=== PATIENT | female | born 1940 | race Caucasian/White ===

== ENCOUNTER 2020-04-10 09:42 | Emergency (ER) | payer MEDICARE, BC, OTHER ==
--- NOTE | 2020-04-10 10:47 | EDM.PDOC ---
ED HPI GENERAL MEDICAL PROBLEM - General Chief Complaint: General Time Seen by Provider: 04/10/20 09:55 Source of Information: Reports: Patient History Limitations: Reports: No Limitations - History of Present Illness INITIAL COMMENTS - FREE TEXT/NARRATIVE: Pt. presents to ER with complaints of "rubbery legs", fatigue, joint pain and nausea. She has not vomited. Denies any fever or chills. She states that she has not travelled recently. Pt. states that she is mildly short of breath intermittently, but states that she is always somewhat short of breath. Pt. states that these symptoms have been present for about a week. Pt. denies any substernal chest pain. No jaw, arm, neck or back pain. Denies any palpitations. Pt. states that she feels she is not drinking enough water. Denies any diarrhea. Pt. denies any dysuria, urgency, frequency or urination. Denies any urine discoloration. Denies bloody to tarry stools. Pt. states that the symptoms have been intermittent. She states that she was feeling normal yesterday, and worse this AM. Pt. denies any sore throat, rhinorrhea, or congestion. Onset: Today Onset Date: 04/02/20 Location: Reports: Chest, Abdomen, Generalized Severity: Mild - Related Data Allergies Allergy/AdvReac Type Severity Reaction Status Date / Time codeine AdvReac Nausea and Verified 04/10/20 09:56 Vomiting indomethacin [From Indocin] AdvReac Nausea and Verified 04/10/20 09:56 Vomiting indomethacin sodium AdvReac Nausea and Verified 04/10/20 09:56 [From Indocin] Vomiting Home Meds: Home Meds Cholecalciferol (Vitamin D3) [Vitamin D3] 1 cap PO DAILY 03/28/16 [History] Clobetasol Propionate/Emoll [Temovate Emollient 0.05%] 1 applic TOP Q7D 03/28/16 [History] Cranberry Fruit Extract [Cranberry] 2 cap PO TID 03/28/16 [History] Esomeprazole [NexIUM] 1 cap PO DAILY PRN 03/28/16 [History] Folic Acid 3 tab PO TID 03/28/16 [History] Glycerin/Propylene Glycol [Artificial Tears Drops] 2 drop EYEBOTH BID 03/28/16 [History] Losartan Potassium [Cozaar] 1 tab PO DAILY 03/28/16 [History] Multivitamin with Minerals [Multiple Vitamin] 1 tab PO BID 03/28/16 [History] Propranolol [Inderal] 1 tab PO TID 03/28/16 [History] traMADol HCl [Ultram] 1 tab PO Q6H PRN 03/28/16 [History] Cholestyramine (With Sugar) [Questran Powder] 4 gm PO DAILY 04/10/20 [History] Furosemide [Lasix] 20 mg PO DAILY 04/10/20 [History] Loperamide [Imodium] 2 mg PO ASDIRECTED PRN 04/10/20 [History] Ondansetron [Zofran ODT] 4 mg PO Q4H PRN 04/10/20 [History] Vit C/E/Zn/Coppr/Lutein/Zeaxan [Preservision Areds 2 Softgel] 1 each PO BID 04/10/20 [History] Warfarin Sodium [Coumadin] 2.5 mg PO ASDIRECTED 04/10/20 [History] amLODIPine [Norvasc] 5 mg PO DAILY 04/10/20 [History] estradioL [Estrace Vaginal] 1 applic VAG Q7D 04/10/20 [History] Past Medical History HEENT History: Reports: Allergic Rhinitis, Cataract Cardiovascular History: Reports: High Cholesterol, Hypertension Other Cardiovascular History: aortic regurgitation, svt Gastrointestinal History: Reports: GERD Other Gastrointestinal History: colitis Genitourinary History: Reports: UTI, Recurrent Musculoskeletal History: Reports: Osteoporosis Neurological History: Reports: Migraines Hematologic History: Reports: Anemia Social & Family History - Tobacco Use Smoking Status *Q: Never Smoker ED ROS GENERAL - Review of Systems Review Of Systems: See Below Constitutional: Reports: Malaise, Weakness, Fatigue HEENT: Reports: No Symptoms Respiratory: Reports: Shortness of Breath Cardiovascular: Reports: Lightheadedness Endocrine: Reports: Fatigue GI/Abdominal: Reports: No Symptoms : Reports: No Symptoms Musculoskeletal: Reports: Joint Pain Skin: Reports: No Symptoms Neurological: Reports: No Symptoms Psychiatric: Reports: No Symptoms Hematologic/Lymphatic: Reports: No Symptoms Immunologic: Reports: No Symptoms ED EXAM, GENERAL - Physical Exam Exam: See Below Exam Limited By: No Limitations General Appearance: Alert, WD/WN, No Apparent Distress Eye Exam: Bilateral Eye: EOMI, Normal Fundi, Normal Inspection, PERRL Nose: Normal Inspection, No Blood Throat/Mouth: Normal Inspection, Normal Lips, Normal Teeth, Normal Gums, Normal Oropharynx, Normal Voice, No Airway Compromise Head: Atraumatic, Normocephalic Neck: Normal Inspection, Supple, Non-Tender, Full Range of Motion Respiratory/Chest: No Respiratory Distress, Lungs Clear, Normal Breath Sounds, No Accessory Muscle Use, Chest Non-Tender Cardiovascular: Normal Peripheral Pulses, No Edema, No JVD, No Murmur, Irregularly Irregular Peripheral Pulses: 4+: Radial (L) GI/Abdominal: Normal Bowel Sounds, Soft, Non-Tender, No Distention, No Mass (Female) Exam: Deferred Rectal (Female) Exam: Deferred Back Exam: Normal Inspection, Full Range of Motion Extremities: Normal Inspection, Normal Range of Motion, Non-Tender, No Pedal Edema, Normal Capillary Refill Neurological: Alert, Oriented, CN II-XII Intact, Normal Cognition, Normal Gait, Normal Reflexes, No Motor/Sensory Deficits Psychiatric: Normal Affect, Normal Mood Skin Exam: Warm, Dry, Intact, Normal Color, No Rash Lymphatic: No Adenopathy EKG INTERPRETATION Rhythm: A-Fib Course - Vital Signs Last Recorded V/S: Last Vital Signs Temp 37.0 C 04/10/20 09:48 Pulse 90 04/10/20 09:48 Resp 16 04/10/20 09:48 BP 126/51 L 04/10/20 09:48 Pulse Ox 96 04/10/20 09:48 - Orders/Labs/Meds Orders: Active Orders 24 hr Category Date Time Status EKG Documentation Completion [RC] STAT Care 04/10/20 10:07 Active Labs: Laboratory Tests 04/10/20 04/10/20 04/10/20 Range/Units 10:15 10:46 10:46 WBC 11.5 H (4.0-10.0) x10^3/uL RBC 4.24 (4.00-5.50) x10^6/uL Hgb 12.9 (12.0-16.0) g/dL Hct 37.2 (33.0-47.0) % MCV 87.7 (78.0-93.0) fL MCH 30.4 (26.0-32.0) pg MCHC 34.7 (32.0-36.0) g/dL RDW Coeff of Alexx 13.9 (10.0-15.0) % Plt Count 281 (130-400) x10^3/uL Neut % (Auto) 79.1 (50.0-80.0) % Lymph % (Auto) 9.8 L (25.0-50.0) % [place] % (Auto) 10.6 (2.0-11.0) % Eos % (Auto) 0.3 (0.0-4.0) % Baso % (Auto) 0.2 (0.2-1.2) % PT 33.1 H (9.5-12.3) SEC INR 3.2 (2.0-3.5) Sodium (136-145) mmol/L Potassium (3.5-5.1) mmol/L Chloride (98-107) mmol/L Carbon Dioxide (21-32) mmol/L Anion Gap (10-20) mmol/L BUN (7-18) mg/dL Creatinine (0.55-1.02) mg/dL Est Cr Clr Drug Dosing Estimated GFR (MDRD) Glucose (74-106) mg/dL Calcium (8.5-10.1) mg/dL Corrected Calcium (8.5-10.1) mg/dL Magnesium (1.8-2.4) mg/dL Total Bilirubin (0.2-1.0) mg/dL AST (15-37) U/L ALT (14-59) U/L Alkaline Phosphatase (46-116) U/L Troponin I (<=0.056) ng/mL Total Protein (6.4-8.2) g/dL Albumin (3.4-5.0) g/dL Globulin Albumin/Globulin Ratio SARS-CoV-2 RNA (RT-PCR) Negative (NEGATIVE) 04/10/20 Range/Units 10:46 WBC (4.0-10.0) x10^3/uL RBC (4.00-5.50) x10^6/uL Hgb (12.0-16.0) g/dL Hct (33.0-47.0) % MCV (78.0-93.0) fL MCH (26.0-32.0) pg MCHC (32.0-36.0) g/dL RDW Coeff of Alexx (10.0-15.0) % Plt Count (130-400) x10^3/uL Neut % (Auto) (50.0-80.0) % Lymph % (Auto) (25.0-50.0) % [place] % (Auto) (2.0-11.0) % Eos % (Auto) (0.0-4.0) % Baso % (Auto) (0.2-1.2) % PT (9.5-12.3) SEC INR (2.0-3.5) Sodium 131 L (136-145) mmol/L Potassium 4.6 (3.5-5.1) mmol/L Chloride 93 L (98-107) mmol/L Carbon Dioxide 29 (21-32) mmol/L Anion Gap 13.6 (10-20) mmol/L BUN 13 (7-18) mg/dL Creatinine 0.9 (0.55-1.02) mg/dL Est Cr Clr Drug Dosing TNP Estimated GFR (MDRD) > 60 Glucose 110 H (74-106) mg/dL Calcium 9.6 (8.5-10.1) mg/dL Corrected Calcium 10.24 H (8.5-10.1) mg/dL Magnesium 1.8 (1.8-2.4) mg/dL Total Bilirubin 0.9 (0.2-1.0) mg/dL AST 25 (15-37) U/L ALT 28 (14-59) U/L Alkaline Phosphatase 163 H (46-116) U/L Troponin I 0.021 (<=0.056) ng/mL Total Protein 7.4 (6.4-8.2) g/dL Albumin 3.2 L (3.4-5.0) g/dL Globulin 4.2 Albumin/Globulin Ratio 0.76 SARS-CoV-2 RNA (RT-PCR) (NEGATIVE) Departure - Departure Time of Disposition: 10:30 Disposition: Home, Self-Care 01 Clinical Impression: UTI (urinary tract infection) - Discharge Information Instructions: Dehydration, Adult, [id number] Referrals: Kimber Bullard DO [Primary Care Provider] - Forms: ED Department Discharge Additional Instructions: Home to rest. Bactrim DS 1 twice daily for 5 days Drink plenty of fluids, including powerade or gatorade in addition to water. Try to stay out of the sun. Bring sample of urine to ER when able to go to the bathroom. Recheck in clinic in 7-10 days Sepsis Event Note (ED) - Evaluation Sepsis Screening Result: No Definite Risk - My Orders Last 24 Hours: My Active Orders 04/10/20 10:07 EKG Documentation Completion [RC] STAT - Assessment/Plan Last 24 Hours: My Active Orders 04/10/20 10:07 EKG Documentation Completion [RC] STAT
[2020-04-10 11:12] LABS: ANION GAP 13.6 mmol/L (10-20); CHLORIDE,CL 93 mmol/L (98-107); SODIUM,NA 131 mmol/L (136-145)
[2020-04-10] MEDS ORDERED: Sulfamethoxazole/Trimethoprim 800-160 MG Tab ONE (11:20)
== END 2020-04-10 11:29 | disposition home or self-care (01) ==
LOC: VM.ED 09:42
DX: N39.0 Urinary tract infection, site not specified (principal); I10 Essential (primary) hypertension; K21.9 Gastro-esophageal reflux disease without esophagitis; I48.91 Unspecified atrial fibrillation; Z20.828 Contact with and (suspected) exposure to other viral communicable diseases; Z88.5 Allergy status to narcotic agent; Z79.899 Other long term (current) drug therapy; Z88.6 Allergy status to analgesic agent
CPT/HCPCS: 36415; 80053; 83735; 84484; 85025; 85610; 99283; U0002; 93010; 99284-GF; A9270-GY

== ENCOUNTER 2021-03-24 03:15 | Emergency (ER) | payer MEDICARE, BC ==
--- NOTE | 2021-03-24 04:09 | EDM.PDOC ---
ED HPI GENERAL MEDICAL PROBLEM - General Chief Complaint: Lower Extremity Injury/Pain Stated Complaint: Fall, left hip pain Time Seen by Provider: 03/24/21 03:45 Source of Information: Reports: Patient, EMS, Family History Limitations: Reports: No Limitations - History of Present Illness INITIAL COMMENTS - FREE TEXT/NARRATIVE: Patient states she was tried to transfer off the toilet sliding when she slipped fell down on her left side on her hip causing a sharp sudden pain. She denies any head injury or loss of consciousness EMS was called to the house and transported here to the ER. She also has a superficial skin tear to the left forearm she denies any loss of function or decreased range of motion with the left arm and no pain over the area She rates her pain in the hip with movement about a 5 out of 10 she denies any numbness or tingling or coldness to the extremity Onset: Sudden Duration: Minutes: Location: Reports: Upper Extremity, Left, Lower Extremity, Left Quality: Reports: Pressure, Throbbing Severity: Mild Improves with: Reports: Rest Worsens with: Reports: Movement Associated Symptoms: Reports: No Other Symptoms Left hip Pain Score (Numeric/FACES): 5 - Related Data Allergies Allergy/AdvReac Type Severity Reaction Status Date / Time codeine AdvReac Nausea and Verified 03/24/21 04:03 Vomiting indomethacin [From Indocin] AdvReac Nausea and Verified 03/24/21 04:03 Vomiting indomethacin sodium AdvReac Nausea and Verified 03/24/21 04:03 [From Indocin] Vomiting Home Meds: Home Meds Cholecalciferol (Vitamin D3) [Vitamin D3] 1 cap PO DAILY 03/28/16 [History] Clobetasol Propionate/Emoll [Temovate Emollient 0.05%] 1 applic TOP Q7D 03/28/16 [History] Cranberry Fruit Extract [Cranberry] 2 cap PO TID 03/28/16 [History] Esomeprazole [NexIUM] 1 cap PO DAILY PRN 03/28/16 [History] Folic Acid 3 tab PO TID 03/28/16 [History] Glycerin/Propylene Glycol [Artificial Tears Drops] 2 drop EYEBOTH BID 03/28/16 [History] Losartan Potassium [Cozaar] 1 tab PO DAILY 03/28/16 [History] Multivitamin with Minerals [Multiple Vitamin] 1 tab PO BID 03/28/16 [History] Propranolol [Inderal] 1 tab PO TID 03/28/16 [History] traMADol HCl [Ultram] 1 tab PO Q6H PRN 03/28/16 [History] Cholestyramine (With Sugar) [Questran Powder] 4 gm PO DAILY 04/10/20 [History] Furosemide [Lasix] 20 mg PO DAILY 04/10/20 [History] Loperamide [Imodium] 2 mg PO ASDIRECTED PRN 04/10/20 [History] Ondansetron [Zofran ODT] 4 mg PO Q4H PRN 04/10/20 [History] Vit C/E/Zn/Coppr/Lutein/Zeaxan [Preservision Areds 2 Softgel] 1 each PO BID 04/10/20 [History] Warfarin Sodium [Coumadin] 2.5 mg PO ASDIRECTED 04/10/20 [History] amLODIPine [Norvasc] 5 mg PO DAILY 04/10/20 [History] estradioL [Estrace Vaginal] 1 applic VAG Q7D 04/10/20 [History] Past Medical History HEENT History: Reports: Allergic Rhinitis, Cataract Cardiovascular History: Reports: High Cholesterol, Hypertension Other Cardiovascular History: aortic regurgitation, svt Gastrointestinal History: Reports: GERD Other Gastrointestinal History: colitis Genitourinary History: Reports: UTI, Recurrent Musculoskeletal History: Reports: Osteoporosis Neurological History: Reports: Migraines Hematologic History: Reports: Anemia Review of Systems - Review of Systems Review Of Systems: See Below Constitutional: Reports: No Symptoms Eyes: Reports: No Symptoms Ears: Reports: No Symptoms Nose: Reports: No Symptoms Mouth/Throat: Reports: No Symptoms Respiratory: Reports: No Symptoms Cardiovascular: Reports: No Symptoms GI/Abdominal: Reports: No Symptoms Musculoskeletal: Reports: Leg Pain Skin: Reports: No Symptoms Neurological: Reports: No Symptoms Psychiatric: Reports: No Symptoms ED EXAM, GENERAL - Physical Exam Exam: See Below Exam Limited By: No Limitations General Appearance: Alert, WD/WN, No Apparent Distress Eye Exam: Bilateral Eye: EOMI, Normal Inspection, PERRL Ears: Normal External Exam, Normal Canal, Hearing Grossly Normal, Normal TMs Nose: Normal Inspection, Normal Mucosa, No Blood Throat/Mouth: Normal Inspection, Normal Lips, Normal Teeth, Normal Gums, Normal Oropharynx, Normal Voice, No Airway Compromise Head: Atraumatic, Normocephalic Neck: Normal Inspection, Supple, Non-Tender Respiratory/Chest: No Respiratory Distress, Lungs Clear, Normal Breath Sounds, No Accessory Muscle Use, Chest Non-Tender Cardiovascular: Normal Peripheral Pulses, Regular Rate, Rhythm, No Edema, No Gallop, No JVD, No Murmur, No Rub GI/Abdominal: Normal Bowel Sounds, Soft, Non-Tender, No Organomegaly, No Distention, Pelvis Stable Back Exam: Normal Inspection. No: Full Range of Motion Extremities: Normal Inspection, No Pedal Edema, Normal Capillary Refill, Other. No: Normal Range of Motion, Non-Tender Neurological: Alert, Oriented, CN II-XII Intact, Normal Cognition, No Motor/Sensory Deficits Psychiatric: Normal Affect, Normal Mood Skin Exam: Warm, Dry, Intact, Normal Color, No Rash Course - Vital Signs Text/Narrative:: CBC BMP INR left hip series morphine 2 mg Zofran 4 mg IV X-ray left hip positive femoral neck fracture Wilber 1 call was called spoke with hospitalist Dr. PICKARD 2006 Hemoglobin hematocrit 10 and 31 Last Recorded V/S: Last Vital Signs Temp 36.7 C 03/24/21 03:15 Pulse 90 03/24/21 03:15 Resp 16 03/24/21 03:15 BP 144/49 H 03/24/21 03:15 Pulse Ox 97 03/24/21 03:15 - Orders/Labs/Meds Orders: Active Orders 24 hr Category Date Time Status Hip Min 2V or 3V Lt [CR] Stat Exams 03/24/21 04:00 Ordered BASIC METABOLIC PANEL,BMP [CHEM] Stat Lab 03/24/21 04:02 Ordered INR,PT,PROTHROMBIN TIME [COAG] Stat Lab 03/24/21 04:02 Ordered Labs: Laboratory Tests 03/24/21 Range/Units 04:10 WBC 9.4 (4.0-10.0) x10^3/uL RBC 3.42 L (4.00-5.50) x10^6/uL Hgb 10.8 L D (12.0-16.0) g/dL Hct 31.7 L (33.0-47.0) % MCV 92.7 D (78.0-93.0) fL MCH 31.6 (26.0-32.0) pg MCHC 34.1 (32.0-36.0) g/dL RDW Coeff of Alexx 13.4 (10.0-15.0) % Plt Count 175 D (130-400) x10^3/uL Neut % (Auto) 76.9 (50.0-80.0) % Lymph % (Auto) 10.6 L (25.0-50.0) % [place] % (Auto) 11.1 H (2.0-11.0) % Eos % (Auto) 1.1 (0.0-4.0) % Baso % (Auto) 0.3 (0.2-1.2) % Meds: Medications Discontinued Medications Generic Name Dose Route Start Last Admin Trade Name Freq PRN Reason Stop Dose Admin Morphine Sulfate 2 mg 03/24/21 04:02 Morphine 2 Mg/Ml Syringe IVPUSH 03/24/21 04:03 ONETIME ONE Ondansetron HCl 4 mg 03/24/21 04:02 Ondansetron 4 Mg/2 Ml Sdv IVPUSH 03/24/21 04:03 ONETIME ONE Departure - Departure Time of Disposition: 04:25 Disposition: DC/[facility]fer to [facility] 02 Condition: Good Clinical Impression: Femoral neck fracture, High risk medication use - Discharge Information *PRESCRIPTION DRUG MONITORING PROGRAM REVIEWED*: No *COPY OF PRESCRIPTION DRUG MONITORING REPORT IN PATIENT LONG: No Forms: ED Department Discharge, Interfacility Transfer SALLY Sepsis Event Note (ED) - Focused Exam Vital Signs: Vital Signs Temp Pulse Resp BP Pulse Ox 03/24/21 03:15 36.7 C 90 16 144/49 H 97 - Problem List & Annotations (1) Femoral neck fracture SNOMED Code(s): 1523261 Code(s): S72.009A - FRACTURE OF UNSP PART OF NECK OF UNSP FEMUR, INIT Status: Acute (2) High risk medication use SNOMED Code(s): 817409317, 638563416 Code(s): Z79.899 - OTHER SUPPLY PERSON (CURRENT) DRUG THERAPY Status: Acute (3) Skin tear of left upper extremity SNOMED Code(s): 416086596, 092323196 Code(s): S41.112A - LACERATION W/O FOREIGN BODY OF LEFT UPPER ARM, INIT ENCNTR Status: Acute - My Orders Last 24 Hours: My Active Orders 03/24/21 04:00 Hip Min 2V or 3V Lt [CR] Stat 03/24/21 04:02 BASIC METABOLIC PANEL,BMP [CHEM] Stat INR,PT,PROTHROMBIN TIME [COAG] Stat - Assessment/Plan Last 24 Hours: My Active Orders 03/24/21 04:00 Hip Min 2V or 3V Lt [CR] Stat 03/24/21 04:02 BASIC METABOLIC PANEL,BMP [CHEM] Stat INR,PT,PROTHROMBIN TIME [COAG] Stat
[2021-03-24] MEDS: Ondansetron 4 MG/2 ML SDV IVPUSH ONE (04:13)
[2021-03-24] MEDS: Morphine 2 MG/ML SYRINGE IVPUSH ONE ×2 (04:15→05:25)
[2021-03-24 04:30] LABS: CHLORIDE,CL 101 mmol/L (98-107); SODIUM,NA 137 mmol/L (136-145)
[2021-03-24 04:33] LABS: ANION GAP 12.1 mmol/L (5-15)
--- NOTE | 2021-03-24 07:49 | CR ---
[id number] RAD/RAD Hip Left 2-3V EXAM: RAD Hip Left 2-3V INDICATION: FALL COMPARISON: None. DISCUSSION: There is an acute comminuted, displaced and foreshortened intertrochanteric left hip fracture. Left hip joint space is maintained. Osteopenia. No other osseous abnormality. IMPRESSION: 1. Acute comminuted and displaced intertrochanteric left hip fracture. Mike Castillo MD 03/24/21 0748 Thank you for allowing us to participate in the care of your patient.
--- OUTSIDE RECORDS SUMMARY | 2021-03-25 08:05 | XMSREPORT ---
:1940 Author Organization [facility] s Address [address] [place] [address] [address] [place] [address] Care Team Providers Name Role Phone DO Juan Miguel Primary Care Provider Juan MiguelDO Attributed Provider Reason for Referral (Routine) Status Reason Specialty Diagnoses / Procedures Referred By Jenna reynolds Referred To Contact [address] [address] Phone: [phone] Prior Auth (Routine) Status Reason Specialty Diagnoses / Referred By Referred To Procedures Contact Contact NOT REQUIRED Diagnoses S/P mitral valve clip implantation Mitral valve insufficiency, unspecified etiology Nick Mensah, Procedures ECHO ADULT COMPLETE PA-C [address] [place] [id number] Prior Auth (Routine) Status Reason Specialty Diagnoses / Referred By Referred To Procedures Contact Contact NOT REQUIRED Diagnoses S/P mitral valve clip implantation Mitral valve insufficiency, unspecified etiology Nick Mensah, Fgo C ardiology Sc Procedures EKG PA-C [address] [place] [address] [phone] Phone: Fax: Reason for Visit Auth/Cert Status Reason Specialty Diagnoses / Procedures Referred By Jenna ontact Referred To Contact Diagnoses Nonrheumatic mitral (valve) insufficiency Procedures TRANSCATHETER MITRAL VALVE REPAIR PERCUT APPROACH INITIAL PROSTHESIS Encounter Details Date Type Department Care Team Description 03/22/2021 - Hospital Encounter [facility] Nacho Gabriel, S/P mitral valve 03/23/2021 [facility] DO clip implantation [address] [place] [address] [place] [address] [phone] Allergies Active Allergy Reactions Severity Noted Date Comments Codeine Nausea and Vomiting, 11/04/2012 Diarrhea Doxycycline Nausea and Vomiting 02/28/2018 Weak, le gs rubbery, N/V Indomethacin Nausea and Vomiting, 11/04/2012 Diarrhea Promethazine Headache 07/08/2018 Sulfamethoxazole Other (Specify in 05/22/2016 [place] v rahul sick W-Trimethoprim Comments) documented as of this encounter (statuses as of 03/23/2021) Medications Medication Sig Dispensed Refills Start Date End Date Status cranberry 450 MG Take 2 capsules by 90 capsule 0 01/16/2013 Active capsule mouth 3 times a day with meals Multiple Take 1 capsule by 0 Ac tive Vitamins-Minerals mouth 2 times a day (PRESERVISION AREDS 2) CAPS esomeprazole Take 1 capsule by 90 capsule 1 08/27/2014 Active (NEXIUM) 20 mg mouth 1 time a day capsule as needed for other (Specify) (Reflux symptoms). vitamin D3, Take 2,000 Units by 30 capsule 0 04/08/2015 Active cholecalciferol, mouth 1 time per day 1000 unit capsule artificial tears 1.4 Place 1 drop into 0 04/13/2016 Active % SOLN both eyes Every 4 hours as needed for dry eyes folic acid 1 mg Take 1 mg by mouth 1 0 Active tablet time per day Loperamide HCl Take 1-2 tablets by 0 Active (IMODIUM PO) mouth as needed (2 tablets with initial loose stool and 1 tablet as needed thereafter not to exceed 8 tabs per day) Probiotic Product Take 1 capsule by 0 Active (PROBIOTIC DAILY PO) mouth 1 time a day as needed furosemide (LASIX) Take 1 tablet (20 180 tablet 3 06/11/2020 0 Active 20 mg mg) by mouth 2 times 1 tabletIndications: a day Essential hypertension warfarin (COUMADIN) [facility] 90 tablet 4 07/02/2020 Active 2.5 MG Anticoagulation tabletIndications: Pt:Take as directed. Paroxysmal atrial (Insurance Purposes: fibrillation (HCC), 2.5-5 mg daily dose skilled nursing (current) range) Call use of [phone] if ? anticoagulants traMADol (ULTRAM) 50 Take 1 tablet (50 20 tablet 4 09/03/2020 Active mg mg) by mouth every 6 tabletIndications: hours as needed for Dyspnea on exertion moderate pain clobetasol Apply to affected 30 g 6 10/25/2020 Active propionate area 1 time a week (TEMOVATE) 0.05 % ointmentIndications: Lichen sclerosus et atrophicus of the vulva Additional Information Patient taking differently: affected area Every week prn, rash, Informant: Self, Reported on 03/22/2021 estradiol (ESTRACE Insert 2 g 42.5 g 3 10/25/2020 Active VAGINAL) 0.01% vaginal vaginally 1 time creamIndications: a week Atrophic vaginitis losartan 50 mg Take 1 tablet (50 90 tablet 3 01/04/2021 Active tabletIndications: mg) by mouth 1 Hypertension, time per day unspecified type acetaminophen Take 1,000 mg by 0 Active (TYLENOL) 500 mg mouth every 6 tablet hours as needed for mild pain metoprolol succinate Take 2 tablets 180 tablet 3 03/23/2021 Active (TOPROL XL) 25 mg SR (50 mg) in the tablet (24 morning and 1 hr)Indications: tablet (25 mg) in Essential the evening. hypertension, Atrial fibrillation, unspecified type ([facility]) aspirin (ECOTRIN LOW Take 1 tablet (81 30 tablet 0 03/24/2021 Active STRENGTH) 81 MG mg) by mouth 1 enteric coated time per day tabletIndications: S/P mitral valve clip implantation, Mitral valve insufficiency, unspecified etiology amoxicillin (AMOXIL) Take 4 capsules 8 capsule 1 03/23/2021 Active 500 mg (2,000 mg) by capsuleIndications: mouth as needed S/P mitral valve clip for other implantation, Mitral (Specify) (Single valve insufficiency, dose 30-60 unspecified etiology minutes before dental procedures) vitamin C, ascorbic Take 500 mg by 0 03/22 Discontinued acid, 500 MG tablet mouth as needed (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) docusate sodium Take 100 mg by 0 03/22 Discontinued (COLACE) 100 mg mouth as needed (printed circuit board panels developer capsule for constipation err or) metoprolol succinate Take 1 tablet (25 180 tablet 3 01/04/202103/23 Discontinued (TOPROL XL) 25 mg SR mg) by mouth (Reorder) tablet (24 times a day hr)Indications: Essential hypertension, Atrial fibrillation, unspecified type (HCC) documented as of this encounter (statuses as of 03/23/2021) Active Problems Problem Noted Date S/P mitral valve clip implantation 03/22/2021 MR (mitral regurgitation) 03/22/2021 Non-rheumatic mitral regurgitation 01/28/2021 skilled nursing (current) use of anticoagulants 08/04/2019 Paroxysmal atrial fibrillation 07/31/2019 Overview: Asymptomatic CHADsVAsc 4 07/26 on ASA re commended to start Coumadin/Xarelto/Eliquis. 09/26 Her Lexiscan showed her to have a small fixed area of reduced uptake in the left ventricle potentially a small infarct and no evidence of stress induc ed ischemia. Her EF was estimated at 39 %. Hyponatremia 01/22/2019 Diarrhea 01/22/2019 Forgetfulness 01/22/2019 Right ovarian cyst 07/22/2018 Recurrent UTI 01/25/2018 Tubular adenoma of colon 02/05/2017 Overview: Colonoscopy on 03/30/16. Diverticulosis. Tubular adenoma, diverticulitis 01/22 augmentin helped Hypercalcemia 04/13/2016 Lower urinary tract infectious disease 12/10/2012 Overview: E. Coli in 08/19, enterobacter in 06/20, 08/20, 02/18, and 04/20, renal US and urology consult with cystoscopy ok in 2013, UTI again 03/22, 04/21 Enterobactor tx with cipro. >100,000 CFU/mL Enterobacter c loacae complex 01/21 got ill from bactrim so started cipro, did well with Cipro had sx again in 05/23 cipro prescribed. UTI again 12/22 Cipro again but enterococcus grew so switch to amoxicillin. Enteroc occus 12/23 and got Cipro, cipro again in 01/23, UTI again in 03/25 amoxicillin prescribed, citrobacter was resistant to amoxicillin so cipro started, klebsiella cipro again. klebsiella got Macrobid Anemia 02/28/2011 Overview: Refractory, proliferative, and macrocyti c, neg bone marrow 05/18 on folate followed by Dr. Goddard She had a hemoglobin in the 13 range in November of 2009. At the time of her physical on February 16, it was down to 11.5, and on repeat on March 31 it is down to 10.7. Retic count, TSH, serum iron/TiBC, folate, B 12 OK. Serum ferritin elevated . Sed rate slightly elevated. History of anemia associated with heavy menstrual flow and several years ago again treated with iron by Dr. Reese. Bruises easilly-lifelong. Mother had iron supplements. No bleeding history. Hypertriglyceridemia 02/16/2011 Microscopic hematuria 11/29/2009 Supraventricular premature beats 11/29/2009 Overview: Dig stopped in 08/18, metoprolol started 02/16 change to propranolol 08/19 Paroxysmal atrial tachycardia that appea rs to be ectopic atrial tachycardia, probably from more than one focus in the atrium. Had EP consult in 2008 Chronic rhinitis 01/21/2009 GERD (gastroesophageal reflux disease) 10/23/2006 Overview: Moderate had EGD 08 Collagenous colitis 10/23/2006 Aortic regurgitation 12/04/2005 Overview: Mod echo 2010 and 2012. EF 65 % in 2016 and AR had actually improved Hypertension Overview: hctz stopped due to hypercalcemia in 5 and doing well off that medication, lasix started in 2018, inderal and also losartan. Norvasc added 03/26 Lichen sclerosus et atrophicus of the vulva Overview: Premarin and testosterone creams, saw GY N uses clobetasol Osteoporosis Overview: dexa improved in 01/17 had been on evista until 08/18 and also took fosamax in the past (T -1.5 of the hip) major 8.9, hip 1.6 %, stable 04/20 Migraine Overview: On fiorinal for years, decreasing doses after propranolol started in 08/19 Dense breast Dysfunction of eustachian tube documented as of this encounter (statuses as of 03/23/2021) Resolved Problems Problem Noted Date Resolved Date On rivaroxaban therapy 08/04/2019 08/04/2019 Screening for condition 02/16/2011 01/16/2013 Tachycardia 02/26/2009 12/10/2012 documented as of this encounter (statuses as of 03/23/2021) Immunizations Name Administration Dates Next Due FLU VACCINE HIGH DOSE 65YR+(Fluzone) 06/29/2020, 07/31/2019, 07/02/2018, 07/09/2017, 07/09/2017, 07/31/2016, 07/15/2015, 07/22/2014, 07/07/2013 Moderna COVID-19 Vaccine 12/02/2020 Pneumococcal Conj PCV13 03/15/2015 Pneumococcal Polysaccharide PPSV23 07/14/2010 TDAP 02/23/2012 Td(adult)preservative free 05/05/1996 Zoster Live(Zostavax) 08/19/2012 Zoster Recombinant (Shingrix) 10/04/2020, 07/13/2020 documented as of this encounter Social History Tobacco Use Types Packs/Day Years Used Date Never Smoker Smokeless Tobacco: Never Used Alcohol Use Standard Drinks/Week Comments No 0 (1 standard drink = 0.6 oz pure alcoho l) Alcohol Habits Answer Date Recorded How often do you have a drink containing alcohol? Never 03/22/2021 How many drinks containing alcohol do you have on a typical Not asked day when you are drinking? How often do you have six or more drinks on one occasion? No t asked Sex Assigned at Date Recorded Not on file documented as of this encounter Last Filed Vital Signs Vital Sign Reading Time Taken Comments Blood Pressure 118/61 03/23/2021 11:15 AM CDT Pulse 67 03/23/2021 11:15 AM CDT Temperature 36.7 C (98 F) 03/23/2021 11:15 AM CDT Respiratory Rate 16 03/23/2021 11:15 AM CDT Oxygen Saturation 92% 03/23/2021 11:15 AM CDT Inhaled Oxygen Concentration - - Weight 46.7 kg (103 lb) 03/22/2021 12:36 PM CDT Height 157.5 cm (5' 2") 03/22/2021 12:36 PM CDT Body Mass Index 18.84 03/22/2021 12:36 PM CDT documented in this encounter Functional Status Functional Status Response Date of Assessment Is the person deaf or does he/she have serious difficulty No 06/20/2018 hearing? Is this person blind or does he/she have difficulty No 06/20/2018 seeing even when wearing glasses? Do you have difficulty with walking, balance, climbing Yes 03/21/2021 stairs, or had a fall in the last 3 months? documented as of this encounter Discharge Summaries Not on filedocumented in this encounter Discharge Instructions Tia Starks RN - 03/23/2021 Warfarin Discharge Instructions: Warfarin dose given 03/23/21 in the hospital. Starting tomorrow (03/24/21) continue home dose of warfarin 1.25 mg daily and recheck INR 03/29/21. documented in this encounter Medications at Time of Discharge Medication Sig Dispensed Refills Start Date End Date metoprolol succinate Take 2 tablets (50 mg) 180 tablet 3 (TOPROL XL) 25 mg SR in the morning and 1 tablet (24 tablet (25 mg) in the hr)Indications: evening. Essential hypertension, Atrial fibrillation, unspecified type (HCC) aspirin (ECOTRIN LOW Take 1 tablet (81 mg) 30 tablet 0 03/08 STRENGTH) 81 MG by mouth 1 time per enteric coated day tabletIndications: S/P mitral valve clip implantation, Mitral valve insufficiency, unspecified etiology acetaminophen Take 1,000 mg by mouth 0 (TYLENOL) 500 mg every 6 hours as tablet needed for mild pain losartan 50 mg Take 1 tablet (50 mg) 90 tablet 3 01/04/2021 tabletIndications: by mouth 1 time per Hypertension, day unspecified type clobetasol propionate Apply to affected area 30 g 6 (TEMOVATE) 0.05 % 1 time a week ointmentIndications: Lichen sclerosus et atrophicus of the vulva estradiol (ESTRACE Insert 2 g vaginally 1 42.5 g 3 10/25 VAGINAL) 0.01% vaginal time a week creamIndications: Atrophic vaginitis traMADol (ULTRAM) 50 Take 1 tablet (50 mg) 20 tablet 4 08/09 mg tabletIndications: by mouth every 6 hours Dyspnea on exertion as needed for moderate pain warfarin (COUMADIN) [facility] 90 tablet 4 07/02/2020 2.5 MG Anticoagulation tabletIndications: Pt:Take as directed. 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 furosemide (LASIX) 20 Take 1 tablet (20 mg) 180 tablet 3 01/202006/16/2021 mg tabletIndications: by mouth 2 times a day Essential hypertension Probiotic Product Take 1 capsule by 0 (PROBIOTIC DAILY PO) mouth 1 time a day as needed folic acid 1 mg tablet Take 1 mg by mouth 1 0 time per day Loperamide HCl Take 1-2 tablets by 0 (IMODIUM PO) mouth as needed (2 tablets with initial loose stool and 1 tablet as needed thereafter not to exceed 8 tabs per day) artificial tears 1.4 % Place 1 drop into both 0 0 04/13/2016 SOLN eyes Every 4 hours as needed for dry eyes vitamin D3, Take 2,000 Units by 30 capsule 0 04/08/2015 cholecalciferol, 1000 mouth 1 time per day unit capsule Multiple Take 1 capsule by 0 Vitamins-Minerals mouth 2 times a day (PRESERVISION AREDS 2) CAPS esomeprazole (NEXIUM) Take 1 capsule by 90 capsule 1 014 20 mg capsule mouth 1 time a day as needed for other (Specify) (Reflux symptoms). cranberry 450 MG Take 2 capsules by 90 capsule 0 01/16/2013 capsule mouth 3 times a day with meals amoxicillin (AMOXIL) Take 4 capsules (2,000 8 capsule 1 500 mg mg) by mouth as needed capsuleIndications: for other (Specify) S/P mitral valve clip (Single dose 30-60 implantation, Mitral minutes before dental valve insufficiency, procedures) unspecified etiology documented as of this encounter Progress Notes Divine Perez PHARM D - 03/22/2021 4:38 PM CDT Warfarin Initial Consult Note Ms. Bullard has been initiated on warfarin per pharmacy protocol for atrial fibrillation. Desired goal INR is 2-3. Patient has previously been on anticoagulation therapy. Previous dose was 1.25 mg every day. Labs: Lab Results Component Value Date INR 1.2 (L) 03/21/2021 PT 14.7 (H) 03/21/2021 Protime Date/Time Value Ref Range Status 03/21/2021 01:37 PM 14.7 (H) 12.0 - 14.5 secs Final INR Date/Time Value Ref Range Status 03/21/2021 01:37 PM 1.2 (L) 2.0 - 3.5 Final 03/21/2021 08:15 AM 1.2 (L) 2.0 - 3.5 Final 03/15/2021 08:09 AM 2.0 2.0 - 3.5 Final Platelet Count Date/Time Value Ref Range Status 03/21/2021 01:37 PM 208 140 - 400 K/uL Final 03/15/2015 02:43 PM 405 (H) 140 - 400 K/uL Final Hemoglobin Date/Time Value Ref Range Status 03/22/2021 10:30 AM 11.1 (L) 11.5 - 15.8 g/dL Final 03/15/2015 02:43 PM 12.3 11.5 - 15.8 g/dL Final Plan: Warfarin: 1.25 mg today. Pharmacy will monitor and if indicated, adjust dose per the anticoagulation policy. Thank you very much for the consult. Divine Perez, FlorD, BCPS Elvia Sorensen [facility] - 03/22/2021 8:34 AM CDT 03/22/2021 8:34 AM CDT - Patient was seen by pharmacy. HOME MEDICATIONS have been reconciled and updated to match the patient's home usage. Current dose of Warfarin is 1.25mg daily. Medications removed: Docusate, Vit C Prior to Admission Medications Prescriptions Last Dose Informant Patient Reported? Taking? Loperamide HCl (IMODIUM PO) 03/21/2021 at 2300 Self Yes Yes Sig: Take 1-2 tablets by mouth as needed (2 tablets with initial loose stool and 1 tablet as needed thereafter not to exceed 8 tabs per day) Multiple Vitamins-Minerals (PRESERVISION AREDS 2) CAPS 03/21/2021 at PM Self Yes Yes Sig: Take 1 capsule by mouth 2 times a day Probiotic Product (PROBIOTIC DAILY PO) Greater than 1 Month at Unknown time Self Yes Yes Sig: Take 1 capsule by mouth 1 time a day as needed acetaminophen (TYLENOL) 500 mg tablet Past Week at Unknown time Self Yes Yes Sig: Take 1,000 mg by mouth every 6 hours as needed for mild pain artificial tears 1.4 % SOLN Past Week at Unknown time Self Yes Yes Sig: Place 1 drop into both eyes Every 4 hours as needed for dry eyes clobetasol propionate (TEMOVATE) 0.05 % ointment Past Month at Unknown time Self No Yes Sig: Apply to affected area 1 time a week Patient taking differently: Apply to affected area Every week as needed for rash cranberry 450 MG capsule 03/21/2021 at HS Self Yes Yes Sig: Take 2 capsules by mouth 3 times a day with meals esomeprazole (NEXIUM) 20 mg capsule Past Week at Unknown time Self Yes Yes Sig: Take 1 capsule by mouth 1 time a day as needed for other (Specify) (Reflux symptoms). estradiol (ESTRACE VAGINAL) 0.01% vaginal cream Past Week at Unknown time Self No Yes Sig: Insert 2 g vaginally 1 time a week folic acid 1 mg tablet 03/21/2021 at Unknown time Self Yes Yes Sig: Take 1 mg by mouth 1 time per day furosemide (LASIX) 20 mg tablet 03/21/2021 at AM Self No Yes Sig: Take 1 tablet (20 mg) by mouth 2 times a day losartan 50 mg tablet 03/21/2021 at AM Self No Yes Sig: Take 1 tablet (50 mg) by mouth 1 time per day metoprolol succinate (TOPROL XL) 25 mg SR tablet (24 hr) 03/22/2021 at 0500 Self No Yes Sig: Take 1 tablet (25 mg) by mouth 2 times a day traMADol (ULTRAM) 50 mg tablet Past Month at Unknown time Self No Yes Sig: Take 1 tablet (50 mg) by mouth every 6 hours as needed for moderate pain vitamin D3, cholecalciferol, 1000 unit capsule Past Week at Unknown time Self Yes Yes Sig: Take 2,000 Units by mouth 1 time per day warfarin (COUMADIN) 2.5 MG tablet 03/17/2021 at 2000 Self No Yes Sig: [facility] Anticoagulation Pt:Take as directed. (Insurance Purposes: 2.5-5 mg daily dose range) Call [phone] if ? Facility-Administered Medications: None Elvia Sorensen [facility] documented in this encounter Miscellaneous Notes Care Planning - Tia Henson RN - 03/23/2021 1:34 PM CDT Problem: DECREASED CARDIAC OUTPUT Goal: CARDIAC PUMP EFFECTIVENESS Description: DEFINITION: Adequacy of blood volume ejected from the left ventricle to support systemic perfusion pressure. 1 = Severe deviation from normal range, 2 = Substantial deviation from normal range, 3 = Moderate deviation from normal range, 4 = Mild deviation from normal range, 5 = No deviation from normal range. Outcome: Outcome acceptable for discharge Cardiac Rehab - Rosa Muniz EP - 03/23/2021 8:45 AM CDT Cardiac Rehab Phase 1 Inpatient Note: Diagnosis: mitral clip Physical Activity Completed: Ambulate in ly Distance Ambulated: 275 feet Ambulation Assistance: SBA/independent Patient response to Exercise: good Exercise Comments: Steady gait.Moving well. Just slightly short of breath but improved from before she states. Able to talk while walking. Gaitbelt used with activity Vitals Resting Heart Rate - 104 bpm Exercise Heart Rate - 125 bpm O2 Device - RA Exercise SpO2 - 97% Assessment/Plan: Tolerates activity well. Encouraged patient to ambulate in hallway 3-4 times daily as tolerated with gradual progression. -Progress as tolerated -Patient may self ambulate -Patient referred to outpatient Cardiac Rehab program -Continue to follow until until Discharge -Home activity and exercise teaching completed Recommendation: "Outpatient Cardiac Rehab in [place] in one month Continue Inpatient Cardiac Rehab Plan of Care daily until discharge. Cardiac Rehab Alpha Pager: [phone] Clinical Team - Rosetta Grimes RN - 03/23/2021 5:35 AM CDT 1954: HR substaining 140-190bpm when ambulating in room. MD notified. 5mg IV metoprolol given. HR came down to 80-110 bpm. Patients HR continues to increase to 190 bpm when up to toilet, after 5-10 minof rest patient HR within normal range 80-110. 0340: Patient up to bathroom. HR only up to 120 bpm and HR returned WNL 80-90s more quickly. AAOX4. RA. Denies pain. C/O mild SOBE. Right groin site clean/dry an soft without any hematoma. Large bruising to right hand. Up self. Care Planning - Rosetta Grimes RN - 03/22/2021 9:00 PM CDT Problem: DECREASED CARDIAC OUTPUT Goal: CARDIAC PUMP EFFECTIVENESS Description: DEFINITION: Adequacy of blood volume ejected from the left ventricle to support systemic perfusion pressure. 1 = Severe deviation from normal range, 2 = Substantial deviation from normal range, 3 = Moderate deviation from normal range, 4 = Mild deviation from normal range, 5 = No deviation from normal range. Outcome: NOC Rating 3 Flowsheets (Taken 03/22/20212057) Initial Score: 3 Target Score: 5 Plan of care reviewed with: Patient Patient specific goal for the day: Patient will remain vitally stable. Patient specific goal for the stay: Vital signs will remain stable Achieve goal for stay: By discharge Patient Progress: HR 140-180s at 2000. PRN IV metoprolol ordered to keep HR below 110bpm. One dose 5mg metoprolol given. HR now 80-90s. Otherwise VSS on RA. Tele-afib. linical Team - Cristina Dietrich RN - 03/22/2021 1:40 PM CDT Patient admitted to 6CD, room 640 from PACU, s/p mitraclip/mitral valve repair. Patient AOx4, VSS on RA. Denies pain/SOB. Tele running A.fib w/ HR in the 80s. Orthostatics completed per new 6CD fall protocol, and also ordered x1 per physician. Dual skin completed w/ Jackie, SUPERVISOR PAPER MACHINE. Findings include PIV to right hand and left forearm. Right groin site C/D/I. Pressure points WNL. No other significant skin issues noted. Right groin site C/D/I. Up self. Ambulating in halls. perative Note - Gabriel Griffith DO - 03/22/2021 10:17 AM CDT Cardiac procedure note Procedure: Percutaneous placement of Mitraclip NTW device for repair of mitral valve, Transseptal puncture. Left atrial catheterization, Temporary transvenous pacemaker Transesophageal echo. 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 Access was obtained in the right femoral vein. Using the Seldinger technique I place a 6 Tristanian 11 cm sheath. I then pre- closed thevein in preparation for closure using a Perclose device. An 18 Fr sheath was placed over 0.035 inch J-tip guidewire. Transseptal access- I advanced a 0.32 in wire into the superior vena cava. Over this wire I advanced an SL1 catheter. Under JASVIR guidance, I utilized the SL 1 catheter to engage the septum in a superior and posterior position and using Bovie cautery, I electrified a 0.032 inch J-tip guidewire which was positioned just at the tip of the SL 1 catheter. The electrified guidewire crossed the septum easily and was positioned in left upper pulmonary vein. The SL 1 catheter was advanced in the left upper pulmonary vein and an Amplatz extra stiff wire was inserted. The left atrial pressure was transduced. Mean left atrial pressure was measured. Patient was anticoagulated with heparin at this point and the ACT was managed by Anesthesia. SL 1 catheter and 18 Tristanian sheath were removed. Steerable guide insertion- Over the Amplatz superstiff wire, the steerable guide was inserted into the left atrium. Mitraclip insertion- The Mitraclip NTW was prepared for the procedure on the back table. The Mitraclip system was inserted into the steerable guide and then carefully advanced into the left atrium. Theguide was withdrawn so that approximately 1 cm was in the left atrium. Using the M-knob and posterior turning of the steerable guide catheter I was able to position the clip above the valve. The clip was opened and the grippers retracted. Rotational adjustment was performed to ensure the clip arms were open perpendicular to the valve. This clip was utilized to secure A2P@ portion of the mitral valve. JASVIR and flouroscopy were used exclusively to monitor these movements. JASVIR was used to verify that we were in the center of the jet. The clip was opened to 120 degrees and inserted into the Left ventricle. The clip was withdrawn to capture the leaflets. The grippers were deployed and clip locked. TEEwas used to evaluate the MR. There was trivila residual regurgitation. Mean gradient across the gelacio l valve was 4mmHg. Leaflet capture was determined to be adequate I transesophageal echo and the clip was released.. The left atrial pressure was transduced. Pulmonary venous flow was evaluated by JASVIR. Groin closure- The sheath was removed and the vein was closed using the perclose and a figure eight stich over the skin and subcutaneous tissue. Temporary pacemaker was removed. Manual pressure was held. Gabriel Griffith D.O. 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 systems administrator Elo Malhotra MD [address] [place] [address] [phone] Name Type Priority Associated Diagnoses Date/Ti me EKG CVS STAT 03/22/2021 10:3 6 AM CDT EKG CVS Routine 03/23/2021 8:0 0 AM CDT Name Type Priority Associated Diagnoses Order S chedule XRAY CHEST PORTABLE - Imaging TYREE today for 1 Occurrences starting 2020 until PROTIME/INR Lab Routine every [address] arting 03/23/2021, 1 c ompleted BASIC METABOLIC PANEL Lab Routine S/P mitral valve cl ip Expected: 04/22/2021 implantation (Approximate), Expires: Mitral valve 04/22/2022 insufficiency, unspecified etiology COMPLETE BLOOD COUNT Lab Routine S/P mitral valve cli p Expected: 04/22/2021, WITHOUT DIFFERENTIAL implantatio n Expires: 04/22/2022 Mitral valve insufficiency, unspecified etiology EKG CVS Routine S/P mitral valve clip Expect ed: 04/22/2021 implantation (Approximate), Expires: Mitral valve 03/23/2022 insufficiency, unspecified etiology ECHO ADULT COMPLETE CVS Routine S/P mitral valve clip Expected: 04/22/2021 implantation (Approximate), Expires: Mitral valve 04/22/2022 insufficiency, unspecified etiology Name Type Priority Associated Diagnoses [facility] Referral Routine Once for 1 Occurrences WARFARIN ANTICOAG starting 0 03/23/2021 ORDER until 1 documented as of this encounter Implants Implanted Type Area Bass Viol 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 Device Shelf Model / Serial Identifier Expiration / Lot Date Iol Acrysof Iq 0d Melissa 21.5 N [id number] - [id number] Right: ORION 02/04/2023 [id number] / Implanted: Qty: 1 on 05/16/2018 by Ronnie Lieberman MD at [facility] [id number] / CHAMBER Iol Acrysof Iq 0d Melissa 21.0 N [id number] 1 - [id number] Left: ORION 02/04/2023 [id number] / Implanted: Qty: 1 on 06/20/2018 by Ronnie Lieberman MD at [facility] [id number] / CHAMBER documented as of this encounter Procedures Procedure Name Priority Date/Time Associated Comments Diagnosis ECHO ADULT COMPLETE Routine 03/23/2021 9:46 Resu lts for this AM CDT procedure are i n the results section. EKG Routine 03/23/2021 8:00 AM CDT PTT Routine 03/23/2021 7:01 Results for this AM CDT procedure are i n the results section. PROTIME/INR Timed Routine 03/23/2021 7:01 Results fo r this AM CDT procedure are i n the results section. TROPONIN I Routine 03/23/2021 7:01 Results for this AM CDT procedure are i n the results section. BASIC METABOLIC Routine 03/23/2021 7:01 Results for this PANEL AM CDT procedure are i n the results section. HEMOGLOBIN Timed Routine 03/22/2021 10:36 Results fo r this PM CDT procedure are i n the results section. PROTIME/INR Routine 03/22/2021 4:46 Results for this PM CDT procedure are i n the results section. HEMOGLOBIN Timed Routine 03/22/2021 4:46 Results fo r this PM CDT procedure are i n the results section. EKG STAT 03/22/2021 10:36 AM CDT HEMOGLOBIN Timed Routine 03/22/2021 10:30 Results fo r this AM CDT procedure are i n the results section. ACTIVATED CLOTTING Routine 03/22/2021 9:41 Resul ts for this TIME POCT AM CDT procedure are i n the results section. ABO AND RH Routine 03/22/2021 6:46 Results for this AM CDT procedure are i n the results section. documented in this encounter Results ECHO ADULT COMPLETE (03/23/2021 9:46 AM CDT) Specimen Narrative Performed At This result has an attachment that is no t available. 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 Normal lef t ventricular wall thickness. Normal left ventricular systolic function. The ejection fraction is visually estimated to be 60 %. There are no left ventricular regional wall motion abnormalities. Doppler parameters are consistent with high left ventricular filling pres sure. Left Atrium: Dilated left atrium. Aortic Valve: The aortic valve is tricuspid. Moderate aortic cuspal thickening. Moderate aortic cuspal calcification. Wpbirgyh-uq-qvlovx aortic regurgitation. Eccentrically directed re gurgitant jet. Moderate aortic stenosis. Aortic valve mean gradient is 27 mmHg. Aorta: The ascending aorta is normal in size measuring 31.0 m m. Mitral Valve: Normal mitral valve structure. Mild-to-m oderate mitral Leaflet thickening. Mild mitral leaflet calcification. Trivial mitral regurgitation. There is a Mitraclip PMVR device deployed at the A2/P2 commisure. Mitral valve mean gradient is 3 mmHg with HR @ 75bpm. IAS: No evidence of an atrial shunt by color Doppler. Residual ASD from transeptal puncture during procedure. Right Ventricle: Normal right ventricular size. Normal ri ght ventricular systolic function. Normal right ventricular wall thickness. Pulmonary artery systolic pressure is measured at 52 mmHg. Pulmonary Artery: Moderate pulmonary artery hypertension. Right Atrium: Dilated right atrium. Tricuspid Valve: Normal tricuspid valve structure. Mild tricuspid regur gitation. Pulmonic Valve: Normal pulmonary valve structure. Trivia l pulmonary regurgitation. No pulmonary stenosis. IVC: Dilated IVC with minimal respirophasic changes. Pericardium: No significant pericardial effusion. No pleural effusi on. Measurements Left Ventricle Aortic Valve Label Value Normal Value Label Value Normal Value LVDd, 2D 41.9 mm LVOT Vmax 136 cm/s LVDs, 2D 29.2 mm AV Vmax 328 cm/s IVSd, 2D 10.6 mm LVOTd 21 mm LVPWd, 2D 9.1 mm LVOT VTI 26.2 cm FS, 2D 30.31 % LVOT PGmax 7 mmHg LVEDV, 2D 78 ml AV Vmean 246 cm/s LVESV, 2D 33 ml AV VTI 74 cm Cardiac Output 6.28 L/min AV PGmax 43 mmHg Cardiac Index 4.42 ROBINSON (Vmax) 1.4 cm-sq L/min/m-sq AV Vmax, Caliper 328 cm/s LVEDVI, 2D 54.9 ml/m2 ROBINSON (VTI) 1.2 cm-sq LVESVI, 2D 23.2 ml/m2 Obstructive Index 0.41 Stroke Index 64.08 (Vmax) ml/m-sq Obstruction Index 0.35 Left Atrium (VTI) Label Value Normal Value AV PGmean 27 mmHg LADs Long. 62 mm Mitral Valve LA Volume Index 44.5 ml/m-sq Label Value Normal Value Aorta MV E Vmax 150 cm/s Label Value Normal Value MV E/E' lateral 17.4 Ao Asc 31 mm MV E/E' septal 19.6 Heart Rate MV Dec Time 188 ms Label Value Normal Value MV E' septal 7.6 cm/s Heart Rate 69 bpm MV VTI 30 cm MVA (VTI) 3 cm-sq MV PGmax 8 mmHg MV PHT 0.07 s MVA PHT 3.4 cm-sq MV E' lateral 8.6 cm/s MV PGmean 3 mmHg Tricuspid Valve Label Value Kera l Value TR Vmax 282 cm/s TR Pmax 37 mmHg RA Pressure 15 mmHg RVSP 52 mmHg Pulmonic Valve Label Value Kera l Value PV Vmax 68 cm/s PV PGmax 2 mmHg Electronically signed by GABRIEL GRIFFITH DO on 2020 at 11:41 AM Procedure Note Interface, Inc Results No Pull Forward - 03/23/2021 11:42 AM CDT Patient: LINH BULLARD MR#: [id number] Exam Date: 03/23/2021 [facility] [address] Transthoracic Echocardiogram PAKO Rivas [id number] BP: 118/85 mmHg HR: 69 bpm : 1940 Exa m Location: Bedside Height: 62.00 "(157.5 cm) Age: 81 year(s) Pat ient Room: 640 Weight: 100 lbs.(45.36 kg) Gender: Female Pat ient Status: Inpatient BSA: 1.42 m2 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 Reading Physician: GABRIEL CULLEN DO Ordering Physician: GABRIEL CULLEN DO Procedure Indication(s): post m itral valve clip Examination: TTE Co mplete 2D(m-mode), Complete Spectral Doppler, Color Doppler Clinical History Comment: s/p mitral valve clip on Comparison Study Comparison Date: 03/22/2021 Comparison Study: Transesophageal Echoca rdiogram Mitral regurgitation has improved Findings Left Ventricle: Normal left ventricular size. Normal lef t ventricular wall thickness. Normal left ventricular systolic function. The ejection fraction is visually estimated to be 60 %. There are no left ventricular regional wall motion abnormalities. Doppler parameters are consistent with high left ventricula r filling pressure. Left Atrium: Dilated left atrium. Aortic Valve: The aortic valve is tricuspid. Moderate aortic cuspal thickening. Moderate aortic cuspal calcification. [id number] aortic regurgitation. Eccentrically directed re gurgitant jet. Moderate aortic stenosis. Aortic valve mean gradient is 27 mmHg. Aorta: The ascending aorta is normal in size me asuring 31.0 mm. Mitral Valve: Normal mitral valve structure. Mild-to-m oderate mitral Leaflet thickening. Mild mitral leaflet calcification. Trivial mitral regurgitation. There is a Mitraclip PMVR device deployed at the A2/P2 commisure. Mitral valve mean gradient is 3 mmHg with HR @ 75bpm. IAS: No evidence of an atrial shunt by color Doppler. Residual ASD from transeptal puncture during procedure. Right Ventricle: Normal right ventricular size. Normal ri ght ventricular systolic function. Normal right ventricular wall thickness. Pulmonary artery systolic pressure is measured at 52 mmHg. Pulmonary Artery: Moderate pulmonary artery hypertension. Right Atrium: Dilated right atrium. Tricuspid Valve: Normal tricuspid valve structure. Mild t ricuspid regurgitation. Pulmonic Valve: Normal pulmonary valve structure. Trivia l pulmonary regurgitation. No pulmonary stenosis. IVC: Dilated IVC with minimal respirophasic c hanges. Pericardium: No significant pericardial effusion. No pleural effusion. Measurements Left Ventricle Aortic Valve Label Value Norm al Value Label Value Normal Value LVDd, 2D 41.9 mm LVOT Vmax 136 cm/s LVDs, 2D 29.2 mm AV Vmax 328 cm/s IVSd, 2D 10.6 mm LVOTd 21 mm LVPWd, 2D 9.1 mm LVOT VTI 26.2 cm FS, 2D 30.31 % LVOT PGmax 7 mmHg LVEDV, 2D 78 ml AV Vmean 246 cm/s LVESV, 2D 33 ml AV VTI 74 cm Cardiac Output 6.28 L/min AV PGmax 43 mmHg Cardiac Index 4.42 ROBINSON (Vmax) 1.4 cm-sq L/min/m-sq AV Vmax, Caliper 328 cm/s LVEDVI, 2D 54.9 ml/m2 ROBINSON (VTI) 1.2 cm-sq LVESVI, 2D 23.2 ml/m2 Obstructive Index 0.41 Stroke Index 64.08 (Vmax) ml/m-sq Ob struction Index 0.35 Left Atrium (VTI) Label Value Norm al Value AV PGmean 27 mmHg LADs Long. 62 mm Mitral Valve LA Volume Index 44.5 ml/m-sq Label Value Normal Value Aorta MV E Vmax 150 cm/s Label Value Norm al Value MV E/E' lateral 17.4 Ao Asc 31 mm MV E/E' septal 19.6 Heart Rate MV Dec Time 188 ms Label Value Norm al Value MV E' septal 7.6 cm/s Heart Rate 69 bpm MV VTI 30 cm MVA (VTI) 3 cm-sq MV PGmax 8 mmHg MV PHT 0.07 s MVA PHT 3.4 cm-sq MV E' lateral 8.6 cm/s MV PGmean 3 mmHg Tricuspid Valve Label Value Norm al Value TR Vmax 282 cm/s TR Pmax 37 mmHg RA Pressure 15 mmHg RVSP 52 mmHg Pulmonic Valve Label Value Norm al Value PV Vmax 68 cm/s PV PGmax 2 mmHg Performing Organization Address [facility] Code Phon e [facility] CARDIOLOGY F, [place] PROTIME/INR (03/23/2021 7:01 AM CDT) Pathologist Sig nature Protime 15.1 (H) 12.0 - 14.5 secs [place] [address] [facility] INR 1.3 (L) 2.0 - 3.5 [place] [address] [facility] Specimen Blood - Blood specimen (specimen) Narrative Performed At Normal INR reference range (patients not on oral antic oagulants) [address] 0.9-1.1. INR Standard Intensity = (2.0 - 3.0) INR Higher Intensity = (2.5 - 3.5) Performing Organization Address [facility] Phon e Number [place] [address] [facility] [address] [place] [address], [place] [address] TROPONIN I (03/23/2021 7:01 AM CDT) Pathologist Sig nature Troponin I 0.199 (H) 0.000 - 0.028 ng/mL [address] Specimen Blood - Blood specimen (specimen) Performing Organization Address [facility] Phon e Number [address] [place] [address], [place] [address] BASIC METABOLIC PANEL (03/23/2021 7:01 AM CDT) Pathologist Sig nature Glucose 85 70 - 100 mg/dL [address] BUN 14 6 - 22 mg/dL [address] Creatinine 0.81 0.60 - 1.[address] mg/dL BUN/Creatinine Ratio 17.3 10.0 - 25.[address] Sodium 136 135 - 145 meq/L [place] [address] [facility] Potassium 4.1 3.5 - 5.3 meq/L [address] Chloride 103 99 - 110 meq/L [address] CO2 25 20 - 29 meq/L [address] Anion Gap with K 12 6 - 20 meq/L [address] Calcium 9.5 8.5 - 10.5 mg/dL [address] Age [address] eGFR Non- 68 >=[address] Macedonian mL/min/1.73m2 eGFR 82 >=[address] mL/min/1.73m2 Specimen Blood - Blood specimen (specimen) Performing Organization Address [facility] Code Phon e Number [address] [place] [address], [place] [address] PTT (03/23/2021 7:01 AM CDT) Pathologist Sig nature APTT 30 24 - [address] Specimen Blood - Blood specimen (specimen) Performing Organization Address [facility] Phon e Number [address] [place] [address], [place] [address] HEMOGLOBIN (03/22/2021 10:36 PM CDT) Pathologist Sig nature Hemoglobin 11.0 (L) 11.5 - 15.8 g/dL [address] Specimen Blood - Blood specimen (specimen) Performing Organization Address [facility] Phon e Number [address] [place] [address], [place] [address] PROTIME/INR (03/22/2021 4:46 PM CDT) Pathologist Sig nature Protime 15.4 (H) 12.0 - 14.[address] INR 1.3 (L) 2.0 - 3.[address] Specimen Blood - Blood specimen (specimen) Narrative Performed At Normal INR reference range (patients not on oral antic oagulants) [address] 0.9-1.1. INR Standard Intensity = (2.0 - 3.0) INR Higher Intensity = (2.5 - 3.5) Performing Organization Address [facility] Phon e Number [address] [place] [address] [place] [address] HEMOGLOBIN (03/22/2021 4:46 PM CDT) Pathologist Sig nature Hemoglobin 11.1 (L) 11.5 - 15.8 g/dL [address] Specimen Blood - Blood specimen (specimen) Performing Organization Address [facility] Phon e Number [address] [place] [id number] HEMOGLOBIN (03/22/2021 10:30 AM CDT) Pathologist Sig miguelito Hemoglobin 11.1 (L) 11.5 - 15.8 g/dL [address] Specimen Blood - Blood specimen (specimen) Performing Organization Address [facility]/[place] [facility] [place] Number [address] [phone] ACTIVATED CLOTTING TIME POCT (03/22/2021 9:41 AM CDT) Pathologist Sig miguelito Activated Clotting 235 (H) 100 - [address] [facility] POINT OF CARE TESTING Specimen Blood - Blood specimen (specimen) Narrative Performed At DEVICE: [id number] [facility] POINT OF CARE TESTING Performing Organization Address [facility]/ZIP Code Phon e Number [facility] POINT [address] [place] [address] [phone] OF CARE TESTING ABO & RH G (03/22/2021 6:46 AM CDT) Pathologist Sig miguelito ABO Type B [address] BLOOD BA NK Rh Type Positive [address] BLOOD BA NK Specimen Blood - Blood specimen (specimen) Performing Organization Address [facility]/[place] [facility] [place] Ph[place] Number [address] BLOOD BANK [address] [place] [phone] documented in this encounter Visit Diagnoses Diagnosis S/P mitral valve clip implantation - [facility] Non-rheumatic mitral regurgitation Mitral valve disorders Essential hypertension Unspecified essential hypertension Atrial fibrillation, unspecified type (H CC) Mitral valve insufficiency, unspecified etiology documented in this encounter Discharge Diagnoses Not on filedocumented in this encounter Administered Medications Medication Order MAR Action Action Date Dose Rate Site .Anticoagulation (WARFARIN) therapy nurs ing reminder Anti-coag reminder, First dose on Sun03/22/21 at 1400, Until Discontinued acetaminophen (TYLENOL) tablet 650 mg Given 03/23/2021 7:21 AM CDT 650 mg 650 mg, Oral, Every four hours prn, Starting on Sun03/22/21 at 1237, Until Discontinued, mild pain, fever > (indicate temp), fever greater than 101 F, Post - Op, Oral or NG aspirin enteric coated tablet 81 mg Given 03/23/2021 7:30 AM CDT 81 mg 81 mg, Oral, Daily, First dose on Sun03/23/21 at 0900, Until Discontinued, Post - Op, Tablet should be swallowed whole and not be divided, crushed or chewed. bisacodyl (DULCOLAX) suppository 10 mg 10 mg, Rectal, One time a day prn, Starting on 03/08 at 1237, Until Discontinued, constipation, Post - Op, Use second for constipation. If patient cannot take oral medications, use first for constipati on. furosemide (LASIX) tablet 20 mg Given 03/23/2021 7:30 AM CDT 20 mg 20 mg, Oral, Two times a day diuretic, First dose on Sun03/22/21 at 1600, Until Discontinued Given 03/22/2021 4:59 PM CDT 20 mg hydrALAZINE (APRESOLINE) injection solut ion 5-40 mg 5-40 mg, IV, Every six hours prn, Starting on 03/22 at 1237, Until Discontinued, specified parameter, SBP g reater than 160 mmHg, 2 mL, Post - Op, SBP greater than 160 mmHg Use Fourth for hy pertension Starting dose of 5 mg. Dose may be doubled from previous dose (up to ordered maximum) for a single dose. Max dose 150 mg for 8 hours or 300 mg in 24 hours. Monitor blood pressure every 15 minutes x4 and observe for hypotension and bradycardia after each dose losartan tablet 50 mg Given 03/23/2021 7:30 AM CDT 50 mg 50 mg, Oral, DAILY, First dose on Sun03/23/21 at 0900, Until Discontinued, Hold for SBP less than 100 metoprolol succinate (TOPROL XL) SR tablet Given 03/23/2021 10:1 1 AM CDT 25 mg (24 hr) 25 mg 25 mg, Oral, Daily, First dose on Sun03/23/21 at 0930, Until Discontinued, Tablet may be broken in half, but should not be crushed or chewed. metoprolol succinate (TOPROL XL) SR tabl et (24 hr) 50 mg 50 mg, Oral, Two times a day, First dose (after last modification) on Sun03/23/21 at 2100, Until Discontinued, Tablet may be broken in h usp, but should not be crushed or chewed. Hold for SBP less than 100 metoprolol tartrate (LOPRESSOR) IV solut ion 5 mg 5 mg, IV, Every ten minutes prn, Starting on Sun at 1900, Until Discontinued, other (Specify), for HR >1 10, 5 mL, Hold for BP <100 Can give for a total of 15mg nalOXone (NARCAN) injection solution (vi al) 0.2 mg 0.2 mg, Injection, Every two minutes prn , Starting on Sun03/22/21 at 1237, Until Discontinued, other (Specify), opioid induced respirat ory depression - PARTIAL reversal, 0.5 mL, Post - Op, PARTIAL REV ERSAL/RESPIRATORY DEPRESSION If respiratory rate less than 8/minute - call rapid response and admi nister (until respiratory rate increases to 10/minute). Give IV (preferred), IM or SUBQ nalOXone (NARCAN) injection solution (vi al) 0.4 mg 0.4 mg, Injection, Every two minutes prn , Starting on Sun03/22/21 at 1237, Until Discontinued, other (Specify), opioid in duced respiratory arrest - FULL reversal, 1 mL, Post - Op, FULL REVERSAL/RESPIRATORY ARREST If patient is not breathing - call CODE BLUE and administer. Give IV (preferred), IM or SUBQ ondansetron (ZOFRAN) injection solution 4 mg 4 mg, IV, Every four hours prn, Starting on Sun 1 at 1237, Until Discontinued, nausea, vomiting, 2 mL, Po st - Op, If preference is to further dilute for IV administration: First draw up pat ient-specific dose, then dilute to 10 mL with 0.9% sodium chloride. senna-docusate sodium (SENOKOT-S;PERICOL GILDA) tablet 1 tablet 1 tablet, Oral, Two times a day prn, Starting on Sun at 1237, Until Discontinued, constipation, Post - Op, U se first for constipation unless patient cannot take oral medications sodium chloride 0.9% flush (adult) 10 mL Given 03/23/2021 7:30 AM CDT 10 mL 10 mL, IV, Two times a day and prn, First dose on Sun03/22/21 at 0900, Until Discontinued, 10 mL, Active Now, Flush PIV line as scheduled and as often as necessary before and after meds. Use a push / pause technique when flushing to create turbulence. Given 03/22/2021 7:27 PM CDT 10 mL tramadol-acetaminophen (ULTRACET) 37.5-3 25 MG TABS 1 tablet 1 tablet, Oral, Every four hours prn, Starting on Sun03/22/21 at 1237, Until Discontinued, moderate pain, Post - Op, for pain scale 4 to 6 or pain not relieved by medications for pain scale 1 to 3; may administer l ess potent prescribed medication based on patient request per the organization's medication management policy. Medication Order MAR Action Action Date Dose Rate Site ceFAZolin (ANCEF) 1000 mg/10 mL Given 03/23/2021 12:28 AM CDT 1, 000 mg sterile water IV syringe 1,000 mg, IV, Every eight hours, 2 doses, First dose on Sun03/22/21 at 1700, Last dose on Sun03/23/21 at 0100, 10 mL, Post - Op, Administer over 3 minutes. Given 03/22/2021 5:00 PM CDT 1,000 mg diphenhydrAMINE (BENADRYL) injection Given 03/22/2021 10:16 AM C DT 12.5 mg solution 12.5 mg 12.5 mg, IV, One time prn, 1 dose, Starting on Sun03/22/21 at 1009, Until Sun03/22/21 at 1016, nausea, vomiting, 0.25 mL, PACU, Nausea/vomiting orders if not on intrathecal/epidural If Zofran given LESS than 4 hours ago: 1. Give Compazine 5 mg IV one time prn 2. If Compazine not effective in 15 min, give Benadryl 12.5 mg IV one time prn 3. If Benadryl not effective in 15 min, give Zofran 4 mg IV one time prn If Zofran given GREATER than 4 hours ago: 1. Give Zofran 4 mg IV one time prn 2. If Zofran not effective in 15 min, give Compazine 5 mg IV one time prn 3. If Compazine not effective in 15 min, give Benadryl 12.5 mg IV one time prn Use only anesthesia's orders for nausea/vomiting while in PACU or recovery care If preference is to further dilute for IV administration: First draw up patient-specific dose, then dilute to 10 mL with 0.9% sodium chloride. metoprolol succinate (TOPROL XL) SR tablet Given 03/23/2021 7:3 0 AM CDT 25 mg (24 hr) 25 mg 25 mg, Oral, Two times a day, First dose on Sun03/22/21 at 2100, Until Discontinued, Tablet may be broken in half, but should not be crushed or chewed. Hold for SBP less than 100 Given 03/22/2021 7:27 PM CDT 25 mg metoprolol tartrate (LOPRESSOR) 1 mg/mL IV Given 03/22/2021 7:0 3 PM CDT 5 mg solution 1 dose, Starting on Sun03/22/21 at 1858, Until Sun03/22/21 at 1903, Kendal: cabinet override sodium chloride 0.9% IV Already Infusing 03/22/2021 10:42 AM CDT 150 mL/hr solution IV, at 150 mL/hr, Continuous, Starting on Sun03/22/21 at 1120, Until Sun03/22/21 at 1519, 1,000 mL, Post - Op warfarin (COUMADIN) tablet 1.25 mg Given 03/22/2021 4:59 PM CDT 1.25 mg 1.25 mg, Oral, Warfarin one time dose, 1 dose, On Sun03/22/21 at 1730, If patient is receiving tube feeding, hold tube feeding 1 hour before and 1 hour after warfarin administration. If unable to administer dose intact, wear universal precautions (one pair of gloves). warfarin (COUMADIN) tablet 1.25 mg Given 03/23/2021 2:12 PM CDT 1.25 mg 1.25 mg, Oral, Warfarin one time dose, 1 dose, On Sun03/23/21 at 1345, If patient is receiving tube feeding, hold tube feeding 1 hour before and 1 hour after warfarin administration. If unable to administer dose intact, wear universal precautions (one pair of gloves). documented in this encounter Active and Recently Administered Medications Times are shown in CDT. Medication Order 03/21/2021 03/22/2021 03/23/2021 .Anticoagulation (WARFARIN) therapy nursing reminder 1328 (Noted Reminder - Provider: Cristina Dietrich, RN) 0918 (Noted Reminder - Provider: Amber Henson, PILAR)1402 (Noted Reminder - Provider: Tia Henson RN) Anti-coag reminder, First dose on Sun03/22/21 at 1400, Until Dis continued aspirin enteric coated tablet 81 mg 0730 (Given - Provider: Tia Henson, PILAR) 81 mg, Oral, Daily, First dose on Sun at 0900, Until Discontinued, Post - Op, Tablet should be swallowed whole and not be divided, crushed or chewed. ceFAZolin (ANCEF) 1000 mg/10 mL sterile water IV syringe (CO MPLETED) 1700 (Given - Provider: Majo White, Nurse Shoe Stamper) 0028 (Given - Provider: Rosetta Grimes RN) 1,000 mg, IV, Every eight hours, 2 doses , First dose on Sun03/22/21 at 1700, Last dose on Sun03/23/21 at 0100, 10 mL, Post - Op, Administer over 3 minutes. ceFAZolin (ANCEF) 2000 mg/20 mL sterile water IV syringe (CO MPLETED) 0900 (Given - Provider: Rodrigo Da Silva APRN-[employer]) 2,000 mg, IV, Give in OR, 1 dose, On Sun03/22/21 at 0635, 20 mL, Prep Orders (Cath) if inpatient - floor RN to release, Give in PROCEDURAL area. Start within 1 hour of cut time and complete prior to cut time. Administer as IV push over 4 minutes. furosemide (LASIX) tablet 20 mg 1659 (Gi alexandro - Provider: Majo White, Nurse Shoe Stamper) 0730 (Given - Provider: Tia stephen, PILAR)1600 (Due) 20 mg, Oral, Two times a day diuretic, F irst dose on Sun03/22/21 at 1600, Until Discontinued losartan tablet 50 mg 0730 (Give n - Provider: Tia Henson RN) 50 mg, Oral, DAILY, First dose on Sun at 0900, Until Discontinued, Hold for SBP less than 100 metoprolol succinate (TOPROL XL) SR tablet (24 hr) 25 mg (CA NCELED) 1927 (Given - Provider: Rosetta Grimes, RN) 0730 (Given - Provider: Tia stepehn, PILAR) 25 mg, Oral, Two times a day, First dose on Sun03/22/21 at 2100, Until Discontinued, Tablet may be broken in half, but should not be crushed or chewed. Hold for SBP less than 100 metoprolol succinate (TOPROL XL) SR tablet (24 hr) 25 mg 1011 (Given - Provider: Tia Henson RN) 25 mg, Oral, Daily, First dose on Sun at 0930, Until Discontinued, Tablet may be broken in half, but should not be crushed or chewed. metoprolol succinate (TOPROL XL) SR tablet (24 hr) 50 mg 2100 (Due) 50 mg, Oral, Two times a day, First dose (after last modification) on Sun03/23/21 at 2100, Until Discontinued, Tablet may be broken in half, but should not be crushed or chewed. Hold for SBP less than 100 sodium chloride 0.9% flush (adult) 10 mL 1302 (Already Infusing. - Provider: Cristina Dietrich RN)1926 (Given - Provider: Rosetta Grimes RN) 0730 (Given - Provider: Tia Henson RN)2100 (Due) 10 mL, IV, Two times a day and prn, Firs t dose on Sun03/22/21 at 0900, Until Discontinued, 10 mL, Active Now, Flush PIV line as scheduled and as often as necessary before and after meds. Use a push / p ause technique when flushing to create turbulence. warfarin (COUMADIN) tablet 1.25 mg (COMPLETED) 165 (Given - Provider: Majo White, Nurse Shoe Stamper) 1.25 mg, Oral, Warfarin one time dose, 1 dose, On Sun03/22/21 at 1730, If patient is receiving tube feeding, hold tube feeding 1 hour before and 1 hour after warfarin administration. If unable to admini ster dose intact, wear universal precautions (one pair of gloves ). warfarin (COUMADIN) tablet 1.25 mg (COMPLETED) 1412 (Given - Provider: Tia Henson RN) 1.25 mg, Oral, Warfarin one time dose, 1 dose, On Sun03/23/21 at 1345, If patient is receiving tube feeding, hold tube feeding 1 hour before and 1 hour after warfarin administration. If unable to admini ster dose intact, wear universal precautions (one pair of gloves ). Medication Order 03/21/2021 03/22/2021 03/23/2021 sodium chloride 0.9% IV solution () 1042 (Already Infusing - Provider: Jackie Mayes RN) IV, at 150 mL/hr, Continuous, Starting o n Sun03/22/21 at 1120, Until Sun03/22/21 at 1519, 1,000 mL, Post - Op Medication Order 03/21/2021 03/22/2021 03/23/2021 acetaminophen (TYLENOL) tablet 650 mg 0721 (Given - Provider: Tia Henson RN) 650 mg, Oral, Every four hours prn, Star ting on Sun03/22/21 at 1237, Until Discontinued, mild pain, fever > (indicate temp), fever greater than 101 F, Post - Op, Oral or NG bisacodyl (DULCOLAX) suppository 10 mg 10 mg, Rectal, One time a day prn, Start ing on Sun03/22/21 at 1237, Until Discontinued, constipation, Post - Op, Use second for constipation. If patient cannot take oral medications, use first for constipation. diphenhydrAMINE (BENADRYL) injection solution 12.5 mg (COMPL ETED) 1016 (Given - Provider: Jackie Mayes RN) 12.5 mg, IV, One time prn, 1 dose, Start ing on Sun03/22/21 at 1009, Until Sun03/22/21 at 1016, nausea, vomiting, 0.25 mL, PACU, Nausea/vomiting orders if not on intrathecal/epidural If Zofran given LE SS than 4 hours ago: 1. Give Compazine 5 mg IV one time prn 2. If Compazine not effective in 15 min, give Benadryl 12.5 mg IV one time prn 3. If Benadryl not effective in 15 min, give Zofran 4 mg IV one time prn If Zofran given GREATER th an 4 hours ago: 1. Give Zofran 4 mg IV one time prn 2. If Zofran not effective in 15 min, give Compazine 5 mg IV one time prn 3. If Compazine not effective in 15 min, give Benadryl 12.5 mg IV one jenna e prn Use only anesthesia's orders for nausea/vomiting while in PACU or recovery care If preference is to further dilute for IV administration: First draw up pat ient-specific dose, then dilute to 10 mL with 0.9% sodium chlori de. hydrALAZINE (APRESOLINE) injection solution 5-40 mg 5-40 mg, IV, Every six hours prn, Starti ng on Sun03/22/21 at 1237, Until Discontinued, specified parameter, SBP greater than 160 mmHg, 2 mL, Post - Op, SBP greater than 160 mmHg Use Fourth for hyperten wendy Starting dose of 5 mg. Dose may b e doubled from previous dose (up to ordered maximum) for a single dose. Max dose 150 mg for 8 hours or 300 mg in 24 hours. Monitor blood pressure every 15 minute s x4 and observe for hypotension and bradycardia after each dose metoprolol tartrate (LOPRESSOR) IV solution 5 mg 2146 (Canceled Entry - Provider: Rosetta Grimes RN) 5 mg, IV, Every ten minutes prn, Startin g on Sun03/22/21 at 1900, Until Discontinued, other (Specify), for HR >110, 5 mL, Hold for BP <100 Can give for a total of 15mg nalOXone (NARCAN) injection solution (vial) 0.2 mg 0.2 mg, Injection, Every two minutes prn , Starting on Sun03/22/21 at 1237, Until Discontinued, other (Specify), opioid induced respiratory depression - PARTIAL reversal, 0.5 mL, Post - Op, PARTIAL REVER GUSTAVO/RESPIRATORY DEPRESSION If respirator y rate less than 8/minute - call rapid response and administer (until respiratory rate increases to 10/minute). Give IV (preferred), IM or SUBQ nalOXone (NARCAN) injection solution (vial) 0.4 mg 0.4 mg, Injection, Every two minutes prn , Starting on Sun03/22/21 at 1237, Until Discontinued, other (Specify), opioid induced respiratory arrest - FULL reversal, 1 mL, Post - Op, FULL REVERSAL/RESPIRAT ORY ARREST If patient is not breathing - call CODE BLUE and administer. Give IV (preferred), IM or SUBQ omeprazole (priLOSEC) capsule 10 mg 10 mg, Oral, One time a day prn, Startin g on Sun03/22/21 at 1224, Until Discontinued, other (Specify), Reflux symptoms, Formulary Substitute for esomeprazole (Nexium) ondansetron (ZOFRAN) injection solution 4 mg 4 mg, IV, Every four hours prn, Starting on Sun03/22/21 at 1237, Until Discontinued, nausea, vomiting, 2 mL, Post - Op, If preference is to further dilute for IV administration: First draw up patient-sp ecific dose, then dilute to 10 mL with 0.9% sodium chloride. senna-docusate sodium (SENOKOT-S;PERICOLACE) tablet 1 tablet 1 tablet, Oral, Two times a day prn, Sta rting on Sun03/22/21 at 1237, Until Discontinued, constipation, Post - Op, Use first for constipation unless patient cannot take oral medications tramadol-acetaminophen (ULTRACET) 37.5-325 MG TABS 1 tablet 1 tablet, Oral, Every four hours prn, St arting on Sun03/22/21 at 1237, Until Discontinued, moderate pain, Post - Op, for pain scale 4 to 6 or pain not relieved by medications for pain scale 1 to 3; may administer less potent prescribed medica tion based on patient request per the organization's medication management policy. Medication Order 03/21/2021 03/22/2021 03/23/2021 metoprolol tartrate (LOPRESSOR) 1 mg/mL IV solution ([facility]) 1903 (Given - Provider: Cristina Dietrich, PILAR) 1 dose, Starting on Sun03/22/21 at 1858, Until Sun03/22/21 at 1903, Kendal: cabinet override documented in this encounter
== END 2021-03-24 05:40 | disposition short-term general hospital (02) ==
LOC: VM.ED 03:15
DX: S72.092A Other fracture of head and neck of left femur, initial encounter for closed fracture (principal); E78.00 Pure hypercholesterolemia, unspecified; I10 Essential (primary) hypertension; Z88.5 Allergy status to narcotic agent; Z88.1 Allergy status to other antibiotic agents; Z79.899 Other long term (current) drug therapy; W01.0XXA Fall on same level from slipping, tripping and stumbling without subsequent striking against object, initial encounter
CPT/HCPCS: 80048; 85025; 85610; 94760; 96374; 96375; 96376; 99284; 99285-25; J2270; J2405

== ENCOUNTER 2021-03-29 16:39 | Inpatient (IN) | payer MEDICARE, BC ==
[2021-03-30] MEDS ORDERED: Acetaminophen/HYDROcodone 325-5 MG Tab PO PRN (13:02)
--- NOTE | 2021-03-30 13:23 | PCM.HP.2 ---
H&P History of Present Illness - General Date of Service: 03/30/21 Admit Problem/Dx: Admission Diagnosis/Problem Admission Diagnosis/Problem Hip fracture, intertrochanteric - History of Present Illness Initial Comments - Free Text/Narative: Chief complaint: Weakness status post hip arthroplasty History of present illness: Patient had hip arthroplasty on 03/28. Had postop anemia and some hyponatremia. Is pivoting and weightbearing some but not ready to return home. She just had mitral clip on 03/22. Has known over disease mitral and aortic. On Coumadin for atrial fibrillation rate largely controlled. INR appears therapeutic today, had been on Lovenox bridge. Still is Li in place for urinary retention failed previous TW OC. Past medical history: Hypertension, LSEA, migraines, osteoporosis, aortic regurgitation and stenosis, collagenous colitis, permanent atrial fibrillation, anemia, hypercalcemia, tubular adenoma, hyponatremia, mitral regurgitation, hip fracture. Allergies: Codeine, doxycycline, Indocin, Phenergan, Septra. Medications: Tylenol, aspirin, oxycodone, losartan, metoprolol, Lasix, iron, leukocyte, melena troponin, multivitamin, Nexium, estradiol cream, clobetasol ointment, warfarin, folic acid. Social history: She lives alone, her son is in [place] miles away, she another daughter lives down by [place]. She does not smoke. Family history: Noncontributory. Review of systems: Denies headache denies chest pain denies palpitations denies shortness of breath, still little bit of nausea no vomiting no abdominal pain, no constipation, Li catheter still in place regarding urination. Vital signs are normal blood pressure 113/38, pulse 77, respirations 16, oxygen saturations 94% room air, normothermic. Alert oriented female somewhat thin and pale, no acute distress. Heart reveals ear regular rhythm borders on a fast rate systolic murmur right upper sternal border. Lungs are clear to auscultation. Abdomen soft nontender, Li catheter in place, external is warm well perfused without edema. Assessment and plan: Status post hip arthroplasty for fracture. PTOT consult. Ideally returns to home environment, social work following, may need home health consult. Doing some weightbearing and pivoting already. Fair amount of postop anemia, monitor, recheck in a.m. Valvular heart disease appears stable status post mitral clip, still has sig nificant aortic disease which will increase fall risk. On Coumadin for A. fib with borderline rapid ventricular rate. INR is therapeutic. Monitor. The Li in place for another couple of days and then possible trial without catheter after she's been up ambulating some more. Mild electrolyte issues appear largely resolved. We'll recheck panel in a.m. Still not eating a lot, recommend largely ad misbah diet at this time. Full code per previous hospital chart. - Related Data Allergies/Adverse Reactions: Allergies Allergy/AdvReac Type Severity Reaction Status Date / Time codeine AdvReac Nausea and Verified 03/24/21 04:03 Vomiting indomethacin [From Indocin] AdvReac Nausea and Verified 03/24/21 04:03 Vomiting indomethacin sodium AdvReac Nausea and Verified 03/24/21 04:03 [From Indocin] Vomiting Home Medications: Home Meds Cholecalciferol (Vitamin D3) [Vitamin D3] 2,000 units PO DAILY 03/28/16 [History] Folic Acid 1 mg PO DAILY 03/28/16 [History] Furosemide [Lasix] 20 mg PO BID 04/10/20 [History] Loperamide [Imodium] 2 mg PO ASDIRECTED PRN MDD 8 tabs per day 04/10/20 [History] Vit C/E/Zn/Coppr/Lutein/Zeaxan [Preservision Areds 2 Softgel] 1 cap PO BID 04/10/20 [History] Warfarin Sodium [Coumadin] 2.5 mg PO ASDIRECTED 04/10/20 [History] estradioL [Estrace Vaginal] 2 gram VAG Q7D 04/10/20 [History] Acetaminophen 650 mg PO Q4H PRN 03/30/21 [History] Amoxicillin 2,000 mg PO ONETIME PRN 03/30/21 [History] Aspirin [Aspirin EC] 81 mg PO DAILY 03/30/21 [History] Calcium Carbonate [Tums] 1,000 mg PO Q4H PRN 03/30/21 [History] Clobetasol [Temovate 0.05% Oint] 1 applic TOP Q7D 03/30/21 [History] Cranberry Fruit [Cranberry] 900 mg PO TIDMEALS 03/30/21 [History] Docusate Sodium/Sennosides [Senna Plus] 1 tab PO BID 03/30/21 [History] Enoxaparin [Lovenox] 60 mg SQ BID 03/30/21 [History] Esomeprazole [NexIUM] 20 mg PO DAILY PRN 03/30/21 [History] Ferrous Sulfate [Iron] 325 mg PO DAILY 03/30/21 [History] L.acidoph,Paracasei, B.lactis [Probiotic] 1 tab PO DAILY PRN 03/30/21 [History] Losartan Potassium 50 mg PO DAILY 03/30/21 [History] Melatonin 3 mg PO BEDTIME PRN 03/30/21 [History] Metoprolol Succinate 25 mg PO BEDTIME 03/30/21 [History] Metoprolol Succinate 50 mg PO DAILY 03/30/21 [History] Naloxone HCl [Narcan] 4 mg NS ONETIME PRN 03/30/21 [History] Polyvinyl Alcohol [Liquitears] 1 drop EYEBOTH Q4H PRN 03/30/21 [History] Sodium Chloride 1 gm PO TID 03/30/21 [History] oxyCODONE 2.5 mg PO Q6H PRN 03/30/21 [History] oxyCODONE 5 mg PO Q6H PRN 03/30/21 [History] Past Medical History HEENT History: Reports: Allergic Rhinitis, Cataract Cardiovascular History: Reports: High Cholesterol, Hypertension Other Cardiovascular History: aortic regurgitation, svt Gastrointestinal History: Reports: GERD Other Gastrointestinal History: colitis Genitourinary History: Reports: UTI, Recurrent Musculoskeletal History: Reports: Osteoporosis Neurological History: Reports: Migraines Hematologic History: Reports: Anemia - Past Surgical History Cardiovascular Surgical History: Reports: Other (See Below) Other Cardiovascular Surgeries/Procedures: Mitral clip procedure 03/22/21 H&P Review of Systems - Review of Systems: Review Of Systems: See Below Exam - Exam Exam: See Below - Vital Signs Weight: 5.67 kg *Q Meaningful Use (ADM) - VTE *Q VTE Anticoagulation Contraindications: Alternative TX Request PT Problem List Initiated/Reviewed/Updated: Yes Orders Last 24hrs: Active Orders 24 hr Category Date Time Status Patient Status [ADT] Routine ADT 03/30/21 13:02 Ordered Communication Order [RC] 08,20 Care 03/30/21 12:55 Active Oxygen Therapy [RC] PRN Care 03/30/21 13:02 Ordered Up With Assistance [RC] ASDIRECTED Care 03/30/21 13:02 Ordered VTE/DVT Education [RC] PER UNIT ROUTINE Care 03/30/21 13:02 Ordered Vital Signs [RC] PER UNIT ROUTINE Care 03/30/21 13:02 Ordered Consult to Case Management/Jail Manager [CONS] Cons 03/30/21 13:02 Ordered Routine OT Evaluation and Treatment [CONS] Routine Cons 03/30/21 13:02 Ordered PT Evaluation and Treatment [CONS] Routine Cons 03/30/21 13:02 Ordered Regular Diet [DIET] Diet 03/30/21 Dinner Ordered CBC WITH AUTO DIFF [HEME] AM Lab 03/31/21 05:11 Ordered COMPREHENSIVE METABOLIC PN,CMP [CHEM] AM Lab 03/31/21 05:11 Ordered MAGNESIUM [CHEM] AM Lab 03/31/21 05:11 Ordered Acetaminophen [TylenoL] Med 03/30/21 13:02 Ordered 650 mg PO Q4H PRN Acetaminophen/HYDROcodone [[place] 325-5 MG] Med 03/30/21 13:02 Ordered 1 tab PO Q4H PRN Calcium Carbonate [Tums] Med 03/30/21 13:05 Ordered 1,000 mg PO Q4H PRN Cholecalciferol (Vitamin D3) [Vitamin D3] Med 03/31/21 08:00 Ordered 2,000 units PO DAILY Clobetasol Med 03/30/21 13:15 Ordered 1 applic TOP Q7D Esomeprazole [NexIUM] Med 03/30/21 13:05 Ordered 20 mg PO DAILY PRN Folic Acid Med 03/31/21 08:00 Ordered 1 mg PO DAILY Furosemide [Lasix] Med 03/30/21 20:00 Ordered 20 mg PO BID Loperamide [Imodium] Med 03/30/21 13:05 Ordered 2 mg PO ASDIRECTED PRN Losartan [Cozaar] Med 03/31/21 08:00 Ordered 50 mg PO DAILY Ondansetron [Zofran ODT] Med 03/30/21 13:02 Ordered 4 mg PO Q6H PRN Polyvinyl Alcohol [LiquiTears 1.4% Ophth Soln] Med 03/30/21 13:05 Ordered 1 drop EYEBOTH Q4H PRN Vit C/E/Zn/Coppr/Lutein/Zeaxan [Preservision Areds 2 Med 03/30/21 20:00 Ordered Softgel] 1 cap PO BID Warfarin [Coumadin] Med 03/30/21 13:15 Ordered 2.5 mg PO ASDIRECTED estradioL [Estrace 0.01% Vaginal Crm] Med 03/30/21 13:15 Ordered 2 gram VAG Q7D Anticoagulation Contraindications VTE [AST] Routine Oth 03/30/21 13:02 Ordered Resuscitation Status Routine Resus Stat 03/30/21 13:02 Ordered Medication Orders Acetaminophen (Acetaminophen 325 Mg Tab) 650 mg PO Q4H PRN PRN Reason: Pain (Mild 1-3)/fever Hydrocodone Bitart/Acetaminophen (Acetaminophen/Hydrocodone 325-5 Mg Tab) 1 tab PO Q4H PRN PRN Reason: Pain (moderate 4-6) Folic Acid (Folic Acid 1 Mg Tab) 1 mg PO DAILY JOY Furosemide (Furosemide 20 Mg Tab) 20 mg PO BID JOY Loperamide HCl (Loperamide 2 Mg Cap) 2 mg PO ASDIRECTED PRN PRN Reason: Diarrhea Losartan Potassium (Losartan 50 Mg Tab) 50 mg PO DAILY JOY Non-Formulary Medication (Calcium Carbonate [Tums]) 1,000 mg PO Q4H PRN PRN Reason: Heartburn Non-Formulary Medication (Cholecalciferol (Vitamin D3) [Vitamin D3]) 2,000 units PO DAILY JOY Non-Formulary Medication (Clobetasol) 1 applic TOP Q7D [facility] Non-Formulary Medication (Esomeprazole [Nexium]) 20 mg PO DAILY PRN PRN Reason: GERD Non-Formulary Medication (Estradiol [Estrace 0.01% Vaginal Crm]) 2 gram VAG Q7D JOY Non-Formulary Medication (Polyvinyl Alcohol [Liquitears 1.4% Ophth Soln]) 1 drop EYEBOTH Q4H PRN PRN Reason: Dry Eyes Non-Formulary Medication (Vit C/E/Zn/Coppr/Lutein/Zeaxan [Preservision Areds 2 Softgel]) 1 cap PO BID JOY Ondansetron HCl (Ondansetron 4 Mg Tab.Dis) 4 mg PO Q6H PRN PRN Reason: nausea, able to take PO Warfarin Sodium (Warfarin 2.5 Mg Tab) 2.5 mg PO ASDIRECTED JOY
[2021-03-30] MEDS ORDERED: Hypromellose 0.3% Ophth Soln 15 ML Bottle EYEBOTH PRN (13:35)
[2021-03-30] MEDS ORDERED: Calcium Carbonate 750 MG Tab.Chew PO PRN (13:36)
[2021-03-30] MEDS ORDERED: Melatonin 3 MG Tab PO PRN (13:58)
[2021-03-30] MEDS ORDERED: Amoxicillin 500 MG Cap PO PRN (14:16)
[2021-03-30] MEDS ORDERED: Furosemide 20 MG Tab PO SCH (16:00)
[2021-03-30] MEDS: Cranberry 500 MG Cap PO SCH (20:41)
[2021-03-30] MEDS: Beta-Carotene (Vitamin A) w/Vitamin C & E plus Minerals Tab PO SCH (20:41)
[2021-03-30] MEDS: Metoprolol Succinate 25 MG Tab.ER PO SCH (20:41)
[2021-03-31 06:45] LABS: ANION GAP 10.5 mmol/L (5-15); CHLORIDE,CL 101 mmol/L (98-107); SODIUM,NA 135 mmol/L (136-145)
[2021-03-31] MEDS ORDERED: Warfarin 2.5 MG Tab PO SCH (08:00)
[2021-03-31] MEDS: Acetaminophen 325 MG Tab PO PRN ×3 (09:34→22:44)
[2021-03-31] MEDS: Cholecalciferol (Vitamin D3) 25 MCG Tab PO SCH (09:35)
[2021-03-31] MEDS: Cranberry 500 MG Cap PO SCH ×3 (09:35→18:19)
[2021-03-31] MEDS: Beta-Carotene (Vitamin A) w/Vitamin C & E plus Minerals Tab PO SCH ×2 (09:35→20:02)
[2021-03-31] MEDS: Folic Acid 1 MG Tab PO SCH (09:36)
[2021-03-31] MEDS: Losartan 50 MG Tab PO SCH (09:36)
[2021-03-31] MEDS: Metoprolol Succinate 50 MG Tab.ER PO SCH (09:36)
[2021-03-31] MEDS: Ferrous Sulfate 325 MG Tab PO SCH (09:38)
--- OUTSIDE RECORDS SUMMARY | 2021-03-31 11:10 | XMSREPORT ---
:[address] [facility] Address [address] [place] [address] Care Team Providers Name Role Phone DO Juan Miguel Primary Care Provider Juan MiguelDO Attributed Provider Reason for Referral (Routine) Status Reason Specialty Diagnoses / Procedures Referred By Jenna reynolds Referred To Contact [address] [phone] Phone: Reason for Visit Reason Comments Auth/Cert (Routine) Status Reason Specialty Diagnoses / Referred By Referred To Procedures Contact Contact [facility] Kimmie Bowiematthew Hobson MD [address] [place], [place] Matthew BACON [phone] Phone: Fax: Encounter Details Date Type Department Care Team Description 03/24/2021 - [facility] Provider, Generic Hosp Proc edure Hip fracture (HCC) 03/30/2021 Encounter [facility] Narendra Zapien MD [address] [place] [address] [phone] [address] Eric Barboza MD [address] [place] [address] [phone] Bruce Rodriguez MD [address] [place], [place] [id number] [place] [address] Cheri Ayoub MD [address] [place] [address] [phone] Allergies Active Allergy Reactions Severity Noted Date Comments Codeine Nausea and Vomiting, 11/04/2012 Diarrhea Doxycycline Nausea and Vomiting 02/28/2018 Weak, le shaista echeverriay, N/V Indomethacin Nausea and Vomiting, 11/04/2012 Diarrhea Promethazine Headache 07/08/2018 Sulfamethoxazole Other (Specify in 05/22/2016 [place] v rahul nguyen W-Trimethoprim Comments) documented as of this encounter (statuses as of 03/30/2021) Medications Medication Sig Dispensed Refills Start Date End Date Status cranberry 450 MG Take 2 capsules by 90 capsule 0 01/16/2013 Active capsule mouth 3 times a day with meals vitamin D3, Take 2,000 Units by 30 capsule 0 04/08/2015 Active cholecalciferol, mouth 1 time per day 1000 unit capsule folic acid 1 mg Take 1 mg [...] mouth 1 time a day as needed warfarin (COUMADIN) [facility] 90 tablet 4 07/02/2020 Active 2.5 MG Anticoagulation tabletIndications: Pt:Take as directed. Paroxysmal atrial (Insurance Purposes: fibrillation (HCC), 2.5-5 mg daily dose [facility] (current) range) Call use of [phone] if ? anticoagulants clobetasol Apply to affected 30 g 6 10/25/2020 Active propionate area 1 time a week (TEMOVATE) 0.05 % ointmentIndications: Lichen sclerosus et atrophicus of the vulva Additional Information Patient taking differently: affected area Every week prn, rash, Informant: Self, Reported on 03/22/2021 acetaminophen (TYLENOL) Take 2 tablets 30 tablet 0 03/30/2021 Active 325 mg (650 mg) by mouth tabletIndications: Every 4 hours as Status post hip surgery needed for mild pain aspirin (ECOTRIN LOW Take 1 tablet (81 30 tablet 0 03/30/2021 Active STRENGTH) 81 MG enteric mg) by mouth 1 coated time per day tabletIndications: S/P mitral valve clip implantation, Mitral valve insufficiency, unspecified etiology calcium carbonate Take 2 tablets 30 tablet 0 03/30/2021 Active (TUMS) 500 MG chewable (1,000 mg) by tabletIndications: mouth Every 4 Dyspepsia hours as needed for heartburn or indigestion enoxaparin (LOVENOX) 60 Inject 60 mg 2 mL 0 03/30/2021 Active mg syringe (100 mg/mL) subcutaneously 2 /20 subcutaneous injection times a day for 3 21 solutionIndications: doses Status post hip surgery, Closed fracture of left hip, initial encounter (HCC) oxyCODONE (OXY-IR) 5 mg Take 1/2 tab (2.5 12 tablet 0 03/30/20 21 Active tablet (immediate mg) by mouth every release)Indications: 6 hours as needed Status post hip for pain rating surgery, Closed 4-6 out of 10; or fracture of left hip, take 1 tab (5 mg) initial encounter (HCC) every 6 hours as needed for pain rating 7-10 out of 10 nalOXone (NARCAN) 4 Daisetta 1 spray (4 0.2 mL 0 03/30/2021 Active MG/0.1ML nasal mg) into one sprayIndications: nostril 1 time; Status post hip may repeat in surgery, Closed opposite nostril fracture of left hip, in 2 to 3 minutes initial encounter ([facility]) if person does not respond. losartan 50 mg Take 1 tablet (50 90 tablet 3 03/30/2021 Active tabletIndications: mg) by mouth 1 Hypertension, time per day unspecified type metoprolol succinate Take 2 tablets (50 180 tablet 0 1 Active (TOPROL XL) 25 mg SR mg) in the morning tablet (24 and 1 tablet (25 hr)Indications: mg) in the Essential hypertension, evening. Atrial fibrillation, unspecified type (HCC) furosemide (LASIX) 20 Take 1 tablet (20 180 tablet 3 1 062 Active mg tabletIndications: mg) by mouth 2 8/2 0 Essential hypertension times a day 22 ferrous sulfate (65 MG Take 1 tablet (325 29 tablet 0 03/30/20 21 07/2 Active FE PER 325 MG TABLET) mg) by mouth 1 2/2 0 325 mg time per day 21 tabletIndications: Status post hip surgery, Iron deficiency anemia, unspecified iron deficiency anemia type senna-docusate sodium Take 1 tablet by 60 tablet 0 03/30/2021 07 Active (SENOKOT-S;PERICOLACE) mouth 2 times a 8.6-50 MG day Hold for >2-3 21 tabletIndications: BMs per day or for Status post hip loose stools surgery, Closed fracture of left hip, initial encounter ([facility]) melatonin 3 mg Take 1 tablet (3 30 tablet 0 03/30/2021 Active tabletIndications: mg) by mouth at Status post hip bedtime as needed surgery, Insomnia, for other unspecified type (Specify) (insomnia) sodium chloride 1 gm Take 1 tablet (1 12 tablet 0 03/30/2021 0 62 Active tabletIndications: g) by mouth 3 04/26 Hyponatremia times a day for 4 21 days Multiple Take 1 capsule by 0 03/30/2021 A ctive Vitamins-Minerals mouth 2 times a (PRESERVISION AREDS 2 day EYE VITAMIN) capsule artificial tears 1.4 % Place 1 drop into 15 mL 0 Active SOLN both eyes amoxicillin (AMOXIL) Take 4 capsules 8 capsule 1 03/30/2021 Active 500 mg (2,000 mg) by capsuleIndications: S/P mouth as needed mitral valve clip for other implantation, Mitral (Specify) (Single valve insufficiency, dose 30-60 minutes unspecified etiology before dental procedures) esomeprazole (NEXIUM) Take 1 capsule (20 90 capsule 0 03/30/20 21 Active 20 mg mg) by mouth 1 capsuleIndications: time a day as Gastroesophageal reflux needed for other disease without (Specify) (Reflux esophagitis symptoms) estradiol (ESTRACE Insert 2 g 42.5 g 0 03/30/2021 Active VAGINAL) 0.01% vaginal vaginally 1 time a creamIndications: week Atrophic vaginitis Multiple Take 1 capsule by 0 03/09 Di scontinued Vitamins-Minerals mouth 2 times a 12/25 (Reorder) (PRESERVISION AREDS 2) day 21 CAPS esomeprazole (NEXIUM) Take 1 capsule by 90 capsule 1 4 03/09 Discontinued 20 mg capsule mouth 1 time a day 12/25 (Reorder) as needed for 21 other (Specify) (Reflux symptoms). artificial tears 1.4 % Place 1 drop into 0 6 03/09 Discontinued SOLN both eyes Every 4 12/25 (R eorder) hours as needed 21 for dry eyes furosemide (LASIX) 20 Take 1 tablet (20 180 tablet 3 0 03/09 Discontinued mg tabletIndications: mg) by mouth 2 3/2 0 (Reorder) Essential hypertension times a day 21 traMADol (ULTRAM) 50 mg Take 1 tablet (50 20 tablet 4 09/03/20 20 03/09 Discontinued tabletIndications: mg) by mouth every (Stop Taking at Dyspnea on exertion 6 hours as needed 21 Discharge) for moderate pain estradiol (ESTRACE Insert 2 g 42.5 g 3 10/25/202003/09 Discontinued VAGINAL) 0.01% vaginal vaginally 1 time a 12/25 (Reorder) creamIndications: week 21 Atrophic vaginitis losartan 50 mg Take 1 tablet (50 90 tablet 3 01/04/202103/09 Discontinued tabletIndications: mg) by mouth 1 12/25 (Reorder) Hypertension, time per day 21 unspecified type acetaminophen (TYLENOL) Take 1,000 mg by 0 03/09 Discontinued 500 mg tablet mouth every 6 12/25 (S top Taking at hours as needed 21 Disc harge) for mild pain metoprolol succinate Take 2 tablets (50 180 tablet 3 1 03/09 Discontinued (TOPROL XL) 25 mg SR mg) in the morning 12/25 (Reorder) tablet (24 and 1 tablet (25 21 hr)Indications: mg) in the Essential hypertension, evening. Atrial fibrillation, unspecified type (HCC) aspirin (ECOTRIN LOW Take 1 tablet (81 30 tablet 0 03/24/202103/09 Discontinued STRENGTH) 81 MG enteric mg) by mouth 1 (Reorder) coated time per day 21 tabletIndications: S/P mitral valve clip implantation, Mitral valve insufficiency, unspecified etiology amoxicillin (AMOXIL) Take 4 capsules 8 capsule 1 03/23/2021 Discontinued 500 mg (2,000 mg) by 12/25 (Reord er) capsuleIndications: S/P mouth as needed 21 mitral valve clip for other implantation, Mitral (Specify) (Single valve insufficiency, dose 30-60 minutes unspecified etiology before dental procedures) documented as of this encounter (statuses as of 03/30/2021) Active Problems Problem Noted Date Anemia 03/27/2021 Leukocytosis 03/27/2021 Hyperkalemia 03/25/2021 Hypomagnesemia 03/25/2021 Hip fracture 03/24/2021 S/P mitral valve clip implantation 03/22/2021 MR (mitral regurgitation) 03/22/2021 Non-rheumatic mitral regurgitation 01/28/2021 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 08/04/2019 Paroxysmal atrial [...] as of this encounter (statuses as of 03/30/2021) Resolved Problems Problem Noted Date Resolved Date On rivaroxaban therapy 08/04/2019 08/04/2019 Screening for condition 02/16/2011 01/16/2013 Tachycardia 02/26/2009 12/10/2012 documented as of this encounter (statuses as of 03/30/2021) Immunizations Name Administration Dates Next Due FLU VACCINE HIGH DOSE 65YR+(Fluzone) 06/29/2020, 07/31/2019, 07/31/2019, 07/02/2018, 07/02/2018, 07/09/2017, 07/09/2017, 07/31/2016, 07/15/2015, 07/15/2015, 07/22/2014, 07/07/2013 Moderna COVID-19 Vaccine 12/02/2020, 11/04/2020 Pneumococcal Conj PCV13 03/15/2015 Pneumococcal Polysaccharide PPSV23 [...] you have a drink containing alcohol? Never 03/25/2021 How many drinks containing alcohol do you have on a typical Not asked day when you are drinking? How often do you have six or more drinks on one occasion? Ne brett 03/25/2021 Sex Assigned at Date Recorded Not on file documented as of this encounter Last Filed Vital Signs Vital Sign Reading Time Taken Comments Blood Pressure 111/38 03/30/2021 8:21 AM CDT Pulse 77 03/30/2021 8:21 AM CDT Temperature 36.9 C (98.5 F) 03/30/2021 8:21 AM CDT Respiratory Rate 16 03/30/2021 8:21 AM CDT Oxygen Saturation 94% 03/30/2021 8:21 AM CDT Inhaled Oxygen Concentration - - Weight 57.4 kg (126 lb 9.6 oz) 03/27/2021 7:00 AM CDT Height 157.5 cm (5' 2") 03/24/2021 6:43 AM CDT Body Mass Index 23.16 03/24/2021 6:43 AM CDT documented in this encounter Functional Status [...] documented as of this encounter Discharge Summaries Cheri Ayoub MD - 03/30/2021 8:19 AM CDT Discharge Summary Patient ID: Linh Quan is a 81yr female. Attending Physician: Juan Ayoub* Discharging Provider Specialty: Adult Hospitalist Admit Date: 03/24/2021 Discharge Date: 03/30/2021 Primary Care Physician: Kimber Quan DO Code Status: Full Code Discharge Diagnoses # Fragility intertrochanteric proximal femur fracture, left hip # S/p peritrochanteric femoral fracture with intramedullary implant (cephalomedullary nail), proximal femur on 03/25/2021 # Acute blood loss anemia, postoperative as expected # Mild leukocytosis likely stress demargination, resolved # Hyperkalemia, resolved. 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 She was 2 days post op from mitral valve clip procedure for MR on 03/22/2021. Patient subsequently underwent left hip trochanteric fixation nailing by Dr. Campa on 03/28/2021 and is recovering. Post-operatively, patient had acute hyponatremiadue to SIADH which is being corrected and monitored closely. She also developed acute blood loss anemia as expected and acute urinary retention requiring Li placement. She is otherwise doing well. Pain is being managed appropriately with ice packs and analgesics. She is being discharged to [facility] today at 10 am. See admission H&P, orthopedic consult note, cardiology consultnote, and operative report for further details. Problem based hospital course: # Fragility intertrochanteric proximal femur fracture, left hip # S/p peritrochanteric femoral fracture with intramedullary implant (cephalomedullary nail), proximal femur on 03/25/2021 Doing well postop, pain management with ice packs, as needed Tylenol and opioid analgesics Bowel regimen while on narcotics PT/OT; WBAT LLE Bone health referral given Encourage incentive spirometry DVT prophylaxis: Systemic anticoagulation with Coumadin, currently bridging with heparin. Continue Lovenox SC 60 mg BID Follow-up with [facility] in [address] Campa in 6 weeks in the clinic # Acute blood loss anemia, postoperative as expected Baseline Hgb ~12.8 (03/21), trended down and presently stable at ~7.8-8.3 Surgical site with no drainage or oozing Continue ferrous sulfate 325 mg daily x30 doses for iron deficiency Monitor and transfuse if Hgb <7 # Mild leukocytosis likely stress demargination, resolved No signs of infection Monitor # Acute post-operative urinary retention Patient had Li catheter placed on 03/27. Li was removed on 03/28 and patient failed trial ofvoid and is being discharged to [facility] with a Li. It appears patient usually has post procedure urinary retention which eventually resolves. Given her multiple comorbidities, I will not start her on tamsulosin at this time. Will recommend trial of void again in 2-3 days at the [facility]. 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 Patient received boluses of 50 ml 3% saline with subsequent Na checks gradually improving serum sodium. She is currently at 131. We will continue her on fluid restriction 1500 mL for now and sodium chloride 1 g tabs TID. She does report having needed salt tabs in the pastand this causes stomach upset. Helps to take it with food. Follow-up on daily BMP and ensure salt tabs are titrated down appropriately and fluid restriction is liberalized. # Hyperkalemia, resolved. # Hypomagnesemia, improved Monitor and replace as needed # S/p mitral valve clipping # Valvular a-Fib, rate controlled She did have runs of a-fib with rapid rate in 180s during this admission, evaluated by cardiology, and her metoprolol was increased to 50 mg qAM and 25 mg qAM. She was briefly also placed on amiodarone infusion which has been discontinued. Patient also received digoxin. Her rate is currently well controlled on Toprol Post procedure echo on 03/23 showed LVEF 60% and trivial MR, moderate-severe AI, moderate ([facility] 27) Continue Coumadin, switch heparin bridging to Lovenox (INR 2.2 - 03/30). Continue bridging for 1more day and if remains therapeutic can stop Lovenox. Continue Coumadin dosing per pharmacy Monitored on telemetry while inpatient. Remained in atrial fibrillation with HR in 80s-90s, occasionally low 100s. Follow-up with structural heart team as outpatient (see discharge summary dated 03/23/2021 for details) # Hypertension Mostly remained normotensive, at times SBP in 100s. Continue Toprol XL 50 mg in the morning and 25 mg in the evening Home Losartan 50 mg daily and Lasix 20 mg BID were held during this hospitalization. These meds need to be restarted when appropriate # Severe AI, moderate Currently stable # Moderate (non-severe) protein calorie malnutrition Supplement diet with oral nutrition supplements/nutrient dense foods Dietitian following CODE STATUS: Full DVT prophylaxis: Systemic anticoagulation Diet: Regular, nutrition supplements due to inadequate oral intake Discussed plan of care in detail with patient and her [id number] at the bedside and answered all questions satisfactorily on 03/29/2021 At the time of discharge, patient's vital signs are stable. Her pain is controlled on oral pain medications and ice packs. She is tolerating a diet with no nausea or vomiting, having bowel movements. She continues to have a Li catheter due to postoperative urinary retention and will need a trial ofvoid in a few days as mentioned abovel. Denies any symptoms of chest pain, shortness of breath, lightheadedness, dizziness. Patient has worked with physical therapy and occupational therapy, but is physically deconditioned and needs to continue PT/OT. Case management assisted with discharge planning. Patient is deemed medically stable to be discharged to swing bed today at 10 am for further recovery and close follow-up with orthopedic surgery in the clinic and cardiology within one month from her last hospital discharge on 03/23. -- Continue medications as per AVS Discharge planning and instructions were discussed in detail with patient and her [id number] (Mariella) in the room this morning. They verbalized understanding and all questions/concerns were addressed satisfactorily. Procedures Performed and Findings Procedure(s): LEFT HIP TROCHANTERIC FIXATION NAILING - Wound Class: Clean Discharge Exam Vital Signs: Temp: 98.5 F (36.9 C) | BP: 111/38 | Pulse: 77 | Resp: 16 | Pain Ratin (out of 10) | Weight: 57.4 kg (126 lb 9.6 oz) | O2 Device: Room Air O2 Flow Rate (L/min): 1 l/min | SpO2: 94 % Intake and Output: 03/29 0700 - 03/30 0659 In: 25 [Oral:25] Out: 1450 [Urine:1450] Physical Exam General:No apparent distress. Speaks in full sentences. HEENT:Normocephalic/Atraumatic. Normal conjunctivae. Pupils equal, round, and reactive to light. Oropharynx clear, moist mucous membranes. Cardiovascular:Irregular rhythm, normal rate audible S1/S2. No pedal edema.Palpable distal pulses. Pulmonary/Chest:Normal respiratory effort, clear breath sounds auscultated in all lung callaway. No adventitious sounds. Abdominal:Soft. Non-tender. Non-distended. Bowel sounds present Genitourinary: Li catheter draining straw colored urine Musculoskeletal:LLE,decreasedrange of motion.Surgical dressing in place,c/d/i. Appropriatepost-op tenderness. Distal sensation and motor function intact. Neurological:Alert and oriented to person, place, and time. No focal findings. Dermatologic:Skin is warm and dry. No rash. Scattered bruising. Psychiatric:Affect, mood, behavior, speech, demeanor, judgement and thought content unremarkable. Consults CONSULT CARDIOLOGY CONSULT ORTHOPEDICS WARFARIN: RX TO DOSE (ADULT) [facility] REFERRAL Discharge Disposition Discharge Medications Medication List START taking these medications calcium carbonate 500 MG chewable tablet Commonly known as: TUMS Take 2 tablets (1,000 mg) by mouth Every 4 hours as needed for heartburn or indigestion enoxaparin 60 mg syringe (100 mg/mL) subcutaneous injection solution Commonly known as: LOVENOX Inject 60 mg subcutaneously 2 times a day for 3 doses ferrous sulfate 325 mg tablet Commonly known as: 65 mg FE per 325 mg tablet Take 1 tablet (325 mg) by mouth 1 time per day melatonin 3 mg tablet Take 1 tablet (3 mg) by mouth at bedtime as needed for other (Specify) (insomnia) nalOXone 4 MG/0.1ML nasal spray Commonly known as: NARCAN Daisetta 1 spray (4 mg) into one nostril 1 time; may repeat in opposite nostril in 2 to 3 minutes if person does not respond. oxyCODONE 5 mg tablet (immediate release) Commonly known as: OXY-IR Take 1/2 tab (2.5 mg) by mouth every 6 hours as needed for pain rating 4-6 out of 10; or take 1 tab (5 mg) every 6 hours as needed for pain rating 7-10 out of 10 senna-docusate sodium 8.6-50 MG tablet Commonly known as: SENOKOT-S;PERICOLACE Take 1 tablet by mouth 2 times a day Hold for >2-3 BMs per day or for loose stools sodium chloride 1 gm tablet Take 1 tablet (1 g) by mouth 3 times a day for 4 days CHANGE how you take these medications acetaminophen 325 mg tablet Commonly known as: TYLENOL Take 2 tablets (650 mg) by mouth Every 4 hours as needed for mild pain What changed: medication strength how much to take when to take this artificial tears 1.4 % Soln What changed: when to take this reasons to take this clobetasol propionate 0.05 % ointment Commonly known as: TEMOVATE Apply to affected area 1 time a week What changed: when to take this reasons to take this CONTINUE taking these medications amoxicillin 500 mg capsule Commonly known as: AMOXIL aspirin 81 MG enteric coated tablet Commonly known as: ECOTRIN LOW STRENGTH Take 1 tablet (81 mg) by mouth 1 time per day cranberry 450 MG capsule esomeprazole 20 mg capsule Commonly known as: NexIUM Take 1 capsule (20 mg) by mouth 1 time a day as needed for other (Specify) (Reflux symptoms) estradiol 0.01% vaginal cream Commonly known as: ESTRACE VAGINAL Insert 2 g vaginally 1 time a week folic acid 1 mg tablet furosemide 20 mg tablet Commonly known as: LASIX Take 1 tablet (20 mg) by mouth 2 times a day IMODIUM PO losartan 50 mg tablet metoprolol succinate 25 mg SR tablet (24 hr) Commonly known as: TOPROL XL Take 2 tablets (50 mg) in the morning and 1 tablet (25 mg) in the evening. PreserVision AREDS 2 eye vitamin capsule PROBIOTIC DAILY PO vitamin D3 (cholecalciferol) 1000 unit capsule warfarin 2.5 MG tablet Commonly known as: COUMADIN [facility] Anticoagulation Pt:Take as directed. (Insurance Purposes: 2.5-5 mg daily dose range) Call [phone] if ? STOP taking these medications traMADol 50 mg tablet Commonly known as: ULTRAM Where to Get Your Medications [facility] [address] [phone] acetaminophen 325 mg tablet aspirin 81 MG enteric coated tablet calcium carbonate 500 MG chewable tablet enoxaparin 60 mg syringe (100 mg/mL) subcutaneous injection solution esomeprazole 20 mg capsule estradiol 0.01% vaginal cream ferrous sulfate 325 mg tablet furosemide 20 mg tablet melatonin 3 mg tablet metoprolol succinate 25 mg SR tablet (24 hr) nalOXone 4 MG/0.1ML nasal spray oxyCODONE 5 mg tablet (immediate release) senna-docusate sodium 8.6-50 MG tablet sodium chloride 1 gm tablet Discharge Instructions See AVS for discharge instructions. Tests Pending at Discharge Follow-Up Scheduled See AVS for Follow up appointments made Medical Decision Making The time spent on discharge coordination was greater than 30 minutes. documented in this encounter Medications at Time of Discharge Medication Sig Dispensed Refills Start Date End Date acetaminophen (TYLENOL) Take 2 tablets (650 30 tablet 0 325 mg mg) by mouth Every 4 tabletIndications: hours as needed for Status post hip surgery mild pain aspirin (ECOTRIN LOW Take 1 tablet (81 mg) 30 tablet 0 03/09 STRENGTH) 81 MG enteric by mouth 1 time per coated day tabletIndications: S/P mitral valve clip implantation, Mitral valve insufficiency, unspecified etiology calcium carbonate Take 2 tablets (1,000 30 tablet 0 021 (TUMS) 500 MG chewable mg) by mouth Every 4 tabletIndications: hours as needed for Dyspepsia heartburn or indigestion enoxaparin (LOVENOX) 60 Inject 60 mg 2 mL 0 03/30/2021 04/01/2021 mg syringe (100 mg/mL) subcutaneously 2 times subcutaneous injection a day for 3 doses solutionIndications: Status post hip surgery, Closed fracture of left hip, initial encounter ([facility]) oxyCODONE (OXY-IR) 5 mg Take 1/2 tab (2.5 mg) 12 tablet 0 0 03/30/2021 tablet (immediate by mouth every 6 hours release)Indications: as needed for pain Status post hip rating 4-6 out of 10; surgery, Closed or take 1 tab (5 mg) fracture of left hip, every 6 hours as initial encounter ([facility]) needed for pain rating 7-10 out of 10 losartan 50 mg Take 1 tablet (50 mg) 90 tablet 3 03/30/2021 tabletIndications: by mouth 1 time per Hypertension, day unspecified type metoprolol succinate Take 2 tablets (50 mg) 180 tablet 0 (TOPROL XL) 25 mg SR in the morning and 1 tablet (24 tablet (25 mg) in the hr)Indications: evening. Essential hypertension, Atrial fibrillation, unspecified type ([facility] [facility]) furosemide (LASIX) 20 Take 1 tablet (20 mg) 180 tablet 3 04/04/2022 mg tabletIndications: by mouth 2 times a day Essential hypertension ferrous sulfate (65 MG Take 1 tablet (325 mg) 29 tablet 0 0 03/30/2021 04/28/2021 FE PER 325 MG TABLET) by mouth 1 time per 325 mg day tabletIndications: Status post hip surgery, Iron deficiency anemia, unspecified iron deficiency anemia type senna-docusate sodium Take 1 tablet by mouth 60 tablet 0 04/29/2021 (SENOKOT-S;PERICOLACE) 2 times a day Hold for 8.6-50 MG >2-3 BMs per day or tabletIndications: for loose stools Status post hip surgery, Closed fracture of left hip, initial encounter ([facility]) melatonin 3 mg Take 1 tablet (3 mg) 30 tablet 0 03/30/2021 tabletIndications: by mouth at bedtime as Status post hip needed for other surgery, Insomnia, (Specify) (insomnia) unspecified type sodium chloride 1 gm Take 1 tablet (1 g) by 12 tablet 0 04/03/2021 tabletIndications: mouth 3 times a day Hyponatremia for 4 days Multiple Take 1 capsule by 0 03/30/2021 Vitamins-Minerals mouth 2 times a day (PRESERVISION AREDS 2 EYE VITAMIN) capsule artificial tears 1.4 % Place 1 drop into both 15 mL 0 0 03/30/2021 SOLN eyes amoxicillin (AMOXIL) Take 4 capsules (2,000 8 capsule 1 500 mg mg) by mouth as needed capsuleIndications: S/P for other (Specify) mitral valve clip (Single dose 30-60 implantation, Mitral minutes before dental valve insufficiency, procedures) unspecified etiology esomeprazole (NEXIUM) Take 1 capsule (20 mg) 90 capsule 0 20 mg by mouth 1 time a day capsuleIndications: as needed for other Gastroesophageal reflux (Specify) (Reflux disease without symptoms) esophagitis estradiol (ESTRACE Insert 2 g vaginally 1 42.5 g 0 03/30 VAGINAL) 0.01% vaginal time a week creamIndications: Atrophic vaginitis clobetasol propionate Apply to affected area 30 g 6 (TEMOVATE) 0.05 % 1 time a week ointmentIndications: Lichen sclerosus et atrophicus of the vulva warfarin (COUMADIN) 2.5 Newman Rob 90 tablet 4 0 MG tabletIndications: Anticoagulation Paroxysmal atrial Pt:Take as directed. 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 Probiotic Product Take 1 capsule by 0 (PROBIOTIC DAILY PO) mouth 1 time a day as needed folic acid 1 mg tablet Take 1 mg by mouth 1 0 time per day Loperamide HCl (IMODIUM Take 1-2 tablets by 0 PO) mouth as needed (2 tablets with initial loose stool and 1 tablet as needed thereafter not to exceed 8 tabs per day) vitamin D3, Take 2,000 Units by 30 capsule 0 04/08/2015 cholecalciferol, 1000 mouth 1 time per day unit capsule cranberry 450 MG Take 2 capsules by 90 capsule 0 01/16/2013 capsule mouth 3 times a day with meals nalOXone (NARCAN) 4 [place] 1 spray (4 mg) 0.2 mL 0 2020 MG/0.1ML nasal into one nostril 1 sprayIndications: time; may repeat in Status post hip opposite nostril in 2 surgery, Closed to 3 minutes if person fracture of left hip, does not respond. initial encounter (HCC) documented as of this encounter Progress Notes Cheri Ayoub MD - 03/29/2021 9:22 AM CDT Images from the original note were not included. DAILY PROGRESS NOTE Linh Quan is a 81yr old female admitted on 03/24/2021 6:37 AM. Impression / Plan Linh Quan is an 81 year old female with history of mitral regurgitation, aortic stenosis andmoderate-severe aortic insufficiency, hypertension, atrial fibrillation (on warfarin) who sustained a mechanical fall resulting in left hip fracture on 03/24/2021. She was 2 days post op from mitral valve clip procedure for MR on 03/22/2021. Patient subsequently underwent left hip trochanteric fixation nailing by Dr. Campa on 03/28/2021 and is recovering. 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 She also developed acute blood loss anemia as expected and acute urinary retention. She is otherwise doing well. Pain is being managed appropriately with ice packs and analgesics. She is getting closer to her discharge to [facility] bed and tentative plan is to discharge her tomorrow (03/30) at 10 am if she is medically stable. # Fragility intertrochanteric proximal femur fracture, left hip # S/p peritrochanteric femoral fracture with intramedullary implant (cephalomedullary nail), proximal femur on 03/25/2021 Doing well postop, pain management with ice packs, as needed Tylenol and opioid analgesics Bowel regimen while on narcotics PT/OT; WBAT LLE Bone health referral Encourage incentive spirometry DVT prophylaxis: Systemic anticoagulation with Coumadin, currently bridging with heparin. Will switch to Lovenox SC 60 mg BID Follow-up with Y[facility] in [address] Campa in 6 weeks in the clinic # Acute blood loss anemia, postoperative as expected Baseline Hgb ~12.8 (03/21), trended down and presently stable at ~7.8-8.3 Surgical site with no drainage or oozing Continue ferrous sulfate 325 mg daily x30 doses for iron deficiency Monitor and transfuse if Hgb <7 # Mild leukocytosis likely stress demargination, resolved No signs of infection Monitor # Hyperkalemia, resolved. 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 Boluses of 50 ml 3% saline given with subsequent Na checks with a goal to increase serum sodium by 4 to 6 mEq/L above 127. She is currently at 130 Will continue fluid restriction 1500 mL for now and add sodium chloride 1 g tabs TID # S/p mitral valve clipping # Valvular a-Fib, rate controlled She did have runs of a-fib with rapid rate in 180s during this admission, evaluated by cardiology, and her metoprolol was increased to 50 mg qAM and 25 mg qAM. She was briefly also placed on amiodarone infusion which has been discontinued. Patient also received digoxin. Her rate is currently well controlled. Post procedure echo on 03/23 showed LVEF 60% and trivial MR, moderate-severe AI, moderate (AVMG 27) Continue Coumadin, switch heparin bridging to Lovenox (INR 1.7 - 03/29). Once therapeutic, will continue bridging for 2 more days and then can stop Lovenox Continue to monitor on telemetry for now Follow-up with structural heart team as outpatient # Severe AI, moderate Currently stable # Moderate (non-severe) protein calorie malnutrition Supplement diet with oral nutrition supplements/nutrient dense foods Dietitian following # Acute post-operative urinary retention Patient had Li catheter placed on 03/27. Li was removed on 03/28 and patient failed trial ofvoid and will likely need to be discharged to [facility] with a Li. It appears patient usually has post procedure urinary retention which eventually resolves. Given her multiple comorbidities, I will not start her on tamsulosin at this time. Will recommend trial of void again in 4-6 days at the [facility]. CODE STATUS: Full DVT prophylaxis: Systemic anticoagulation Diet: Regular, nutrition supplements due to inadequate oral intake Disposition plan: To swing bed in [place] likely tomorrow if remains medically stable. CM following for safe discharge planning Discussed plan of care in detail with patient and her [id number] at the bedside and answered all questions satisfactorily Interval History HPI Patient was transferred from [facility] to on 03/27. Overnight uneventful. Patient remains in a-fib with HR in 70s and 90s with occasional ventricular ectopic beats noted on telemetry. She denies any chest pain, shortness of breath does have some chest tightness which has been there since mitral clip procedure, denies any other symptoms except feeling tired, fatigued, and weak. Therapies recommended low intensity setting for further recovery prior to returning home. She failed trial of void after Li removal yesterday. Reportedly, she always has urinary retention after procedures. She was onceagain given a trial of void with straight cathing protocol. If needed Li catheter will be placed b k and they can remove it in a few days at the SNF and allow her to void. Pain management is appropriate. Patient is able to pull 500 - 750 mL with incentive spirometry. We will continue to encourage IS. Presently saturating well on room air. Review of Systems Review of Systems Remainder of 10 point ROS asked/reviewed. Negative except as mentioned in HPI Physical Exam Vital Signs: Temp: 98 F (36.7 C) | BP: 113/41 | Pulse: 94 | Resp: 16 | Pain Ratin (out of 10) | Weight: 57.4 kg (126 lb 9.6 oz) | O2 Device: Room Air O2 Flow Rate (L/min): 1 l/min | SpO2: 95 % Maximum Temperatures (last 24 hours) Temperature Maximum Max Temp 98.8 F (37.1 C) Intake and Output: 03/28 0700 - 03/29 0659 In: 1936.7 [Oral:1718] Out: 1000 [Urine:1000] Physical Exam General: No apparent distress. Speaks in full sentences. HEENT: Normocephalic/Atraumatic. Normal conjunctivae. Pupils equal, round, and reactive to light. Oropharynx clear, moist mucous membranes. Cardiovascular: Irregular rhythm, normal rate audible S1/S2. No pedal edema. Palpable distal pulses. Pulmonary/Chest: Normal respiratory effort, clear breath sounds auscultated in all lung callaway. No adventitious sounds. Abdominal: Soft. Non-tender. Non-distended. Bowel sounds present Genitourinary: Li catheter draining straw colored urine Musculoskeletal: LLE, decreased range of motion. Surgical dressing in place, c/d/i. Appropriate post-op tenderness. Distal sensation and motor function intact. Neurological: Alert and oriented to person, place, and time. No focal findings. Dermatologic: Skin is warm and dry. No rash. Psychiatric: Affect, mood, behavior, speech, demeanor, judgement and thought content unremarkable. Labs Labs (Last day) 03/29/21640 - 03/29/21640 CBC 03/29/21640 CBC WBC 4.0-11.0 (K/uL) 10.1 RBC 3.80-5.30 (M/uL) 2.54 Hemoglobin 11.5-15.8 (g/dL) 7.8 Hematocrit 35.0-45.0 (%) 24.3 MCV 80.0-98.0 (fL) 95.7 MCH 25.5-34.0 (pg) 30.7 MCHC 31.5-36.5 (g/dL) 32.1 RDW-CV 11.5-15.5 (%) 12.9 RDW-SD 35.5-50.0 (fl) 42.6 Platelet Count 140-400 (K/uL) 172 MPV 8.5-12.0 (fL) 10.3 03/29/21 1554 - 03/29/21 0641 CHEMISTRY 03/29/21 1554 03/29/21 1404 03/29/21 1307 03/29/21 0641 03/29/21640 CHEMISTRY Glucose 70-100 (mg/dL) 97 Sodium 135-145 (meq/L) 130 129 128 127 Potassium 3.5-5.3 (meq/L) 3.9 Chloride 99-110 (meq/L) 97 CO2 20-29 (meq/L) 23 Anion Gap with K 6-20 (meq/L) 11 BUN 6-22 (mg/dL) 19 Creatinine 0.60-1.10 (mg/dL) 0.67 BUN/Creatinine Ratio 10.0-25.0 28.4 Calcium 8.5-10.5 (mg/dL) 8.4 Magnesium 1.8-2.4 (mg/dL) 1.9 eGFR >=60 (mL/min/1.73m2) >90 eGFR Non- >=60 (mL/min/1.73m2) 84 03/29/21 0641 - 03/29/21 0641 CHEMISTRY 03/29/21 0641 CHEMISTRY Osmolality 280-305 (mOsm/kg) 265 03/29/21 0641 - 03/29/21 0641 GENERAL COAGULATION 03/29/21 0641 GENERAL COAGULATION Protime 12.0-14.5 (secs) 19.2 INR 2.0-3.5 1.7 03/29/21 0745 - 03/29/21 0745 SARS-COV-2 03/29/21 0745 SARS-COV-2 SARS-CoV-2 Not Detected Not Detected 03/29/21 1213 - 03/29/21 1213 URINE CHEMISTRY 03/29/21 1213 03/29/21 1213 URINE CHEMISTRY Osmolality Urine 390-1,000 (mOsm/kg) 242 Sodium Urine (meq/L) <20 03/29/21 0641 - 03/29/21 0641 OTHER 03/29/21 0641 OTHER Age (Years) 81 Medical Decision making MDM Reviewed: previous chart, nursing note and vitals Reviewed previous: labs, ECG and x-ray Interpretation: labs, ECG and x-ray Consults: orthopedics INATTirso Hartley PA - 03/28/2021 3:38 PM CDT ORTHOPAEDIC POST OPERATIVE PROGRESS NOTE March 28, 2021 POD # 3 Left Hip TFN Non-Op Left Clavicle Fracture Patient of Dr. Campa S: Linh Quan is a 81yr female recovering from surgery. Sleepy and tired today. Not using sling when up and pain to shoulder is minimal. denies CP, SOB, N/V, Fever or Chills, numbness/tingling. Patient is participating in PT/OT. Pain is controlled on current regimen. Patient is passingflatus/having a BM. Patient is urinating with li. O: Temp Readings from Last 1 Encounters: 03/28/21 98.4 F (36.9 C) BP Readings from Last 1 Encounters: 03/28/21 128/70 Pulse Readings from Last 1 Encounters: 03/28/21 96 Gen: Patient in bed , alert and orientated, no apparent distress, well appearing Female Incision: no drainage. Dressing C/D/I. No signs of erythema or fluctuance. left LEG: Warm, well perfused. Palpable DP pulse present. Distal sensation intact to light touch from L3 to S1. Motor movements grossly intact with ankle dorsiflexion/plantarflexion and toe extension/flexion. No calf pain. Compartments soft. Left arm: Warm well perfused. Palpable radial pulse present. Motor movement grossly intact with wrist and finger extension and flexion. Lab Results Component Value Date WBC 14.3 (H) 03/28/2021 NUCRBC 0 03/21/2021 RBC 2.66 (L) 03/28/2021 HEMOGLOBIN 8.3 (L) 03/28/2021 HEMATOCRIT 25.6 (L) 03/28/2021 MCV 96.2 03/28/2021 MCH 31.2 03/28/2021 MCHC 32.4 03/28/2021 RDW 12.0 05/27/2013 PLTCOUNT 182 03/28/2021 NEUTROPCT 79.9 03/21/2021 BANDPCT 1.0 02/01/2016 LYMPHSPCT 12.9 03/21/2021 MONOSPCT 6.1 03/21/2021 EOSPCT 0.6 03/21/2021 BASOPHILPCT 0.4 03/21/2021 Lab Results Component Value Date INR 1.5 (L) 03/28/2021 A/P: 1. s/p Left Hip TFN: DVT prophylaxis: Lovenox bridge to warfarin per primary Pain control: Controlled on current regimen Wound care: Changed dressing today. PT/OT: continue; Activity: as tolerated; WBAT LLE, WBAT LUE in sling for comfort Disposition/planning: continue cares; discharging tomorrow per CM to [facility]. Follow up: 2 weeks with Y[facility] and 6 weeks with [facility]. Acute Blood loss Anemia: Expected Tirso MORFIN-C Cheri Yan MD - 03/28/2021 6:56 AM CDT Images from the original note were not included. DAILY PROGRESS NOTE Linh Quan is a 81yr old female admitted on 03/24/2021 6:37 AM. Impression / Plan Linh Quan is an 81 year old female with history of mitral regurgitation, aortic stenosis andmoderate-severe insufficiency, hypertension, atrial fibrillation (on warfarin) who sustained a mechanical fall resulting in left hip fracture on 03/24/2021. She was 2 days post op from mitral valve clip procedure for MR on 03/22/2021. Patient underwent left hip trochanteric fixation nailing by Dr. Campa on 03/28/2021 and is recovering well. Awaits placement # Fragility intertrochanteric proximal femur fracture, left hip # S/p peritrochanteric femoral fracture with intramedullary implant (cephalomedullary nail), proximal femur on 03/25/2021 Doing well postop, pain management with ice packs, as needed Tylenol and opioid analgesics Bowel regimen while on narcotics PT/OT; WBAT LLE Bone health referral DVT prophylaxis: Systemic anticoagulation with Coumadin, currently bridging with heparin. Will switch to Lovenox SC 60 mg BID Follow-up with YENIFER in [address] Campa in 6 weeks in the clinic # Acute blood loss anemia, postoperative as expected Baseline Hgb ~12.8 (03/21), trended down and presently stable at 8.3 Surgical site with no drainage or oozing Start ferrous sulfate 325 mg daily x30 doses for iron deficiency Will monitor and transfuse if Hgb <7 # Mild leukocytosis likely stress demargination No signs of infection Monitor # Hyperkalemia, resolved. # Hypomagnesemia, improved Monitor and replace as needed # Acute asymptomatic hyponatremia Likely secondary to SIADH Will place on fluid restriction 1500 mL and monitor # S/p mitral valve clipping # Valvular a-Fib, rate controlled She did have runs of a-fib with rapid rate in 180s during this admission, evaluated by cardiology, and her metoprolol was increased to 50 mg qAM and 25 mg qAM. She was briefly also placed on amiodarone infusion which has been discontinued. Patient also received digoxin. Her rate is currently well controlled. Post procedure echo on 03/23 showed LVEF 60% and trivial MR, moderate-severe AI, moderate (AVMG 27) Continue Coumadin, switch heparin bridging to Lovenox (INR 1.5 - 03/28) Continue to monitor on telemetry for now Follow-up with structural heart team as outpatient # Severe AI, moderate Currently stable # Moderate (non-severe) protein calorie malnutrition Supplement diet with oral nutrition supplements/nutrient dense foods Dietitian following # Acute post-operative urinary retention Patient had Li catheter placed on 03/27. Will give her a trial of void today CODE STATUS: Full DVT prophylaxis: Systemic anticoagulation Diet: Regular Disposition plan: To [facility] in [place] likely tomorrow. CM following for safe discharge planning Interval History HPI Patient was transferred from [facility] to yesterday. Overnight uneventful. Telemetry shows A. fib in 70s80s with occasional HR in 150s during therapies denies any chest pain, shortness of breath doeshave some tightness which has been there since mitral clip procedure, denies any other symptoms. She is tolerating therapies. She did have acute urinary retention requiring Li placement yesterday.Reportedly, she always has urinary retention after procedures. We discussed leaving the Li in today and giving a trial of void tomorrow. It has been >24 hours since placement. Will offer a trialof void today as she is leaving for swing bed in [place] at 10am in the morning. Patient appears a bit drowsy later in the day. Decreased opioid analgesic dosages. Patient is ableto pull 500 mL with incentive spirometry. We will continue to encourage IS. Presently saturating well on room air. Review of Systems Review of Systems Remainder of 10 point ROS asked/reviewed. Negative except as mentioned in HPI Physical Exam Vital Signs: Temp: 97.2 F (36.2 C) | BP: 111/45 | Pulse: 79 | Resp: 18 | Pain Ratin (out of 10) | Weight: 57.4 kg (126 lb 9.6 oz) | O2 Device: Room Air O2 Flow Rate (L/min): 1 l/min | SpO2: 93 % Maximum Temperatures (last 24 hours) Temperature Maximum Max Temp 99 F (37.2 C) Intake and Output: 03/27 0700 - 03/28 0659 In: 1468.3 [Oral:1210] Out: 1000 [Urine:1000] Physical Exam General: No apparent distress. Speaks in full sentences. HEENT: Normocephalic/Atraumatic. Normal conjunctivae. Pupils equal, round, and reactive to light. Oropharynx clear, moist mucous membranes. Cardiovascular: Irregular rhythm, normal rate audible S1/S2. No pedal edema. Palpable distal pulses. Pulmonary/Chest: Normal respiratory effort, clear breath sounds auscultated in all lung callaway. No adventitious sounds. Abdominal: Soft. Non-tender. Non-distended. Bowel sounds present Genitourinary: Li catheter draining straw colored urine Musculoskeletal: LLE, decreased range of motion. Surgical dressing in place, c/d/i. Appropriate post-op tenderness. Distal sensation and motor function intact. Neurological: Alert and oriented to person, place, and time. No focal findings. Dermatologic: Skin is warm and dry. No rash. Psychiatric: Affect, mood, behavior, speech, demeanor, judgement and thought content unremarkable. Labs Labs (Last day) 03/28/21 0123 - 03/27/21 1229 GENERAL COAGULATION 03/28/21 0123 03/27/21 1925 03/27/21 1229 GENERAL COAGULATION APTT 24-35 (secs) 47 94 62 Medical Decision making MDM Reviewed: previous chart, nursing note and vitals Reviewed previous: labs, ECG and x-ray Interpretation: labs, ECG and x-ray Consults: orthopedics Eric Ac MD - 03/27/2021 9:31 AM CDT HOSPITALIST DAILY PROGRESS NOTE ASSESSMENT & PLAN Linh Quan is a 81yr old female admitted on 03/24/2021. 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 Hb has been drifting downwards, if Hb < 7, might need 1 unit PRBC, this would be expected. Mild leukocytosis likely stress demargination and no signs of infx. Coumadin can be resumed. PT and OT to see. - PT, OT following - Start coumadin, iv heparin for bridging, could convert to Lovenox come 03/28 - CBC in am - Anemia studies ordered, transfuse for Hb < 7 - No signs of infx, trend WBC in am - AM labs ordered Hyperkalemia: Resolved. HypoMg: Improved. S/p mitral valve clipping, AFib: Received digoxin, now rate controlled. No issues. - Cards consulted - Metoprolol - Coumadin started, iv heparin Severe AI, moderate : Noted. Disposition: Inpatient, iv heparin. SUBJECTIVE Patient w/o chest or abdominal pain. Did well overnight. Tolerating therapies w- o issues. Hoping to go to swing bed in [place]. OBJECTIVE Current Vital Signs Temp: 99 F (37.2 C) BP: 140/56 Pulse: 64 O2 Device: Room Air O2 Flow Rate (L/min): 1 l/min Resp: 16 Pain Ratin (out of 10) Weight: 57.4 kg (126 lb 9.6 oz) SpO2: 97 % Vitals Min/Max Last 24 Hours Vital Signs Min/Max (last 24 hours) Flowsheet Row Name Min Max Temp 97.7 F (36.5 C) 99.4 F (37.4 C) BP: Systolic 119 140 BP: Diastolic 44 70 Pulse 54 95 Resp 16 20 SpO2 94 % 98 % Intake and Output Last 24 Hours 03/26 0700 - 03/27 0659 In: 2040 Out: 620 Physical Exam Gen - no acute distress, pleasant HEENT - moist mucous membranes Chest - CTA Bilaterally, no wheezing, no rhonchi CVS - Irregularly irregular, no murmurs or rubs Abd - soft, NT, ND, + BS, no organomegaly Ext - no LE edema Skin - no rashes, no lesions Diagnostics and Labs Relevant diagnostic, laboratory and radiological studies have been reviewed in the Electronic Medical Record. Eric Barboza MD Tara Peña PA - 03/27/2021 8:57 AM CDT ORTHOPEDIC POST OPERATIVE PROGRESS NOTE March 27, 2021 POD # 2 Status Post: Procedure(s): LEFT HIP TROCHANTERIC FIXATION NAILING Possible left clavicle fracture- non-op Patient of Dr. Campa S: Linh Quan is a 81yr female recovering from surgery, denies CP, SOB, N/V, Fever or Chills. She does report some numbness to the left lower extremity. Reports a good appetite. Pt is laying in bed. No apparent distress. Currently rates pain at 7/10. She did report nausea overnight, nocomplaints this morning. PT/OT: Recommending swing bed when medically ready. No BM noted since surgery. Difficulty with urinating on her own. Has been straight cathed. O: Temp Readings from Last 1 Encounters: 03/27/21 99 F (37.2 C) BP Readings from Last 1 Encounters: 03/27/21 140/56 Pulse Readings from Last 1 Encounters: 03/27/21 64 Gen: alert and orientated, no apparent distress Incision: Surgical dressings in place to the left lateral hip. Superior dressing with scant drainage. No drainage to inferior dressing. Dressing C/D/I. left HIP: Foot warm, well perfused. Brisk capillary refill noted. Reports numbness, though sensation is intact to light touch in all distributions. No calf pain bilaterally. Compartments soft and compressible. DP and PT pulses are palpable. Motor grossly intact, able to PF/DF ankle and wiggle toes. Left clavicle: Hand warm, well perfused. Brisk capillary refill noted. Sensation intact to light touch. +2 radial pulse. Ecchymosis present near clavicle. Mild TTP, reports significant improvement in pain. Able to abduct and adduct all fingers without difficult. Able to flex and extend the IP of the thumb and the DIP of the index and small fingers without difficulty. Able to flex and extend at the wrist and elbow. Compartments soft. Lab Results Component Value Date WBC 13.7 (H) 03/27/2021 NUCRBC 0 03/21/2021 RBC 2.55 (L) 03/27/2021 HEMOGLOBIN 7.9 (L) 03/27/2021 HEMATOCRIT 24.0 (L) 03/27/2021 MCV 94.1 03/27/2021 MCH 31.0 03/27/2021 MCHC 32.9 03/27/2021 RDW 12.0 05/27/2013 PLTCOUNT 133 (L) 03/27/2021 NEUTROPCT 79.9 03/21/2021 BANDPCT 1.0 02/01/2016 LYMPHSPCT 12.9 03/21/2021 MONOSPCT 6.1 03/21/2021 EOSPCT 0.6 03/21/2021 BASOPHILPCT 0.4 03/21/2021 Lab Results Component Value Date INR 1.4 (L) 03/27/2021 A/P: 1. s/p Left intertrochanteric fracture s/p TFN Possible Left proximal clavicle fracture- non-op: DVT prophylaxis: Coumadin per primary, bridging with IV heparin Pain control: Continue Wound care: Change dressing 48-72 hours post op PT/OT: continue; WBAT LLE. WBAT LUE, may use sling for comfort. Activity: as tolerated; Disposition/planning: continue cares; Follow up: 2 weeks with YENIFER and [address] Campa 2. Acute Blood loss Anemia: Expected. Hgb 7.9 today. ZANE EdwardsC Pediatric Orthopedic Surgery Pager #[phone] Eric Ac MD - 03/26/2021 11:27 AM CDT HOSPITALIST DAILY PROGRESS NOTE ASSESSMENT & PLAN Linh Quan is a 81yr old female admitted on 03/24/2021. Problem List Active Problems: Hypertension Aortic regurgitation Paroxysmal atrial fibrillation (HCC) [facility] (current) use of anticoagulants S/P mitral valve clip implantation Hip fracture (HCC) Hyperkalemia Hypomagnesemia Hip fracture: Doing well post-op- Holter monitor can be discontinued. Coumadin can be resumed. PT and OT to see. - Ok to remove Holter monitor - PT, OT to see - Start coumadin, iv heparin for bridging - AM labs ordered Hyperkalemia: Resolved. HypoMg: Improved. S/p mitral valve clipping, AFib: Received digoxin, on iv amiodarone, can be discontinued. - Ok to d-c amiodarone - Cards consulted - Metoprolol - Coumadin started, iv heparin Severe AI, moderate : Noted. Disposition: Inpatient, iv heparin. SUBJECTIVE Patient w/o chest or abdominal pain. Did well overnight. Wants Holter monitor off if possible. Tolerating therapies w-o issues. OBJECTIVE Current Vital Signs Temp: 98.9 F (37.2 C) BP: 134/70 Pulse: 67 O2 Device: Room Air O2 Flow Rate (L/min): 1 l/min Resp: 16 Pain Ratin (out of 10) Weight: 50.5 kg (111 lb 6.4 oz) SpO2: 99 % Vitals Min/Max Last 24 Hours Vital Signs Min/Max (last 24 hours) Flowsheet Row Name Min Max Temp 97.3 F (36.3 C) 99.3 F (37.4 C) BP: Systolic 106 148 BP: Diastolic 34 70 Arterial Line (ART) BP: Systolic 158 166 Arterial Line (ART) BP: Diastolic 43 46 Pulse 56 94 Resp 15 23 SpO2 91 % 100 % O2 Flow Rate (L/min) 1 l/min 4 l/min MAP (mm Hg) 68 mm Hg 76 mm Hg Intake and Output Last 24 Hours 03/25 0700 - 03/26 0659 In: 3406 Out: 1300 Physical Exam Gen - no acute distress, pleasant HEENT - moist mucous membranes Chest - CTA Bilaterally, no wheezing, no rhonchi CVS - Irregularly irregular, no murmurs or rubs Abd - soft, NT, ND, + BS, no organomegaly Ext - no LE edema Skin - no rashes, no lesions Diagnostics and Labs Relevant diagnostic, laboratory and radiological studies have been reviewed in the Electronic Medical Record. Eric Barboza MD Khushi Gamez CNP - 03/26/2021 9:49 AM CDT Cardiology Hospital Progress Note Assessment / Plan #Presurgical evaluation #Severe mitral regurgitationstatus post MitraClip implantation on 03/22/2021 #Mechanical fall #Left hip fracture - s/p left hip trochanteric fixation nailing #Questionable clavicle fracture #Acute on chronic normocytic anemiasuspect due to hip fracture and chronic anticoagulation #Chronic diastolic congestive heart failurenot in exacerbation #Moderate aortic insufficiency #Moderate pulmonary artery hypertensionpulmonary artery systolic pressure 52 mmHg #Permanent A. fibnow rate controlled and HD stable Plan: Patient was discussed with Dr. Rodriguez. Patient has remained rate controlled atrial fibrillation. Recommend to continue her home dosing of metoprolol which she is currently on. Continue anticoagulation.Will d/c amiodarone now. She will continue to follow with structural heart team on outpatient basis.Cardiology will sign off. Please contact us with any concerns. HPI / History / ROS Linh Quan is a 81yr old female admitted on 03/24/2021. States she is doing well postoperatively. Dangled last night. Is planning to get out of bed this AM. Telemetry reviewed and has remained rate controlled AF in the 60-70s. HPI Review of Systems Physical / Results Current Vital Signs Temp: 97.9 F (36.6 C) BP: 136/44 Weight: 50.5 kg (111 lb 6.4 oz) SpO2: 99 % Resp: 16 Pulse: 58 Current BMI (>50 = increased risk): 18.5 O2 Device: Room Air O2 Flow Rate (L/min): 1 l/min Pain Ratin Maximum Temperatures (last 24 hours) Temperature Maximum Max Temp 99.3 F (37.4 C) Physical Exam Constitutional: She appears healthy. No distress. Neck: Thyroid normal. No JVD present. Cardiovascular: S1 normal, S2 normal, normal heart sounds and normal pulses. An irregular rhythm present. No murmur heard. Pulses: Radial pulses are 2+ on the right side and 2+ on the left side. Dorsalis pedis pulses are 2+ on the right side and 2+ on the left side. Posterior tibial pulses are 2+ on the right side and 2+ on the left side. Pulmonary/Chest: Effort normal and breath sounds normal. Abdominal: Soft. Bowel sounds are normal. Musculoskeletal: General: No edema. Cervical back: Neck supple. Neurological: She is alert and oriented to person, place, and time. Skin: Skin is warm and dry. Associated attestation - Fausto Rodriguez MD - 03/27/2021 2:57 PM CDT I discussed the patient with the YENIFER and personally interviewed and examined the patient. I verifiedin the medical record all YENIFER documentation/findings, including history, physical exam, and medical decision making, and I agree with the YENIFER's documentation.James Tirado PA - 03/26/2021 9:01 AM CDT ORTHO progress note. Linh Quan is a 81yr old female admitted on 03/24/2021 6:37 AM 1 Day Post-Op Status Post: Procedure(s): LEFT HIP TROCHANTERIC FIXATION NAILING Patient doing ok, complains of mild pain with current meds. The patient denies nausea. States she has no pain when resting. Soreness when putting weight on it. States pain is well controlled. Overallhappy with her progress. Lab Results Component Value Date HEMOGLOBIN 8.9 (L) 03/26/2021 Current Vital Signs Temp: 97.9 F (36.6 C) BP: 136/44 Pulse: 58 O2 Device: Room Air O2 Flow Rate (L/min): 1 l/min Resp: 16 Pain Ratin (while laying still) (out of 10) Weight: 50.5 kg (111 lb 6.4 oz) SpO2: 99 % Dist NVI. Dressings Clean & Dry. Homans negative. Compartments soft. EHL/DF/PF intact. No leg length discrepancy, no leg rotation. X-rays reviewed, no complications seen. Plan: Continue cares, PT. WBAT. James Tirado PA ric Barboza MD - 03/25/2021 9:26 AM CDT HOSPITALIST DAILY PROGRESS NOTE ASSESSMENT & PLAN Linh Quan is a 81yr old female admitted on 03/24/2021. 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 Increased risk of bleeding, delirium, and cardiovacular issues post-OR, but medically ok for surgery. - NPO - IV heparin - ok to turn of for procedure as needed, defer to anesthesia and ortho timing of turning of, ok 4-6 hours pre-surgery - AM labs ordered Hyperkalemia: Mild. Will give one time dose Lasix, albuterol, recheck at 13:00. HypoM g iv Magnesium sulfate ordered, recheck in 1-2 days. S/p mitral valve clipping, AFib: Received digoxin, level now elevated. On iv amiodarone. Appears rate controlled. - Amiodarone - Cards consulted - iv heparin - Once able, start coumadin - Metoprolol Severe AI, moderate : Noted. Disposition: Inpatient, to OR today, iv heparin. SUBJECTIVE Patient w/o chest or abdominal pain. Relates how she fell day prior. No rashes. No fevers or chills.No HAs. OBJECTIVE Current Vital Signs Temp: 98.8 F (37.1 C) BP: 166/63 Pulse: 71 O2 Device: Room Air O2 Flow Rate (L/min): 1 l/min Resp: 16 Pain Ratin (out of 10) Weight: 45.9 kg (101 lb 3.1 oz) SpO2: 94 % Vitals Min/Max Last 24 Hours Vital Signs Min/Max (last 24 hours) Flowsheet Row Name Min Max Temp 97.5 F (36.4 C) 99 F (37.2 C) BP: Systolic 103 166 BP: Diastolic 42 82 Pulse 47 144 Resp 11 29 SpO2 91 % 99 % O2 Flow Rate (L/min) 1 l/min 2 l/min MAP (mm Hg) 60 mm Hg 95 mm Hg Intake and Output Last 24 Hours 03/24 0700 - 03/25 0659 In: 390 Out: - Physical Exam Gen - no acute distress, pleasant HEENT - moist mucous membranes Chest - CTA Bilaterally, no wheezing, no rhonchi CVS - Irregularly irregular, no murmurs or rubs Abd - soft, NT, ND, + BS, no organomegaly Ext - no LE edema Skin - no rashes, no lesions MSK - External rotatoin and shortening LLE Diagnostics and Labs Relevant diagnostic, laboratory and radiological studies have been reviewed in the Electronic Medical Record. Eric Barboza MD [email or web address], Stefan Damian MD - 03/25/2021 8:21 AM CDT Orthopedic Surgery Progress Note SUBJECTIVE: Yesterday surgery was canceled as the patient went into Afib RVR in the OR with HRs in the 140-180s.Since received medical treatment and is doing much better, HRs in the 70s overnight and this morning. No acute events overnight. Pain well controlled. Denies F/C/CP/SOB/N/V. OBJECTIVE: BP 166/63 Pulse 71 Temp 98.8 F (37.1 C) Resp 16 Ht 157.5 cm (62") Wt 45.9 kg (101 lb 3.1 oz) SpO2 94% BMI 18.51 kg/m2|| NAD, comfortable LUE: She has tenderness and crepitance around the middle of her clavicle. She has some superficial wounds over her left elbow that are bandaged. Otherwise nontender over the shoulder joint, humerus, elbow, or arm distally. Motor intact AIN/PIN/ulnar nerves. SI LT. Brisk cap refill. LLE: The leg is shortened and in external rotation. Skin is intact. She has severe tenderness at the left hip. Nontender distally. Unable to perform straight leg raise. Wiggles toes and ankle. SILT. 2+ DP and PT pulses. Lab Results Component Value Date WBC 10.7 03/24/2021 HEMOGLOBIN 9.9 (L) 03/24/2021 PLTCOUNT 176 03/24/2021 INR 1.5 (L) 03/24/2021 ESR 18 04/20/2020 Imaging: Reviewed ASSESSMENT/PLAN: 81yr female with history of HTN, osteoporosis, aortic regurgitation, GERD, SVT, A. fib, and mitral regurgitation who had a ground level fall resulting in a left intertroch femur fracture. She may also have a possible proximal clavicle fracture - Will plan for surgical fixation of the L hip, possibly today. - ? Clavicle fx: No definitive fx on XR. WBAT LUE, sling for comfort. Otherwise full ROM ok - Will discuss heparin gtt with primary and cardiology teams - NPO - NWB LLE - Pain control Berto Kamara MD Orthopaedic Surgery PGY-2 03/25/21 8:21 AM CDT Associated attestation - Zenobia Morin MD - 03/25/2021 8:32 AM CDT I discussed the patient with the resident. I verified in the medical record all resident documentation/findings, including history, physical exam, and medical decision making, and I agree with the resident's documentation.documented in this encounter H&P Notes Narendra Zapien MD - 03/24/2021 8:11 AM CDT INTERNAL MEDICINE H&P NOTE NAME: Linh Quan is a 81yr old female 1940 PCP: Kimber Quan DO Admit Date: 03/24/2021 Referring Provider: No ref. provider found Impression / Plan Left hip fracture History of mitral regurgitation s/p mitral valve clip 03/22/2021 Atrial fibrillation on warfarin Aortic stenosis and moderate-severe insufficiency Hypertension Mechanical fall with left hip fracture, 2 days status post mitral valve clip. Post procedure echo with EF 60% and trivial MR, moderate-severe AI, moderate ([facility] 27). Noted runs of afib with RVR rates 180s while inpatient as well, metoprolol increased to 50mg am (from 25) and 25mg pm continued. Started on ASA 81mg daily and warfarin continued. Plain film of pelvis and left hip shows comminuted intertrochanteric fracture of left femur with superolateral displacement of the femoral diaphysis, no other fractures noted. -Orthopedics consulted -Cardiology consulted to assist with pre-procedure clearance and anticoagulation management -Labs pending, most recent INR 1.3 (03/23) -Holding warfarin, ASA, Lasix, losartan -Continue metoprolol -Pain regimen -NPO -Will need PT and OT post-op for probable placement CODE STATUS: Full Code Chief Complaint Hip pain HPI Linh Quan is a 81yr old female who was recently admitted for elective mitral valve clip procedure performed on 03/22/2021. She was discharged to home on 03/23 in stable condition. Overnight patient reports a mechanical fall at around 0300 while moving from recliner to bathroom, resulting in significant left hip pain. Her son was present in the home, attempted to assist her up but unable due to significant pain. Patient initially evaluated in [place], found to have an acute left hip fracture. She was transferred to [facility] for further management. At the time of this evaluation she rates pain approximately 5/10 at rest, significantly worse with any movement. She does not have any current numbness or sensory change of lower extremities. Her right groin access site is stable without pain or recent bleeding. Patient denies any prior issues withanesthesia or intolerance of surgery. She did not take her medications this morning, received 1 dose of warfarin yesterday after restarting post procedure. Medical History Patient Active Problem List Diagnosis Hip fracture (HCC) S/P mitral valve clip implantation MR (mitral regurgitation) Non-rheumatic mitral regurgitation [facility]itent[facility] (current) use of anticoagulants Paroxysmal atrial fibrillation (HCC) Asymptomatic CHADsVAsc 4 07/26 on ASA recommended to start Coumadin/Xarelto/Eliquis. 09/26 Her Lexiscan showed her to have a small fixed area of reduced uptake in the left ventricle potentially a small infarct and no evidence of stress induced ischemia. Her EF was estimated at 39 %. Hyponatremia Diarrhea Forgetfulness Right ovarian cyst Recurrent UTI Tubular adenoma of colon Colonoscopy on 03/30/16. Diverticulosis. Tubular adenoma, diverticulitis 01/22 augmentin helped Hypercalcemia Lower urinary tract infectious disease E. Coli in 08/19, enterobacter in 06/20, 08/20, 02/18, and 04/20, renal US and urology consult with cystoscopy ok in 2013, UTI again 03/22, 04/21 Enterobactor tx with cipro. >100,000 CFU/mL Enterobacter cloacae complex 01/21 got ill from bactrim so started cipro, did well with Cipro had sx again in 05/23 cipro prescribed. UTI again 12/22 Cipro again but enterococcus grew so switch to amoxicillin. Enterococcus 12/23 and got Cipro, cipro again in 01/23, UTI again in 03/25 amoxicillin prescribed, citrobacter was resistant to amoxicillin so cipro started, klebsiella cipro again. fred got Macrobid Anemia Refractory, proliferative, and macrocytic, neg bone marrow 05/18 on folate followed by Dr. Goddard She had a hemoglobin in the 13 range in November of 2009. At the time of her physical on February 16, it was down to 11.5, and on repeat on March 31 it is down to 10.7. Retic count, TSH, serum iron/TiBC,folate, B 12 OK. Serum ferritin elevated. Sed rate slightly elevated. History of anemia associated with heavy menstrual flow and several years ago again treated with ironby Dr. Reese. Bruises easilly-lifelong. Mother had iron supplements. No bleeding history. 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 Had EP consult in 2008 Chronic rhinitis GERD (gastroesophageal reflux disease) Moderate had EGD 08 Collagenous colitis Aortic regurgitation Mod echo 2010 and 2012. 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 Norvasc added 03/26 Medications Current Facility-Administered Medications Medication Dose Route Frequency Provider Last Rate Last Admin morphine preservative free injection solution (conc: 2 mg/mL) 1 mg 1 mg IV Every 1 hour prn Neetu Bran MD nalOXone (NARCAN) injection solution (vial) 0.4 mg 0.4 mg Injection Every 2 minutes prn Narendra Zapien MD nalOXone (NARCAN) injection solution (vial) 0.2 mg 0.2 mg Injection Every 2 minutes prn Narendra Zapien MD metoprolol succinate (TOPROL XL) SR tablet (24 hr) 25 mg 25 mg Oral Every evening Narendra Zapien MD metoprolol succinate (TOPROL XL) SR tablet (24 hr) 50 mg 50 mg Oral Daily Narendra Zapien MD sodium chloride 0.9% flush (adult) 10 mL 10 mL IV 2 times a day and prn Narendra Zapien MD acetaminophen (TYLENOL) tablet 650 mg 650 mg Oral Every 4 hours prn Narendra Zapien MD melatonin tablet 3 mg 3 mg Oral Bedtime prn Narendra Zapien MD senna-docusate sodium (SENOKOT-S;PERICOLACE) tablet 2 tablet 2 tablet Oral 2 times a day prn Narendra Zapien MD And bisacodyl (DULCOLAX) suppository 10 mg 10 mg Rectal 1 time a day prn Narendra Zapien MD And docusate sodium (THEREVAC-SB MINI;ENEMEEZ MINI) 283 MG enema 1 enema 1 enema Rectal 1 time a day prn Narendra Zapien MD ondansetron (ZOFRAN ODT) dispersible tablet 4 mg 4 mg Oral 4 times a day prn Narendra Zapien MD And ondansetron (ZOFRAN) injection solution 4 mg 4 mg IV 4 times a day prn Narendra Zapien MD Allergies Allergies Allergen Reactions Codeine Nausea and Vomiting and Diarrhea Doxycycline Nausea and Vomiting Weak, legs rubbery, N/V Indocin [Indomethacin] Nausea and Vomiting and Diarrhea Phenergan [Promethazine] Headache Septra [Sulfamethoxazole W-Trimethoprim] Other (Specify in Comments) [place] very sick Social History Social History Socioeconomic History Marital status: Spouse name: Not on file Number of children: 2 Years of education: 16 Highest education level: Not on file Occupational History 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 Tobacco Use Smoking status: Never Smoker Smokeless tobacco: Never Used Substance and Sexual Activity Alcohol use: No Alcohol/week: 0.0 standard drinks Drug use: No Sexual activity: Not on file Other Topics Concern Service Not Asked Blood Transfusions Not Asked Caffeine Concern Not Asked Occupational Exposure Not Asked Hobby Hazards Not Asked Sleep Concern No Stress Concern No Weight Concern Yes Comment: has gained 5 lbs since retiring Special Diet No Back Care Not Asked Exercise Yes Comment: walking Bike Helmet Not Asked Seat Belt Yes Self-Exams Yes Social History Narrative nonsmoker, nondrinker 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 Social Determinants of Health Financial Resource Strain: Difficulty of Paying Living Expenses: Food Insecurity: Worried About Running Out of Food in the Last Year: Ran Out of Food in the Last Year: Transportation Needs: Lack of Transportation (Medical): Lack of Transportation (Non-Medical): Physical Activity: Days of Exercise per Week: Minutes of Exercise per Session: Stress: Feeling of Stress : Social Connections: Frequency of Communication with Friends and Family: Frequency of Social Gatherings with Friends and Family: Attends [employer] Services: Active Member of Clubs or Organizations: Attends Club or Organization Meetings: Marital Status: Intimate Partner Violence: Fear of Current or Ex-Partner: Emotionally Abused: Physically Abused: Sexually Abused: Family History Family History Problem Relation Age of Onset Stroke Father Breast Cancer Mother 68 Negative Sister healthy Negative Sister healthy Bladder Cancer Neg Hx Kidney Cancer Neg Hx Nephrolithiasis Neg Hx Prostate Cancer Neg Hx Testicular Cancer Neg Hx ROS Review of Systems Constitutional: Negative for chills and fever. HENT: Negative for congestion, sore throat and stridor. Eyes: Negative for blurred vision, double vision and visual disturbance. Cardiovascular: Negative for chest pain, leg swelling, near-syncope, palpitations and syncope. Respiratory: Negative for cough, shortness of breath, sputum production and wheezing. Hematologic/Lymphatic: Negative for bleeding problem. Does not bruise/bleed easily. Skin: Negative for flushing and rash. Musculoskeletal: Positive for falls and joint pain. Negative for back pain. Gastrointestinal: Negative for abdominal pain, nausea and vomiting. Genitourinary: Negative for bladder incontinence and dysuria. Neurological: Positive for weakness. Negative for difficulty with concentration, disturbances in coordination, dizziness, focal weakness, light-headedness and sensory change. Psychiatric/Behavioral: Negative for altered mental status. The patient is not nervous/anxious. Physical Exam BP 104/92 Pulse 106 Temp 97.4 F (36.3 C) Resp 16 Ht 1.575 m (5' 2") Wt 45.9 kg (101 lb 3.1 oz) SpO2 93% BMI 18.51 kg/m2 Body mass index is 18.51 kg/m. Physical Exam Constitutional: General: She is not in acute distress. HENT: Head: Normocephalic and atraumatic. Eyes: General: No scleral icterus. Extraocular Movements: Extraocular movements intact. Conjunctiva/sclera: Conjunctivae normal. Cardiovascular: Rate and Rhythm: Tachycardia present. Rhythm irregular. Heart sounds: Murmur heard. Comments: Wearing a Holter monitor Pulmonary: Effort: Pulmonary effort is normal. No respiratory distress. Breath sounds: Normal breath sounds. No wheezing. Abdominal: General: Abdomen is flat. There is no distension. Palpations: Abdomen is soft. Tenderness: There is no abdominal tenderness. Musculoskeletal: Cervical back: Normal range of motion. No rigidity. Right lower leg: No edema. Left lower leg: No edema. Comments: Left lower extremity shortened and externally rotated. Skin: General: Skin is warm and dry. Findings: No rash. Comments: Right groin access site with mild bruising, no significant swelling and no drainage or bleeding, mildly tender. Neurological: General: No focal deficit present. Mental Status: She is alert and oriented to person, place, and time. Sensory: No sensory deficit. Psychiatric: Mood and Affect: Mood normal. Behavior: Behavior normal. Labs/Imaging I have reviewed laboratory studies myself. I have reviewed images myself. I have reviewed the patients medical records. 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 fib, and mitral regurgitation who had a ground level fall resulting in a left intertroch femur fracture. She may also have a possible proximal clavicle fracture, though radiographs are not diagnostic. Regardless, if there was a clavicle fracture this would be treated nonoperatively as there are no skin concerns and it is not significantly displaced, as well as her age and poor bone quality. Regarding her left hip, this will need to be fixed surgically. Discussed treatment options with the patient and her son and recommended IMN. Discussed the risks, benefits, and goals of surgery and they agree. Case discussed with Dr Morin Plan: - Will plan for surgical fixation of the L hip - ? Clavicle fx: WBAT LUE, sling for comfort. Otherwise full ROM ok - Will discuss heparin gtt with primary and cardiology teams - NWB LLE - Pain control Reason for Consult L hip fx HPI / History / ROS Meron is a 81-year-old female with history of HTN, osteoporosis, aortic regurgitation, GERD, SVT,A. fib, and mitral regurgitation who presented to us with a hip fracture. The patient is 2 days outfrom a MitraClip that was done here on 03/22. She was discharged home yesterday and was doing well but then fell while going to the bathroom in the middle of the night. She landed on her left shoulderand left hip. She has severe pain around the middle of her clavicle as well as her left hip. She was unable to ambulate afterwards. She presented to [place] where radiographs identified a left hip fracture. She was transferred to us for further care. Denies any numbness and tingling. She is worse worried she also broke her clavicle. She has had 1 dose of Coumadin and 1 dose of baby aspirin. History Patient Active Problem List Diagnosis Hypertension Lichen sclerosus et atrophicus of the vulva Osteoporosis Migraine Dense breast Dysfunction of eustachian tube Aortic regurgitation GERD (gastroesophageal reflux disease) Collagenous colitis Chronic rhinitis Microscopic hematuria Supraventricular premature beats Hypertriglyceridemia Anemia Lower urinary tract infectious disease Hypercalcemia Tubular adenoma of colon Recurrent UTI Right ovarian cyst Hyponatremia Diarrhea Forgetfulness Paroxysmal atrial fibrillation (HCC) [facility] (current) use of anticoagulants Non-rheumatic mitral regurgitation S/P mitral valve clip implantation MR (mitral regurgitation) Hip fracture (HCC) Current Facility-Administered Medications Medication Dose Route Frequency morphine preservative free injection solution (conc: 2 mg/mL) 1 mg 1 mg IV Every 1 hour prn nalOXone (NARCAN) injection solution (vial) 0.4 mg 0.4 mg Injection Every 2 minutes prn nalOXone (NARCAN) injection solution (vial) 0.2 mg 0.2 mg Injection Every 2 minutes prn metoprolol succinate (TOPROL XL) SR tablet (24 hr) 25 mg 25 mg Oral Every evening metoprolol succinate (TOPROL XL) SR tablet (24 hr) 50 mg 50 mg Oral Daily sodium chloride 0.9% flush (adult) 10 mL 10 mL IV 2 times a day and prn acetaminophen (TYLENOL) tablet 650 mg 650 mg Oral Every 4 hours prn melatonin tablet 3 mg 3 mg Oral Bedtime prn senna-docusate sodium (SENOKOT-S;PERICOLACE) tablet 2 tablet 2 tablet Oral 2 times a day prn And bisacodyl (DULCOLAX) suppository 10 mg 10 mg Rectal 1 time a day prn And docusate sodium (THEREVAC-SB MINI;ENEMEEZ MINI) 283 MG enema 1 enema 1 enema Rectal 1 time a day prn ondansetron (ZOFRAN ODT) dispersible tablet 4 mg 4 mg Oral 4 times a day prn And ondansetron (ZOFRAN) injection solution 4 mg 4 mg IV 4 times a day prn Allergies Allergen Reactions Codeine Nausea and Vomiting and Diarrhea Doxycycline Nausea and Vomiting Weak, legs rubbery, N/V Indocin [Indomethacin] Nausea and Vomiting and Diarrhea Phenergan [Promethazine] Headache Septra [Sulfamethoxazole W-Trimethoprim] Other (Specify in Comments) [place] very sick Past Medical History: Diagnosis Date Anemia Aortic regurgitation Cataract Chronic rhinitis Collagenous colitis Dysfunction of eustachian tube GERD (gastroesophageal reflux disease) Heart murmur aortic regurg Hypercalcemia Hypertension Hypertriglyceridemia Hyponatremia penitentiary (current) use of anticoagulants Migraine Osteoporosis Paroxysmal atrial fibrillation (HCC) Recurrent UTI Right ovarian cyst Supraventricular premature beats Tubular adenoma of colon Past Surgical History: Procedure Laterality Date BLEPHAROPLASTY UPPER Bilateral 08/16/2017 Procedure: BLEPHAROPLASTY UPPER;; Surgeon: Ronnie Bowie MD BREAST BIOPSY Left left exc. biopsies 2 both neg. 1966 [id number] BX BREAST OPEN INCISIONAL [id number] CATARACT W PHACO Right 05/16/2018 Procedure: EXTRACTION CATARACT PHACOEMULSIFICATION WITH INTRAOCULAR LENS;; Surgeon: Ronnie Bowie MD CATARACT W PHACO Left 06/20/2018 Procedure: EXTRACTION CATARACT PHACOEMULSIFICATION WITH INTRAOCULAR LENS;; Surgeon: Ronnie Bowie MD CHOLECYSTECTOMY [id number] COLONOSCOPY HYSTERECTOMY TOTAL ABDOMINAL HYSTERECTOMY WWO REMVL TUBE(S) OVARY(S) [id number] Family History Problem Relation Age of Onset Stroke Father Breast Cancer Mother 68 Negative Sister healthy Negative Sister healthy Bladder Cancer Neg Hx Kidney Cancer Neg Hx Nephrolithiasis Neg Hx Prostate Cancer Neg Hx Testicular Cancer Neg Hx Social History Socioeconomic History Marital status: Spouse name: Not on file Number of children: 2 Years of education: 16 Highest education level: Not on file Occupational History 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 Tobacco Use Smoking status: Never Smoker Smokeless tobacco: Never Used Substance and Sexual Activity Alcohol use: No Alcohol/week: 0.0 standard drinks Drug use: No Social History Narrative nonsmoker, nondrinker 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 Social Determinants of Health Physical Activity: Days of Exercise per Week: Minutes of Exercise per Session: Stress: Feeling of Stress : Social Connections: Frequency of Communication with Friends and Family: Frequency of Social Gatherings with Friends and Family: Attends Anglican Services: Active Member of Clubs or Organizations: Attends Club or Organization Meetings: Marital Status: Intimate Partner Violence: Fear of Current or Ex-Partner: Emotionally Abused: Physically Abused: Sexually Abused: Financial Resource Strain: Difficulty of Paying Living Expenses: Food Insecurity: Worried About Running Out of Food in the Last Year: Ran Out of Food in the Last Year: Transportation Needs: Lack of Transportation (Medical): Lack of Transportation (Non-Medical): Review of Systems Review of Systems Constitutional: Negative. HENT: Negative. Eyes: Negative. Respiratory: Negative. Cardiovascular: Negative. Gastrointestinal: Negative. Endocrine: Negative. Genitourinary: Negative. Musculoskeletal: Per HPI Skin: Negative. Allergic/Immunologic: Negative. Neurological: Negative. Hematological: Negative. Psychiatric/Behavioral: Negative. Physical / Results Current Vital Signs Temp: 99 F (37.2 C) BP: 112/64 Weight: 45.9 kg (101 lb 3.1 oz) SpO2: 93 % Resp: 20 Pulse: 95 Current BMI (>50 = increased risk): 18.5 O2 Device: Room Air Pain Ratin Physical Exam Ortho Exam RUE: Nontender throughout. Full active range of motion. Neurovascularly intact. LUE: She has tenderness and crepitance around the middle of her clavicle. She has some superficial wounds over her left elbow that are bandaged. Otherwise nontender over the shoulder joint, humerus, elbow, or arm distally. Motor intact AIN/PIN/ulnar nerves. SI LT. Brisk cap refill. RLE: Skin is intact. Nontender throughout. Able to perform straight leg raise. Neurovascular intact. L LE: The leg is shortened and in external rotation. Skin is intact. She has severe tenderness at the left hip. Nontender distally. Unable to perform straight leg raise. Wiggles toes and ankle. SI LT. 2+ DP and PT pulses. Imaging: Radiographs of the left hip are reviewed which show an intertrochanteric femur fracture Left clavicle XR without obvious fracture, though it is difficult to completely rule out a medial clavicle fracture. Associated attestation - Zenobia Morin MD - 03/25/2021 8:27 AM CDT I discussed the patient with the resident and personally interviewed and examined the patient. I verified in the medical record all resident documentation/findings, including history, physical exam, and medical decision making, and I agree with the resident's documentation. documented in this encounter OR Notes OR PreOp - Holden Campa MD - 03/25/2021 2:51 PM CDT Ortho Pre-Op Note Dx: Intertrochanteric proximal femur fracture, left hip Plan: Decision made to proceed with surgery: internal fixation with cephalomedullary nail. Will proceed, IM pre-op risk stratification and optimization completed. Risks/Benefits/Alternatives to surgery and post-op rehab plan were discussed with the patient. Risksinclude but not limited to: Bleeding, possibility of transfusion, infection, injury to associated structures, DVT/PE, dislocation, implant failure, leg length discrepancy, failure of procedure, reoperation. All questions answered, no guarantees implied or given R PreOp - Zenobia Morin MD - 03/24/2021 12:24 PM CDT Ortho Pre-Op Note Dx: Left intertrochanteric hip fracture Plan: Surgical repair of left hip fracture and any other indicated procedures Risks/Benefits/Alternatives to surgery and post-op rehab plan were discussed with the patient and her son. Risks include but not limited to: Bleeding, possibility of transfusion, infection, injury to associated structures, DVT/PE, failure of procedure, reoperation, implant failure, persistent joint pain or stiffness. Loss of life/limb was discussed with the patient and her son. All questions answered, no guarantees implied or given documented in this encounter Miscellaneous Notes Care Planning - Linh Donaldson RN - 03/30/2021 5:51 AM CDT Problem: IMPAIRED PHYSICAL MOBILITY Goal: MOBILITY Description: DEFINITION: Ability to move purposefully in own environment independently with or without assistive device. 1=Severely compromised / Total assistance: Performs less than 25% of activity; 2=Substantially compromised / Maximal assistance: Performs 25-49% of activity; 3=Moderately compromised / Moderate assistance: Performs 50-74% of activity; 4=Mildly compromised / Modified independence: Needs assistive device, supervision, minimal contact,or safety is a concern; 5=Not compromised / Complete independence. Outcome: NOC Rating 2 Flowsheets (Taken 03/30/2021 0549) Patient Progress: Up with moderate assist of 2. Not out of bed this shift. Shifted position slightlyindependently. Declined assisted repositioning. Problem: IMPAIRED URINARY ELIMINATION Goal: URINARY ELIMINATION Description: DEFINITION: Collection and discharge of urine. 1=Severely compromised, 2=Substantiallycompromised, 3=Moderately compromised, 4=Mildly compromised, 5=Not compromised. Outcome: NOC Rating 2 Flowsheets (Taken 03/30/2021 0549) Patient Progress: Li catheter intact throughout night. Li cares completed x 1. Problem: ACUTE PAIN Goal: CLIENT SATISFACTION: PAIN MANAGEMENT Description: DEFINITION: Extent of positive perception of nursing care to relieve pain. 1=Not at all satisfied, 2=Somewhat satisfied, 3=Moderately satisfied, 4=Very satisfied, 5=Completely satisfied. Outcome: NOC Rating 4 Flowsheets (Taken 03/30/2021 0548) Patient Progress: Patient rated pain 3-4/10 overnight. Is not on any scheduled pain medications and had declined PRN medications as of 544. Ice packs ultilized and replaced throughout night. are Planning - Iraj Steve RN - 03/29/2021 10:42 PM CDT Problem: IMBALANCED NUTRITION: LESS THAN BODY REQUIREMENTS Goal: NUTRITIONAL STATUS: NUTRIENT INTAKE Description: DEFINITION: Nutrient intake to meet metabolic needs. 1=Not adequate, 2=Slightly adequate, 3=Moderately adequate, 4=Substantially adequate, 5=Totally adequate. Flowsheets (Taken 03/29/20212237) Patient Progress: Ate 75% of meal. Problem: ACUTE PAIN Goal: CLIENT SATISFACTION: PAIN MANAGEMENT Description: DEFINITION: Extent of positive perception of nursing care to relieve pain. 1=Not at all satisfied, 2=Somewhat satisfied, 3=Moderately satisfied, 4=Very satisfied, 5=Completely satisfied. Flowsheets (Taken 03/29/20212237) Patient Progress: Rates pain 4-7/10. Scheduled and PRN medications given, see MAR. Ice applied. Problem: RISK FOR DECREASED CARDIAC TISSUE PERFUSION Goal: CARDIOPULMONARY STATUS Description: DESCRIPTION: Adequacy of blood volume ejected from the ventricles in exchange of carbondioxide and oxygen at the alveolar level. 1=Severe deviation from normal range, 2=Substantial deviation from normal range, 3=Moderate deviation from normal range, 4=Mild deviation from normal range, 5=No deviation from normal range. Flowsheets (Taken 03/29/20212237) Patient Progress: Patient remains on telemetry number 6 running A-fib. Patient denies chest pain, shortness of breath and oxygen above 90%. IV 3% sodium chloride given as ordered. Problem: IMPAIRED PHYSICAL MOBILITY Goal: MOBILITY Description: DEFINITION: Ability to move purposefully in own environment independently with or without assistive device. 1=Severely compromised / Total assistance: Performs less than 25% of activity; 2=Substantially compromised / Maximal assistance: Performs 25-49% of activity; 3=Moderately compromised / Moderate assistance: Performs 50-74% of activity; 4=Mildly compromised / Modified independence: Needs assistive device, supervision, minimal contact,or safety is a concern; 5=Not compromised / Complete independence. Flowsheets (Taken 03/29/20212237) Patient Progress: Up x2, gait belt, and walker. Problem: RISK FOR FALLS Goal: FALL PREVENTION BEHAVIOR Description: DEFINITION: Personal or family director critical care actions to minimize risk factors that might precipitate falls in the personal environment. 1=Never demonstrated, 2=Rarely demonstrated, 3=Sometimes demonstrated, 4=Often demonstrated, 5=Consistently demonstrated. Flowsheets (Taken 03/29/20212237) Patient Progress: No falls during shift. Problem: IMPAIRED URINARY ELIMINATION Goal: URINARY ELIMINATION Description: DEFINITION: Collection and discharge of urine. 1=Severely compromised, 2=Substantiallycompromised, 3=Moderately compromised, 4=Mildly compromised, 5=Not compromised. Flowsheets (Taken 03/29/20212237) Patient Progress: Bladder scanned for 642 ml. Li placed after being straight catht 2 times earlier today. are Planning - Roxie Garvin RN - 03/29/2021 3:58 PM CDT Problem: IMBALANCED NUTRITION: LESS THAN BODY REQUIREMENTS Goal: NUTRITIONAL STATUS: NUTRIENT INTAKE Description: DEFINITION: Nutrient intake to meet metabolic needs. 1=Not adequate, 2=Slightly adequate, 3=Moderately adequate, 4=Substantially adequate, 5=Totally adequate. Outcome: NOC Rating 3 Flowsheets (Taken 03/29/2021 9351) Plan of care reviewed with: Patient Patient specific goal for the day: Patient to eat at least 50% of meals. Patient specific goal for the stay: Pt to meet >75% of estimated nutrition needs. Achieve goal for stay: Within 24 hours Patient Progress: Patient unable to eat full meals, boost breeze offered with medications and patient drank tolerating well. Problem: RISK FOR DECREASED CARDIAC TISSUE PERFUSION Goal: CARDIOPULMONARY STATUS Description: DESCRIPTION: Adequacy of blood volume ejected from the ventricles in exchange of carbondioxide and oxygen at the alveolar level. 1=Severe deviation from normal range, 2=Substantial deviation from normal range, 3=Moderate deviation from normal range, 4=Mild deviation from normal range, 5=No deviation from normal range. Outcome: NOC Rating 3 Flowsheets (Taken 03/29/2021 1168) Plan of care reviewed with: Patient Patient specific goal for the day: Pt to tolerate telemetry monitoring. Patient specific goal for the stay: Pt to have sufficient cardiac tissue perfusion. Patient Progress: Patient remains on telemetry number 6 running A-fib. Patient denies chest pain, shortness of breath and oxygen above 90%. Patient instructed to notify nursing if does start to develop any unusual signs or symptoms. Patient verbalized understanding. Also IV 3% sodium chloride given as ordered. Problem: IMPAIRED URINARY ELIMINATION Goal: URINARY ELIMINATION Description: DEFINITION: Collection and discharge of urine. 1=Severely compromised, 2=Substantiallycompromised, 3=Moderately compromised, 4=Mildly compromised, 5=Not compromised. Outcome: NOC Rating 3 Flowsheets (Taken 03/29/2021 1579) Plan of care reviewed with: Patient Patient specific goal for the day: Patient to have good urinary output. Patient specific goal for the stay: Patient to be able to void on own, but if not cath as needed. Achieve goal for stay: By discharge Patient Progress: Patient straight cathed with plans to cath again as needed. Dr. Lidia armas. hysical Therapy - Ai Patel DPT - 03/29/2021 1:10 PM CDT Physical Therapy Acute Orthopedic Treatment Note ASSESSMENT/RECOMMENDATIONS Patient is willing to complete PT services. She tolerated exercises fairly well with assistance, andwas able to take a few steps in the room, though had difficulty bearing weight through her L hip today d/t pain. Patient will benefit from low intensity setting upon discharge. Placement in SNF will be 03/30 in [place]. Activity Prescription with Nursing: Assist patient to chair 3 times per day for 30 to 60 minutes or for all meals. Use Ax2 Assist patient to complete exercises 10 times, 3 times per day (in sitting): air boxing, lift arms above head, straighten knees, marching. Encourage patients to do personal cares when sitting up. Use bathroom or commode rather than bedpan. Anticipated D/C Service needs: Low intensity setting Weightbearing status: WBAT Precautions: standard precations Ability to adhere to precautions: able to follow precautions. SUBJECTIVE Patient reports lots of pain and "stiffness" in her L leg today. Denies lightheadedness/nausea when up. Patient's labs were "off" this AM. Pain at rest: 04/16 Pain with activity:05/17 OBJECTIVE Bed Mobility: Moderate assist supine to sit and helping move legs toward EOB Transfers: Sit to/from stand with moderate assist and FWW, cues for safe hand placement Gait: Ambulates 3 -4 feet with FWW and moderate assist, bed to chair, difficulty shifting weight Joel side d/t pain/discomfort Therapeutic Exercises: 10 repetitions of quad sets, ham sets, glut sets, fair contraction, moderateassistance with active exercises of heel slides, hip abduction, short arc quads. ROM: hip abd 15, flexion 60, moderate assist. Other: Patient sitting in recliner end of session with call light in reach, legs elevated Education: Importance of moving legs within tolerance, increasing activity Response to Activity: Easily fatigued, cues for deep breathing Interdisciplinary Communication: Spoke with interdisciplinary team members regarding patient plan ofcare. PLAN Continue plan of care. Today's treatment: Gait Trainin minutes Therapeutic Exercise: 15 minutes Therapeutic Activity: 10 minutes TOTAL TIMED CODES: 25 minutes TREATMENT TOTAL TIME: 25 minutes hysical Therapy - Ai Patel DPT - 03/29/2021 10:48 AM CDT Patient refused PT AM treatment secondary to recent IV placement and labs were off this AM. PT willcheck back in PM for treatment. ase Mgmt - Tanja Clements LSW - 03/29/2021 8:29 AM CDT CASE MANAGEMENT / SOCIAL SERVICE FINAL TRANSITION PLAN TRANSITION DATE: 03/30/2021 TRANSITION TIME: 10:00 INTENDED PAYER SOURCE FOR AGENCY: Medicare TRANSITION DESTINATION: [place], [place] N2N: [phone] Pharmacy: [facility] in [place], [place] DOES ACCEPTING FACILITY REQUIRE COVID TESTING BEFORE DISCHARGE: Needs one negative test within 24-48 hours TRANSITION TRANSPORTATION: [employer] [facility] (P:[phone]) TRANSPORTATION PAYMENT: Family to Pay: At Destination Point TRANSITION CHOICES OFFERED: Swing Bed DOES THE PATIENT HAVE A PRIMARY CARE PHYSICIAN? Yes Kimber Quan, DO PATIENT / SUBSTITUTE DECISION MAKER GOAL UPON TRANSITION: First Choice: Swing Bed PATIENT CHOICE EDUCATION: Choice Form placed in slim chart for scanning into chart MEDICARE 3 IP MIDNIGHT CRITERIA MET: Yes: 4 days RESOURCE(S) PROVIDED: Placement DOES PATIENT HAVE CLOTHING TO WEAR AT DISCHARGE? Yes ANTICIPATED MODE OF TRANSPORT TO AND FROM FOLLOW UP APPOINTMENTS: Family Car VERIFIED CORRECT PHARMACY IS ENTERED FOR DISCHARGE: [facility]- [facility] [address] [phone] METHOD OF PRESCRIBING MEDICATIONS: Medications to be E-prescribed to above pharmacy TRANSITION ROUNDING COMPLETED WITH THE FOLLOWING: Patient / family Topography Technician Attending MD Bedside RN COMMENTS / PATIENT AND FAMILY RESPONSE TO PLAN: Reviewed pt chart Today: Pain control, Impaired physical mobility Anticipate discharge tomorrow Bed offer from [facility] in [place], [place] [employer] ride to transport - family to cover costs Pharmacy is [facility] in [place], [place] Needs COVID test TENTATIVE DISCHARGE PLAN: Discharge tomorrow at 1000 to [facility] Sw[facility] via family vehicle N2N: [phone] [facility] SPECIAL TRANSITION DAY INSTRUCTIONS TO NURSE / MD: AIR CONDITIONING INSTALLER SUPERVISOR: Please fax paperwork to above fax number Nursing: please call report at above number before or just as patient leaves. MD: please do Interagency transfer order set, ensure orders for PT, OT, ST(if needed) are included.When doing medication orders, there cannot be any range orders, and indication is needed for all meds. CURRENT READMISSION RISK SCORE / HANDOFF: Predictive Risk Score Risk of Unplanned Readmission: 15.9 Handoff given: N/A SIGNED: KADEN Do Assistant Professor Of Criminal Justice Case Management PH. [phone] Care Planning - Christopher Rubio RN - 03/29/2021 8:02 AM CDT Problem: ACUTE PAIN Goal: CLIENT SATISFACTION: PAIN MANAGEMENT Description: DEFINITION: Extent of positive perception of nursing care to relieve pain. 1=Not at all satisfied, 2=Somewhat satisfied, 3=Moderately satisfied, 4=Very satisfied, 5=Completely satisfied. Outcome: NOC Rating 3 Flowsheets (Taken 03/29/2021 0802) Patient Progress: Pt. rates pain [address] [facility] and multiple turns. OxyCodone 5 mg given PRN and received good relief. Problem: IMPAIRED PHYSICAL MOBILITY Goal: MOBILITY Description: DEFINITION: Ability to move purposefully in own environment independently with or without assistive device. 1=Severely compromised / Total assistance: Performs less than 25% of activity; 2=Substantially compromised / Maximal assistance: Performs 25-49% of activity; 3=Moderately compromised / Moderate assistance: Performs 50-74% of activity; 4=Mildly compromised / Modified independence: Needs assistive device, supervision, minimal contact,or safety is a concern; 5=Not compromised / Complete independence. Outcome: NOC Rating 2 Flowsheets (Taken 03/29/2021 0802) Patient Progress: Pt up with two, GB, and walker. PCT and I got up up from chair back to bed. Pt tolerated poorly feeling weak and dizzy in middle of transfer. Pt was eased back to bed. Pt worked with PT this morning. Will continue to monitor. are Planning - Roxie Garvin RN - 03/28/2021 5:27 PM CDT Problem: IMBALANCED NUTRITION: LESS THAN BODY REQUIREMENTS Goal: NUTRITIONAL STATUS: NUTRIENT INTAKE Description: DEFINITION: Nutrient intake to meet metabolic needs. 1=Not adequate, 2=Slightly adequate, 3=Moderately adequate, 4=Substantially adequate, 5=Totally adequate. Outcome: NOC Rating 3 Flowsheets (Taken 03/28/2021 1722) Plan of care reviewed with: Patient Patient specific goal for the day: Patient to eat at least 50% of meals. Patient specific goal for the stay: Pt to meet >75% of estimated nutrition needs. Achieve goal for stay: Within 24 hours Patient Progress: Patient unable to eat full meals, boost breeze offered with medications and patient drank tolerating well. Problem: ACUTE PAIN Goal: CLIENT SATISFACTION: PAIN MANAGEMENT Description: DEFINITION: Extent of positive perception of nursing care to relieve pain. 1=Not at all satisfied, 2=Somewhat satisfied, 3=Moderately satisfied, 4=Very satisfied, 5=Completely satisfied. Outcome: NOC Rating 3 Flowsheets (Taken 03/28/20211721) Plan of care reviewed with: Patient Patient specific goal for the day: Patient to have pain at tolerable levels. Patient specific goal for the stay: Pt to have satisfactory pain management with oral analgesics. Achieve goal for stay: By discharge Note: Educated patient on pain control options. Strongly encouraged patient to take pain medicationregularly to keep ahead of the pain and with food to help prevent GI upset. Also strongly encouraged patient to ask for pain medication as needed and inform staff if needing something more for pain tokeep pain controlled. Repositioned and cold pack or polar care applied as well to affected extremity. Patient verbalized understanding of all instructions. Patient did become too drowsy on oral Oxycodone and Dr Murillo notified and medication dosage changed. Problem: RISK FOR DECREASED CARDIAC TISSUE PERFUSION Goal: CARDIOPULMONARY STATUS Description: DESCRIPTION: Adequacy of blood volume ejected from the ventricles in exchange of carbondioxide and oxygen at the alveolar level. 1=Severe deviation from normal range, 2=Substantial deviation from normal range, 3=Moderate deviation from normal range, 4=Mild deviation from normal range, 5=No deviation from normal range. Outcome: NOC Rating 3 Flowsheets (Taken 03/28/20211721) Plan of care reviewed with: Patient Patient specific goal for the day: Pt to tolerate telemetry monitoring. Patient specific goal for the stay: Pt to have sufficient cardiac tissue perfusion. Achieve goal for stay: By discharge Patient Progress: Patient remains on telemetry number 6 running A-fib. Patient denies chest pain, shortness of breath and oxygen above 90%. Patient instructed to notify nursing if does start to develop any unusual signs or symptoms. Patient verbalized understanding. Problem: RISK FOR FALLS Goal: FALL PREVENTION BEHAVIOR Description: DEFINITION: Personal or family director critical care actions to minimize risk factors that might precipitate falls in the personal environment. 1=Never demonstrated, 2=Rarely demonstrated, 3=Sometimes demonstrated, 4=Often demonstrated, 5=Consistently demonstrated. Outcome: NOC Rating 4 Flowsheets (Taken 03/28/20211721) Plan of care reviewed with: Patient Patient specific goal for the day: Pt will use call light appropriately for staff assistance. Patient specific goal for the stay: Pt will have zero falls during hospital stay. Achieve goal for stay: By discharge Patient Progress: Patient encouraged to sit up in the chair for meals and walk later with nursing tohelp build strength. Instructed patient not to get up on own for safety. Explained therapies planned to see patient today as well and that staff will be performing care rounding every hour during theday. Patient verbalized understanding of all instructions and agreeable to plan sitting up in the chair most of the day tolerating well. Note: Patient encouraged to sit up in the chair for meals and walk later with nursing to help build strength. Instructed patient not to get up on own for safety. Explained therapies planned to see patient today as well and that staff will be performing care rounding every hour during the day. Patient verbalized understanding of all instructions and agreeable to plan sitting up in the chair most ofthe day tolerating well. Problem: IMPAIRED URINARY ELIMINATION Goal: URINARY ELIMINATION Description: DEFINITION: Collection and discharge of urine. 1=Severely compromised, 2=Substantiallycompromised, 3=Moderately compromised, 4=Mildly compromised, 5=Not compromised. Flowsheets (Taken 03/28/20211721) Plan of care reviewed with: Patient Patient specific goal for the day: Patient to have good urinary output. Patient specific goal for the stay: Continue li as provider ordered. Cath cares performed. Achieve goal for stay: By discharge Patient Progress: Monitoring li output. ase [facility] - Tanja Clements LSW - 03/28/2021 4:35 PM CDT CASE MANAGEMENT REFERRAL EDUCATION Patient in need of the following services: Transitional Care / Fdc Facility / Swing Bed Discussion of this need and/or printed listing of available agencies has been provided to patient/substitute decision maker. Opportunities have been given for questions to be asked and answered. Patient/Substitute decision maker agency preferences for services (list in order of preference): 1. Patient's first and only choice expressed to this - [facility] in [place], [place] Referrals Made: Other: Profiled in [facility] to [facility] in [place], [place] Medicare Comparison Information: Medicare guidelines require referring agencies to provide information regarding agency quality ratings. [facility] may assist with questions about facilities but cannot make recommendations. Patients and their families/decision makers are able to compare ratings of facilities at the following website: h ttps://www.medicare.gov/dlsck-aokq-hhkrhgwjy/esml-cdbqjnv-edlyxxf-[facility] r-providers or you may call 1-800-MEDICARE Acceptance/Placement: [facility] shares necessary clinical information with potential agencies to allow them to screen patients for safe admission to their facilities. This information is shared via secure communication. Acceptance by a post-acute facility is dependent on many factors including space, care needs, staffing, and insurance coverage. Financial disclosure: Verification of ownership of any agency/facility is available in the above Medicare website. [facility] is affiliated with [facility]-owned home care, hospice, and[facility], including agencies with [facility] in the name and [facility]. Additional agencies may not have [facility] in their name. Medicare guidelines require [facility] to provide a written list of options for your desired care. Youwill be provided a copy if desired. A copy of this document will be given to patient/substitute decision maker as confirmation of conversation regarding referrals and placement options. 03/28/2021 Occupational Therapy - Tracy Christie OTR/Jazlyn - 03/28/2021 3:47 PM CDT Occupational Therapy Orthopedic Progress Note Treatment Today's Treatment Self care/home management: 20 minutes Start Time: 1315 Total for time-based codes: 20 minutes Total treatment time: 20 minutes Assessment: Patient demonstrates decreased UE strength, decreased physical conditioning, decreased independence with ADL/IADL tasks and decreased independence with functional mobility Patient showing a decrease in ADL/transfer performance and will benefit from continued OT. Plan: Patient to be seen 3-5x/week to work toward goals Treatment plan will consist of Sunday thru Ariel sessions Adaptive Equipment Recommended: OT will continue to assess AE needs and will update as necessary. *If return to home will need new, extended tub bench. Discussed with family and will make recommendation pending D/C plan. Plan to obtain adaptive equipment: To further assess. Pt progressing towards goals Pain: Pain at rest: 02/14 Pain during activity: 04/16 Location: L hip Treatment provided: Pt seen for OT session this afternoon. Upon arrival, pt was using her spirometer but was agreeable to session. Pt quite drowsy during session, unsure if it was fatigue or from medications. Pt required verbal cues to assist with movement to front of the chair to place feet onto floor. She stood from chair with mod Ax1 for about 1.5 minutes. Pt requesting to sit due to fatigue. It was observed that herL leg was internally rotating upon standing. Pt sat and requested return to bed. Pt completed stand pivot transfer to bed with min A x2. She required verbal cues for movement of feet. She required mod A x2 for bed mobility and positioning. She would continue to benefit from ongoing therapy following mor villareal. Therapist pager #: [phone] Physical Therapy - Ai Patel DPT - 03/28/2021 1:58 PM CDT Physical Therapy Acute Orthopedic Treatment Note ASSESSMENT/RECOMMENDATIONS Patient is willing to complete PT services. She tolerated exercises fairly well with assistance, andwas able to take a few steps from bed to chair, though had difficulty bearing weight through her L hip today d/t pain. Patient will benefit from low intensity setting upon discharge. Placement could be 03/29 or 03/30 in [place]. 6-Clicks Basic Mobility Score: 12 Activity Prescription with Nursing: Assist patient to chair 3 times per day for 30 to 60 minutes or for all meals. Use Ax2 Assist patient to complete exercises 10 times, 3 times per day (in sitting): air boxing, lift arms above head, straighten knees, marching. Encourage patients to do personal cares when sitting up. Use bathroom or commode rather than bedpan. Anticipated D/C Service needs: Low intensity setting Weightbearing status: WBAT Precautions: standard precations Ability to adhere to precautions: able to follow precautions. SUBJECTIVE Patient reports lots of pain and "stiffness" in her L leg today. Denies lightheadedness/nausea when up. Pain at rest: 04/16 Pain with activity:05/17 OBJECTIVE Bed Mobility: Moderate assist supine to sit and helping move legs toward EOB Transfers: Sit to/from stand with moderate assist and FWW, cues for safe hand placement Gait: Ambulates 3 -4 feet with FWW and moderate assist, bed to chair, difficulty shifting weight Joel side d/t pain/discomfort Therapeutic Exercises: 10 repetitions of quad sets, ham sets, glut sets, fair contraction, moderateassistance with active exercises of heel slides, hip abduction, short arc quads. ROM: hip abd 15, flexion 60, moderate assist. Other: Patient sitting in recliner end of session with call light in reach, legs elevated Education: Importance of moving legs within tolerance, increasing activity Response to Activity: Easily fatigued, cues for deep breathing Interdisciplinary Communication: Spoke with interdisciplinary team members regarding patient plan ofcare. PLAN Continue plan of care. Today's treatment: Gait Trainin minutes Therapeutic Exercise: 15 minutes Therapeutic Activity: 10 minutes TOTAL TIMED CODES: 25 minutes TREATMENT TOTAL TIME: 25 minutes ase [facility] - Tanja Clements LSW - 03/28/2021 1:27 PM CDT CASE MANAGEMENT / SOCIAL SERVICE FINAL TRANSITION PLAN TRANSITION DATE: 03/28/2021 TRANSITION TIME: 10:00 INTENDED PAYER SOURCE FOR AGENCY: Medicare TRANSITION DESTINATION: [place], [place] N2N: [phone] Pharmacy: [facility] in [place], [place] DOES ACCEPTING FACILITY REQUIRE COVID TESTING BEFORE DISCHARGE: Needs one negative test within 24-48 hours TRANSITION TRANSPORTATION: [facility] (P:[phone]) TRANSPORTATION PAYMENT: Family to Pay: At Dest[place] Point TRANSITION CHOICES OFFERED: Swing Bed DOES THE PATIENT HAVE A PRIMARY CARE PHYSICIAN? Yes Kimber Quan, PATIENT / SUBSTITUTE DECISION MAKER GOAL UPON TRANSITION: First Choice: Swing Bed PATIENT CHOICE EDUCATION: Choice Form placed in slim chart for scanning into chart MEDICARE 3 IP MIDNIGHT CRITERIA MET: Yes: 4 days RESOURCE(S) PROVIDED: Placement DOES PATIENT HAVE CLOTHING TO WEAR AT DISCHARGE? Yes ANTICIPATED MODE OF TRANSPORT TO AND FROM FOLLOW UP APPOINTMENTS: Family Car VERIFIED CORRECT PHARMACY IS ENTERED FOR DISCHARGE: [facility] [address] [address] METHOD OF PRESCRIBING MEDICATIONS: Medications to be E-prescribed to above pharmacy TRANSITION ROUNDING COMPLETED WITH THE FOLLOWING: Patient / family Topography Technician Attending MD Bedside RN COMMENTS / PATIENT AND FAMILY RESPONSE TO PLAN: Reviewed pt chart Today: Hemoglobin has been trending down, currently on heparin drip and has a li Anticipate discharge tomorrow Bed offer from [facility] in [place], [place] [facility] ride to transport - family to cover costs Pharmacy is [facility] in [place], [place] Needs COVID test TENTATIVE DISCHARGE PLAN: Discharge tomorrow at 1000 to [facility] in [place] via family vehicle N2N: [phone] Pharmacy: [facility] in [place] SPECIAL TRANSITION DAY INSTRUCTIONS TO NURSE / MD: AIR CONDITIONING INSTALLER SUPERVISOR: Please fax paperwork to above fax number Nursing: please call report at above number before or just as patient leaves. MD: please do Interagency transfer order set, ensure orders for PT, OT, ST(if needed) are included.When doing medication orders, there cannot be any range orders, and indication is needed for all meds. CURRENT READMISSION RISK SCORE / HANDOFF: Predictive Risk Score Risk of Unplanned Readmission: 17.8 Handoff given: N/A SIGNED: KADEN Do Assistant Professor Of Criminal Justice Case Management PH. [phone] Clinical Team - Daphnie Araujo RN - 03/28/2021 12:[address] Murillo of PTT greater than 150. Stat redraw order placed by primary nurse, PILAR Faustin. Will monitor. Heparin paused at this time linical Team - Roxie Garvin RN - 03/28/2021 11:47 AM CDT Paddle Dyeing Machine Operator still awaiting results for 1045 APTT lab. Paddle Dyeing Machine Operator verified with the patient that lab was drawn and called lab and tech. Verified drawn, but results not completed yet at this time. ccupational Therapy - Zenobia South, OTR/L - 03/28/2021 10:35 AM CDT Attempt this AM, pt declined after PT as she reports being sore. Will f/u in afternoon as able/appropriate. Nikko South OTR/L Pager: [phone] Physical Therapy - Michaela Degroot, PT - 03/28/2021 9:10 AM CDT Physical Therapy Acute Orthopedic Treatment Note ASSESSMENT/RECOMMENDATIONS Patient limited by pain, feels extra "sore" today. She tolerated exercises fairly well with assistance, and was able to take a few steps from bed to chair, though had difficulty bearing weight through her L hip today d/t pain. Patient will benefit from low intensity setting upon discharge. 6-Clicks Basic Mobility Score: 12 Activity Prescription with Nursing: Assist patient to chair 3 times per day for 30 to 60 minutes or for all meals. Use Ax2 Assist patient to complete exercises 10 times, 3 times per day (in sitting): air boxing, lift arms above head, straighten knees, marching. Encourage patients to do personal cares when sitting up. Use bathroom or commode rather than bedpan. Anticipated D/C Service needs: Low intensity setting Weightbearing status: WBAT Precautions: standard precations Ability to adhere to precautions: able to follow precautions. SUBJECTIVE Patient reports lots of pain and "stiffness" in her L leg today. Denies lightheadedness/nausea when up. Pain at rest: 04/16 Pain with activity:05/17 OBJECTIVE Bed Mobility: Moderate assist supine to sit and helping move legs toward EOB Transfers: Sit to/from stand with moderate assist and FWW, cues for safe hand placement Gait: Ambulates 3 feet with FWW and moderate assist, bed to chair, difficulty shifting weight to L side d/t pain/discomfort Therapeutic Exercises: 10 repetitions of quad sets, ham sets, glut sets, fair contraction, moderateassistance with active exercises of heel slides, hip abduction, short arc quads. ROM: hip abd 15, flexion 60, moderate assist. Other: Patient sitting in recliner end of session with call light in reach, legs elevated Education: Importance of moving legs within tolerance, increasing activity Response to Activity: Easily fatigued, cues for deep breathing Interdisciplinary Communication: Spoke with interdisciplinary team members regarding patient plan ofcare. PLAN Continue plan of care. Today's treatment: Gait Trainin minutes Therapeutic Exercise: 17 minutes Therapeutic Activity: 24 minutes TOTAL TIMED CODES: 41 minutes TREATMENT TOTAL TIME: 41 minutes Michaela Degroot PT, DPT Pager #: [phone] linical Team - Lois Irwin RN - 03/28/2021 5:00 AM CDT Pt. is on a Heparin drip. PTT was drawn at 0123. Turbo Generator Oiler Service picked up specimen around 0300. Results received at 0435. PTT results at 47. Followed Heparin Protocol. Please see MAR. Next PTT to bedrawn in 6 hours will be at 1045. PTT order placed. are Planning - Lois Irwin RN - 03/28/2021 2:42 AM CDT Problem: ACUTE PAIN Goal: CLIENT SATISFACTION: PAIN MANAGEMENT Description: DEFINITION: Extent of positive perception of nursing care to relieve pain. 1=Not at all satisfied, 2=Somewhat satisfied, 3=Moderately satisfied, 4=Very satisfied, 5=Completely satisfied. Outcome: NOC Rating 4 Flowsheets (Taken 03/28/2021234) Plan of care reviewed with: Patient Patient specific goal for the day: Pt to rate pain <5 on 0-10 scale. Patient specific goal for the stay: Pt to have satisfactory pain management with oral analgesics. Achieve goal for stay: By discharge Patient Progress: Pt. rates pain 7/[address] [facility] and multiple turns. OxyCodone 5 mg given PRN and received good relief. Problem: RISK FOR DECREASED CARDIAC TISSUE PERFUSION Goal: CARDIOPULMONARY STATUS Description: DESCRIPTION: Adequacy of blood volume ejected from the ventricles in exchange of carbondioxide and oxygen at the alveolar level. 1=Severe deviation from normal range, 2=Substantial deviation from normal range, 3=Moderate deviation from normal range, 4=Mild deviation from normal range, 5=No deviation from normal range. Flowsheets (Taken 03/28/2021234) Plan of care reviewed with: Patient Patient specific goal for the day: Pt to tolerate telemetry monitoring. Patient specific goal for the stay: Pt to have sufficient cardiac tissue perfusion. Achieve goal for stay: By discharge Patient Progress: Pt. remains on telemetry. Running A-fib at 87bpm. Pt. denies CP or SOB, Pt on RA with Sats above 90%. Continue to monitor. Problem: IMPAIRED URINARY ELIMINATION Goal: URINARY ELIMINATION Description: DEFINITION: Collection and discharge of urine. 1=Severely compromised, 2=Substantiallycompromised, 3=Moderately compromised, 4=Mildly compromised, 5=Not compromised. Flowsheets (Taken 03/28/2021234) Plan of care reviewed with: Patient Patient specific goal for the day: Remove li Patient specific goal for the stay: Be able to void w/o need for straight cathing. Achieve goal for stay: By discharge Patient Progress: Pt. had Li catheter placed on 03/27/21 at 1400. Will plan to d/c catheter today and attempt voiding trials. linical Team - Tess Cruz RN - 03/27/2021 5:20 PM CDT Pt arrived from [facility] at 1649, alert and oriented but drowsy d/r PRN oxycodne per pt. Oriented to calllight, pain scale and environment. Aware of own limitations thus far. Sating >90% on RA currently, Denies SOB. Family at bedside. Case management consult in for discharge planning. IV Heparin infusing as ordered. Afebrile. Reporting adequate pain control at this time. Bed in lowest position, side rails up x 2, call light in reach. Hourly rounding provided. Upon Transfer to , skin assessment completed with No Ruth RN rescue nurse Upon skin assessment including pressure points findings include: deep purple bruising to right wrist, bruising to right groin to hip (angiogram site with drainage), edema to left foot +1, ;left hand infiltrated IV site with edema of +2 deep purple, left elbow abrasion mepelix dressing placed.mild balanchable redness to coccyx. No further issues noticed. Plan/Intervention: Moisture control, will continue with shift skin assessment, patient able to turn self in bed. ase Mgmt - Tomasa Myers RN - 03/27/2021 1:20 PM CDT Spoke to patient and her family about transferring to . They agree with the plan. (Camryn) Anushka Myers MANAGER DIALYSIS Weekend Topography Technician [facility] Pager #[phone] are Planning - Breana Aranda RN - 03/27/2021 12:01 PM CDT Problem: ACUTE PAIN Goal: CLIENT SATISFACTION: PAIN MANAGEMENT Description: DEFINITION: Extent of positive perception of nursing care to relieve pain. 1=Not at all satisfied, 2=Somewhat satisfied, 3=Moderately satisfied, 4=Very satisfied, 5=Completely satisfied. Outcome: NOC Rating 3 Flowsheets (Taken 03/27/2021 1159) Initial Score: 3 Target Score: 5 Plan of care reviewed with: Patient Son/Daughter Patient specific goal for the day: Pt to rate pain <5 on 0-10 scale. Patient specific goal for the stay: Pt to have satisfactory pain management with oral analgesics. Achieve goal for stay: By discharge Patient Progress: Pt A/O x4, rates pain to left hip 4/10 with 5 being a tolerable pain level. Has not requested any PRN pain medications yet today. Pt worked with therapies this morning. Up to chair x1. Will continue to monitor. Problem: RISK FOR DECREASED CARDIAC TISSUE PERFUSION Goal: CARDIOPULMONARY STATUS Description: DESCRIPTION: Adequacy of blood volume ejected from the ventricles in exchange of carbondioxide and oxygen at the alveolar level. 1=Severe deviation from normal range, 2=Substantial deviation from normal range, 3=Moderate deviation from normal range, 4=Mild deviation from normal range, 5=No deviation from normal range. Outcome: NOC Rating 4 Flowsheets (Taken 03/27/2021 1201) Initial Score: 4 Target Score: 5 Plan of care reviewed with: Patient Son/Daughter Patient specific goal for the day: Pt to tolerate telemetry monitoring. Patient specific goal for the stay: Pt to have sufficient cardiac tissue perfusion. Achieve goal for stay: By discharge Patient Progress: Pt's holter monitor was DC yesterday. Telemetry continues, Pt runs A-fib. Pt denies chest pain or SOB. On RA for O2 satting above 90%. Will continue to monitor. Problem: IMPAIRED PHYSICAL MOBILITY Goal: MOBILITY Description: DEFINITION: Ability to move purposefully in own environment independently with or without assistive device. 1=Severely compromised / Total assistance: Performs less than 25% of activity; 2=Substantially compromised / Maximal assistance: Performs 25-49% of activity; 3=Moderately compromised / Moderate assistance: Performs 50-74% of activity; 4=Mildly compromised / Modified independence: Needs assistive device, supervision, minimal contact,or safety is a concern; 5=Not compromised / Complete independence. Outcome: NOC Rating 2 Flowsheets (Taken 03/27/2021 1203) Initial Score: 2 Target Score: 4 Plan of care reviewed with: Patient Son/Daughter Patient specific goal for the day: Pt to use call light for staff assistance. Patient specific goal for the stay: Pt to return to baseline for physical mobility. Achieve goal for stay: By discharge Patient Progress: Pt up with two, GB, and walker. PCT and I got up up from chair back to bed. Pt tolerated poorly feeling weak and dizzy in middle of transfer. Pt was eased back to bed. Pt worked with PT this morning. Will continue to monitor. hysical Therapy - Susan Quintana PT - 03/27/2021 11:24 AM CDT Physical Therapy Acute Orthopedic Treatment Note ASSESSMENT/RECOMMENDATIONS Will do well at swing bed when medically ready 6-Clicks Basic Mobility Score: 12 Activity Prescription with Nursing: Assist patient to chair 3 times per day for 30 to 60 minutes or for all meals. Use Ax2 Assist patient to complete exercises 10 times, 3 times per day (in sitting): air boxing, lift arms above head, straighten knees, marching. Encourage patients to do personal cares when sitting up. Use bathroom or commode rather than bedpan. Anticipated D/C Service needs: Low intensity setting Weightbearing status: WBAT Precautions: standard precations Ability to adhere to precautions: able to follow precautions. SUBJECTIVE Will do well at swing bed when medically ready. Tx with mod A, second person for safety, ambulates 12 feet with FWW and moderate A, 2nd person following with chair a little light headed and nauseated after walking. Pain at rest: 2/10 Pain with activity:4/10 OBJECTIVE Bed Mobility: Moderate assist Transfers: Sit to/from stand with moderate assist and FWW 2nd person for safety, better today. Gait: Ambulates 12 feet with FWW and moderate assist, bed to door, light headed and a little nauseated after walking that distance. Stairs: Not attempted Therapeutic Exercises: 10 repetitions of quad sets, ham sets, glut sets, fair contraction, moderateassistance with active exercises of heel slides, hip abduction, short arc quads, straight leg raises. ROM: hip abd 15, flexion 70, moderate assist. Other: Painful left arm from fall, difficulty transferring weight to left leg and using arms along with walker to advance her right leg. Education: Importance of being out of bed emphasized. Response to Activity: Tolerates activity well, tires, light headed and slight nausea after walking. Interdisciplinary Communication: Spoke with interdisciplinary team members regarding patient plan ofcare. PLAN Continue plan of care. Today's treatment: Gait Trainin minutes Therapeutic Exercise: 15 minutes Therapeutic Activity: 0 minutes TOTAL TIMED CODES: 30 minutes TREATMENT TOTAL TIME: 30 minutes Susan Quintana PT are Planning - Anushka Mirza RN - 03/27/2021 1:43 AM CDT Problem: ACUTE PAIN Goal: CLIENT SATISFACTION: PAIN MANAGEMENT Description: DEFINITION: Extent of positive perception of nursing care to relieve pain. 1=Not at all satisfied, 2=Somewhat satisfied, 3=Moderately satisfied, 4=Very satisfied, 5=Completely satisfied. Outcome: NOC Rating 3 Flowsheets (Taken 03/27/2021135) Initial Score: 3 Target Score: 4 Plan of care reviewed with: Patient Patient specific goal for the day: pain control with PO meds Patient specific goal for the stay: tolerable pains Achieve goal for stay: By discharge Patient Progress: pt denied pains during this assessment, reports to be comfortable . will reassess Problem: RISK FOR DECREASED CARDIAC TISSUE PERFUSION Goal: CARDIOPULMONARY STATUS Description: DESCRIPTION: Adequacy of blood volume ejected from the ventricles in exchange of carbondioxide and oxygen at the alveolar level. 1=Severe deviation from normal range, 2=Substantial deviation from normal range, 3=Moderate deviation from normal range, 4=Mild deviation from normal range, 5=No deviation from normal range. Outcome: NOC Rating 3 Flowsheets (Taken 03/27/2021135) Initial Score: 3 Target Score: 4 Plan of care reviewed with: Patient Patient specific goal for the day: Continued Telemetry Patient specific goal for the stay: sufficient cardiac output Achieve goal for stay: By discharge Patient Progress: Pt on telemetry due to h/o Afib, denied SOB nor chest pains, VSS, will conitnue tomonitor Problem: IMPAIRED PHYSICAL MOBILITY Goal: MOBILITY Description: DEFINITION: Ability to move purposefully in own environment independently with or without assistive device. 1=Severely compromised / Total assistance: Performs less than 25% of activity; 2=Substantially compromised / Maximal assistance: Performs 25-49% of activity; 3=Moderately compromised / Moderate assistance: Performs 50-74% of activity; 4=Mildly compromised / Modified independence: Needs assistive device, supervision, minimal contact,or safety is a concern; 5=Not compromised / Complete independence. Outcome: NOC Rating 3 Flowsheets (Taken 03/27/2021135) Initial Score: 2 Target Score: 4 Plan of care reviewed with: Patient Patient specific goal for the day: pt will be up with 2 Patient specific goal for the stay: return to baseline mobility Achieve goal for stay: By discharge Patient Progress: Pt declined to the need for transfer at this, working with PT/OT for mobility, will transfer with 2 GW for safety, Will continue to monitor Problem: IMPAIRED URINARY ELIMINATION Goal: URINARY ELIMINATION Description: DEFINITION: Collection and discharge of urine. 1=Severely compromised, 2=Substantiallycompromised, 3=Moderately compromised, 4=Mildly compromised, 5=Not compromised. Outcome: NOC Rating 3 Flowsheets (Taken 03/27/2021135) Initial Score: 3 Target Score: 4 Plan of care reviewed with: Patient Patient specific goal for the day: bladder scan prn Patient specific goal for the stay: straight as ordered Achieve goal for stay: By discharge Patient Progress: pt having some retention, bladder scanned for 500cc and straight cath x1 in this shift. Will follow hysical Therapy - Susan Quintana PT - 03/26/2021 3:18 PM CDT Physical Therapy Acute Orthopedic Treatment Note ASSESSMENT/RECOMMENDATIONS Will do well swing bed when medically ready. 6-Clicks Basic Mobility Score: 13 Activity Prescription with Nursing: Assist patient to chair 3 times per day for 30 to 60 minutes or for all meals. Use Ax2 Assist patient to complete exercises 10 times, 3 times per day (in sitting): air boxing, lift arms above head, straighten knees, marching. Encourage patients to do personal cares when sitting up. Use bathroom or commode rather than bedpan. Anticipated D/C Service needs: Low intensity setting Weightbearing status: WBAT Precautions: standard precautions for Hip fracture, Ability to adhere to precautions: able SUBJECTIVE Drowsy, painful Pain at rest: 12/15 Pain with activity:02/14 OBJECTIVE Bed Mobility: Moderate assist supine to sit with head of bed elevated and use of railing. Transfers: Sit to/from stand with max A of 1, moderate A of 2 best. Gait: Ambulates 3 feet forward and backwards from bed. Stairs: Not attempted Therapeutic Exercises: 10 repetitions of quad sets, ham sets, heel slides, glut sets, hip abducion,short arc quads, straight leg raises. ROM: hip abd 20, flexion 70, moderate assist. Other: Difficulty getting herself to put weight on left leg to step with right leg, instructed in use of arms pushing on walker to take weight off of left leg, difficulty, left arm sore from fall. Education: Importance of being out of bed as able, sitting, walking as able emphasized. Response to Activity: Tolerated well Interdisciplinary Communication: Spoke with interdisciplinary team members regarding patient plan ofcare. PLAN Continue plan of care. Today's treatment: Gait Trainin minutes Therapeutic Exercise: 15 minutes Therapeutic Activity: 0 minutes TOTAL TIMED CODES: 30 minutes TREATMENT TOTAL TIME: 30 minutes Susan Quintana PT are Planning - Breana Aranda RN - 03/26/2021 12:30 PM CDT Problem: RISK FOR DECREASED CARDIAC TISSUE PERFUSION Goal: CARDIOPULMONARY STATUS Description: DESCRIPTION: Adequacy of blood volume ejected from the ventricles in exchange of carbondioxide and oxygen at the alveolar level. 1=Severe deviation from normal range, 2=Substantial deviation from normal range, 3=Moderate deviation from normal range, 4=Mild deviation from normal range, 5=No deviation from normal range. Outcome: NOC Rating 3 Flowsheets (Taken 03/26/2021 1176) Initial Score: 3 Target Score: 5 Plan of care reviewed with: Patient Son/Daughter Patient specific goal for the day: Pt to have HR remain WNL. Patient specific goal for the stay: Pt to return to baseline for cardiac status. Achieve goal for stay: By discharge Patient Progress: Pt admitted with a holter heart monitor. Tele also on. Pt runs A-fib. Amiodarone drip and holter monitor DC today. Heparin gtt continues. Pt takes metoprolol for BP. Will continue to monitor. are Planning - Breana Aranda RN - 03/26/2021 12:26 PM CDT Problem: ACUTE PAIN Goal: CLIENT SATISFACTION: PAIN MANAGEMENT Description: DEFINITION: Extent of positive perception of nursing care to relieve pain. 1=Not at all satisfied, 2=Somewhat satisfied, 3=Moderately satisfied, 4=Very satisfied, 5=Completely satisfied. Outcome: NOC Rating 3 Flowsheets (Taken 03/26/2021 1224) Initial Score: 3 Target Score: 5 Plan of care reviewed with: Patient Son/Daughter Patient specific goal for the day: Pt to rate pain <5 on 0-10 scale. Patient specific goal for the stay: Pt to have satisfactory pain management with oral analgesics. Achieve goal for stay: By discharge Patient Progress: Pt A/O x4, rates pain to left hip 2/10 while laying still and 8/10 with transfers.Pt given PRN oxy 5mg x1 and dilaudid x1 so far today. Pt tolerating well. Will continue to monitor. Problem: IMPAIRED PHYSICAL MOBILITY Goal: MOBILITY Description: DEFINITION: Ability to move purposefully in own environment independently with or without assistive device. 1=Severely compromised / Total assistance: Performs less than 25% of activity; 2=Substantially compromised / Maximal assistance: Performs 25-49% of activity; 3=Moderately compromised / Moderate assistance: Performs 50-74% of activity; 4=Mildly compromised / Modified independence: Needs assistive device, supervision, minimal contact,or safety is a concern; 5=Not compromised / Complete independence. Outcome: NOC Rating 2 Flowsheets (Taken 03/26/2021 1228) Initial Score: 2 Target Score: 4 Plan of care reviewed with: Patient Son/Daughter Patient specific goal for the day: Pt to work with therapies today. Patient specific goal for the stay: Pt to return to baseline for physical mobility. Achieve goal for stay: By discharge Patient Progress: Pt worked with PT and OT today. Up to chair x1 so far today. Pt took her time and tolerated well. Up with two, GB, and walker. Will continue to monitor. Problem: RISK FOR FALLS Goal: FALL PREVENTION BEHAVIOR Description: DEFINITION: Personal or family director critical care actions to minimize risk factors that might precipitate falls in the personal environment. 1=Never demonstrated, 2=Rarely demonstrated, 3=Sometimes demonstrated, 4=Often demonstrated, 5=Consistently demonstrated. Outcome: NOC Rating 3 Flowsheets (Taken 03/26/2021 1226) Initial Score: 3 Target Score: 5 Plan of care reviewed with: Patient Son/Daughter Patient specific goal for the day: Pt will use call light appropriately for staff assistance. Patient specific goal for the stay: Pt will have zero falls during hospital stay. Achieve goal for stay: By discharge Patient Progress: Pt A/O x4, uses call light appropriately.Pt up to chair x1 so far today. Continuesto work with therapies. Fall precautions in place. Will continue to monitor. hysical Therapy - Susan Quintana PT - 03/26/2021 10:03 AM CDT Physical Therapy Acute Inpatient Initial Evaluation ASSESSMENT/RECOMMENDATIONS Will do well at [facility] bed in [place] 6-Clicks Basic Mobility Score: 13 Activity Prescription with Nursing: At a minimum, up to chair for all meals or 3 times per day. Encourage patient to perform personal cares at sink when able. Encourage walking to bathroom rather than use commode or bedpan. Anticipated D/C Service needs: Low intensity setting Diagnosis: ICD-10-CM 1. Status post hip surgery Z98.890 Weight bearing status - as tolerated Prescription: Eval and Treat Admit Date: 03/24/2021 Physical therapy initiated: 03/26/2021 Pertinent Medical / Surgical History: Patient has a past medical history of Anemia, Aortic regurgitation, Cataract, Chronic rhinitis, Collagenous colitis, Dysfunction of eustachian tube, GERD (gastroesophageal reflux disease), Heart murmur, Hypercalcemia, Hypertension, Hypertriglyceridemia, Hyponatremia, penitentiary (current) use of anticoagulants, Migraine, Osteoporosis, Paroxysmal atrial fibrillation (HCC), Recurrent UTI, Right ovarian cyst, Supraventricular premature beats, and Tubular adenoma of colon. She also has no past medical history of Difficult intravenous access, Family history of malignant hyperthermia, Hard to intubate, Malignant hyperthermia, or PONV (postoperative nausea and vomiting). Patient has a past surgical history that includes bx breast open incisional; total abdominal hysterectomy wwo remvl tube(s) ovary(s); cholecystectomy; hysterectomy; breast biopsy (Left); blepharoplasty upper (Bilateral, 08/16/2017); cataract w [place] (Right, 05/16/2018); cataract w [place] (Left, 06/20/2018); colonoscopy; and im nailing (Left, 03/24/2021). Current status: Patient is 1 day(s) status-post left hip ORIF Precautions: Standard precautions, no crossing legs, no flexion past 90 degrees, no left hip rotation. Weight-bearing status: WBAT SUBJECTIVE Social History: Patient lives: Alone in a 1 level home Home environment: home Steps: 1 platform step to enter the home Employment: retired Prior Level of Function: Activities of Daily Living: Independent, some help with house keeping Mobility: Independent, History of falls: Yes Home O2: no Adaptive equipment available: 4 wheel walker, Patient Concerns: Prefers swing bed in [place] instead of nursing facility if possible. Patient/Family Goals: Swing bed until strong enough to return home indepently. OBJECTIVE Patient seen at bedside. Patient presents with left hip ORIF, date of surgery 03/25/2021. Cognition: normal Pain at rest: 3 Pain with activity: 5/10 Posture: WFL Observation: Supine in bed. Range of Motion: Bilateral lower extremities WFL Refer to Occupational Therapy report for upper extremity range of motion. Strength: Bilateral lower extremities WFL Refer to Occupational Therapy report for upper extremity strength testing. Sensation: Grossly intact bilaterally. Bed Mobility: Supine to Sit: With moderate assist with use of railing and head of bed elevated. Sit to Supine: Not observed, in chair beside bed after PT. Transfers: Sit to/from Stand: With minimal assist and FWW Balance: Static Sitting Balance: Good at edge of the bed. Static Standing with min assist Assistive Device: With FWW Gait: Took a few steps to turn away from the bed and backwards to sit in recliner chair beside bed. Stairs: Not attempted Response to Activity: Tolerated well Education: Patient and Family was educated on total hip protocol, importance of being out of bed as able. today through explanation and demonstration. They accepted teaching and verbalized understanding and demonstrated understanding. Interdisciplinary Communication: Spoke with interdisciplinary team members regarding patient plan ofcare. Occupational Therapist and RN Therapeutic Exercises: Patient performed 10 repetitions of quad sets, ham sets, glut sets, heel slides, hip abduction, short arc quads and straight leg raises with left lower extremity. Patient required moderate assist for exercises. fair strength with isometric contractions. Today's Treatment Evaluation: Completed Gait trainin minutes Therapeutic exercise: 10 minutes Therapeutic activity: 0 minutes TOTAL TIME-CODED MINUTES: 25 minutes TOTAL TREATMENT TIME: 40 minutes Treatment provided: Evaluation, gait, exercise GOALS Goals to be achieved by discharge. Patient will be aware of equipment recommendations as indicated in note to allow for safe mobility. Patient will transfer sit to/from supine with minimal assistance. Patient will transfer from sit to/from stand with minimal assistance and equipment as needed to progress to safe household mobility. Patient will be able to ambulate 50 feet using FWW with minimal assistance to progress to safe functional mobility in the home. Patient will be able to negotiate 1 stairs without rail in step to pattern with minimal assistance to progress to safe functional mobility in the home. Patient and/or caregiver will be independent with performance and progression of home exercise program for continued management of symptoms. PLAN BID M-Sat; Daily Sun Physical Therapy Services: gait training therapeutic activity therapeutic exercise transfer training Referring Provider: MD Susan Hair, PT Occupational Therapy - Savannah Amaro OTR/Jazlyn - 03/26/2021 8:59 AM CDT Occupational Therapy Acute Care Evaluation Note Impression/Recommendations Recommending continued therapy in a low intensity setting upon medical stability. Patient is presenting with impairments including functional mobility and activity tolerance, as well as high pain and hip precautions limiting her self-care abilities and home safety. Patient is demonstrating ability to c omplete observed ADLs with assist of 1 and observed functional transfers with assist of 2 and FWW. Patient will continue to benefit from skilled OT in order to address the above deficits to increase functional independence in ADLs, IADLs, and transfers/mobility. Admitting Diagnosis: ICD-10-CM 1. Status post hip surgery Z98.890 Weight bearing status - as tolerated History of Present Illness: Refer to H&P for details Past Medical History: Past Medical History: Diagnosis Date Anemia Aortic regurgitation Cataract Chronic rhinitis Collagenous colitis Dysfunction of eustachian tube GERD (gastroesophageal reflux disease) Heart murmur aortic regurg Hypercalcemia Hypertension Hypertriglyceridemia Hyponatremia penitentiary (current) use of anticoagulants Migraine Osteoporosis Paroxysmal atrial fibrillation (HCC) Recurrent UTI Right ovarian cyst Supraventricular premature beats Tubular adenoma of colon Activity Level: Progressive mobility bundle Precautions: Fall Risk, Pressure ulcer risk and MALCOLM precautions(L LE) Infection Control: Medication Risk Hazard: negligible Patient History Social/Home Environment: Patient lives: alone House: apartment Steps to enter: Yes- 1 Home Environment: Bed/Bath on main level: Yes Bathroom Setup: tub/shower with curtain Employment: retired Prior Level of Function Independent with: dressing, bathing, feeding, toileting, grooming, medication management, cooking, laundry, driving, groceries and money management Assistance needed with: cleaning Comments: Pt ambulates with no AE at baseline. Adaptive Equipment Available: 4WW, toilet safety frame, extended tub bench (needs to be replaced, 1 leg broken) and grab bars tub/shower Present for Eval: Patient and family Objective Activities of Daily Living: Feeding: standby assistance to drink from cup with straw Grooming: standby assistance to brush teeth, wash face, and comb hair sitting EOB with set-up Upper Extremity Dressing: minimal assistance to [facility] hospital gown with assistance to tie and manage IVs Lower Extremity Dressing: total assistance to breanne bilateral socks Bathing: not assessed Toileting: not assessed Homemaking: not assessed Comments: Pt educated on hip precautions, including no bending past 90 degrees, internal rotation, abduction, or crossing legs. Pt educated on how to maintain these precautions during functional transfers, ADLs, and IADLs. Pt provided with hand-out and verbalized understanding. Transfers: Bed: minimal assistance- mod A x2 supine to sit with HOB elevated and bed rails, Mod A x2 sit to stand with FWW Chair: moderate assistance x2 stand to sit with FWW Toilet: not assessed Tub/Shower: not assessed Mobility/Ambulation: moderate assistance x2 with FWW to ambulate ~2 feet from bed to chair. Pt dangled EOB with CGA ~8 minutes. At end of session: Patient up in chair, Gripper socks donned for OOB activity, Gait belt donned and care transitioned to PT Pain: Pain at rest: 5/10 Pain during activity: High, did not rate numerically Location: Hip Comment: Nurse updated. Vitals: Oxygen Level: Pt on RA with mild signs of shortness of breath during OT. SpO2 at rest >90 %, SpO2 with activity >90% Upper Extremity Function: Range of Motion: Right:within functional limits Left: limited due to shoulder/pectoral pain s/p fall Strength: Right: limited, 4/5 Left: limited, -4/5 Endurance: limited, deconditioned Coordination: intact Sensation: impaired in L hand with numbness Edema: No Dominant Hand: right Cognition: Orientation: alert. Oriented to: Person, place, time, situation Attention: intact Following Directions: intact Safety Awareness: intact Impulsivity: Mild Visual/Perception: Glasses: Yes- wears at all times Comments: Pt reports no acute vision changes. Interdisciplinary Communication: Physical Therapist and Nurse Education Education/Training provided: Role of OT, plan of care, ADLs, transfers/mobility, safety, AE needs,d/c recommendations, hip precautions Learners: Patient and family Readiness: accepting Method of Training: verbal, handout and demonstration Response: Verbalizes understanding and Demonstrates understanding; Will benefit from continued reinforcement: yes Adaptive Equipment Recommendations Adaptive Equipment Recommended: OT will continue to assess AE needs and will update as necessary. *[facility] will need new, extended tub bench. Discussed with family and will make recommendation pending D/C plan. Plan to obtain adaptive equipment: To further assess. Assessment/Plan Assessment: Patient demonstrates decreased UE strength, decreased physical conditioning, decreased independence with ADL/IADL tasks and decreased independence with functional mobility Patient showing a decrease in ADL/transfer performance and will benefit from continued OT. Plan: Patient to be seen 3-5x/week to work toward goals Treatment plan will consist of Sunday thru Sunday sessions Goals Patient/Family Stated Goal for Session: agreeable to therapy evaluation, none stated Goals to be met by discharge: *Patient will complete UB dressing with standby assistance *Patient will complete LB dressing with standby assistance and AE prn *Patient will complete toileting task with standby assistance including hygiene and clothing management *Patient will complete functional transfers with standby assistance with AE PRN *Patient will tolerate sitting at sink for G/H for >5 minutes with AD as needed *Patient will verbalize and demonstrate understanding of 3 energy conservation techniques *Patient will demonstrate understanding of B UE HEP in order to increase strength, coordination, andROM to facilitate maximized independence in ADLs *Patient will further participate with cognitive assessment to increase safety with functional tasks. *Patient will answer safety/judgement questions with 100% accuracy to determine level of supervisionrequired upon discharge *Patient will have necessary DME in place and be provided options to obtain prior to discharge *Patient will verbalize MALCOLM precautions with 100% understanding in 3 consecutive sessions. Treatment Provided See above for treatment provided. Charges Treatment/Minutes: Today's Evaluation/Treatment Evaluation Self care/home management: 15 minutes Total for time-based codes: 15 minutes Total treatment time: 35 minutes Evaluation Complexity PMH/Comorbidities that affect Occupational Performance: See PMHx Occupational Profile/Medical and Therapy History: LOW - Brief history relating to presenting problem Patient Assessment: MODERATE - 3-5 performance deficits relating to physical, cognitive, psychosocial limitations/restrictions Clinical Decision Making: LOW - Low complexity, limited amount of treatment options, no assessment modification, no comorbidities Evaluation Complexity: Low Therapist Alpha Pager Number: [phone] [facility] - Anushka Mirza RN - 03/26/2021 2:24 AM CDT Problem: ACUTE PAIN Goal: CLIENT SATISFACTION: PAIN MANAGEMENT Description: DEFINITION: Extent of positive perception of nursing care to relieve pain. 1=Not at all satisfied, 2=Somewhat satisfied, 3=Moderately satisfied, 4=Very satisfied, 5=Completely satisfied. Outcome: NOC Rating 3 Flowsheets (Taken 03/26/2021218) Initial Score: 3 Target Score: 4 Plan of care reviewed with: Patient Patient specific goal for the day: pain control with Po pain meds Patient specific goal for the stay: pt will be comfortable Achieve goal for stay: By discharge Patient Progress: Pt reported mild to moderate pains to her left hip, worsening with mobility, pain control with PO meds. Will monitor Problem: IMPAIRED PHYSICAL MOBILITY Goal: MOBILITY Description: DEFINITION: Ability to move purposefully in own environment independently with or without assistive device. 1=Severely compromised / Total assistance: Performs less than 25% of activity; 2=Substantially compromised / Maximal assistance: Performs 25-49% of activity; 3=Moderately compromised / Moderate assistance: Performs 50-74% of activity; 4=Mildly compromised / Modified independence: Needs assistive device, supervision, minimal contact,or safety is a concern; 5=Not compromised / Complete independence. Outcome: NOC Rating 3 Flowsheets (Taken 03/26/2021218) Initial Score: 2 Target Score: 4 Plan of care reviewed with: Patient Patient specific goal for the day: PT/OT eval Patient specific goal for the stay: return to baseline mobility Achieve goal for stay: By discharge Patient Progress: pt will work with PT/OT towards his mobility. Currently, will be up with 2 for transfers Problem: RISK FOR FALLS Goal: FALL PREVENTION BEHAVIOR Description: DEFINITION: Personal or family director critical care actions to minimize risk factors that might precipitate falls in the personal environment. 1=Never demonstrated, 2=Rarely demonstrated, 3=Sometimes demonstrated, 4=Often demonstrated, 5=Consistently demonstrated. Outcome: NOC Rating 3 Flowsheets (Taken 03/26/2021218) Initial Score: 3 Target Score: 5 Plan of care reviewed with: Patient Patient specific goal for the day: pt will call for help with transfers Patient specific goal for the stay: free from falls Achieve goal for stay: By discharge Patient Progress: Pt approprietly calling for help, educated on fall prevention measures, will reassess linical Team - Anushka Mirza RN - 03/26/2021 12:19 AM CDT Upon Transfer to [facility], skin assessment completed with Jose QUEZADA Upon skin assessment including pressure points findings include: scattered bruises to her BUE, a skin tear to her let elbow, wound dry with surgical glue on, open to air. Blanchable redness to her coccyx. Plan/Intervention: Sacral mepilex in place, educated on repositioning, which she refused for now. Encouraged mobility. Will continue to monitor are Planning - Jose Jordan RN - 03/25/2021 10:14 PM CDT Problem: ACUTE PAIN Goal: CLIENT SATISFACTION: PAIN MANAGEMENT Description: DEFINITION: Extent of positive perception of nursing care to relieve pain. 1=Not at all satisfied, 2=Somewhat satisfied, 3=Moderately satisfied, 4=Very satisfied, 5=Completely satisfied. Flowsheets (Taken 03/25/20212209) Patient Progress: Patient rated pain at 7/10. PRN dilaudid administered x1. Staff will continue to monitor. Problem: RISK FOR DECREASED CARDIAC TISSUE PERFUSION Goal: CARDIOPULMONARY STATUS Description: DESCRIPTION: Adequacy of blood volume ejected from the ventricles in exchange of carbondioxide and oxygen at the alveolar level. 1=Severe deviation from normal range, 2=Substantial deviation from normal range, 3=Moderate deviation from normal range, 4=Mild deviation from normal range, 5=No deviation from normal range. Flowsheets (Taken 03/25/20212209) Patient Progress: Patient has been running afib for most part of the shift. Still on amiodarone gtt and tele monitor in place. Scheduled metoprolo also administered. Problem: IMPAIRED PHYSICAL MOBILITY Goal: MOBILITY Description: DEFINITION: Ability to move purposefully in own environment independently with or without assistive device. 1=Severely compromised / Total assistance: Performs less than 25% of activity; 2=Substantially compromised / Maximal assistance: Performs 25-49% of activity; 3=Moderately compromised / Moderate assistance: Performs 50-74% of activity; 4=Mildly compromised / Modified independence: Needs assistive device, supervision, minimal contact,or safety is a concern; 5=Not compromised / Complete independence. Flowsheets (Taken 03/25/2021 2210) Patient Progress: Patient did dangle at the edge of the bed. perative Note - Holden Campa MD - 03/25/2021 4:27 PM CDT Operative Note Linh Quan is a 81yr old female admitted on 03/24/2021 6:37 AM. Attending Physician: Eric Barboza MD Patient Type: Inpatient Operative Date: 03/25/2021 Surgeon: Surgeon(s) and Role: * Holden Campa MD - Primary * Stefan Kamara MD - Resident - Assisting Nurse Instructor: Compression Molding Machine Setter : Niya Patton RN; Laya Robins RN Scrub Person : Victor M Arora CST Signal Operator: James Tirado PA Anesthesia Type: general Anesthesia Staff: Anesthesiologist: Nick Spangler DO LINK CUTTER: Martha Rizvi APRN-LINK CUTTER Operative Procedure: PREOPERATIVE DIAGNOSIS: Fragility Intertrochanteric proximal femur fracture, Left hip. POSTOPERATIVE DIAGNOSIS: Fragility Intertrochanteric proximal femur fracture, Left hip. OPERATION PERFORMED: Treatment of peritrochanteric femoral fracture with intramedullary implant (cephalomedullary nail), proximal femur PROCEDURE IN DETAIL: Informed consent was obtained. The chart was reviewed. The patient was brought to the operating room. After anesthesia was induced, all pressure points carefully observed and padded in the supine position on the fracture table with the leg in moderate traction. The hip and lower extremity were prepped and draped in the usual aseptic fashion. A time-out was completed. We began by confirming acceptable fracture reduction followed by percutaneous placement of the trochanteric entryguidepin. We then made a lateral longitudinal incision at the guidepin insertion site. The IT band was incised longitudinally. We then drilled the trochanteric cortex using the 17-mm opening drill.The c ephalomedullary nail was then placed in the medullary canal of the femur. Through a second more distal incision, a femoral head guidepin was placed through the lateral cortex and fluoroscopic imaging confirmed acceptable guidepin placement. The femoral head spiral blade was then placed. The locking mechanism was then engaged in dynamic configuration. We then placed a distal interlock screw x1 throughthe distal lateral incision. Fluoroscopic imaging confirmed acceptable hardware placement and fracture reduction. Approach- withdrawal views confirmed integrity of the femoral head. The incisions were co piously irrigated. The IT band was closed with tipsht-mt-asmft #1 Vicryl. Superficial subcutaneous tissue was closed with 2-0 Vicryl. Skin was closed with jc. Wounds dressed with Xeroform gauze and standard gauze dressings. The patient tolerated the procedure without difficulty and was taken to the recovery room in stable condition. The skilled assistance of a surgical oncologist (ZARA) in addition to the assistance of a resident physician was necessary for the following activities: positioning of the patient, assistance with the procedure including retraction/exposure, tissue manipulation, assistance with wound closure and dressing/splint application. Of note, no 2nd qualified surgical services director was available for the operative procedure. Tourniquet Time: * No tourniquets in log * Implants: no implants used for procedure Estimated Blood Loss: 75cc Discharge/Follow-Up Plan:admission to hospital espiratory Therapy - Tracy Martinez, BILL - 03/25/2021 12:59 PM CDT Pt spo2 98% on RA. BS clear and diminished. No cough noted. Albuterol 2.5 mg/3mL was given to Pt viaNebulizer. Treatment was tolerated. ase Mgmt - Geni Reaves LSW - 03/25/2021 12:11 PM CDT CASE MANAGEMENT / SOCIAL SERVICE TRANSITION PLAN - INITIAL ASSESSMENT TRANSITION PLAN: Awaiting Medical Doctor Recommendations for Transition Will Continue to Follow for Support and Progression Towards Final Transition Plan BARRIERS TO TRANSITION: Awaiting Therapy Recommendations Discharge Needs to be Determined Medical barriers: OR for hip fracture COMMENTS / PATIENT AND FAMILY RESPONSE TO PLAN: Met with the patient and her daughter, introduced CM role and discussed discharge goal. Patient is independent with ADLs/IADLs, transportation and manages own medication and finances. Patient does not have any formal home or community based services. Patient has a four wheeled walker available, but does not use it at this time. Discussed discharge options and her preference is to go to the [facility] in [place], [place] for rehab if it is needed. She is agreeable to headline writer profiling herthere. Discussed discharge transportation, if needed patient able to cover the cost of wheelchair or stretcher transport. Discussed possible transfer to [facility], she is agreeable to the transfer if necessary. Patient profiled to [facility] via [employer]. ADMISSION DX: Hip fx PATIENT STATUS: Inpatient RELEASE OF INFORMATION: Yes -- verbal for: daughter and discharge planning SOURCES OF INFORMATION (See demographics for contact information): Family: Daughter Medical Record Patient CURRENT LIVING SITUATION / LEVEL OF ASSISTANCE: Lives alone Independent Four-Wheeled Walker with Hand Brakes and a Seat COMMUNITY SERVICES: None HEALTHCARE DIRECTIVE: Yes-On File and reviewed POWER OF MAIL CLERK BILLS: Healthcare Power of Refractory Worker FINANCIAL CONCERNS: No Concerns PRIMARY CARE PHYSICIAN: Yes Kimber Quan, DO : No IS PATIENT'S ADMISSION ASSOCIATED WITH TIA, ISCHEMIC, OR HEMORRHAGIC STROKE?: No LANGUAGE / COMMUNICATION BARRIERS: No PATIENT / SUBSTITUTE DECISION MAKER GOAL UPON TRANSITION: First Choice: Home: Family/Friend Support Second Choice: Swing Bed ANTICIPATED NEEDS, TRANSITION CHOICES OFFERED: Home Health: Bath Aid, Home Safety Evaluation, Occupational Therapy and Physical Therapy Home: Family/Friend Support Swing Bed Transitional Care RESOURCE(S) PROVIDED: nothing needed at this time DOES PATIENT HAVE CLOTHING TO WEAR AT DISCHARGE? Yes ANTICIPATED MODE OF TRANSPORT UPON DISCHARGE: Other: CM to arrange appropriate transport VERIFIED CORRECT PHARMACY IS ENTERED FOR DISCHARGE: No CURRENT READMISSION RISK SCORE Predictive Risk Score Risk of Unplanned Readmission: 14.5 Please refer to readmission risk assessment flowsheet for further details. SIGNED: KADEN Aranda Assistant Professor Of Criminal Justice Care Management Pager [phone] Supplemental Progress Note - Milvia Quan APRN-CNP - 03/25/2021 6:03 AM CDT Patient's Digoxin level is 2.7 per report. Plan: 1. 12-lead ECG. 2. To monitor the patients for the following symtoms of digoxin toxicity such as nausea, vomiting, complaining of heart palpitations, fainting, neuro symptoms. 3. Will consult with Dr. Carrington also for further recommendations. Patient had received Digoxin yesterday: 0.25 mg @1900. 0.5 mg @1509. Currently, on Amiodarone. Current HR 67. BP 148/51. R 16. SpO2 92% on RA, R 16. Per Dr. Carrington's recommendations, will continue with the Tele, no more Digoxin, check chemistries. Added Mg and CMP to the am labs. are Planning - Gi, Siri Varela RN - 03/24/2021 10:03 PM CDT Problem: ACUTE PAIN Goal: CLIENT SATISFACTION: PAIN MANAGEMENT Description: DEFINITION: Extent of positive perception of nursing care to relieve pain. 1=Not at all satisfied, 2=Somewhat satisfied, 3=Moderately satisfied, 4=Very satisfied, 5=Completely satisfied. Outcome: NOC Rating 3 Flowsheets (Taken 03/24/20212155) Initial Score: 3 Target Score: 4 Plan of care reviewed with: Patient Patient specific goal for the day: verbalize pain to staff on a 0-10 scale Patient specific goal for the stay: hav epain down to a tolable level on PO meds Achieve goal for stay: By discharge Patient Progress: Pt c/o pain to L hip, worse with activity. Pt given prn IV morphine, see mar for details. Pt repostioned as tolerated. ice prn. Possible OR tomorrow for hip fixation if cardiology clears. Problem: RISK FOR DECREASED CARDIAC TISSUE PERFUSION Goal: CARDIOPULMONARY STATUS Description: DESCRIPTION: Adequacy of blood volume ejected from the ventricles in exchange of carbondioxide and oxygen at the alveolar level. 1=Severe deviation from normal range, 2=Substantial deviation from normal range, 3=Moderate deviation from normal range, 4=Mild deviation from normal range, 5=No deviation from normal range. Outcome: NOC Rating 3 Flowsheets (Taken 03/24/20212155) Initial Score: 2 Target Score: 4 Plan of care reviewed with: Patient Patient specific goal for the day: have HR less 120 BPM while on cardizem gtt Patient specific goal for the stay: return to baseline cardiac status Achieve goal for stay: By discharge Patient Progress: Pt had converted to afib with RVR in OR today, started on amiodarone gtt. Also given IV digoxin, see mar details. Pt continues on scheduled metoprolol. BP stable, see graphics. Pt on telemetry, running a-fib in the 80's. Pt denies sob, denies any chest pain. Cardiology following. Clinical Team - Siri Angelo RN - 03/24/2021 5:41 PM CDT DAILY SKIN CHECK BEHIND EARS- blanchable redness bilaterally ELBOWS- skin tear to L elbow ISCHIUM- wdl COCCYX-blanchable redness HEELS- blanchable redness bilaterally ANY OTHER AREAS OF NOTABLE CONCERN- scattered bruising to BUE REMOVE ALL MEDICAL DEVICES (if medically safe to do so) AND PERFORM SKIN CHECK BENEATH THOSE AREAS THAT THE DEVICE MAKES CONTACT WITH SKIN, evaluate rotating site/move device- Skin check completed with: Sis Willoughby RN INTERVENTIONS ALREADY IN PLACE: Turn every 2 hours, mepiex to coccyx, elevate heels. INTERVENTIONS ADDED TODAY: na WOCN consulted? YES/NO/NA: na perative Note - Zenobia Morin MD - 03/24/2021 1:27 PM CDT Operative Note Patient was brought to the OR for surgical repair of her left hip fracture. Upon entering the OR the patient was tachycardic and her heart rate was irregular. Discussed with Dr. Martinez with Anesthesia and the decision was made to postpone the surgery due to elevated risks at this time. We will plan for surgical repair of her left hip fracture once she is medically optimized. I also discussed thecourse of events with the patient's son, Dominick Morin MD Ortho Trauma Surgeon are Planning - Maeve Hudson RD - 03/24/2021 12:45 PM CDT Problem: IMBALANCED NUTRITION: LESS THAN BODY REQUIREMENTS Goal: NUTRITIONAL STATUS: NUTRIENT INTAKE Description: DEFINITION: Nutrient intake to meet metabolic needs. 1=Not adequate, 2=Slightly adequate, 3=Moderately adequate, 4=Substantially adequate, 5=Totally adequate. Outcome: NOC Rating 1 Flowsheets (Taken 03/24/2021 1245) Target Score: 4 Plan of care reviewed with: Patient Son/Daughter Patient specific goal for the day: Diet advancement. Patient specific goal for the stay: Pt to meet >75% of estimated nutrition needs. Achieve goal for stay: By discharge Patient Progress: Pt presents with a low BMI for age. She admits that she normally does not eat the best when at home alone. Discussed importance of adequate nutrition/protein intake to help promote healing. She is currently NPO. Pt was interested in adding snacks BID once diet allows. utrition Team - Maeve Hudson RD - 03/24/2021 9:07 AM CDT Nutrition Therapy Initial Assessment Hospital Day: 0 days Active Problems: Left hip fracture History of mitral regurgitation s/p mitral valve clip 03/22/21 Atrial fibrillation on warfarin Aortic stenosis and moderate severe insufficiency Hypertension PMH: Aortic insufficiency, aortic stenosis, HTN, GERD, anemia, recurrent UTI, hyponatremia, diarrhea, osteoporosis. Recommendations: Advance diet as medically able. Malnutrition Summary Malnutrition Assessment Date: 03/24/21 Moderate (non-severe) protein calorie malnutrition Malnutrition Characteristics in the Context of Chronic Illness (greater than 3 months): Energy Intake: Less than or equal to 75% intake of estimated energy needs for greater than or equal to 1 month Subcutaneous Fat Loss: Mild Muscle Loss: Mild Interventions: Monitor oral intake/advance diet as tolerated;Supplement diet with ONS (oral nutrition supplements)/nutrient dense foods NUTRITION ASSESSMENT Visited with pt and son at bedside. Pt recently had mitral valve clip on 03/22. She discharged home with her son, reports eating well during that time. Pt is now readmitted with a hip fracture. Pt presents with a low BMI for age. She admits that she normally does not eat the best when at home alone. Discussed importance of adequate nutrition/protein intake to help promote healing. Pt was interested inadding snacks BID once diet allows. Anthropometrics: Height: 157.5 cm (5' 2") Admission Weight: Weight: 45.9 kg (101 lb 3.1 oz) as of 03/24/2021 per bed scale Most Recent Weight: Weight: 45.9 kg (101 lb 3.1 oz) (03/24/21 0643) per bed scale Lowest Weight Since Admission: 45.9 kg BMI: Body mass index is 18.51 kg/m. IBW: 50 kg %IBW: 92% (based on admit weight) Usual Body Weight: 98-103 lbs per pt's son. Unintentional Weight Loss: No significant wt change noted per EMR. Pt has a chronically low BMI forage. Pt reports she used to weigh 115-120 lbs but dropped weight ~1 year ago. Estimated Needs: 7603-5836 kcal/day (30-35 kcal/kg Using: Admission Weight) 60-70 gm protein (1.3-1.5 gm/kg Using: Admission Weight) Fluids per MD Intake Records: Intake Prior to Admit: Less than 75% of estimated energy requirements for greater than or equal to 1month. Pt admits that she does not eat the best when she is at home alone. She reports consuming 1 meal/day. She receives MOW. Sometimes she has toast with pb or a muffin for breakfast. Pt likes to snack on sweets, including pb cups, pretzels, Ritz crackers with cheese, or rice krispy bars. Pt reportsthat she made up chili, stew, and hot dishes and froze them prior to her last surgery so that she would have food available. Pt also keeps Ensure in her fridge but does not drink them consistently, stating she does not care for the taste. She normally drinks water, oj. Current Intake: Pt is NPO. Current Diet: Nutrition (From admission, onward) Start Ordered 03/24/21 1700 Supplement [facility]; Boost Breeze BID BID Comments: Give supplement cold with medications twice a day. The supplement is an intervention for identified nutrition risk factors. * Do not give if patient is NPO (unless the orders specify NPO with supplement) or if medication should not be given with food. Question Answer Comment Location [facility] Dietary Supplement Boost Cholo 03/24/21 1051 03/24/21 0930 Diet - NPO (except meds) Now Question: Standard Diets Answer: NPO (except meds) 03/24/21 0927 Physical Assessment: Edema: (per planning and analysis manager at 1005 today) Generalized Edema None GI Assessment: Abdominal exam: Non-tender and Soft with Present bowel sounds, per planning and analysis manager at 1005 today. Stool Frequency: Pt has not had a documented BM since admission Wounds/Pressure Points: WDL (per planning and analysis manager at 1005 today) Nutrition Focused Physical Exam: Completed by RD on 03/24 Below the Eye (fat): Slightly dark circles, somewhat hollow look (mild-moderate) (mild) Scientology (muscle): Slight depression (mild-moderate) (mild) Buccal (fat): Full, round/filled out cheeks (Within defined limits) Clavicle (muscle): Some protrusion of bone (mild-moderate) (only able to assess right side, pt reports pain to left side (appeared swollen)) Shoulder (muscle)/Deltoid muscle: Acromion process slightly protrudes (mild- moderate) (only able to assess right side, pt reports pain to left side) Triceps/Biceps (fat): Some depth to pinch, but not ample (mild-moderate) (only able to assess right side, pt reports pain to left side) Hand/Interosseous (muscle): Slightly depressed (mild-moderate) Nutritionally-Relevant Medications, Vitamins and Minerals: Bowel regimen prn, Melatonin prn, Zofran prn. Nutritionally-Relevant Biochemical Data: (03/24/2021) WDL Allergies/Food Intolerance: Linh Mixon is allergic to codeine, doxycycline, indocin [indomethacin], phenergan [promethazine], and septra [sulfamethoxazole w-trimethoprim]. Culturally Anglican Needs: NA INTERVENTIONS Encouraged adequate calories and optimal protein in small, frequent meals and snacks Will send snacks and supplements BID Conducted NFPE Obtained diet history MONITORING/EVALUATION Monitor diet advancement Monitor ability to consume and tolerate adequate intake to approximate estimated needs with accomodation of preferences and tolerances until intake is sustained within desirable limits Monitor NPO duration Monitor I&O, weight trends, nutrition-related labs and medications, clinical status, and planof care r/t need for nutrition intervention and provide as warranted Nutrition Therapy will reassess every 1-4 days Maeve Hudson RDN, LRD Alpha Pager #[phone] linical Team - Mariela Greco RN - 03/24/2021 6:52 AM CDT Upon Admission to [facility], skin assessment completed with: Rhina Joseph RN Upon skin assessment including pressure points findings include: Blanchable redness to bilateral ears Skin tear to left forearm- dressed with gauze and tape Bruising to right forearm Incision to right groin- dressed with gauze Blanchable redness to bilateral heels Blanchable redness to coccyx Plan/Intervention: Mepilex to coccyx documented in this encounter Plan of Treatment Date Type Specialty Care Team Description 04/05/2021 Office Visit Dermatology June Morrison PATylerC [address] [facility] [place] [address] [phone] 04/08/2021 Office Visit Orthopedics James Tirado PA [address] [place] [address] [place] [address] [phone] 05/06/2021 Office Visit Orthopedics Nilsa Baez PA-C [address] [place] [address] [place] [address] [phone] 05/06/2021 Office Visit Orthopedics Holden Campa MD [address] [place] [address] [place] [address] [phone] 06/06/2021 Office Visit Internal Medicine Nova Quan, DO [address] [place] [address], [place] [address] [phone] 11/28/2021 Office Visit tax processor Saloni Malhorta ret, MD [address] [place] [address] [phone] Name Type Priority Associated Diagnoses Order S chedule PROTIME/INR Lab Timed Routine every [address] arting 03/27/2021, 4 completed COMPLETE BLOOD COUNT Lab Routine Early A M draw for labs WITHOUT DIFFERENTIAL until d iscontinued starting 2020, 2 completed BASIC METABOLIC PANEL Lab Routine Early AM draw for labs until discontin ued starting 2020, 2 completed MAGNESIUM Lab Routine Early AM draw f or labs until discontin ued starting 2020, 2 completed Name Type Priority Associated Diagnoses Order S [facility] HOSPITAL DISCHARGE Referral Routine Once for 1 Occurrences WARFARIN ANTICOAG starting 0 03/30/2021 ORDER until documented as of this encounter Implants Implanted Type Area Burrer Machine Device Shelf Model / Identifier Expiration Serial / Lot Date Screw Lk Ti Nail 5x34mm N 04.005.524 Ea1 - [id number] Ortho Left: FEMUR J&J DEPUY [id number] / Implanted: Qty: 1 on 03/25/2021 by Holden Campa MD at [facility] Other SYNTHES / Blade Fen Hel Tfna Ti 85mm N 04.038.385 Ea1 - [id number] Ortho Left: FEMUR J&J DEPUY 04.038.385 / Implanted: Qty: 1 on 03/25/2021 by Holden Campa MD at [facility] Other SYNTHES / Nail Tfna Ti 130d 66x207as N [id number] Ea1 - [id number] Ortho Left: FEMUR J&J DEPUY 12/05/2030 [id number] / Implanted: Qty: 1 on 03/25/2021 by Holden Campa MD at [facility] Other SYNTHES / [id number] Iol Acrysof Iq 0d Melissa 21.5 N [id number] Ea1 - [id number] Right: ORION 02/04/2023 [id number] / Implanted: Qty: 1 on 05/16/2018 by Ronnie Lieberman MD at [facility] [id number] / CHAMBER Iol Acrysof Iq 0d Melissa 21.0 N [id number] Ea1 - [id number] Left: ORION 02/04/2023 [id number] / Implanted: Qty: 1 on 06/20/2018 by Ronnie Lieberman MD at [facility] [id number] / CHAMBER documented as of this encounter Procedures Procedure Name Priority Date/Time Associated Comments Diagnosis PROTIME/INR Timed Routine 03/30/2021 7:17 Results fo r this AM CDT procedure are i n the results section. COMPLETE BLOOD COUNT Routine 03/30/2021 7:17 Res ults for this WITHOUT DIFFERENTIAL AM CDT procedu re are in the results section. MAGNESIUM Routine 03/30/2021 7:17 Results for this AM CDT procedure are i n the results section. BASIC METABOLIC PANEL Routine 03/30/2021 7:17 Re sults for this AM CDT procedure are i n the results section. SODIUM Timed Routine 03/29/2021 6:03 Results fo r this PM CDT procedure are i n the results section. SODIUM Timed Routine 03/29/2021 3:54 Results fo r this PM CDT procedure are i n the results section. SODIUM Timed Routine 03/29/2021 2:04 Results fo r this PM CDT procedure are i n the results section. SODIUM Timed Routine 03/29/2021 1:07 Results fo r this PM CDT procedure are i n the results section. OSMOLALITY, URINE Routine 03/29/2021 12:13 Result s for this PM CDT procedure are i n the results section. SODIUM, URINE Routine 03/29/2021 12:13 Results fo r this PM CDT procedure are i n the results section. SARS-COV-2, INFLUENZA STAT 03/29/2021 7:45 Re sults for this A+B, AND/OR RSV AM CDT procedure ar e in NUCLEIC ACID TESTING the res ults PANEL section. PROTIME/INR Timed Routine 03/29/2021 6:41 Results fo r this AM CDT procedure are i n the results section. COMPLETE BLOOD COUNT Routine 03/29/2021 6:41 Res ults for this WITHOUT DIFFERENTIAL AM CDT procedu re are in the results section. OSMOLALITY Routine 03/29/2021 6:41 Results for this AM CDT procedure are i n the results section. MAGNESIUM Routine 03/29/2021 6:41 Results for this AM CDT procedure are i n the results section. BASIC METABOLIC PANEL Routine 03/29/2021 6:41 Re sults for this AM CDT procedure are i n the results section. PTT STAT 03/28/2021 12:23 Results for this PM CDT procedure are i n the results section. PTT Timed Routine 03/28/2021 10:48 Results fo r this AM CDT procedure are i n the results section. VITAMIN B12 REFLEX TO Routine 03/28/2021 8:25 Re sults for this METHYLMALONIC ACID AM CDT procedure are in the results section. TYPE AND SCREEN Routine 03/28/2021 8:25 Results for this AM CDT procedure are i n the results section. PROTIME/INR Timed Routine 03/28/2021 8:25 Results fo r this AM CDT procedure are i n the results section. COMPLETE BLOOD COUNT Routine 03/28/2021 8:25 Res ults for this WITHOUT DIFFERENTIAL AM CDT procedu re are in the results section. BASIC METABOLIC PANEL Routine 03/28/2021 8:25 Re sults for this AM CDT procedure are i n the results section. PTT Timed Routine 03/28/2021 1:23 Results fo r this AM CDT procedure are i n the results section. PTT Timed Routine 03/27/2021 7:25 Results fo r this PM CDT procedure are i n the results section. COLLECT AND HOLD GREEN Routine 03/27/2021 12:29 R esults for this TOP TUBE PM CDT procedure are i n the results section. PTT Timed Routine 03/27/2021 12:29 Results fo r this PM CDT procedure are i n the results section. IRON AND TIBC Routine 03/27/2021 6:27 Results fo r this AM CDT procedure are i n the results section. PTT Timed Routine 03/27/2021 6:27 Results fo r this AM CDT procedure are i n the results section. PROTIME/INR Timed Routine 03/27/2021 6:27 Results fo r this AM CDT procedure are i n the results section. RETIC COUNT Routine 03/27/2021 6:27 Results for this AM CDT procedure are i n the results section. COMPLETE BLOOD COUNT Routine 03/27/2021 6:27 Res ults for this WITHOUT DIFFERENTIAL AM CDT procedu re are in the results section. FERRITIN Routine 03/27/2021 6:27 Results for this AM CDT procedure are i n the results section. BASIC METABOLIC PANEL Routine 03/27/2021 6:27 Re sults for this AM CDT procedure are i n the results section. PTT Timed Routine 03/26/2021 11:47 Results fo r this PM CDT procedure are i n the results section. PTT Timed Routine 03/26/2021 4:51 Results fo r this PM CDT procedure are i n the results section. PTT STAT 03/26/2021 10:08 Results for this AM CDT procedure are i n the results section. PROTIME/INR TYREE 03/26/2021 10:08 Results for this AM CDT procedure are i n the results section. PTT Timed Routine 03/26/2021 9:15 Results fo r this AM CDT procedure are i n the results section. PTT Timed Routine 03/26/2021 3:19 Results fo r this AM CDT procedure are i n the results section. COMPLETE BLOOD COUNT Routine 03/26/2021 3:19 Res ults for this WITHOUT DIFFERENTIAL AM CDT procedu re are in the results section. MAGNESIUM Routine 03/26/2021 3:19 Results for this AM CDT procedure are i n the results section. BASIC METABOLIC PANEL Routine 03/26/2021 3:19 Re sults for this AM CDT procedure are i n the results section. XRAY C-ARM Routine 03/25/2021 4:35 Results for this PM CDT procedure are i n the results section. COLLECT AND HOLD Routine 03/25/2021 4:00 Results for this POSSIBLE CROSSMATCH PM CDT procedur e are in TUBE the results section. TYPE AND SCREEN STAT 03/25/2021 4:00 Results for this PM CDT procedure are i n the results section. NAILING INTRAMEDULLARY 03/25/2021 2:05 Closed left hi p FEMUR PM CDT fracture (HCC) Case Notes AVAILABLE AT 1500 POTASSIUM Routine 03/25/2021 12:54 Results for this PM CDT procedure are i n the results section. COLLECT AND HOLD GREEN Routine 03/25/2021 9:58 R esults for this TOP TUBE AM CDT procedure are i n the results section. PTT Timed Routine 03/25/2021 9:58 Results fo r this AM CDT procedure are i n the results section. EKG TYREE 03/25/2021 7:16 Results for this AM CDT procedure are i n the results section. MAGNESIUM STAT 03/25/2021 7:14 Results for this AM CDT procedure are i n the results section. COMPREHENSIVE STAT 03/25/2021 7:14 Results fo r this METABOLIC PANEL AM CDT procedure ar e in the results section. DIGOXIN Timed Routine 03/25/2021 5:18 Results fo r this AM CDT procedure are i n the results section. PTT Timed Routine 03/25/2021 3:19 Results fo r this AM CDT procedure are i n the results section. PTT Timed Routine 03/24/2021 8:57 Results fo r this PM CDT procedure are i n the results section. PTT TYREE 03/24/2021 2:24 Results for this PM CDT procedure are i n the results section. COMPLETE BLOOD COUNT STAT 03/24/2021 2:24 Res ults for this WITHOUT DIFFERENTIAL PM CDT procedu re are in the results section. EKG STAT 03/24/2021 1:21 Results for this PM CDT procedure are i n the results section. XRAY CLAVICLE LT STAT 03/24/2021 12:50 Results for this PM CDT procedure are i n the results section. NAILING INTRAMEDULLARY 03/24/2021 12:20 Hip fracture FEMUR PM CDT requiring operative repair, left, closed, initial encounter (HCC) Case Notes Synthes- pending cardiac bob arance COMPLETE BLOOD COUNT WITHOUT Routine 03/24/2021 10:26 AM CDT Results for this DIFFERENTIAL procedure are i n the results section . MAGNESIUM Routine 03/24/2021 10:26 AM CDT Resu lts for this procedure are i n the results section . COMPREHENSIVE METABOLIC Routine 03/24/2021 10:26 AM CDT Results for this PANEL procedure are i n the results section . BRAIN NATRIURETIC PEPTIDE STAT 03/24/2021 10:26 AM CDT Results for this procedure are i n the results section . PROTIME/INR Routine 03/24/2021 10:25 AM CDT Resu lts for this procedure are i n the results section . documented in this encounter Results MAGNESIUM (03/30/2021 7:17 AM CDT) Pathologist Sig [facility] Magnesium 1.9 1.8 - 2.4 mg/dL [facility] Specimen Blood - Blood specimen (specimen) Performing Organization Address City/State/ZIP Code Phon e Number [facility] [address] [place] [address] BASIC METABOLIC PANEL (03/30/2021 7:17 AM CDT) Pathologist Sig [facility] Glucose 92 70 - 100 mg/dL [facility] BUN 17 6 - 22 mg/dL [facility] Creatinine 0.60 0.60 - 1.10 [facility] mg/[facility] BUN/Creatinine Ratio 28.3 (H) 10.0 - 25.0 [facility] Sodium 131 (L) 135 - 145 meq/L [facility] Potassium 4.3 3.5 - 5.3 meq/L [facility] Chloride 101 99 - 110 meq/L [facility] CO2 23 20 - 29 meq/L [facility] Anion Gap with K 11 6 - 20 meq/L [facility] Calcium 8.5 8.5 - 10.5 [facility] mg/dL [place] Age 81 Years [facility] eGFR Non- >90 >=60 [facility] mL/min/1.73m2 [place] eGFR >90 >=60 [facility] [place] mL/min/1.73m2 [place] Specimen Blood - Blood specimen (specimen) Performing Organization Address City/State/ZIP Code Phon e Number [facility] [address] [place], [place] [address] [phone] COMPLETE BLOOD COUNT WITHOUT DIFFERENTIAL (03/30/2021 7:17 AM CDT) Pathologist Sig nature WBC 9.2 4.0 - 11.0 K/uL [facility] RBC 2.65 (L) 3.80 - 5.30 M/uL [facility] Hemoglobin 8.0 (L) 11.5 - 15.8 g/dL [facility] Hematocrit 25.4 (L) 35.0 - 45.0 % [facility] MCV 95.8 80.0 - 98.0 fL [facility] MCH 30.2 25.5 - 34.0 pg [facility] MCHC 31.5 31.5 - 36.5 g/dL [facility] RDW-CV 13.5 11.5 - 15.5 % [facility] RDW-SD 44.6 35.5 - 50.0 fl [facility] Platelet Count 232 140 - 400 K/uL [facility] MPV 10.0 8.5 - 12.0 fL [facility] Specimen Blood - Blood specimen (specimen) Performing Organization Address [facility]/ZIP Code Phon e Number [facility] [address] [place] [address] PROTIME/INR (03/30/2021 7:17 AM CDT) Pathologist Sig nature Protime 23.5 (H) 12.0 - 14.5 secs [facility] INR 2.2 2.0 - 3.5 [facility] Specimen Blood - Blood specimen (specimen) Narrative Performed At Normal INR reference range (patients not on oral [facility] anticoagulants) 0.9-1.1. INR Standard Intensity = (2.0 - 3.0) INR Higher Intensity = (2.5 - 3.5) Performing Organization Address [facility]/ZIP Code Phon e Number [facility] [address] [place], [place] [address] [phone] SODIUM (03/29/2021 6:03 PM CDT) Pathologist Sig nature Sodium 131 (L) 135 - 145 meq/L [facility] Specimen Blood - Blood specimen (specimen) Performing Organization Address [facility]/ZIP Code Phon e Number [facility] [address] [place] [address] SODIUM (03/29/2021 3:54 PM CDT) Pathologist Sig nature Sodium 130 (L) 135 - 145 meq/L [facility] Specimen Blood - Blood specimen (specimen) Performing Organization Address City/[facility]/ZIP Code Phon e Number [facility] [address] [place] [address] SODIUM (03/29/2021 2:04 PM CDT) Pathologist Sig nature Sodium 129 (L) 135 - 145 meq/L [facility] Specimen Blood - Blood specimen (specimen) Performing Organization Address City/[facility]/ZIP Code Phon e Number [facility] [address] [place] [address] SODIUM (03/29/2021 1:07 PM CDT) Pathologist Sig nature Sodium 128 (L) 135 - 145 meq/L [facility] Specimen Blood - Blood specimen (specimen) Performing Organization Address City/[facility] e Number [facility] [address] [place] [address] OSMOLALITY, URINE (03/29/2021 12:13 PM CDT) Pathologist Sig nature Osmolality Urine 242 (L) 390-1,000 mOsm/kg [facility] Specimen Urine - Urine specimen obtained by singl e catheterization of bladder (specimen) Performing Organization Address [facility] e Number [address] [address] [phone] SODIUM, URINE (03/29/2021 12:13 PM CDT) Pathologist Sig nature Sodium Urine <20 meq/L [facility] Specimen Urine - Urine specimen obtained by singl e catheterization of bladder (specimen) Performing Organization Address [facility] Number [address] [address] SARS-COV-2, INFLUENZA A+B, AND/OR RSV NUCLEIC ACID TESTING PANEL (03/29/2021 7:45 AM CDT) Pathologist Sig [facility] SARS-CoV-2 Not Detected Not Detected [facility] Specimen Respiratory - Nasopharyngeal swab (speci men) Narrative Performed At Please read entire report. Results for Influenza A and B or [facility] RSV may also be available depending on which viruses y our provider selected for testing. Your Covid-19 test is negative: 1)Avoiding close contact is s till recommended. 2)Cover your coughs and snee zes. 3)Wash your hands often with soap and wate r for at least 20 seconds or use an alcohol-based [employer] service technician containing over 60% alcohol. Avoid touch ing your face. 4)Avoid sharing personal household items, including dishes, cups, utensils, towels, clothing, or bedding. These items should be cleaned thoroughly with soap and water after use. Clean all "high touch" surfaces i n your home daily. 5) Monitor your symptoms. Contact your provider if you are feeling worse. If you have shortness of breath or difficulty breathing, call 911. This assay is for in vitro diagnostic use under FDA Emergency Use Authorization only. Optimal performance of this test requires appropriate specimen collection, storage, and transport to the [facility] site. Detection of SARS-CoV-2 RNA may be affected by sample collection methods, patient factors (eg, presence of symptoms), and/or stage of infection. False-negative results may arise from degradation of v iral RNA during shipping/storage. Results should be interpreted by a trained professiona l in conjunction with the patient s history and clinical signs and symptoms, and epidemiological risk factors. Negative (Not Detected) results do not preclude infect ion with the SARS-CoV-2 virus and should not be the sole b asis of patient treatment/management or public health decis ion. Follow up testing should be performed according to the current CDC recommendations. This test was performed by polymerase chain reaction ( PCR) on the GeneXpert instrument. Performing Organization Address [facility] Phon e Number [facility] [address] [place] [address] [phone] OSMOLALITY (03/29/2021 6:41 AM CDT) [facility] Osmolality 265 (L) 280 - 305 mOsm/kg [facility] Specimen Blood - Blood specimen (specimen) Performing Organization Address [facility] e [address] [address] [phone] MAGNESIUM (03/29/2021 6:41 AM CDT) [facility] Magnesium 1.9 1.8 - 2.4 mg/dL [facility] Specimen Blood - Blood specimen (specimen) Performing Organization Address [facility] e [address] [address] BASIC METABOLIC PANEL (03/29/2021 6:41 AM CDT) [facility] Glucose 97 70 - 100 mg/dL [facility] BUN 19 6 - 22 mg/dL [facility] Creatinine 0.67 0.60 - 1.10 [facility] BUN/Creatinine Ratio 28.4 (H) 10.0 - 25.0 [facility] Sodium 127 (L) 135 - 145 meq/L [facility] Potassium 3.9 3.5 - 5.3 meq/L [facility] Chloride 97 (L) 99 - 110 meq/L [facility] CO2 23 20 - 29 meq/L [facility] Anion Gap with K 11 6 - 20 meq/L [facility] Calcium 8.4 (L) 8.5 - 10.5 [facility] mg/dL [place] Age 81 Years [facility] eGFR Non- 84 >=60 [facility] mL/min/1.73m2 [place] eGFR >90 >=60 [facility] [place] mL/min/1.73m2 [place] Specimen Blood - Blood specimen (specimen) Performing Organization Address [facility] Phon e Number [facility] [address] [place] [address] COMPLETE BLOOD COUNT WITHOUT DIFFERENTIAL (03/29/2021 6:41 AM CDT) Pathologist [facility] nature WBC 10.1 4.0 - 11.0 K/uL [facility] RBC 2.54 (L) 3.80 - 5.30 M/uL [facility] Hemoglobin 7.8 (L) 11.5 - 15.8 g/dL [facility] Hematocrit 24.3 (L) 35.0 - 45.0 % [facility] MCV 95.7 80.0 - 98.0 fL [facility] MCH 30.7 25.5 - 34.0 pg [facility] MCHC 32.1 31.5 - 36.5 g/dL [facility] RDW-CV 12.9 11.5 - 15.5 % [facility] RDW-SD 42.6 35.5 - 50.0 fl [facility] Platelet Count 172 140 - 400 K/uL [facility] MPV 10.3 8.5 - 12.0 fL [facility] Specimen Blood - Blood specimen (specimen) Performing Organization Address City/[facility]/ZIP Code Phon e Number [facility] [address] [place] [address] PROTIME/INR (03/29/2021 6:41 AM CDT) Pathologist Sig nature Protime 19.2 (H) 12.0 - 14.5 secs [facility] INR 1.7 (L) 2.0 - 3.5 [facility] Specimen Blood - Blood specimen (specimen) Narrative Performed At Normal INR reference range (patients not on oral [facility] anticoagulants) 0.9-1.1. INR Standard Intensity = (2.0 - 3.0) INR Higher Intensity = (2.5 - 3.5) Performing Organization Address [facility] Phon e Number [facility] [address] [place] [address] PTT (03/28/2021 12:23 PM CDT) Pathologist Sig nature APTT 120 (H) 24 - 35 secs [facility] Specimen Blood - Blood specimen (specimen) Performing Organization Address [facility] Phon e Number [facility] [address] [place] [address] PTT (03/28/2021 10:48 AM CDT) Pathologist Sig nature APTT >150 (HH) 24 - 35 secs [facility] Specimen Blood - Blood specimen (specimen) Performing Organization Address [facility] Phon e Number [facility] [address] [place] [address] VITAMIN B12 REFLEX TO METHYLMALONIC ACID (03/28/2021 8:25 AM CDT) Pathologist Sig [facility] Vitamin B12 346 200-1,000 pg/mL [facility] Specimen Blood - Blood specimen (specimen) Performing Organization Address [facility] Phon e Number [facility] [address] [place] [address] [phone] TYPE AND SCREEN (03/28/2021 8:25 AM CDT) Pathologist Sig [facility] ABO Type B [facility] BLOOD BANK Rh Type Positive [facility] BLOOD B[facility] Antibody Screen Negative [facility] Comment: [facility] BLOOD [facility] Allogenic Red Cells Available DATE NEEDED 03/28/21 Expiration Date 03/31/2021 23:[address] [facility] BLOOD [facility] Specimen Blood - Blood specimen (specimen) Performing Organization Address City/State/ZIP Code Phon e Number [facility] BLOOD BANK [address] [place] [phone] BASIC METABOLIC PANEL (03/28/2021 8:25 AM CDT) [facility] Glucose 103 (H) 70 - 100 mg/dL [facility] BUN 21 6 - 22 mg/dL [facility] Creatinine 0.74 0.60 - 1.10 [facility] mg/[facility] BUN/Creatinine Ratio 28.4 (H) 10.0 - 25.0 [facility] Sodium 130 (L) 135 - 145 meq/L [facility] Potassium 3.9 3.5 - 5.3 meq/L [facility] Chloride 96 (L) 99 - 110 meq/L [facility] CO2 24 20 - 29 meq/L [facility] Anion Gap with K 14 6 - 20 meq/L [facility] Calcium 8.5 8.5 - 10.5 [facility] mg/dL [place] Age 81 Years [facility] eGFR Non- 75 >=60 [facility] mL/min/1.73m2 [place] eGFR >90 >=60 [facility] [place] mL/min/1.73m2 [place] Specimen Blood - Blood specimen (specimen) Performing Organization Address City/State/ZIP Code Phon e Number [facility] [address] [place] [address] COMPLETE BLOOD COUNT WITHOUT DIFFERENTIAL (03/28/2021 8:25 AM CDT) Pathologist [facility] WBC 14.3 (H) 4.0 - 11.0 K/uL [facility] RBC 2.66 (L) 3.80 - 5.30 M/uL [facility] Hemoglobin 8.3 (L) 11.5 - 15.8 g/dL [facility] Hematocrit 25.6 (L) 35.0 - 45.0 % [facility] MCV 96.2 80.0 - 98.0 fL [facility] MCH 31.2 25.5 - 34.0 pg [facility] MCHC 32.4 31.5 - 36.5 g/dL [facility] RDW-CV 13.3 11.5 - 15.5 % [facility] RDW-SD 44.3 35.5 - 50.0 [facility] Platelet Count 182 140 - 400 K/uL [facility] MPV 10.4 8.5 - 12.0 fL [facility] Specimen Blood - Blood specimen (specimen) Performing Organization Address [facility]/ZIP Code Phon e Number [facility] [address] [place] [address] PROTIME/INR (03/28/2021 8:25 AM CDT) Pathologist Sig nature Protime 17.6 (H) 12.0 - 14.5 secs [facility] INR 1.5 (L) 2.0 - 3.5 [facility] Specimen Blood - Blood specimen (specimen) Narrative Performed At Normal INR reference range (patients not on oral [facility] anticoagulants) 0.9-1.1. INR Standard Intensity = (2.0 - 3.0) INR Higher Intensity = (2.5 - 3.5) Performing Organization Address [facility] Code Phon e Number [facility] [address] [place] [address] PTT (03/28/2021 1:23 AM CDT) Pathologist Sig nature APTT 47 (H) 24 - [address] [facility] Specimen Blood - Blood specimen (specimen) Performing Organization Address [facility] Phon e Number [facility] [address] [place] [address] PTT (03/27/2021 7:25 PM CDT) Pathologist Sig nature APTT 94 (H) 24 - 35 secs [facility] Specimen Blood - Blood specimen (specimen) Performing Organization Address [facility]/ZIP Code Phon e Number [facility] [address] [place] [phone] COLLECT AND HOLD GREEN TOP TUBE (03/27/2021 12:29 PM CDT) Collect and Hold Comment: RECEIVED [place] [facility] Specimen Status CLINIC Specimen Blood - Blood specimen (specimen) Performing Organization Address City/[facility]/ZIP Code Phon e Number [place] [facility] [address] [facility] [place] [address] PTT (03/27/2021 12:29 PM CDT) Pathologist Sig nature APTT 62 (H) 24 - [address] Specimen Blood - Blood specimen (specimen) Performing Organization Address [facility] Phon e Number [address] [place] [address], [place] [address] RETIC COUNT (03/27/2021 6:27 AM CDT) Reticulocyte Percent 3.2 (H) 0.5 - 1.8 % [address] Reticulocyte Absolute 0.08 0.02 - 0.[address] M/uL Immature Retic 25.1 (H) 3.0 - 16.0 % [address] Fraction Retic Hemoglobin 26.7 (L) 29.0 - 38.[address] Specimen Blood - Blood specimen (specimen) Performing Organization Address [facility] Phon e Number [address] [place] [address], [place] [address] IRON AND TIBC (03/27/2021 6:27 AM CDT) Pathologist Sig nature Iron Total 15 (L) 50 - 170 ug/dL [facility] TIBC 211 (L) 250 - 400 ug/dL [facility] Iron Saturation 7 (L) 20 - 50 % Sat [facility] Specimen Blood - Blood specimen (specimen) Performing Organization Address [facility] Phon e [address] [address] [phone] FERRITIN (03/27/2021 6:27 AM CDT) Pathologist Sig nature Ferritin 59 5 - 200 ng/mL [facility] Specimen Blood - Blood specimen (specimen) Performing Organization Address [facility] Phon e Number [address] [place] [address] PTT (03/27/2021 6:27 AM CDT) Pathologist Sig nature APTT 70 (H) 24 - [address] Specimen Blood - Blood specimen (specimen) Performing Organization Address [facility] Phon e Number [address] [place] [address], [place] [address] BASIC METABOLIC PANEL (03/27/2021 6:27 AM CDT) Pathologist Sig nature Glucose 96 70 - 100 mg/dL [address] BUN 23 (H) 6 - 22 mg/dL [address] Creatinine 0.74 0.60 - 1.[address] mg/dL BUN/Creatinine Ratio 31.1 (H) 10.0 - 25.[address] Sodium 131 (L) 135 - 145 meq/L [address] Potassium 4.4 3.5 - 5.3 meq/L [address] Chloride 100 99 - 110 meq/L [address] CO2 25 20 - 29 meq/L [address] Anion Gap with K 10 6 - 20 meq/L [address] Calcium 8.6 8.5 - 10.[address] mg/dL Age [address] eGFR Non- 75 >=[address] [place] mL/min/1.73m2 eGFR >90 >=[address] mL/min/1.73m2 Specimen Blood - Blood specimen (specimen) Performing Organization Address City/State/ZIP Code Phon e Number [address] [place] [address] COMPLETE BLOOD COUNT WITHOUT DIFFERENTIAL (03/27/2021 6:27 AM CDT) Pathologist Sig nature WBC 13.7 (H) 4.0 - 11.0 K/uL [address] RBC 2.55 (L) 3.80 - 5.30 M/uL [address] Hemoglobin 7.9 (L) 11.5 - 15.8 g/dL [address] Hematocrit 24.0 (L) 35.0 - 45.0 % [address] MCV 94.1 80.0 - 98.[address] MCH 31.0 25.5 - 34.[address] MCHC 32.9 31.5 - 36.5 g/dL [address] RDW-CV 13.2 11.5 - 15.5 % [address] RDW-SD 46.1 35.5 - 50.[address] Platelet Count 133 (L) 140 - 400 K/uL [address] MPV 10.4 8.5 - 12.[address] Specimen Blood - Blood specimen (specimen) Performing Organization Address [facility] Code Phon e Number [address] [place] [address], [place] [address] PROTIME/INR (03/27/2021 6:27 AM CDT) Pathologist Sig nature Protime 16.5 (H) 12.0 - 14.[address] INR 1.4 (L) 2.0 - 3.[address] Specimen Blood - Blood specimen (specimen) Narrative Performed At Normal INR reference range (patients not on oral antic oagulants) [address] 0.9-1.1. INR Standard Intensity = (2.0 - 3.0) INR Higher Intensity = (2.5 - 3.5) Performing Organization Address [facility] Phon e Number [address] [place] [address], [place] [address] PTT (03/26/2021 11:47 PM CDT) Pathologist Sig nature APTT 108 (H) 24 - [address] Specimen Blood - Blood specimen (specimen) Performing Organization Address [facility]/ZIP [facility] Phon e Number [address] [place] [address] [place] [address] PTT (03/26/2021 4:51 PM CDT) Pathologist Sig nature APTT 37 (H) 24 - [address] Specimen Blood - Blood specimen (specimen) Performing Organization Address [facility] Phon e [address] [place] [address], [place] [address] PROTIME/INR (03/26/2021 10:08 AM CDT) Pathologist Sig nature Protime 16.6 (H) 12.0 - 14.[address] INR 1.4 (L) 2.0 - 3.[address] Specimen Blood - Blood specimen (specimen) Narrative Performed At Normal INR reference range (patients not on oral antic oagulants) [address] 0.9-1.1. INR Standard Intensity = (2.0 - 3.0) INR Higher Intensity = (2.5 - 3.5) Performing Organization Address [facility] Phon e Number [address] [place] [address] PTT (03/26/2021 10:08 AM CDT) Pathologist Sig nature APTT 67 (H) 24 - [address] Specimen Blood - Blood specimen (specimen) Performing Organization Address [facility] Phon [address] [place] [address] PTT (03/26/2021 9:15 AM CDT) Pathologist Sig nature APTT >150 (HH) 24 - [address] Specimen Blood - Blood specimen (specimen) Performing Organization Address [facility] Phon e Number [address] [place] [address] [place] [address] PTT (03/26/2021 3:19 AM CDT) Pathologist Sig nature APTT 79 (H) 24 - [address] Specimen Blood - Blood specimen (specimen) Performing Organization Address [facility] Phon e [address] [place] [id number] MAGNESIUM (03/26/2021 3:19 AM CDT) Pathologist Sig nature Magnesium 1.8 1.8 - 2.4 mg/dL [address] Specimen Blood - Blood specimen (specimen) Performing Organization Address [facility] Phon e [address] [place] [address] [place] [address] BASIC METABOLIC PANEL (03/26/2021 3:19 AM CDT) Pathologist Sig nature Glucose 120 (H) 70 - 100 mg/dL [address] BUN 21 6 - 22 mg/dL [address] Creatinine 0.81 0.60 - 1.[address] mg/dL BUN/Creatinine Ratio 25.9 (H) 10.0 - 25.[address] Sodium 136 135 - 145 meq/L [address] Potassium 4.8 3.5 - 5.3 meq/L [address] Chloride 102 99 - 110 meq/L [address] CO2 27 20 - 29 meq/L [address] Anion Gap with K 12 6 - 20 meq/L [address] Calcium 8.6 8.5 - 10.5 [place] [address] [facility] mg/dL Age [address] eGFR Non- 68 >=[address] Libyan mL/min/1.73m2 eGFR 82 >=[address] mL/min/1.73m2 Specimen Blood - Blood specimen (specimen) Performing Organization Address City/[facility] Phon e Number [address], [place] [address] COMPLETE BLOOD COUNT WITHOUT DIFFERENTIAL (03/26/2021 3:19 AM CDT) Pathologist Sig nature WBC 12.9 (H) 4.0 - 11.0 K/uL [address] RBC 2.81 (L) 3.80 - 5.30 M/uL [address] Hemoglobin 8.9 (L) 11.5 - 15.8 g/dL [address] Hematocrit 27.2 (L) 35.0 - 45.0 % [address] MCV 96.8 80.0 - 98.[address] MCH 31.7 25.5 - 34.[address] MCHC 32.7 31.5 - 36.5 g/dL [address] RDW-CV 13.8 11.5 - 15.5 % [address] RDW-SD 49.6 35.5 - 50.[address] Platelet Count 147 140 - 400 K/uL [address] MPV 9.7 8.5 - 12.[address] Specimen Blood - Blood specimen (specimen) Performing Organization Address [facility] Phon e Number [place] [address] [facility] [address] [place] [address] XRAY C-ARM LESS THAN ONE HR (03/25/2021 4:35 PM CDT) Specimen Narrative Performed At Fluoroscopic image(s) submitted. Imaging [facility] RADIOLOGY assistance provided by Radiology. Performing Organization Address [facility]/ZIP Code Phon e Number [facility] [address] [place] [address] RADIOLOGY COLLECT AND HOLD POSSIBLE CROSSMATCH TUBE (03/25/2021 4:00 PM CDT) Pathologist Sig nature Extra Tube For BB Received [address] - BLOOD BANK Specimen Blood - Blood specimen (specimen) Performing Organization Address [facility] Code Phon e Number [address] BLOOD BANK [address] [place] [address], [place] [address] TYPE AND SCREEN (03/25/2021 4:00 PM CDT) Pathologist Sig miguelito ABO Type B [address] BLOOD BANK Rh Type Positive [address] BLOOD BANK Antibody Screen Negative [address] Comment: BLOOD BANK Allogenic Red Cells Available [place] [id number] Expiration Date 03/28/2021 23:[address] BLOOD BANK Specimen Blood - Blood specimen (specimen) Performing Organization Address [facility] Code Phon e Number [address] BLOOD BANK [address] [place] [address], [place] [address] POTASSIUM (03/25/2021 12:54 PM CDT) Pathologist Sig miguelito Potassium 4.9 3.5 - 5.3 meq/L [address] Specimen Blood - Blood specimen (specimen) Performing Organization Address [facility]/ZIP Code Phon e Number [address] [place] [address], [place] [address] COLLECT AND HOLD GREEN TOP TUBE (03/25/2021 9:58 AM CDT) Collect and Hold Comment: RECEIVED [place] [address] Specimen Status CLINIC Specimen Blood - Blood specimen (specimen) Performing Organization Address [facility] Phon e Number [address] [place] [address] PTT (03/25/2021 9:58 AM CDT) Pathologist Sig miguelito APTT 118 (H) 24 - [address] Specimen Blood - Blood specimen (specimen) Performing Organization Address [facility] Phon e Number [place] [address] [facility] [address] [place] [address] EKG (03/25/2021 7:16 AM CDT)Only the most recent of2 resultswithin the time period is included. 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 Performing Organization Address [facility] Phon e Number [employer] MAGNESIUM (03/25/2021 7:14 AM CDT) Pathologist Sig nature Magnesium 1.7 (L) 1.8 - 2.4 mg/dL [address] Specimen Blood - Blood specimen (specimen) Performing Organization Address [facility] Phon e Number [place] [address] [facility] [address] [place] [address] COMPREHENSIVE METABOLIC PANEL (03/25/2021 7:14 AM CDT) Pathologist Sig nature Glucose 108 (H) 70 - 100 mg/dL [address] BUN 16 6 - 22 mg/dL [address] Creatinine 0.74 0.60 - 1.10 [place] [address] [facility] mg/dL BUN/Creatinine Ratio 21.6 10.0 - 25.0 [place] [address] [facility] Sodium 136 135 - 145 meq/L [place] [address] [facility] Potassium 5.4 (H) 3.5 - 5.3 meq/L [place] [address] [facility] Chloride 101 99 - 110 meq/L [place] [address] [facility] CO2 26 20 - 29 meq/L [place] [address] [facility] Anion Gap with K 14 6 - 20 meq/L [place] [address] [facility] Calcium 9.5 8.5 - 10.5 [place] [address] [facility] mg/dL Protein Total 6.0 6.0 - 8.2 g/dL [place] [address] [facility] Albumin 3.2 (L) 3.5 - 5.0 g/dL [address] Alkaline Phosphatase 88 30 - 150 U/L [address] AST - SGOT 17 0 - 35 U/L [address] ALT - SGPT 7 0 - 55 U/L [address] Bilirubin Total 0.4 0.2 - 1.2 mg/dL [address] Corrected Calcium 10.1 8.5 - 10.[address] mg/dL Age [address] eGFR Non- 75 >=[address] Libyan mL/min/1.73m2 eGFR >90 >=[address] mL/min/1.73m2 Specimen Blood - Blood specimen (specimen) Performing Organization Address [facility] Phon e Number [address] [place] [address] DIGOXIN (03/25/2021 5:18 AM CDT) Pathologist Sig nature Digoxin 2.7 (HH) 0.5 - 1.5 ng/mL [address] Specimen Blood - Blood specimen (specimen) Performing Organization Address [facility] Phon Number [address] [place] [address] PTT (03/25/2021 3:19 AM CDT) Pathologist Sig nature APTT 63 (H) 24 - [address] Specimen Blood - Blood specimen (specimen) Performing Organization Address [facility] Phon e Number [address] [place] [address] PTT (03/24/2021 8:57 PM CDT) Pathologist Sig nature APTT 72 (H) 24 - [address] Specimen Blood - Blood specimen (specimen) Performing Organization Address [facility] Phon e [address] [place] [address] COMPLETE BLOOD COUNT WITHOUT DIFFERENTIAL (03/24/2021 2:24 PM CDT) Pathologist Sig nature WBC 10.7 4.0 - 11.0 K/uL [address] RBC 3.15 (L) 3.80 - 5.30 M/uL [address] Hemoglobin 9.9 (L) 11.5 - 15.8 g/dL [address] Hematocrit 29.5 (L) 35.0 - 45.0 % [address] MCV 93.7 80.0 - 98.[address] MCH 31.4 25.5 - 34.[address] MCHC 33.6 31.5 - 36.5 g/dL [address] RDW-CV 14.0 11.5 - 15.5 % [address] RDW-SD 47.6 35.5 - 50.[address] Platelet Count 176 140 - 400 K/uL [address] MPV 10.1 8.5 - 12.[address] Specimen Blood - Blood specimen (specimen) Performing Organization Address [facility] Phon e Number [address] [place] [address] PTT (03/24/2021 2:24 PM CDT) Pathologist [facility] APTT 36 (H) 24 - [address] Specimen Blood - Blood specimen (specimen) Performing Organization Address [facility] Phon e Number [address] [place] [address] XRAY CLAVICLE LT (03/24/2021 12:50 PM CDT) Specimen Narrative Performed At [facility] Patient Name: LINH QUAN Date of : 1940 Procedure: XRAY CLAVICLE LT Date of Service: 03/24/2021 EXAM: XRAY CLAVICLE LT INDICATION: L clavicle pain and crepitan ce COMPARISON(S): None. FINDINGS/IMPRESSION: 3 views of the left clavicle show no evidence of acute fracture. Left sternoclavicular and acromioclavi cular joints appear normally aligned. Mild AC joint arthrosis. Ther e is degenerative disc disease and facet arthropathy of the cervical spi ne. Mild calcified atherosclerosis of the thoracic aorta. The remaining v isualized soft tissues are unremarkable. Finalized by: Reynaldo Madden MD on 03/24 12:57 PM CDT Patient/Procedure Information: [facility] MRN/EDER: [id number] Order Number: [id number] Accession Number: [id number] Ordering Provider: STEFAN KAMARA Authorizing Provider: ZENOBIA MORIN Procedure Note Bernice Chavez - 03/24/2021 12:59 PM CDT Patient Name: LINH QUAN Date of : 1940 Procedure: XRAY CLAVICLE LT Date of Service: 03/24/2021 EXAM: XRAY CLAVICLE LT INDICATION: L clavicle pain and crepitan ce COMPARISON(S): None. FINDINGS/IMPRESSION: 3 views of the left clavicle show no evidence of acute fracture. Left sternoclavicular and acromioclavicular joints appear normally aligned. Mild AC joint arthrosis. There is degenerative disc disease and facet arthropathy of the cer vical spine. Mild calcified atherosclerosis of the thoracic aorta. The remaining visualized soft tissues are unremarkable. Finalized by: Reynaldo Madden MD on 03/24 12:57 PM CDT Patient/Procedure Information: [facility] MRN/EDER: [id number] Order Number: [id number] Accession Number: [id number] Ordering Provider: STEFAN KAMARA Authorizing Provider: ZENOBIA MORIN Performing Organization Address [facility]/ZIP Code Phon e Number [id number] BRAIN NATRIURETIC PEPTIDE (03/24/2021 10:26 AM CDT) Pathologist Sig nature BNP 1,074 (H) 0 - 100 pg/mL [address] Specimen Blood - Blood specimen (specimen) Performing Organization Address [facility]/ZIP [facility] Phon e Number [place] [address] [facility] [address] [place] [address] [place] [address] MAGNESIUM (03/24/2021 10:26 AM CDT) Pathologist Sig nature Magnesium 1.7 (L) 1.8 - 2.4 mg/dL [address] Specimen Blood - Blood specimen (specimen) Performing Organization Address [facility] Phon e Number [place] [address] [facility] [address] [place] [address] COMPREHENSIVE METABOLIC PANEL (03/24/2021 10:26 AM CDT) Pathologist Sig [facility] Glucose 100 70 - 100 mg/dL [address] BUN 14 6 - 22 mg/dL [address] Creatinine 0.69 0.60 - 1.[address] mg/dL BUN/Creatinine Ratio 20.3 10.0 - 25.[address] Sodium 138 135 - 145 meq/L [address] Potassium 4.8 3.5 - 5.3 meq/L [address] Chloride 105 99 - 110 meq/L [address] CO2 22 20 - 29 meq/L [address] Anion Gap with K 16 6 - 20 meq/L [address] Calcium 9.3 8.5 - 10.[address] mg/dL Protein Total 5.9 (L) 6.0 - 8.2 g/dL [address] Albumin 3.1 (L) 3.5 - 5.0 g/dL [address] Alkaline Phosphatase 93 30 - 150 U/L [address] AST - SGOT 20 0 - 35 U/L [address] ALT - SGPT 9 0 - 55 U/L [address] Bilirubin Total 0.7 0.2 - 1.2 mg/dL [address] Corrected Calcium 10.0 8.5 - 10.[address] mg/dL Age [address] eGFR Non- 82 >=[address] Libyan mL/min/1.73m2 eGFR >90 >=[address] mL/min/1.73m2 Specimen Blood - Blood specimen (specimen) Performing Organization Address City/State/ZIP Code Phon e Number [address], [place] [address] COMPLETE BLOOD COUNT WITHOUT DIFFERENTIAL (03/24/2021 10:26 AM CDT) Pathologist Sig [facility] WBC 11.3 (H) 4.0 - 11.0 K/uL [address] RBC 3.38 (L) 3.80 - 5.30 M/uL [place] [address] [facility] Hemoglobin 10.6 (L) 11.5 - 15.8 g/dL [address] Hematocrit 31.7 (L) 35.0 - 45.0 % [address] MCV 93.8 80.0 - 98.[address] MCH 31.4 25.5 - 34.[address] MCHC 33.4 31.5 - 36.5 g/dL [address] RDW-CV 13.9 11.5 - 15.5 % [address] RDW-SD 47.8 35.5 - 50.[address] Platelet Count 171 140 - 400 K/uL [address] MPV 10.2 8.5 - 12.[address] Specimen Blood - Blood specimen (specimen) Performing Organization Address City/[facility]/ZIP Code Phon e Number [address] [place] [address], [place] [address] PROTIME/INR (03/24/2021 10:25 AM CDT) Pathologist [facility] nature Protime 16.9 (H) 12.0 - 14.[address] INR 1.5 (L) 2.0 - 3.[address] Specimen Blood - Blood specimen (specimen) Narrative Performed At Normal INR reference range (patients not on oral antic oagulants) [address] 0.9-1.1. INR Standard Intensity = (2.0 - 3.0) INR Higher Intensity = (2.5 - 3.5) Performing Organization Address [facility] Phon e Number [address] [place] [id number] documented in this encounter Visit Diagnoses Diagnosis Status post hip surgery - Primary S/P mitral valve clip implantation Mitral valve insufficiency, unspecified etiology Dyspnea on exertion Other dyspnea and respiratory abnormalit y Hypertension, unspecified type Essential hypertension Unspecified essential hypertension Atrial fibrillation, unspecified type (H CC) Atrophic vaginitis Postmenopausal atrophic vaginitis Dyspepsia Dyspepsia and other specified disorders of function of stomach Closed fracture of left hip, initial enc ounter (HCC) Iron deficiency anemia, unspecified iron deficiency anemia type Insomnia, unspecified type Hyponatremia Hyposmolality and/or hyponatremia Gastroesophageal reflux disease without esophagitis Esophageal reflux Hip fracture (HCC) Closed fracture of unspecified part of n duane of femur Aortic regurgitation Aortic valve disorders Paroxysmal atrial fibrillation (HCC) Atrial fibrillation penitentiary (current) use of anticoagulant s Long-term (current) use of anticoagulant s Hyperkalemia Hyperpotassemia Hypomagnesemia Disorders of magnesium metabolism Anemia Anemia, unspecified Leukocytosis Leukocytosis, unspecified documented in this encounter Discharge Diagnoses Not on filedocumented in this encounter Administered Medications Medication Order MAR Action Action Date Dose Rate Site .Anticoagulation (WARFARIN) therapy nurs ing reminder Anti-coag reminder, First dose on 03/26/21 at 1400, Until Discontinued acetaminophen (TYLENOL) tablet 650 mg Given 03/30/2021 9:49 AM CDT 650 mg 650 mg, Oral, Every four hours prn, Starting on [place] 03/24/21 at 0926, Until Discontinued, mild pain, Use FIRST for mild pain. If inadequate response in 60 minutes, may proceed to next choice option or if no other options, contact provider. Adult patients: Total dose of acetaminophen from all acetaminophen containing products should not exceed 4 grams (4000 mg) per day. Pediatric Patients 0 - 3 months: Maximum of 60 mg/kg/24 hours of acetaminophen. Pediatric Patients older than 3 months: Maximum of 75 mg/kg/24 hours of acetaminophen (Never exceeding 4 grams/day). Given 03/29/2021 7:44 PM CDT 650 mg Given 03/24/2021 10:39 AM CDT 650 mg bisacodyl (DULCOLAX) suppository 10 mg 10 mg, Rectal, One time a day prn, Starting on 03/08 at 0926, Until Discontinued, constipation, Use SECOND for constipatio n. If patient cannot take oral medications, use first for constipation. calcium carbonate (TUMS) chewable tablet Given 03/30/2021 9 :49 AM CDT 1,000 mg 1,000 mg 1,000 mg, Oral, Every four hours prn, Starting on Sun03/30/21 at 0825, Until Discontinued, heartburn, indigestion docusate sodium (THEREVAC-SB MINI;ENEMEE Z MINI) 283 MG enema 1 enema 1 enema, Rectal, One time a day prn, Starting on Sun at 0926, Until Discontinued, constipation, Use THIRD for constipation - if no BM 8 hours after dulcolax suppository. If patient cannot take oral medi cations, use second for constipation. enoxaparin (LOVENOX) subcutaneous injection Given 03/30/2021 9:50 AM CDT 60 mg solution 60 mg 60 mg, Subcutaneous, Two times a day, First dose on Sun03/28/21 at 2100, Until Discontinued, For ADULT patients: Administration should be alternated between the left and right anterolateral and left and right posterolateral abdominal wall. The whole length of the needle should be introduced into a skin fold held between the thumb and forefinger; the skin fold should be held throughout the injection. To minimize bruising, do not rub the injection site after completion of the injection. For PEDIATRIC patients: Administration should be alternated between appropriate sites for patient age/weight (infants/small children = upper thigh; older children/adolescents = left and right anterolateral and left and right posterolateral abdominal wall). During administration to infants/smaller children sometimes the whole length of the needle is not "introduced" during the injection. Administer injection into a skin fold held between the thumb and forefinger; the skin fold should be held throughout the injection. To minimize bruising, do not rub the injection site after completion of the injection. Given 03/29/2021 10:02 PM CDT 60 mg Given 03/29/2021 9:41 AM CDT 60 mg ferrous sulfate (65 mg FE per 325 mg tablet) Given 9:49 AM CDT 325 mg tablet 325 mg 325 mg, Oral, Daily, 30 doses, First dose on Sun03/29/21 at 0900, Last dose on Sun04/27/21 at 0900 Given 03/29/2021 9:41 AM CDT 325 mg HYDROmorphone (DILAUDID) injection solution Given 03/08 12:00 PM CDT 0.5 mg (conc: 0.5 mg/0.5mL) 0.5 mg 0.5 mg, IV, Every one hour prn, Starting on Sun03/25/21 at 1651, Until Discontinued, moderate pain, severe pain, 0.5 mL, PACU - Continue Post-Op, If pain medication (typically oral medication order) fails to relieve pain for either pain score 4-6 or pain score 7 and greater, Use this IV medication 2nd for pain score 4 or greater. Use for pain score 4 or greater 1st IF patient unable to take oral medications Given 03/25/2021 8:41 PM CDT 0.5 mg metoprolol succinate (TOPROL XL) SR tablet Given 03/29/2021 10:0 2 PM CDT 25 mg (24 hr) 25 mg 25 mg, Oral, Every evening, First dose on [place] 03/24/21 at 2100, Until Discontinued, Tablet may be broken in half, but should not be crushed or chewed. Hold for SBP less than 100 Hold for HR less than 60 Given 03/28/2021 9:06 PM CDT 25 mg Given 03/27/2021 8:47 PM CDT 25 mg metoprolol succinate (TOPROL XL) SR tablet Given 03/30/2021 9:4 9 AM CDT 50 mg (24 hr) 50 mg 50 mg, Oral, Daily, First dose on [place] 03/24/21 at 0930, Until Discontinued, Tablet may be broken in half, but should not be crushed or chewed. Hold for SBP less than 100 Hold for HR less than 60 Given 03/29/2021 9:41 AM CDT 50 mg Given 03/28/2021 9:25 AM CDT 50 mg morphine preservative free injection solution Given 3:28 AM CDT 1 mg (conc: 2 mg/mL) 1 mg 1 mg, IV, Every one hour prn, Starting on [place] 03/24/21 at 0725, Until Discontinued, severe pain, 0.5 mL Given 03/24/2021 11:22 PM CDT 1 mg Given 03/24/2021 8:56 PM CDT 1 mg nalOXone (NARCAN) injection solution (vi al) 0.2 mg 0.2 mg, Injection, Every two minutes prn , Starting on [place] 03/24/21 at 0733, Until Discontinued, other (Specify), opioid induced respirat ory depression - PARTIAL reversal, 0.5 mL, PARTIAL REVERSAL/RESPI RATORY DEPRESSION If respiratory rate less than 8/minute - call rapid response and administer (un til respiratory rate increases to 10/minute). Give IV (preferred), IM or S UBQ nalOXone (NARCAN) injection solution (vi al) 0.4 mg 0.4 mg, Injection, Every two minutes prn , Starting on [place] 03/24/21 at 0733, Until Discontinued, other (Specify), opioid in duced respiratory arrest - FULL reversal, 1 mL, FULL REVERSAL/RESPIRATORY ARREST If patient is not breathing - call CODE BLUE and administer. Give IV (preferred), IM or SUBQ ondansetron (ZOFRAN ODT) dispersible tablet 4 Given 2:35 AM CDT 4 mg mg 4 mg, Oral, Four times a day prn, Starting on [place] 03/24/21 at 0926, Until Discontinued, nausea, vomiting, Use FIRST for nausea / vomiting. If ineffective after 30 minutes use ondansetron IV Given 03/25/2021 8:46 AM CDT 4 mg Given 03/25/2021 3:30 AM CDT 4 mg ondansetron (ZOFRAN) injection solution 4 mg 4 mg, IV, Four times a day prn, Starting on Bethany 1 at 0926, Until Discontinued, nausea, vomiting, 2 mL, Use SECOND for n ausea / vomiting. If ineffective after 30 minutes and ondansetron ODT used, call physician for alternative. If preference is to further dilute for IV administration: First draw up patient-specific dose, then dilute to 10 mL with 0. 9% sodium chloride. oxyCODONE (OXY-IR) tablet 2.5 mg Given 03/30/2021 10:28 AM CDT 2.5 mg 2.5 mg, Oral, Every four hours prn, Starting on Sun03/25/21 at 1651, Until Discontinued, other (Specify), see admin instructions, PACU - Continue Post-Op, Give 5 mg FIRST for pain Scale 4 to 6; if pain unrelieved by 5 mg for pain score 4-6, do NOT give another tablet, but instead assess if IV medication order is present for pain unrelieved by oral medication. Given 03/30/2021 6:59 AM CDT 2.5 mg Given 03/29/2021 10:00 PM CDT 2.5 mg oxyCODONE (OXY-IR) tablet 5 mg Given 03/28/2021 9:23 AM CDT 5 mg 5 mg, Oral, Every four hours prn, Starting on Sun03/25/21 at 1651, Until Discontinued, other (Specify), see admin instructions, PACU - Continue Post-Op, Give 10 mg FIRST for pain Scale 7 or greater; if 10 mg fails for pain score 7 or greater, assess if IV medication order is present for pain unrelieved by oral medication. Given 03/28/2021 4:51 AM CDT 5 mg Given 03/27/2021 8:47 PM CDT 5 mg senna-docusate sodium Given 03/29/2021 2:51 AM CDT 2 tablets (SENOKOT-S;PERICOLACE) tablet 2 tablet 2 tablet, Oral, Two times a day prn, Starting on Sun03/24/21 at 0926, Until Discontinued, constipation, Use FIRST for constipation unless patient cannot take oral medications. Given 03/28/2021 9:24 AM CDT 2 tablets sodium chloride 0.9% flush (adult) 10 mL Given 03/30/2021 9:50 AM CDT 10 mL 10 mL, IV, Two times a day and prn, First dose on Sun03/24/21 at 0930, Until Discontinued, 10 mL, Flush PIV line as scheduled and as often as necessary before and after meds. Use a push / pause technique when flushing to create turbulence. Given 03/29/2021 10:00 PM CDT 10 mL Given 03/29/2021 9:13 AM CDT 500 mL sodium chloride tablet 1 g Given 03/30/2021 9:49 AM CDT 1 g 1 g, Oral, Three times a day, First dose on Sun03/29/21 at 2100, Until Discontinued Given 03/29/2021 10:01 PM CDT 1 g Medication Order MAR Action Action Date Dose Rate Site albuterol (PROVENTIL) (2.5 Given 03/25/2021 12:54 PM CDT 2.5 mg mg/3mL) 0.083% inhalation soln 2.5 mg 2.5 mg, Nebulization, One time, 1 dose, On Sun03/25/21 at 1030, 3 mL, Standard Neb and PPE Guidelines amiodarone (NEXTERONE) 1.8 Rate Verify 03/24/2021 3:33 PM CDT 1 m g/min 33.3 mL/hr mg/mL in D5W IV infusion (premix) 1 mg/min (33.3333 mL/hr, rounded to 33.3 mL/hr), IV, at 33.3 mL/hr, Continuous, Starting on [place] 03/24/21 at 1335, Until [place] 03/24/21 at 1934, 200 mL, INFUSION: Infuse at 1 mg/min x 6 hours. Infuse using a 0.2 or 0.22 micron filter. Check vital signs before and during initiation of infusion, then every 20 mins x 4, then every 1 hr x 4, then every 4 hrs. Check vitals with every rate adjustment (up or down), and at discontinuation of infusion. Central line preferred if available. Acceptable to give peripherally for urgent need and one-time administration. Pursue a central line for continuous use greater than 24 hours. New Bag 03/24/2021 1:54 PM CDT 1 mg/min 33.3 mL/hr amiodarone (NEXTERONE) 1.8 New Bag 03/26/2021 1:27 AM CDT 0.5 mg/min 16.7 mL/hr mg/mL in D5W IV infusion (premix) 0.5 mg/min (16.6667 mL/hr, rounded to 16.7 mL/hr), IV, at 16.7 mL/hr, Continuous, Starting on [place] 03/24/21 at 1935, Until 03/26/21 at 0913, 200 mL, INFUSION: Infuse at 0.5 mg/min Infuse using a 0.2 or 0.22 micron filter. Check vital signs before and during initiation of infusion, then every 20 mins x 4, then every 1 hr x 4, then every 4 hrs. Check vitals with every rate adjustment (up or down), and at discontinuation of infusion. Central line preferred if available. Acceptable to give peripherally for urgent need and one-time administration. Pursue a central line for continuous use greater than 24 hours. Restarted 03/25/2021 7:40 PM CDT 0.5 mg/min 16.7 mL/hr New Bag 03/25/2021 6:17 AM CDT 0.5 mg/min 16.7 mL/hr amiodarone (NEXTERONE) 150 mg/100 mL in Given 03/24/2021 1:30 P M CDT 150 mg dextrose IV loading dose (premix) 150 mg, IV, Now, 1 dose, On [place] 03/24/21 at 1325, 100 mL, BOLUS: Administer over 10 minutes. Infuse using a 0.2 or 0.22 micron filter. Check vitals before, immediately after, and 5 minutes after administration. If possible, run in a dedicated central line. Acceptable to give peripherally for urgent need and one-time administration. Administer over 10 minutes. ceFAZolin (ANCEF) 2000 mg/20 mL sterile Given 03/26/2021 7:55 A M CDT 2,000 mg water IV syringe 2,000 mg, IV, Every eight hours, 2 doses, First dose on 03/26/21 at 0000, Last dose on 03/26/21 at 0800, 20 mL, PACU - Continue Post-Op, Administer as IV push over 4 minutes. Given 03/25/2021 11:52 PM CDT 2,000 mg digoxin (LANOXIN) injection solution 0.25 Given 03/24/2021 7:00 PM CDT 0.25 mg mg 0.25 mg, IV, One time, 1 dose, On [place] 03/24/21 at 1830, 1 mL, Use filter needle if withdrawing medication from ampule. digoxin (LANOXIN) injection solution 0.5 mg Given 03/24/2021 2:09 PM CDT 0.5 mg 0.5 mg, IV, Loading dose, 1 dose, On [place] 03/24/21 at 1400, 2 mL, Use filter needle if withdrawing medication from ampule. furosemide (LASIX) injection solution 20 mg Given 03/25/2021 10:21 AM CDT 20 mg 20 mg, IV, One time, 1 dose, On Sun03/25/21 at 1030, 2 mL, If preference is to further dilute for IV administration: First draw up patient-specific dose, then dilute to 10 mL with 0.9% sodium chloride. Administer SLOW IV push. hEParin (50 units/mL) in Restarted 03/28/2021 1:10 PM 19 Units/ kg/hr 17.4 mL/hr D5W premixed IV solution CDT (STANDARD-weight based) 0-50 Units/kg/hr 45.9 kg (0-45.9 mL/hr), IV, at 0-45.9 mL/hr, Titrate, Starting on [place] 03/24/21 at 1435, Until 03/28/21 at 1528, 500 mL, Start initial infusion at 15 units/kg/hr. Notify physician if initial infusion exceeds 1,500 units/hr. Adjust heparin infusion based on sliding scale: * aPTT less than 60 sec ------ Give 70 units/kg IV bolus and add 4 units/kg/hr to current rate * aPTT 60-69.9 sec Give 35 units/kg IV bolus and add 2 units/kg/hr to current rate * aPTT 70-120.9 sec No change (therapeutic) * aPTT 121-135.9 sec Subtract 2 units/kg/hr from current rate * aPTT 136-149.9 sec --------- Hold heparin for 1 hour and subtract 3 units/kg/hr from current rate * aPTT 150 sec or greater - Redraw STAT aPTT and hold heparin. Draw hourly aPTT using routine specified time until less than 150 sec, then restart heparin infusion at 3 units/kg/hr less than the previous rate, give NO BOLUS and resume every 6 hour aPTT. AFTER PROCEDURE: When restarting infusion after it's been held for a procedure, restart infusion at "starting" dose of 15 units/kg/hr and follow titration orders. IF infusion was running at less than 15 units/kg/hr prior to procedure, restart at that rate and follow titration orders. Rate Change 03/28/2021 4:44 AM CDT 22 Units/kg/hr 20.2 mL/hr Rate Verify 03/27/2021 8:02 PM CDT 18 Units/kg/hr 16.5 mL/hr heparin (porcine) (5000 units/1 mL) IV Given 1:18 PM CDT 1,600 Units dose 1,600 Units 1,600 Units (rounded from 1,606.5 Units = 35 Units/kg 45.9 kg), IV, PRN per parameter, Starting on [place] 03/24/21 at 1331, Until Sun03/28/21 at 1528, other (Specify), * aPTT 60 to 69.9 seconds - Give 35 units/kg IV bolus and add 2 units/kg/hr to current rate of infusion, 1 mL, Supplemental bolus doses based on aPTT: * aPTT less than 60 seconds - Give 70 units/kg IV bolus and add 4 units/kg/hr to current rate of infusion. * aPTT 60 to 69.9 seconds - Give 35 units/kg IV bolus and add 2 units/kg/hr to current rate of infusion. Round to the nearest 100 units up to a maximum bolus of heparin 7500 units. Given 03/25/2021 3:55 AM CDT 1,600 Units heparin (porcine) (5000 units/1 mL) IV Given 4:40 AM CDT 3,200 Units dose 3,200 Units 3,200 Units (rounded from 3,213 Units = 70 Units/kg 45.9 kg), IV, PRN per parameter, Starting on [place] 03/24/21 at 1331, Until Sun03/28/21 at 1528, other (Specify), * aPTT less than 60 seconds - Give 70 units/kg IV bolus and add 4 units/kg/hr to current rate of infusion, 1 mL, Supplemental bolus doses based on aPTT: * aPTT less than 60 seconds - Give 70 units/kg IV bolus and add 4 units/kg/hr to current rate of infusion. * aPTT 60 to 69.9 seconds - Give 35 units/kg IV bolus and add 2 units/kg/hr to current rate of infusion. Round to the nearest 100 units up to a maximum bolus of heparin 7500 units Given 03/26/2021 5:21 PM CDT 3,200 Units loperamide (IMODIUM) capsule 2 mg Given 03/29/2021 10:39 AM CDT 2 mg 2 mg, Oral, One time, 1 dose, On Sun03/29/21 at 0940, Recommended maximum for children greater than 12 years and adults: 16 mg in 24 hours. magnesium oxide tablet 500 mg Given 03/25/2021 10:21 AM CDT 500 mg 500 mg, Oral, One time, 1 dose, On Sun03/25/21 at 1100 sodium chloride 0.9% IV solution New Bag 03/26/2021 7:27 AM CDT 75 mL/hr IV, at 75 mL/hr, Continuous, Starting on Sun03/25/21 at 1810, Until Sun03/26/21 at 1127, 1,000 mL, Post - Op New Bag 03/25/2021 6:12 PM CDT 75 mL/hr sodium chloride 3% IV solution (intermittent Given 9:22 AM CDT 50 mL bolus) 50 mL 50 mL, IV, One time, 1 dose, On Sun03/29/21 at 0755, 50 mL, Infuse via a central venous access device on an infusion pump. When given via central line, boluses may be administered at the maximum possible rate the pump allows. If unable to give via central line: maximum bolus rate when given peripherally is 300 mL over 30 minutes. If taken from [facility], volume may be different than dose ordered. sodium chloride 3% IV solution (intermittent Given 2:46 PM CDT 50 mL bolus) 50 mL 50 mL, IV, One time, 1 dose, On Sun03/29/21 at 1510, 50 mL, Infuse via a central venous access device on an infusion pump. When given via central line, boluses may be administered at the maximum possible rate the pump allows. If unable to give via central line: maximum bolus rate when given peripherally is 300 mL over 30 minutes. If taken from [facility], volume may be different than dose ordered. sodium chloride 3% IV solution (intermittent Given 5:28 PM CDT 50 mL bolus) 50 mL 50 mL, IV, One time, 1 dose, On Sun03/29/21 at 1635, 50 mL, Infuse via a central venous access device on an infusion pump. When given via central line, boluses may be administered at the maximum possible rate the pump allows. If unable to give via central line: maximum bolus rate when given peripherally is 300 mL over 30 minutes. If taken from [facility], volume may be different than dose ordered. warfarin (COUMADIN) tablet 1.25 mg Given 03/26/2021 4:49 PM CDT 1.25 mg 1.25 mg, Oral, Warfarin one time dose, 1 dose, On Sun03/26/21 at 1600, If patient is receiving tube feeding, hold tube feeding 1 hour before and 1 hour after warfarin administration. If unable to administer dose intact, wear universal precautions (one pair of gloves). warfarin (COUMADIN) tablet 1.25 mg Given 03/27/2021 3:51 PM CDT 1.25 mg 1.25 mg, Oral, Warfarin one time dose, 1 dose, On Sun03/27/21 at 1600, If patient is receiving tube feeding, hold tube feeding 1 hour before and 1 hour after warfarin administration. If unable to administer dose intact, wear universal precautions (one pair of gloves). warfarin (COUMADIN) tablet 1.25 mg Given 03/30/2021 10:31 AM CDT 1.25 mg 1.25 mg, Oral, Warfarin one time dose, 1 dose, On Sun03/30/21 at 1000, If patient is receiving tube feeding, hold tube feeding 1 hour before and 1 hour after warfarin administration. If unable to administer dose intact, wear universal precautions (one pair of gloves). warfarin (COUMADIN) tablet 2.5 mg Given 03/28/2021 4:09 PM CDT 2.5 mg 2.5 mg, Oral, Warfarin one time dose, 1 dose, On Sun03/28/21 at 1600, If patient is receiving tube feeding, hold tube feeding 1 hour before and 1 hour after warfarin administration. If unable to administer dose intact, wear universal precautions (one pair of gloves). warfarin (COUMADIN) tablet 2.5 mg Given 03/29/2021 3:47 PM CDT 2.5 mg 2.5 mg, Oral, Warfarin one time dose, 1 dose, On Tu03/29/21 at 1600, If patient is receiving tube feeding, hold tube feeding 1 hour before and 1 hour after warfarin administration. If unable to administer dose intact, wear universal precautions (one pair of gloves). documented in this encounter Active and Recently Administered Medications Times are shown in CDT. Medication Order 03/28/2021 03/29/2021 03/30/2021 .Anticoagulation (WARFARIN) therapy nursing reminder 1 047 (Noted Reminder - Provider: Roxie Garvin RN)1400 (Held - Provider: Roxie Garvin RN) 1039 (Noted Reminder - Provider: Roxie Garvin RN)1309 (Noted Reminder - Provider: Roxie Garvin RN) 1034 (Noted Reminder - Provider: Roxie Garvin RN)1400 (Due) Anti-coag reminder, First dose on 03/26/21 at 1400, Until Dis continued enoxaparin (LOVENOX) subcutaneous injection solution 6 0 mg 2105 (Given - Provider: Christopher Rubio RN) 0941 (Given - Provider: Roxie Garvin RN )2201 (Given - Provider: Iraj Steve RN) 0950 (Given - Provider: Roxie Garvin RN)2100 (Due) 60 mg, Subcutaneous, Two times a day, Fi rst dose on Sun03/28/21 at 2100, Until Discontinued, For ADULT patients: Administration should be alternated between the left and right anterolateral and left and right posterolateral abdominal wall. Th e whole length of the needle should be introduced into a skin fold held between the thumb and forefinger; the skin fold should be held throughout the injection. T o minimize bruising, do not rub the inje ction site after completion of the injection. For PEDIATRIC patients: Administration should be alternated between appropriate sites for patient age/weight (inf ants/small children = upper thigh; older children/adolescents = left and right anterolateral and left and right posterolateral abdominal wall). During administration to infants/smaller children sometime s the whole length of the needle is not "introduced" during the injection. Administer injection into a skin fold held between the thumb and forefinger; the skin fold should be held throughout the inject ion. To minimize bruising, do not rub th e injection site after completion of the injection. ferrous sulfate (65 mg FE per 325 mg tablet) tablet 325 mg 41 (Given - Provider: Roxie Garvin RN) 0949 (Given - Provider: Roxie Garvin RN ) 325 mg, Oral, Daily, 30 doses, First dos e on Sun03/29/21 at 0900, Last dose on Sun04/27/21 at 0900 loperamide (IMODIUM) capsule 2 mg (COMPLETED) 103 (Given - Provider: Roxie Garvin RN) 2 mg, Oral, One time, 1 dose, On 03/09 at 0940, Recommended maximum for children greater than 12 years and adults: 16 mg in 24 hours. metoprolol succinate (TOPROL XL) SR tablet (24 hr) 25 mg 2105 (Given - Provider: Christopher Rubio RN) 2201 (Given - Provider: Iraj Steve, PILAR) 2100 (Due) 25 mg, Oral, Every evening, First dose o n [place] 03/24/21 at 2100, Until Discontinued, Tablet may be broken in half, but should not be crushed or chewed. Hold for SBP less than 100 Hold for HR less than 60 metoprolol succinate (TOPROL XL) SR tablet (24 hr) 50 mg 0925 (Given - Provider: Roxie Garvin RN) 0941 (Given - Provider: Roxie Garvin RN) 0949 (Given - Provider: Roxie Garvin, RN) 50 mg, Oral, Daily, First dose on [place] at 0930, Until Discontinued, Tablet may be broken in half, but should not be crushed or chewed. Hold for SBP less than 100 Hold for HR less than 60 sodium chloride 0.9% flush (adult) 10 mL 1047 (Not Giv en - Provider: Roxie Garvin RN - Reason: Not Given - Comment: IV heparin running)2106 (Given - Provider: Christopher Rubio RN) 09 (Given - Provider: Roxie Garvin, PILAR - Comment: needed for 3% IV infusion)2199 (Given - Provider: Iraj Steve RN) 0950 (Given - Provider: Roxie Garvin RN)2100 (Due) 10 mL, IV, Two times a day and prn, Firs t dose on Sun03/24/21 at 0930, Until Discontinued, 10 mL, Flush PIV line as scheduled and as often as necessary before and after meds. Use a push / pause technique when flushing to create turbulence. sodium chloride 3% IV solution (intermittent bolus) 50 mL (C OMPLETED) 0922 (Given - Provider: Roxie Garvin RN)1105 (Stopped Infusion - Provider: Roxie Garvin RN) 50 mL, IV, One time, 1 dose, On 03/29 at 0755, 50 mL, Infuse via a central venous access device on an infusion pump. When given via central line, boluses may be administered at the maximum possibl e rate the pump allows. If unable to gi ve via central line: maximum bolus rate when given peripherally is 300 mL over 30 minutes. If taken from acudose, volume may be different than dose ordered. sodium chloride 3% IV solution (intermittent bolus) 50 mL (C OMPLETED) 1446 (Given - Provider: Roxie Garvin RN)1547 (Stopped Infusion - Provider: Iraj Steve RN) 50 mL, IV, One time, 1 dose, On 03/29 at 1510, 50 mL, Infuse via a central venous access device on an infusion pump. When given via central line, boluses may be administered at the maximum possibl e rate the pump allows. If unable to gi ve via central line: maximum bolus rate when given peripherally is 300 mL over 30 minutes. If taken from acudose, volume may be different than dose ordered. sodium chloride 3% IV solution (intermittent bolus) 50 mL (C OMPLETED) 1728 (Given - Provider: Zana Simpson RN)1809 (Stopped Infusion - Provider: Bonny Alvarado RN) 50 mL, IV, One time, 1 dose, On 03/29 at 1635, 50 mL, Infuse via a central venous access device on an infusion pump. When given via central line, boluses may be administered at the maximum possibl e rate the pump allows. If unable to gi ve via central line: maximum bolus rate when given peripherally is 300 mL over 30 minutes. If taken from acudose, volume may be different than dose ordered. sodium chloride tablet 1 g 2201 (Given - Provide r: Iraj Steve RN) 0949 (Given - Provider: Roxie Garvin RN)1500 (Due)2100 (Due) 1 g, Oral, Three times a day, First dose on Sun03/29/21 at 2100, Until Discontinued warfarin (COUMADIN) tablet 1.25 mg (COMPLETED) 1031 (Given - Provider: Roxie Garvin RN) 1.25 mg, Oral, Warfarin one time dose, 1 dose, On Sun03/30/21 at 1000, If patient is receiving tube feeding, hold tube feeding 1 hour before and 1 hour after warfarin administration. If unable to admini ster dose intact, wear universal precautions (one pair of gloves ). warfarin (COUMADIN) tablet 2.5 mg (COMPLETED) 1609 (Gi alexandro - Provider: Milly Mcdowell, PILAR) 2.5 mg, Oral, Warfarin one time dose, 1 dose, On Sun03/28/21 at 1600, If patient is receiving tube feeding, hold tube feeding 1 hour before and 1 hour after warfarin administration. If unable to adminis ter dose intact, wear universal precautions (one pair of gloves) . warfarin (COUMADIN) tablet 2.5 mg (COMPLETED) 1547 (Given - Provider: Iraj Steve RN) 2.5 mg, Oral, Warfarin one time dose, 1 dose, On Sun03/29/21 at 1600, If patient is receiving tube feeding, hold tube feeding 1 hour before and 1 hour after warfarin administration. If unable to adminis ter dose intact, wear universal precautions (one pair of gloves) . Medication Order 03/28/2021 03/29/2021 03/30/2021 hEParin (50 units/mL) in D5W premixed IV solution (STANDARD-weight based) (CANCELED) 0444 (Rate Change - Provider: Lois Irwin RN)1213 (Stopped - Provider: Roxie Garvin, PILAR)1310 (Restarted - Provider: Roxie Garvin, PILAR)1602 (Stopped - Provider: Milly Mcdowell RN - Comment: Dr. Murillo d/c order) 0-50 Units/kg/hr 45.9 kg (0-45.9 mL/hr), IV, at 0-45.9 mL/hr, Titrate, Starting on [place] 03/24/21 at 1435, Until Sun03/28/21 at 1528, 500 mL, Start initial infusion at 15 units/kg/hr. Notify physician i f initial infusion exceeds 1,500 units/h r. Adjust heparin infusion based on sliding scale: * aPTT less than 60 sec ------ Give 70 units/kg IV bolus and add 4 units/kg/hr to current rate * aPTT 60-69.9 sec Give 35 units/kg IV devi us and add 2 units/kg/hr to current rate * aPTT 70-120.9 sec No change (therapeutic) * aPTT 121-135.9 sec Subtract 2 units/kg/hr from cur rent rate * aPTT 136-149.9 sec --------- Hold heparin for 1 hour and subtract 3 units/kg/hr from current rate * aPTT 150 sec or greater - Redraw STAT aPTT and hold heparin. Draw hourly aPTT using routi ne specified time until less than 150 se c, then restart heparin infusion at 3 units/kg/hr less than the previous rate, give NO BOLUS and resume every 6 hour aPTT. AFTER PROCEDURE: When restarting infus ion after it's been held for a procedure , restart infusion at "starting" dose of 15 units/kg/hr and follow titration orders. IF infusion was running at less than 15 units/kg/hr prior to procedure, restart at that rate and follow titration orders. Medication Order 03/28/2021 03/29/2021 03/30/2021 acetaminophen (TYLENOL) tablet 650 mg (Given - Provider: Iraj Steve RN) 948 (Given - Provider: Roxie Garvin RN ) 650 mg, Oral, Every four hours prn, Star ting on [place] 03/24/21 at 0926, Until Discontinued, mild pain, Use FIRST for mild pain. If inadequate response in 60 minutes, may proceed to next choice option or if no other options, contact provider. Ad ult patients: Total dose of acetaminophen from all acetaminophen containing products should not exceed 4 grams (4000 mg) per day. Pediatric Patients 0 - 3 months: Maximum of 60 mg/kg/24 hours of acetam inophen. Pediatric Patients older than 3 months: Maximum of 75 mg/kg/24 hours of acetaminophen (Never exceeding 4 grams/day). bisacodyl (DULCOLAX) suppository 10 mg(Linked Group 1) 10 mg, Rectal, One time a day prn, Start ing on [place] 03/24/21 at 0926, Until Discontinued, constipation, Use SECOND for constipation. If patient cannot take oral medications, use first for constipation. calcium carbonate (TUMS) chewable tablet 1,000 mg 948 (Given - Provider: Roxie Garvin RN) 1,000 mg, Oral, Every four hours prn, St arting on Sun03/30/21 at 0825, Until Discontinued, heartburn, indigestion docusate sodium (THEREVAC-SB MINI;ENEMEE Z MINI) 283 MG enema 1 enema(Linked Group 1) 1 enema, Rectal, One time a day prn, Sta rting on [place] 03/24/21 at 0926, Until Discontinued, constipation, Use THIRD for constipation - if no BM 8 hours after dulcolax suppository. If patient cannot take oral medications, use second for constipation. heparin (porcine) (5000 units/1 mL) IV dose 3,200 Unit s (CANCELED) 0440 (Given - Provider: Lois Irwin RN) 3,200 Units (rounded from 3,213 Units = 70 Units/kg 45.9 kg), IV, PRN per parameter, Starting on Sun03/24/21 at 1331, Until Sun03/28/21 at 1528, other (Specify), * aPTT less than 60 seconds - Give 70 units/kg IV bolus and add 4 units/kg/hr to current rate of infusion, 1 mL, Supplemental bolus doses based on aPTT: * aPTT less than 60 seconds - Give 70 units/kg IV bolus and add 4 units/kg/hr to curr ent rate of infusion. * aPTT 60 to 69.9 seconds - Give 35 units/kg IV bolus and add 2 units/kg/hr to current rate of infusion. Round to the nearest 100 units up to a maximum bolus of heparin 7500 units HYDROmorphone (DILAUDID) injection solution (conc: 0.5 mg/0.5mL) 0.5 mg 0.5 mg, IV, Every one hour prn, Starting on Sun03/25/21 at 1651, Until Discontinued, moderate pain, severe pain, 0.5 mL, PACU - Continue Post-Op, If pain medication (typically oral medication order) misha ls to relieve pain for either pain score 4-6 or pain score 7 and greater, Use this IV medication 2nd for pain score 4 or greater. Use for pain score 4 or greater 1st IF patient unable to take oral medications melatonin tablet 3 mg 3 mg, Oral, Bedtime prn, Starting on Sun03/24/21 at 0926, Until Discontinued, other (Specify), insomnia, Use FIRST for insomnia. If inadequate response in 60 minutes, may proceed to next choice option or, if no other options, contact provider. morphine preservative free injection solution (conc: 2 mg/mL) 1 mg 1 mg, IV, Every one hour prn, Starting o n [place] 03/24/21 at 0725, Until Discontinued, severe pain, 0.5 mL nalOXone (NARCAN) injection solution (vial) 0.2 mg 0.2 mg, Injection, Every two minutes prn , Starting on [place] 03/24/21 at 0733, Until Discontinued, other (Specify), opioid induced respiratory depression - PARTIAL reversal, 0.5 mL, PARTIAL REVERSAL/RESPIRA TORY DEPRESSION If respiratory rate less than 8/minute - call rapid response and administer (until respiratory rate increases to 10/minute). Give IV (preferred), IM or SUBQ nalOXone (NARCAN) injection solution (vial) 0.4 mg 0.4 mg, Injection, Every two minutes prn , Starting on [place] 03/24/21 at 0733, Until Discontinued, other (Specify), opioid induced respiratory arrest - FULL reversal, 1 mL, FULL REVERSAL/RESPIRATORY ARREST If patient is not breathing - call CODE BLUE and administer. Give IV (preferred), IM or SUBQ ondansetron (ZOFRAN ODT) dispersible tablet 4 mg(Linked Group 2) 4 mg, Oral, Four times a day prn, Starti ng on [place] 03/24/21 at 0926, Until Discontinued, nausea, vomiting, Use FIRST for nausea / vomiting. If ineffective after 30 minutes use ondansetron IV ondansetron (ZOFRAN) injection solution 4 mg(Linked Group 2) 4 mg, IV, Four times a day prn, Starting on [place] 03/24/21 at 0926, Until Discontinued, nausea, vomiting, 2 mL, Use SECOND for nausea / vomiting. If ineffective after 30 minutes and ondansetron ODT used, call physician for alternative. If prefe rence is to further dilute for IV administration: First draw up patient-specific dose, then dilute to 10 mL with 0.9% sodium chloride. ondansetron (ZOFRAN) injection solution 4 mg 4 mg, IV, Every four hours prn, Starting on Sun03/25/21 at 1651, Until Discontinued, nausea, vomiting, 2 mL, PACU - Continue Post-Op, Use FIRST for nausea/vomiting. If ineffective after 15 minutes use h aloperidol if ordered for nausea/vomitin g. If preference is to further dilute for IV administration: First draw up patient-specific dose, then dilute to 10 mL with 0.9% sodium chloride. oxyCODONE (OXY-IR) tablet 2.5 mg(Linked Group 3) 0451 (See Alternative - Provider: Lois Irwin RN)0923 (See Alternative - Provider: Roxie Garvin RN) 1456 (Given - Provider: Roxie Garvin RN)2200 (Given - Provider: Iraj Steve RN) 0659 (Given - Provider: Linh heath RN)1028 (Given - Provider: Roxie Garvin RN) 2.5 mg, Oral, Every four hours prn, Star ting on Sun03/25/21 at 1651, Until Discontinued, other (Specify), see admin instructions, PACU - Continue Post-Op, Give 5 mg FIRST for pain Scale 4 to 6; if pain unrelieved by 5 mg for pain score 4-6, d o NOT give another tablet, but instead assess if IV medication order is present for pain unrelieved by oral medication. oxyCODONE (OXY-IR) tablet 5 mg(Linked Group 3) 0451 (G iven - Provider: Lois Irwin RN)0923 (Given - Provider: Roxie Garvin RN) 1456 (See Alternative - Provider: Roxie Garvin RN)2200 (See Alternative - Provider: Iraj Steve RN) 0659 (See Alternative - Provider: Linh Donaldson RN)1028 (See Alternative - Provider: Roxie Garvin RN) 5 mg, Oral, Every four hours prn, Starti ng on Sun03/25/21 at 1651, Until Discontinued, other (Specify), see admin instructions, PACU - Continue Post-Op, Give 10 mg FIRST for pain Scale 7 or greater; if 10 mg fails for pain score 7 or greater, assess if IV medication order is present for pain unrelieved by oral medication. senna-docusate sodium (SENOKOT-S;PERICOLACE) tablet 2 tablet(Linked Group 1) 0924 (Given - Provider: Roxie M Bharathi, RN)1151 (Duplicate Entry - Provider: Roxie Garvin RN) 0251 (Given - Provider: Christopher Rubio RN) 2 tablet, Oral, Two times a day prn, Sta rting on [place] 03/24/21 at 0926, Until Discontinued, constipation, Use FIRST for constipation unless patient cannot take oral medications. Order Group 1: senna-docusate sodium (SENOKOT-S;PERICOLACE) tablet 2 tabletJump to med 2 tablet, Oral, Two times a day prn, Sta rting on [place] 03/24/21 at 0926, Until Discontinued, constipation
Use FIRST for constipation unless patient cannot take oral medications.
And bisacodyl (DULCOLAX) suppository 10 mgJump to med 10 mg, Rectal, One time a day prn, Start ing on [place] 03/24/21 at 0926, Until Discontinued, constipation
Use SECOND for constipation. If patient cannot take oral medications, use first for constipation.
And docusate sodium (THEREVAC-SB MINI;ENEMEEZ MINI) 283 MG enema 1 enemaJump to med 1 enema, Rectal, One time a day prn, Sta rting on [place] 03/24/21 at 0926, Until Discontinued, constipation
Use THIRD for constipation - if no BM 8 hours after dulcolax suppository. If patient canno t take oral medications, use second for constipation.
Group 2: ondansetron (ZOFRAN ODT) dispersible tablet 4 mgJump to med 4 mg, Oral, Four times a day prn, Starti ng on [place] 03/24/21 at 0926, Until Discontinued, nausea, vomiting
Use FIRST for nausea / vomiting. If ineffective after 30 minutes use ondansetron IV
And ondansetron (ZOFRAN) injection solution 4 mgJump to med 4 mg, IV, Four times a day prn, Starting on [place] 03/24/21 at 0926, Until Discontinued, nausea, vomiting, 2 mL
Use SECOND for nausea / vomiting. If ineffective after 30 minutes and ondan setron ODT used, call physician for alte rnative. If preference is to further dilute for IV administration: First draw up patient-specific dose, then dilute to 10 mL with 0.9% sodium chloride.
Group 3: oxyCODONE (OXY-IR) tablet 2.5 mgJump to med 2.5 mg, Oral, Every four hours prn, Star ting on Sun03/25/21 at 1651, Until Discontinued, other (Specify), see admin instructions, PACU - Continue Post- Op
Give 5 mg FIRST for pain Scale 4 to 6; if pain unrelieved by 5 mg for pain scor e 4-6, do NOT give another tablet, but instead assess if IV medication order is present for pain unrelieved by oral medication.
Or oxyCODONE (OXY-IR) tablet 5 mgJump to med 5 mg, Oral, Every four hours prn, Starti ng on Sun03/25/21 at 1651, Until Discontinued, other (Specify), see admin instructions, PACU - Continue Post- Op
Give 10 mg FIRST for pain Scale [address]; if 10 mg fails for pain score 7 or greater, assess if IV medication order is present for pain unrelieved by oral medication.
documented in this encounter
[2021-03-31] MEDS: Phytonadione 100 MCG Tab PO SCH (11:43)
[2021-03-31] MEDS: Ondansetron 4 MG Tab.DIS PO PRN (11:43)
[2021-03-31] MEDS: Acetaminophen/HYDROcodone 325-5 MG Tab PO PRN ×2 (11:44→20:03)
[2021-03-31] MEDS: Metoprolol Succinate 25 MG Tab.ER PO SCH (20:00)
[2021-03-31] MEDS: Clobetasol 0.05% Crm 30 GM Tube TOP SCH (20:03)
[2021-03-31] MEDS: ESTRADIOL SCH (20:05)
--- NOTE | 2021-03-31 21:25 | PN ---
Progress Note for JAMES QUAN Date: 03/31/2021 Room #: VM.201 SUBJECTIVE: An 81-year-old on swing bed, day #2 for a left hip fracture after an admit from 03/24/2021 through 03/30/2021 for a fragility fracture to the proximal left femur, status post intramedullary implant on 03/25/2021. The patient had acute blood loss anemia, postoperatively was 8.0 on her discharge but did not require any transfusions. She had previously been in the hospital a couple days prior from mitral clip. She had been resting in her chair and just got up and had a mechanical fall. She did not feel lightheaded or dizzy. She is not currently having any shortness of breath or chest pain. Her legs are not swollen. Her Lasix has been on hold. Her losartan was on hold, but restarted yesterday. Her postoperative course was complicated by hyponatremia, but her sodium is back up to normal today and she has not been getting salt tabs here. She has moderate protein calorie malnutrition and she is getting her protein shakes here. She is also eating 95% of breakfast and 100% of supper. She otherwise was having loose stools after getting some prune juice but is yet to have a bowel movement since she has arrived here. Otherwise, she has known atrial fibrillation and is on Coumadin. Her INR is up to 3. She has not had any bleeding problems. The patient did have difficulty with voiding and so has a Li catheter in place with plans for a voiding trial and removing the catheter early next week. Otherwise, it does not appear that the patient was given any antibiotics during her previous stay. She was supposed to get some more Lovenox for bridging; however, with her INR now therapeutic, we will restart her aspirin today. OBJECTIVE: Vital Signs: Temperature is 97.9, pulse 89, blood pressure 133/48, respiratory rate 16, and O2 of 100 on room air. General: She is in no acute distress. Heart: Regularly irregular with murmur. Lungs: Her lung sounds are clear to auscultation bilaterally without crackles or wheezes. Abdomen: Nondistended. Positive bowel sounds. Soft, nontender. Extremities: Warm and dry. No edema. No calf tenderness. Mental Status: Alert and orientated x3. Skin: The left hip incision is examined. There are 2 separate incisions with jc clean and intact. No surrounding redness, drainage, or warmth. She also has again the Li in place with some darker yellow urine noted but no jesusita blood or clots. LABORATORY WORK: Today, again INR 3. White count 10, hemoglobin 8.2, platelets 270. Sodium 135, potassium 4.5, chloride 101, bicarb 28, BUN 20, creatinine 0.7, glucose 93, calcium 8.6, magnesium 1.9, AST 20, ALT 13, albumin 1.9. ASSESSMENT AND PLAN: 1. Status post left hip fracture and intramedullary nailing on 03/25/2021. We will reduce her pain medication to 2.5 of the [place] per patient's request. She did get a dose right at noon. 2. Acute on chronic anemia due to blood loss after her surgery. She is on iron. We will repeat a level tomorrow. 3. Atrial fibrillation and recent mitral clip. She is on her aspirin and she is therapeutic on Coumadin. I will recheck tomorrow and possibly hold if needed. We will start low-dose 100 mcg daily of vitamin K. 4. Valvular heart disease. Recent mitral clip. 5. Hyponatremia, resolved. 6. Chronic heart failure due to valvular heart disease, stable. She does not need her Lasix restarted. 7. Atrial fibrillation, seems to be rate controlled. She did have a Holter monitor with results pending. 8. Essential hypertension, longstanding. She is back on her losartan. 9. Gastroesophageal reflux disease. 10.History of irritable bowel syndrome. We will adjust laxatives and prune juice as needed for bowel movements. 11.Urinary retention with previous urinary tract infections. We will do the bladder retraining and remove the Li on Sunday as planned. 12.Moderate malnutrition. We will encourage diet. We will continue the protein shakes. The patient will be on swing bed cares with therapies. Staple removal will be in 2 weeks' time from the date of her surgery, likely around 04/08/2021 if she makes it to that appointment in [place]. Otherwise, we will do it on swing bed. We will get lab work again tomorrow. MKA: 03/31/2021 13:17:27 MODL: 03/31/2021 21:17:13 /[id number]
[2021-03-31] MEDS: Loperamide 2 MG Cap PO PRN (22:33)
[2021-04-01] MEDS: Acetaminophen/HYDROcodone 325-5 MG Tab PO PRN ×3 (02:05→19:42)
[2021-04-01 06:51] LABS: ANION GAP 10.6 mmol/L (5-15); CHLORIDE,CL 101 mmol/L (98-107); SODIUM,NA 134 mmol/L (136-145)
[2021-04-01] MEDS: Acetaminophen 325 MG Tab PO PRN ×2 (09:44→18:28)
[2021-04-01] MEDS: Cranberry 500 MG Cap PO SCH ×3 (09:45→18:19)
[2021-04-01] MEDS: Phytonadione 100 MCG Tab PO SCH (09:45)
[2021-04-01] MEDS: Cholecalciferol (Vitamin D3) 25 MCG Tab PO SCH (09:45)
[2021-04-01] MEDS: Metoprolol Succinate 50 MG Tab.ER PO SCH (09:46)
[2021-04-01] MEDS: Beta-Carotene (Vitamin A) w/Vitamin C & E plus Minerals Tab PO SCH ×2 (09:46→19:39)
[2021-04-01] MEDS: Folic Acid 1 MG Tab PO SCH (09:46)
[2021-04-01] MEDS: Losartan 50 MG Tab PO SCH (09:47)
[2021-04-01] MEDS: Metoprolol Succinate 25 MG Tab.ER PO SCH (19:39)
[2021-04-01] MEDS ORDERED: Warfarin 2.5 MG Tab PO SCH (20:00)
[2021-04-02] MEDS: Acetaminophen 325 MG Tab PO PRN ×3 (10:04→19:41)
[2021-04-02] MEDS: Cholecalciferol (Vitamin D3) 25 MCG Tab PO SCH (10:06)
[2021-04-02] MEDS: Phytonadione 100 MCG Tab PO SCH (10:06)
[2021-04-02] MEDS: Beta-Carotene (Vitamin A) w/Vitamin C & E plus Minerals Tab PO SCH ×2 (10:07→19:41)
[2021-04-02] MEDS: Losartan 50 MG Tab PO SCH (10:08)
[2021-04-02] MEDS: Cranberry 500 MG Cap PO SCH ×3 (10:08→19:42)
[2021-04-02] MEDS: Folic Acid 1 MG Tab PO SCH (10:08)
[2021-04-02] MEDS: Metoprolol Succinate 50 MG Tab.ER PO SCH (10:08)
[2021-04-02] MEDS: Ferrous Sulfate 325 MG Tab PO SCH (10:11)
[2021-04-02] MEDS: Acetaminophen/HYDROcodone 325-5 MG Tab PO PRN ×2 (13:11→17:31)
[2021-04-02] MEDS: Warfarin 2.5 MG Tab PO SCH (19:41)
[2021-04-02] MEDS: Metoprolol Succinate 25 MG Tab.ER PO SCH (19:42)
[2021-04-03] MEDS: Acetaminophen/HYDROcodone 325-5 MG Tab PO PRN ×2 (08:07→18:05)
[2021-04-03] MEDS: Metoprolol Succinate 50 MG Tab.ER PO SCH (08:09)
[2021-04-03] MEDS: Folic Acid 1 MG Tab PO SCH (08:09)
[2021-04-03] MEDS: Cholecalciferol (Vitamin D3) 25 MCG Tab PO SCH (08:09)
[2021-04-03] MEDS: Phytonadione 100 MCG Tab PO SCH (08:09)
[2021-04-03] MEDS: Losartan 50 MG Tab PO SCH (08:10)
[2021-04-03] MEDS: Cranberry 500 MG Cap PO SCH ×3 (08:10→18:06)
[2021-04-03] MEDS: Beta-Carotene (Vitamin A) w/Vitamin C & E plus Minerals Tab PO SCH ×2 (08:10→19:44)
[2021-04-03] MEDS: Acetaminophen 325 MG Tab PO PRN ×2 (08:10→12:42)
--- NOTE | 2021-04-03 17:41 | PN ---
Progress Note for JAMES QUAN Date: 04/01/2021 Room #: VM.201 SUBJECTIVE: Dictation #1 on an 81-year-old on swing bed, recovering after a hip fracture. The patient has been feeling well. She has ambulated to the chair with the nurse. She did have some atrial fibrillation with RVR and her heart rates are a little faster after ambulating, but she denies feeling short of breath. She has been afebrile. She has a catheter in place and is going to start bladder retraining. She is not having any burning. There is no blood. She is not having any cough. No shortness of breath. Her white count did get mildly elevated up to 11 today. Her INR was also up to 3.3. She is on warfarin. Otherwise, she is eating 50% to 75% of her meals. She is having bowel movements; they were a little loose after drinking some prune juice. OBJECTIVE: Vital Signs: Her temperature is 97.2, her pulse 88, blood pressure 107/38, respiratory rate 16, O2 of 97% on room air. General: She is in no acute distress. Heart: Irregularly irregular with murmur. Lungs: Sounds are clear to auscultation bilaterally without crackles or wheezes. Abdomen: Positive bowel sounds. Soft, nondistended, nontender. Extremities: Warm and dry. No edema. Mental Status: Alert, orientated x3. LABORATORY WORK: Again, white count up to 11, hemoglobin down to 7.9 from 8.2, platelets 309. INR 3.3. Sodium 134, potassium 4.6, chloride 101, bicarb 27, BUN 19, creatinine 0.8, calcium 8.4, glucose 89. Urine had 10 to 20 wbc's and 5 to 10 rbc's. ASSESSMENT: 1. Postoperative for left hip fracture, doing well. The patient is using just half doses of hydrocodone 2.5 mg per her request and she has been taking them about 2 to 3 times a day. 2. Essential hypertension, controlled on current medications, losartan and metoprolol. 3. Mitral regurgitation. Recent mitral clip, doing well. She is not requiring any O2. Just leave that the eye is just doing well. Atrial fibrillation. We will monitor her rate control closely. She is on the metoprolol. She is on Coumadin. I will hold her dose today and restart tomorrow. Recheck Sunday. 4. Mildly abnormal urinalysis. We will monitor for any symptoms or await her culture. 5. Urinary retention, should improve after she an is mobilizing better plan to remove the catheter on Sunday. 6. Gastroesophageal reflux disease. She is on Protonix. 7. Anemia. We will continue to monitor hemoglobin. She has acute on chronic anemia from her recent hip fracture and surgery. 8. 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 The patient is on her Lasix. PLAN: The patient will continue on swing bed cares. We will await the urine culture. We will repeat lab work Sunday. She will continue to work with therapies. MKA: 04/03/2021 16:48:56 MODL: 04/03/2021 17:35:54 /[id number]
[2021-04-03] MEDS: Acetaminophen 325 MG Tab PO SCH ×2 (18:06→23:59)
[2021-04-03] MEDS: Cephalexin 250 MG Cap PO SCH ×2 (18:06→23:58)
[2021-04-03] MEDS: Metoprolol Succinate 25 MG Tab.ER PO SCH (19:46)
[2021-04-03] MEDS: Warfarin 2.5 MG Tab PO SCH (19:49)
[2021-04-04] MEDS: Cephalexin 250 MG Cap PO SCH ×4 (05:58→23:50)
[2021-04-04] MEDS: Acetaminophen 325 MG Tab PO SCH ×4 (05:58→23:51)
[2021-04-04] MEDS: Loperamide 2 MG Cap PO PRN (05:58)
[2021-04-04 07:12] LABS: ANION GAP 10.9 mmol/L (5-15); CHLORIDE,CL 102 mmol/L (98-107); SODIUM,NA 135 mmol/L (136-145)
[2021-04-04] MEDS ORDERED: Enoxaparin 60 MG/0.6 ML Syringe SUBCUT ONE (08:45)
[2021-04-04] MEDS: Cranberry 500 MG Cap PO SCH ×3 (09:13→17:23)
[2021-04-04] MEDS: Phytonadione 100 MCG Tab PO SCH (09:13)
[2021-04-04] MEDS: Folic Acid 1 MG Tab PO SCH (09:14)
[2021-04-04] MEDS: Metoprolol Succinate 50 MG Tab.ER PO SCH (09:14)
[2021-04-04] MEDS: Losartan 50 MG Tab PO SCH (09:14)
[2021-04-04] MEDS: Cholecalciferol (Vitamin D3) 25 MCG Tab PO SCH (09:14)
[2021-04-04] MEDS: Beta-Carotene (Vitamin A) w/Vitamin C & E plus Minerals Tab PO SCH ×2 (09:15→20:04)
[2021-04-04] MEDS: Ferrous Sulfate 325 MG Tab PO SCH (09:17)
[2021-04-04] MEDS: Ondansetron 4 MG Tab.DIS PO PRN (09:17)
--- NOTE | 2021-04-04 09:53 | PN ---
Progress Note for JAMES QUAN Date: 04/04/2021 Room #: VM.201 SUBJECTIVE: This is an 81-year-old recovering after a left hip fracture. The patient's pain is now well controlled on some scheduled Tylenol. She is still using about 2 p.r.n. oxycodones a day. She otherwise was started on Keflex yesterday for UTI. She really did not have any symptoms but has had a catheter in place for urinary retention and had a mildly positive UA, but culture grew greater than 100,000 Klebsiella and she had that discomfort and urge to void. Catheter will be removed today. The patient has been afebrile. She began having some loose achy stools after beginning on the antibiotic. She has had nausea, so she has only been eating about 50% of her meals. Otherwise, her breathing is real good. OBJECTIVE: Vital Signs: Temperature 97.4, pulse 83, blood pressure 122/64, respiratory rate 18, and O2 of 98% on room air. General: She is in no acute distress. Heart: Irregularly irregular with murmur. Lungs: Her lung sounds are clear to auscultation bilaterally without crackles or wheezes. Abdomen: Nondistended. Extremities: Warm and dry. Extremities: She has no ankle edema. She has a little bit of edema in that left thigh. Her incisions are there. There is no significant tenderness. There is no warmth. There is no drainage. Mental Status: She is alert and orientated x3. LABORATORY DATA: White count 10.7, hemoglobin 9.1, and platelets 465. INR 1.5, was 3.3 over the weekend. Sodium 135, potassium 3.9, chloride 102, bicarbonate 26, BUN 17, creatinine 0.8, glucose 106, and calcium 8.6. ASSESSMENT AND PLAN: 1. Klebsiella urinary tract infection complicated due to Li in place. She has 3 days total ordered of Keflex. We will see how she does with the catheter removed and extend the course if needed. 2. Left hip fracture, recovering well. Continue with current pain control and therapies. 3. Loose stools. The patient has been on laxatives. We will change them to p.r.n. She has a history of this with antibiotics. Therefore, she will be on probiotics. 4. Known heart failure and recent mitral clip. She is on her Lasix. She has no signs or symptoms of heart failure. 5. Nausea probably related to the antibiotics. She has p.r.n. Zofran. This has also been a chronic problem. 6. Malnutrition. We will continue to monitor and encourage a diet. 7. Essential hypertension. Blood pressures are controlled. 8. Urinary retention. We will do bladder scans after removing the Li to see how she does. 9. Gastroesophageal reflux disease. She is on Protonix. 10.Acute on chronic anemia after surgery. Her hemoglobin is improving. We will continue to monitor. 11.Atrial fibrillation. Rates are under fair control. We will see what her Holter test from [place] showed. Her INR is just mildly subtherapeutic. I will give her 2.5 mg dose of Coumadin, Lovenox 60 x 1, and hold her vitamin K. We will repeat lab work again on . Plan: As above MKA: 04/04/2021 08:44:25 MODL: 04/04/2021 09:46:02 /[id number] MTDD
[2021-04-04] MEDS: Acetaminophen/HYDROcodone 325-5 MG Tab PO PRN (10:48)
[2021-04-04] MEDS ORDERED: Warfarin 2.5 MG Tab PO ONE (20:00)
[2021-04-04] MEDS: Metoprolol Succinate 25 MG Tab.ER PO SCH (20:05)
[2021-04-05] MEDS: Cephalexin 250 MG Cap PO SCH ×4 (05:53→23:50)
[2021-04-05] MEDS: Acetaminophen 325 MG Tab PO SCH ×4 (05:53→23:50)
[2021-04-05] MEDS: Cholecalciferol (Vitamin D3) 25 MCG Tab PO SCH (08:23)
[2021-04-05] MEDS: Folic Acid 1 MG Tab PO SCH (08:23)
[2021-04-05] MEDS: Beta-Carotene (Vitamin A) w/Vitamin C & E plus Minerals Tab PO SCH ×2 (08:24→19:42)
[2021-04-05] MEDS: Metoprolol Succinate 50 MG Tab.ER PO SCH (08:24)
[2021-04-05] MEDS: Cranberry 500 MG Cap PO SCH ×3 (08:24→18:18)
[2021-04-05] MEDS: Losartan 50 MG Tab PO SCH (08:24)
[2021-04-05] MEDS: Acetaminophen/HYDROcodone 325-5 MG Tab PO PRN ×2 (09:33→15:58)
[2021-04-05] MEDS: Metoprolol Succinate 25 MG Tab.ER PO SCH (19:41)
[2021-04-05] MEDS: WARFARIN 2.5 MG PO SCH (19:57)
[2021-04-06] MEDS: Acetaminophen/HYDROcodone 325-5 MG Tab PO PRN ×3 (03:16→21:06)
[2021-04-06] MEDS: Acetaminophen 325 MG Tab PO SCH ×3 (05:27→17:35)
[2021-04-06] MEDS: Cephalexin 250 MG Cap PO SCH ×3 (05:27→17:35)
[2021-04-06] MEDS: Cranberry 500 MG Cap PO SCH ×3 (08:07→17:35)
[2021-04-06] MEDS: Losartan 50 MG Tab PO SCH (08:07)
[2021-04-06] MEDS: Beta-Carotene (Vitamin A) w/Vitamin C & E plus Minerals Tab PO SCH ×2 (08:07→21:07)
[2021-04-06] MEDS: Ondansetron 4 MG Tab.DIS PO PRN (08:07)
[2021-04-06] MEDS: Cholecalciferol (Vitamin D3) 25 MCG Tab PO SCH (08:07)
[2021-04-06] MEDS: Metoprolol Succinate 50 MG Tab.ER PO SCH (08:08)
[2021-04-06] MEDS: Folic Acid 1 MG Tab PO SCH (08:08)
[2021-04-06] MEDS: Pantoprazole 40 MG Tab.CR PO PRN (08:08)
[2021-04-06] MEDS: Ferrous Sulfate 325 MG Tab PO SCH (08:09)
[2021-04-06] MEDS: Metoprolol Succinate 25 MG Tab.ER PO SCH (21:07)
[2021-04-06] MEDS: WARFARIN 2.5 MG PO SCH (21:11)
[2021-04-07] MEDS: Cranberry 500 MG Cap PO SCH ×3 (07:36→17:09)
[2021-04-07] MEDS: Beta-Carotene (Vitamin A) w/Vitamin C & E plus Minerals Tab PO SCH ×2 (07:36→19:35)
[2021-04-07] MEDS: Cholecalciferol (Vitamin D3) 25 MCG Tab PO SCH (07:36)
[2021-04-07] MEDS: Folic Acid 1 MG Tab PO SCH (07:36)
[2021-04-07] MEDS: Losartan 50 MG Tab PO SCH (07:37)
[2021-04-07] MEDS: Metoprolol Succinate 50 MG Tab.ER PO SCH (07:37)
[2021-04-07] MEDS: Acetaminophen 325 MG Tab PO PRN ×2 (08:48→19:35)
[2021-04-07] MEDS: Phytonadione 100 MCG Tab PO SCH (08:50)
--- NOTE | 2021-04-07 15:13 | PN ---
Progress Note for JAMES QUAN Date: 04/07/2021 Room #: VM.201 SUBJECTIVE: An 81-year-old seen for postoperative of a left hip replacement, recovering on swing bed. Unfortunately, the patient has had some issues with urinary retention. We removed her Harris on Sunday. She has been able to void, but only with standing. She has required straight cath at least twice a day, sometimes up to 900 mL. She has still been taking some pain pills. Like this morning, she was going to use one before therapy, but she agreed that she will just try Tylenol to see if that will help prevent the urinary retention. Her bowels have been moving okay, and she has, otherwise, had occasional nausea. She got Zofran yesterday. Has not required any Imodium. Blood pressures and heart rates have been under good control. She has not had any breathing problems. She is taking only about 2 to 3 pain pills each day. OBJECTIVE: Vital Signs: Her temperature 97.8, pulse 52, blood pressure 117/33, respiratory rate 16, and O2 of 98% on room air. General: She is in no acute distress. Heart: Regularly irregular with murmur. Lungs: Sounds are clear to auscultation bilaterally without crackles or wheezes. Abdomen: Has positive bowel sounds. Nondistended, soft, nontender. Extremities: Warm and dry. No edema. No calf tenderness. No bruising. Left forearm is healing well. Mental Status: Alert and orientated x3. LABORATORY DATA: Lab work does show white count normal at 6.9, hemoglobin 8.9, platelets 513. INR 3.7. ASSESSMENT AND PLAN: 1. Urinary retention. The patient continues to have problems with voiding. We will place the Harris. 2. Klebsiella urinary tract infection, treated. She completed Keflex. We will need to monitor closely given her retention issues for recurrent urinary tract infections. 3. Left hip fracture, doing well. She will work with therapies. 4. Diastolic heart failure due to valvular heart disease with mitral clip in place. She is on Lasix and doing well. 5. Malnutrition. We are encouraging a diet. She is eating like 25% to 50% of meals. 6. Essential hypertension. Blood pressure is controlled. 7. Gastroesophageal reflux disease, on Protonix. 8. Acute on chronic anemia after surgery. Hemoglobins are stable. We will recheck on Sunday. 9. Atrial fibrillation, rate controlled with supratherapeutic INR today. We will restart low-dose vitamin K. This was likely due to her recent course of antibiotics. We will also skip the 1.25 mg dose for tonight and restart tomorrow and recheck lab work on Sunday. PLAN: The patient will continue swing bed cares. We will continue bladder scans and place a Harris again if needed. We will try to limit the hydrocodone use to see if that helps. I would also help with any nausea. Addendum later in the day nurse called patient can't pass urine at all even with standing. Residual of 950 by scanning. Orders to placed harris given. MKA: 04/07/2021 14:25:56 MODL: 04/07/2021 15:04:29 /[id number] MTDD
[2021-04-07] MEDS: Metoprolol Succinate 25 MG Tab.ER PO SCH (19:35)
[2021-04-07] MEDS: ESTRADIOL SCH (21:38)
[2021-04-07] MEDS: Clobetasol 0.05% Crm 30 GM Tube TOP SCH (21:38)
[2021-04-07] MEDS: Acetaminophen/HYDROcodone 325-5 MG Tab PO PRN (21:49)
[2021-04-08] MEDS: Folic Acid 1 MG Tab PO SCH (07:59)
[2021-04-08] MEDS: Metoprolol Succinate 50 MG Tab.ER PO SCH (07:59)
[2021-04-08] MEDS: Phytonadione 100 MCG Tab PO SCH (07:59)
[2021-04-08] MEDS: Beta-Carotene (Vitamin A) w/Vitamin C & E plus Minerals Tab PO SCH ×2 (07:59→20:29)
[2021-04-08] MEDS: Acetaminophen 325 MG Tab PO PRN ×3 (07:59→17:27)
[2021-04-08] MEDS: Cranberry 500 MG Cap PO SCH ×3 (07:59→17:27)
[2021-04-08] MEDS: Cholecalciferol (Vitamin D3) 25 MCG Tab PO SCH (08:00)
[2021-04-08] MEDS: Losartan 50 MG Tab PO SCH (08:00)
[2021-04-08] MEDS: Acetaminophen/HYDROcodone 325-5 MG Tab PO PRN ×2 (08:00→21:33)
[2021-04-08] MEDS: Ferrous Sulfate 325 MG Tab PO SCH (08:04)
--- NOTE | 2021-04-08 15:04 | PN ---
Progress Note for JAMES QUAN Date: 04/08/2021 Room #: VM.201 SUBJECTIVE: An 81-year-old seen today after a left hip fracture. [place] are removed today. Her hip is doing quite good. She has decreased use of hydrocodone only before PT, otherwise is using Tylenol. Her breathing had been good, but now she is noticing some faster heart rates like with walking. She had a MitraClip prior to her fracturing her hip and they also had a Holter on her, but the results have not returned yet. She has otherwise not had any fever, chills. She unfortunately was unable to void yesterday and the Li catheter had to be replaced. OBJECTIVE: Vital Signs: Her temperature 98; pulse 83, but as low as 52 overnight with resting but highs just over 100, blood pressure 104/53, respiratory rate 18, O2 of 97% on room air. General: She is in no acute distress. Heart: Regularly irregular with murmur. Lungs: Lung sounds are clear to auscultation bilaterally without crackles or wheezes. Abdomen: Nondistended, nontender. Extremities: Warm and dry. No edema. Mental Status: Alert and orientated x3. ASSESSMENT: 1. Atrial fibrillation with faster rates, which are symptomatic. I started her on digoxin 125 daily. I will notify Cardiology. We are still awaiting her Holter. 2. Urinary retention. Li is in place. We will try to remove it next Sunday. We will monitor closely for signs of infection. 3. Left hip fracture, doing well. She is supposed to be walking 100 to 200 feet over the weekend. 4. Diastolic heart failure, chronic, doing well on her current Lasix. 5. Malnutrition, diet encouraged. 6. Essential hypertension, controlled, unable to increase her beta shin due to lower blood pressures. 7. Gastroesophageal reflux disease, on Protonix. 8. Acute on chronic anemia after surgery. We will continue to monitor hemoglobins. 9. Atrial fibrillation. Starting digoxin and we will repeat an INR on Sunday. PLAN: The patient will continue on swing bed cares. Li catheter for now, likely remove next week. Lab work next week and start digoxin. MKA: 04/08/2021 14:47:57 MODL: 04/08/2021 14:59:49 /[id number]
[2021-04-08] MEDS: Digoxin 125 MCG Tab PO SCH (16:19)
[2021-04-08] MEDS: Metoprolol Succinate 25 MG Tab.ER PO SCH (20:28)
[2021-04-08] MEDS: WARFARIN 2.5 MG PO SCH (20:29)
[2021-04-09] MEDS: Losartan 50 MG Tab PO SCH (08:00)
[2021-04-09] MEDS: Cholecalciferol (Vitamin D3) 25 MCG Tab PO SCH (08:00)
[2021-04-09] MEDS: Acetaminophen 325 MG Tab PO PRN ×3 (08:00→17:32)
[2021-04-09] MEDS: Metoprolol Succinate 50 MG Tab.ER PO SCH (08:00)
[2021-04-09] MEDS: Beta-Carotene (Vitamin A) w/Vitamin C & E plus Minerals Tab PO SCH ×2 (08:00→20:05)
[2021-04-09] MEDS: Phytonadione 100 MCG Tab PO SCH (08:00)
[2021-04-09] MEDS: Folic Acid 1 MG Tab PO SCH (08:00)
[2021-04-09] MEDS: Cranberry 500 MG Cap PO SCH ×3 (08:00→17:32)
[2021-04-09] MEDS: Digoxin 125 MCG Tab PO SCH (08:01)
[2021-04-09] MEDS: Acetaminophen/HYDROcodone 325-5 MG Tab PO PRN (20:03)
[2021-04-09] MEDS: WARFARIN 2.5 MG PO SCH (20:03)
[2021-04-09] MEDS: Metoprolol Succinate 25 MG Tab.ER PO SCH (20:04)
[2021-04-09] MEDS ORDERED: Warfarin 2.5 MG Tab PO ONE (20:15)
[2021-04-10] MEDS: Digoxin 125 MCG Tab PO SCH (08:28)
[2021-04-10] MEDS: Beta-Carotene (Vitamin A) w/Vitamin C & E plus Minerals Tab PO SCH ×2 (08:28→19:49)
[2021-04-10] MEDS: Folic Acid 1 MG Tab PO SCH (08:28)
[2021-04-10] MEDS: Cholecalciferol (Vitamin D3) 25 MCG Tab PO SCH (08:28)
[2021-04-10] MEDS: Cranberry 500 MG Cap PO SCH ×3 (08:28→17:23)
[2021-04-10] MEDS: Phytonadione 100 MCG Tab PO SCH (08:28)
[2021-04-10] MEDS: Acetaminophen 325 MG Tab PO PRN ×3 (08:28→17:23)
[2021-04-10] MEDS: Losartan 50 MG Tab PO SCH (08:29)
[2021-04-10] MEDS: Metoprolol Succinate 50 MG Tab.ER PO SCH (08:29)
[2021-04-10] MEDS: Ferrous Sulfate 325 MG Tab PO SCH (08:31)
[2021-04-10] MEDS: Ondansetron 4 MG Tab.DIS PO PRN (08:35)
[2021-04-10] MEDS: Pantoprazole 40 MG Tab.CR PO PRN (08:35)
[2021-04-10] MEDS: Metoprolol Succinate 25 MG Tab.ER PO SCH (19:50)
[2021-04-10] MEDS: Acetaminophen/HYDROcodone 325-5 MG Tab PO PRN (19:51)
[2021-04-10] MEDS ORDERED: Warfarin 2.5 MG Tab PO SCH (20:00)
[2021-04-11] MEDS: Cranberry 500 MG Cap PO SCH ×3 (07:41→17:46)
[2021-04-11] MEDS: Ondansetron 4 MG Tab.DIS PO PRN (07:41)
[2021-04-11] MEDS: Phytonadione 100 MCG Tab PO SCH (07:41)
[2021-04-11] MEDS: Beta-Carotene (Vitamin A) w/Vitamin C & E plus Minerals Tab PO SCH ×2 (07:41→19:41)
[2021-04-11] MEDS: Digoxin 125 MCG Tab PO SCH (07:42)
[2021-04-11] MEDS: Acetaminophen 325 MG Tab PO PRN ×3 (07:42→17:47)
[2021-04-11] MEDS: Losartan 50 MG Tab PO SCH (07:42)
[2021-04-11] MEDS: Metoprolol Succinate 50 MG Tab.ER PO SCH (07:42)
[2021-04-11] MEDS: Cholecalciferol (Vitamin D3) 25 MCG Tab PO SCH (07:42)
[2021-04-11] MEDS: Folic Acid 1 MG Tab PO SCH (07:42)
[2021-04-11 08:15] LABS: CHLORIDE,CL 103 mmol/L (98-107); SODIUM,NA 135 mmol/L (136-145)
[2021-04-11 08:16] LABS: ANION GAP 8.7 mmol/L (5-15)
[2021-04-11] MEDS: Metoprolol Succinate 25 MG Tab.ER PO SCH (19:41)
[2021-04-11] MEDS: Acetaminophen/HYDROcodone 325-5 MG Tab PO PRN (19:42)
[2021-04-11] MEDS: Warfarin 2.5 MG Tab PO SCH (19:42)
[2021-04-12] MEDS ORDERED: Furosemide 40 MG Tab PO SCH (09:30)
[2021-04-12] MEDS: Folic Acid 1 MG Tab PO SCH (09:32)
[2021-04-12] MEDS: Cholecalciferol (Vitamin D3) 25 MCG Tab PO SCH (09:32)
[2021-04-12] MEDS: Beta-Carotene (Vitamin A) w/Vitamin C & E plus Minerals Tab PO SCH ×2 (09:32→21:15)
[2021-04-12] MEDS: Metoprolol Succinate 50 MG Tab.ER PO SCH (09:33)
[2021-04-12] MEDS: Losartan 50 MG Tab PO SCH (09:33)
[2021-04-12] MEDS: Phytonadione 100 MCG Tab PO SCH (09:33)
[2021-04-12] MEDS: Digoxin 125 MCG Tab PO SCH (09:33)
[2021-04-12] MEDS: Cranberry 500 MG Cap PO SCH ×3 (09:33→19:38)
--- NOTE | 2021-04-12 09:35 | PN ---
Progress Note for JAMES QUAN Date: 04/12/2021 Room #: VM.201 SUBJECTIVE: An 81-year-old here after her left hip fracture status post surgery. The patient unfortunately failed her voiding trial last week. She required several straight caths. She would usually have incontinence upon standing. She had the catheter in over the weekend and it was sort of clamped off accidentally and she did feel the urge to void. She otherwise has not had any burning. No fever, no chills. She still gets a little short of breath with activity. Digoxin was added due to faster heart rates. Her Holter monitor from [place] is still pending. She did have a MitraClip last month and her EF is 60%. Her biggest concern is getting to an outpatient echo the . Looks like it has already been rescheduled for Christmas on the . Otherwise, she is having some pain in her thigh. Has been using her pain pill only at night. States the pain is fine when she is lying there, but when she gets up after lying for a while, it is quite sore. Both legs are swelling. She was doing some more sitting. OBJECTIVE: Vital Signs: Her temperature 98.2, pulse 70, blood pressure 120/51, respiratory rate 16, O2 of 98% on room air. General: She is in no acute distress. Heart: Irregularly irregular with murmur. Lungs: Her lung sounds are clear to auscultation bilaterally without crackles or wheezes. Abdomen: Nondistended, nontender. Extremities: Warm and dry. She does have 2+ edema to both calves. She still has some edema up in that left thigh. Incisions are well healed and intact. Mental Status: She is alert and oriented x3. LABORATORY WORK: From yesterday did show the patient to have a white count 6.9, hemoglobin up to 10.2, platelets 461. INR 2.2. Sodium 135, potassium 4.7, chloride 103, bicarb 28, BUN 12, creatinine 0.7, glucose 105, calcium 8.8. ASSESSMENT: 1. Left hip fracture status post surgery. The patient is making progress with therapy. She is still having some discomfort. She has her appointments with Ortho the end of this month on 05/06. 2. Urinary retention. We will remove the Li today and see how she does. We will straight cath if needed. 3. Atrial fibrillation, now rate controlled on digoxin and Toprol. Holter from Cardiology is pending. 4. Recent MitraClip and severe aortic regurgitation. The patient's Lasix will be increased to 40 b.i.d. This will hopefully help with her voiding. 5. Diastolic heart failure, chronic. Ejection fraction 60%. 6. Malnutrition. Diet encouraged. 7. Essential hypertension, controlled. 8. Gastroesophageal reflux disease, on Protonix. 9. Anemia, improved after surgery recovery. PLAN: The patient will continue on swing bed cares. We will remove the Li and straight cath if needed. We will repeat lab work in 1 week. MKA: 04/12/2021 08:46:19 MODL: 04/12/2021 09:27:24 /[id number]
[2021-04-12] MEDS: Acetaminophen/HYDROcodone 325-5 MG Tab PO PRN ×2 (09:37→21:17)
[2021-04-12] MEDS: Ferrous Sulfate 325 MG Tab PO SCH (11:40)
[2021-04-12] MEDS: Furosemide 40 MG Tab PO SCH ×2 (11:40→19:37)
[2021-04-12] MEDS: Warfarin 2.5 MG Tab PO SCH (21:15)
[2021-04-12] MEDS: Metoprolol Succinate 25 MG Tab.ER PO SCH (21:16)
[2021-04-13] MEDS: Phytonadione 100 MCG Tab PO SCH (08:03)
[2021-04-13] MEDS: Cranberry 500 MG Cap PO SCH ×3 (08:03→18:40)
[2021-04-13] MEDS: Cholecalciferol (Vitamin D3) 25 MCG Tab PO SCH (08:03)
[2021-04-13] MEDS: Folic Acid 1 MG Tab PO SCH (08:04)
[2021-04-13] MEDS: Losartan 50 MG Tab PO SCH (08:04)
[2021-04-13] MEDS: Furosemide 40 MG Tab PO SCH ×2 (08:04→15:53)
[2021-04-13] MEDS: Metoprolol Succinate 50 MG Tab.ER PO SCH (08:05)
[2021-04-13] MEDS: Digoxin 125 MCG Tab PO SCH (08:05)
[2021-04-13] MEDS: Beta-Carotene (Vitamin A) w/Vitamin C & E plus Minerals Tab PO SCH ×2 (08:05→20:06)
[2021-04-13] MEDS: Acetaminophen 325 MG Tab PO PRN (08:05)
[2021-04-13] MEDS: Acetaminophen/HYDROcodone 325-5 MG Tab PO PRN (08:06)
[2021-04-13] MEDS: Warfarin 2.5 MG Tab PO SCH (20:06)
[2021-04-13] MEDS: Metoprolol Succinate 25 MG Tab.ER PO SCH (20:08)
[2021-04-14] MEDS: Acetaminophen 325 MG Tab PO PRN ×3 (03:15→15:29)
[2021-04-14] MEDS: Cholecalciferol (Vitamin D3) 25 MCG Tab PO SCH (08:42)
[2021-04-14] MEDS: Folic Acid 1 MG Tab PO SCH (08:42)
[2021-04-14] MEDS: Acetaminophen/HYDROcodone 325-5 MG Tab PO PRN ×2 (08:42→20:42)
[2021-04-14] MEDS: Phytonadione 100 MCG Tab PO SCH (08:43)
[2021-04-14] MEDS: Digoxin 125 MCG Tab PO SCH (08:43)
[2021-04-14] MEDS: Beta-Carotene (Vitamin A) w/Vitamin C & E plus Minerals Tab PO SCH ×2 (08:43→20:41)
[2021-04-14] MEDS: Cranberry 500 MG Cap PO SCH ×3 (08:43→17:43)
[2021-04-14] MEDS: Losartan 50 MG Tab PO SCH (08:43)
[2021-04-14] MEDS: Ondansetron 4 MG Tab.DIS PO PRN (08:44)
[2021-04-14] MEDS: Metoprolol Succinate 50 MG Tab.ER PO SCH (08:44)
[2021-04-14] MEDS: Furosemide 40 MG Tab PO SCH ×2 (08:44→15:29)
[2021-04-14] MEDS: Ferrous Sulfate 325 MG Tab PO SCH (08:48)
[2021-04-14] MEDS ORDERED: [UNRECOGNIZED DRUG - REMARK] SCH (11:15)
[2021-04-14] MEDS: Warfarin 2.5 MG Tab PO SCH (20:41)
[2021-04-14] MEDS: Metoprolol Succinate 25 MG Tab.ER PO SCH (20:46)
[2021-04-14] MEDS: ESTRADIOL SCH (20:48)
[2021-04-14] MEDS: Clobetasol 0.05% Crm 30 GM Tube TOP SCH (20:48)
[2021-04-15] MEDS: Cranberry 500 MG Cap PO SCH ×3 (08:40→17:29)
[2021-04-15] MEDS: Metoprolol Succinate 50 MG Tab.ER PO SCH (08:41)
[2021-04-15] MEDS: Cholecalciferol (Vitamin D3) 25 MCG Tab PO SCH (08:41)
[2021-04-15] MEDS: Ondansetron 4 MG Tab.DIS PO PRN (08:41)
[2021-04-15] MEDS: Folic Acid 1 MG Tab PO SCH (08:41)
[2021-04-15] MEDS: Phytonadione 100 MCG Tab PO SCH (08:41)
[2021-04-15] MEDS: Beta-Carotene (Vitamin A) w/Vitamin C & E plus Minerals Tab PO SCH ×2 (08:41→19:43)
[2021-04-15] MEDS: Losartan 50 MG Tab PO SCH (08:42)
[2021-04-15] MEDS: Acetaminophen/HYDROcodone 325-5 MG Tab PO PRN ×2 (08:42→19:44)
[2021-04-15] MEDS: Digoxin 125 MCG Tab PO SCH (08:45)
[2021-04-15] MEDS: Furosemide 40 MG Tab PO SCH ×2 (08:45→15:40)
[2021-04-15] MEDS: Acetaminophen 325 MG Tab PO PRN ×2 (11:25→15:40)
[2021-04-15] MEDS: Warfarin 2.5 MG Tab PO SCH (19:43)
[2021-04-15] MEDS: Metoprolol Succinate 25 MG Tab.ER PO SCH (19:43)
[2021-04-16] MEDS: Cholecalciferol (Vitamin D3) 25 MCG Tab PO SCH (07:50)
[2021-04-16] MEDS: Phytonadione 100 MCG Tab PO SCH (07:50)
[2021-04-16] MEDS: Furosemide 40 MG Tab PO SCH ×2 (07:51→18:36)
[2021-04-16] MEDS: Digoxin 125 MCG Tab PO SCH (07:51)
[2021-04-16] MEDS: Folic Acid 1 MG Tab PO SCH (07:51)
[2021-04-16] MEDS: Beta-Carotene (Vitamin A) w/Vitamin C & E plus Minerals Tab PO SCH ×2 (07:52→19:35)
[2021-04-16] MEDS: Cranberry 500 MG Cap PO SCH ×3 (07:52→18:36)
[2021-04-16] MEDS: Metoprolol Succinate 50 MG Tab.ER PO SCH (07:55)
[2021-04-16] MEDS: Losartan 50 MG Tab PO SCH (07:55)
[2021-04-16] MEDS: Ondansetron 4 MG Tab.DIS PO PRN (07:59)
[2021-04-16] MEDS: Ferrous Sulfate 325 MG Tab PO SCH (08:01)
[2021-04-16] MEDS: Metoprolol Succinate 25 MG Tab.ER PO SCH (19:35)
[2021-04-16] MEDS: Warfarin 2.5 MG Tab PO SCH (19:35)
[2021-04-16] MEDS: Acetaminophen/HYDROcodone 325-5 MG Tab PO PRN (19:36)
[2021-04-17] MEDS: Acetaminophen 325 MG Tab PO PRN (00:34)
[2021-04-17] MEDS: Folic Acid 1 MG Tab PO SCH (08:00)
[2021-04-17] MEDS: Beta-Carotene (Vitamin A) w/Vitamin C & E plus Minerals Tab PO SCH ×2 (08:01→19:23)
[2021-04-17] MEDS: Cholecalciferol (Vitamin D3) 25 MCG Tab PO SCH (08:01)
[2021-04-17] MEDS: Cranberry 500 MG Cap PO SCH ×3 (08:01→17:38)
[2021-04-17] MEDS: Phytonadione 100 MCG Tab PO SCH (08:01)
[2021-04-17] MEDS: Metoprolol Succinate 50 MG Tab.ER PO SCH (08:02)
[2021-04-17] MEDS: Losartan 50 MG Tab PO SCH (08:02)
[2021-04-17] MEDS: Digoxin 125 MCG Tab PO SCH (08:02)
[2021-04-17] MEDS: Furosemide 40 MG Tab PO SCH ×2 (08:02→15:15)
[2021-04-17] MEDS: Metoprolol Succinate 25 MG Tab.ER PO SCH (19:23)
[2021-04-17] MEDS: Warfarin 2.5 MG Tab PO SCH (19:23)
[2021-04-17] MEDS: Acetaminophen/HYDROcodone 325-5 MG Tab PO PRN (19:25)
[2021-04-18 07:18] LABS: CHLORIDE,CL 101 mmol/L (98-107); SODIUM,NA 138 mmol/L (136-145)
[2021-04-18 07:19] LABS: ANION GAP 8.6 mmol/L (5-15)
[2021-04-18] MEDS: Furosemide 40 MG Tab PO SCH ×2 (07:36→15:35)
[2021-04-18] MEDS: Phytonadione 100 MCG Tab PO SCH (07:36)
[2021-04-18] MEDS: Folic Acid 1 MG Tab PO SCH (07:37)
[2021-04-18] MEDS: Cranberry 500 MG Cap PO SCH ×3 (07:37→19:25)
[2021-04-18] MEDS: Losartan 50 MG Tab PO SCH (07:37)
[2021-04-18] MEDS: Digoxin 125 MCG Tab PO SCH (07:37)
[2021-04-18] MEDS: Cholecalciferol (Vitamin D3) 25 MCG Tab PO SCH (07:37)
[2021-04-18] MEDS: Beta-Carotene (Vitamin A) w/Vitamin C & E plus Minerals Tab PO SCH ×2 (07:37→20:18)
[2021-04-18] MEDS: Metoprolol Succinate 50 MG Tab.ER PO SCH (07:38)
[2021-04-18] MEDS: Ferrous Sulfate 325 MG Tab PO SCH (07:41)
[2021-04-18] MEDS: Tamsulosin 0.4 MG Cap.ER PO SCH (10:30)
[2021-04-18] MEDS: Metoprolol Succinate 25 MG Tab.ER PO SCH (20:18)
[2021-04-18] MEDS: Acetaminophen/HYDROcodone 325-5 MG Tab PO PRN (20:19)
[2021-04-19] MEDS: Phytonadione 100 MCG Tab PO SCH (08:16)
[2021-04-19] MEDS: Digoxin 125 MCG Tab PO SCH (08:16)
[2021-04-19] MEDS: Cranberry 500 MG Cap PO SCH ×3 (08:16→17:28)
[2021-04-19] MEDS: Tamsulosin 0.4 MG Cap.ER PO SCH (08:17)
[2021-04-19] MEDS: Losartan 50 MG Tab PO SCH (08:17)
[2021-04-19] MEDS: Furosemide 40 MG Tab PO SCH ×2 (08:17→16:56)
[2021-04-19] MEDS: Folic Acid 1 MG Tab PO SCH (08:17)
[2021-04-19] MEDS: Beta-Carotene (Vitamin A) w/Vitamin C & E plus Minerals Tab PO SCH ×2 (08:17→20:04)
[2021-04-19] MEDS: Cholecalciferol (Vitamin D3) 25 MCG Tab PO SCH (08:17)
[2021-04-19] MEDS: Metoprolol Succinate 50 MG Tab.ER PO SCH (08:18)
[2021-04-19] MEDS: Acetaminophen 325 MG Tab PO PRN (20:04)
[2021-04-19] MEDS: Metoprolol Succinate 25 MG Tab.ER PO SCH (20:04)
[2021-04-20] MEDS: Furosemide 40 MG Tab PO SCH ×2 (08:01→17:03)
[2021-04-20] MEDS: Cranberry 500 MG Cap PO SCH ×3 (08:01→17:04)
[2021-04-20] MEDS: Beta-Carotene (Vitamin A) w/Vitamin C & E plus Minerals Tab PO SCH ×2 (08:01→19:51)
[2021-04-20] MEDS: Ferrous Sulfate 325 MG Tab PO SCH (08:01)
[2021-04-20] MEDS: Cholecalciferol (Vitamin D3) 25 MCG Tab PO SCH (08:01)
[2021-04-20] MEDS: Phytonadione 100 MCG Tab PO SCH (08:01)
[2021-04-20] MEDS: Folic Acid 1 MG Tab PO SCH (08:01)
[2021-04-20] MEDS: Metoprolol Succinate 50 MG Tab.ER PO SCH (08:02)
[2021-04-20] MEDS: Digoxin 125 MCG Tab PO SCH (08:02)
[2021-04-20] MEDS: Tamsulosin 0.4 MG Cap.ER PO SCH (08:02)
[2021-04-20] MEDS: Losartan 50 MG Tab PO SCH (08:04)
[2021-04-20] MEDS: Acetaminophen/HYDROcodone 325-5 MG Tab PO PRN ×2 (08:38→21:48)
[2021-04-20] MEDS: Metoprolol Succinate 25 MG Tab.ER PO SCH (19:51)
[2021-04-20] MEDS: Warfarin 2.5 MG Tab PO SCH (19:51)
[2021-04-20] MEDS: Acetaminophen 325 MG Tab PO PRN (19:52)
[2021-04-21] MEDS: Digoxin 125 MCG Tab PO SCH (08:13)
[2021-04-21] MEDS: Cranberry 500 MG Cap PO SCH ×3 (08:13→17:06)
[2021-04-21] MEDS: Tamsulosin 0.4 MG Cap.ER PO SCH (08:13)
[2021-04-21] MEDS: Metoprolol Succinate 50 MG Tab.ER PO SCH (08:13)
[2021-04-21] MEDS: Beta-Carotene (Vitamin A) w/Vitamin C & E plus Minerals Tab PO SCH ×2 (08:13→19:30)
[2021-04-21] MEDS: Cholecalciferol (Vitamin D3) 25 MCG Tab PO SCH (08:13)
[2021-04-21] MEDS: Furosemide 40 MG Tab PO SCH ×2 (08:13→16:00)
[2021-04-21] MEDS: Folic Acid 1 MG Tab PO SCH (08:13)
[2021-04-21] MEDS: Phytonadione 100 MCG Tab PO SCH (08:13)
[2021-04-21] MEDS: Losartan 50 MG Tab PO SCH (08:14)
[2021-04-21] MEDS: Acetaminophen 325 MG Tab PO PRN (17:59)
[2021-04-21] MEDS: Metoprolol Succinate 25 MG Tab.ER PO SCH (19:30)
[2021-04-21] MEDS: Warfarin 2.5 MG Tab PO SCH (19:31)
[2021-04-21] MEDS: Acetaminophen/HYDROcodone 325-5 MG Tab PO PRN (19:34)
[2021-04-21] MEDS: ESTRADIOL SCH (20:07)
[2021-04-21] MEDS: Clobetasol 0.05% Crm 30 GM Tube TOP SCH (20:07)
[2021-04-22] MEDS: Digoxin 125 MCG Tab PO SCH (09:28)
[2021-04-22] MEDS: Cholecalciferol (Vitamin D3) 25 MCG Tab PO SCH (09:29)
[2021-04-22] MEDS: Beta-Carotene (Vitamin A) w/Vitamin C & E plus Minerals Tab PO SCH ×2 (09:29→20:05)
[2021-04-22] MEDS: Phytonadione 100 MCG Tab PO SCH (09:29)
[2021-04-22] MEDS: Tamsulosin 0.4 MG Cap.ER PO SCH (09:29)
[2021-04-22] MEDS: Folic Acid 1 MG Tab PO SCH (09:29)
[2021-04-22] MEDS: Ferrous Sulfate 325 MG Tab PO SCH (09:29)
[2021-04-22] MEDS: Cranberry 500 MG Cap PO SCH ×3 (09:30→18:00)
[2021-04-22] MEDS: Metoprolol Succinate 50 MG Tab.ER PO SCH (09:30)
[2021-04-22] MEDS: Furosemide 40 MG Tab PO SCH ×2 (09:30→15:51)
[2021-04-22] MEDS: Losartan 50 MG Tab PO SCH (09:30)
[2021-04-22] MEDS: Acetaminophen/HYDROcodone 325-5 MG Tab PO PRN ×2 (12:26→21:33)
--- NOTE | 2021-04-22 13:09 | PCM.SN.2 ---
- Free Text/Narrative Note: Patient had been cleared by PT for d/c today. Discussions on Sunday how that was going to work with her ongoing urinary issues. She has been getting bladder scanned and then I/O catheterized twice/day most days. Advised nursing to attempt teaching the patient to do self I/O caths as this is not something she will be able to have adequate help with from home health. This did not go well. Urology appointment is not until the end of the month. Therefore, indwelling urinary catheter was placed due to absence of another reasonable d/c plan. OT then working with patient for ADL's in the setting of having the catheter in place and do not feel patient is ready to go today. They will be working with her into next week with possible d/c date of Sunday, 04/27. Sign out will be given to patient's PCP with these updates.
[2021-04-22] MEDS: Warfarin 2.5 MG Tab PO SCH (19:58)
[2021-04-22] MEDS: Metoprolol Succinate 25 MG Tab.ER PO SCH (20:05)
[2021-04-23] MEDS: Metoprolol Succinate 50 MG Tab.ER PO SCH (09:17)
[2021-04-23] MEDS: Tamsulosin 0.4 MG Cap.ER PO SCH (09:18)
[2021-04-23] MEDS: Digoxin 125 MCG Tab PO SCH (09:18)
[2021-04-23] MEDS: Phytonadione 100 MCG Tab PO SCH (09:18)
[2021-04-23] MEDS: Cranberry 500 MG Cap PO SCH ×3 (09:18→18:00)
[2021-04-23] MEDS: Furosemide 40 MG Tab PO SCH ×2 (09:19→16:23)
[2021-04-23] MEDS: Losartan 50 MG Tab PO SCH (09:19)
[2021-04-23] MEDS: Folic Acid 1 MG Tab PO SCH (09:19)
[2021-04-23] MEDS: Cholecalciferol (Vitamin D3) 25 MCG Tab PO SCH (09:19)
[2021-04-23] MEDS: Beta-Carotene (Vitamin A) w/Vitamin C & E plus Minerals Tab PO SCH ×2 (09:20→20:09)
[2021-04-23] MEDS: Acetaminophen/HYDROcodone 325-5 MG Tab PO PRN ×2 (12:27→20:57)
[2021-04-23] MEDS: Metoprolol Succinate 25 MG Tab.ER PO SCH (20:09)
[2021-04-23] MEDS: Warfarin 2.5 MG Tab PO SCH (20:10)
[2021-04-24] MEDS: Folic Acid 1 MG Tab PO SCH (08:08)
[2021-04-24] MEDS: Beta-Carotene (Vitamin A) w/Vitamin C & E plus Minerals Tab PO SCH ×2 (08:08→20:04)
[2021-04-24] MEDS: Metoprolol Succinate 50 MG Tab.ER PO SCH (08:08)
[2021-04-24] MEDS: Cranberry 500 MG Cap PO SCH ×3 (08:08→18:30)
[2021-04-24] MEDS: Cholecalciferol (Vitamin D3) 25 MCG Tab PO SCH (08:09)
[2021-04-24] MEDS: Losartan 50 MG Tab PO SCH (08:09)
[2021-04-24] MEDS: Digoxin 125 MCG Tab PO SCH (08:09)
[2021-04-24] MEDS: Tamsulosin 0.4 MG Cap.ER PO SCH (08:09)
[2021-04-24] MEDS: Phytonadione 100 MCG Tab PO SCH (08:09)
[2021-04-24] MEDS: Furosemide 40 MG Tab PO SCH ×2 (08:09→16:04)
[2021-04-24] MEDS: Ferrous Sulfate 325 MG Tab PO SCH (08:11)
[2021-04-24] MEDS: Warfarin 2.5 MG Tab PO SCH (20:04)
[2021-04-24] MEDS: Metoprolol Succinate 25 MG Tab.ER PO SCH (20:04)
[2021-04-24] MEDS: Acetaminophen/HYDROcodone 325-5 MG Tab PO PRN (21:12)
[2021-04-25] MEDS: Tamsulosin 0.4 MG Cap.ER PO SCH (07:33)
[2021-04-25] MEDS: Phytonadione 100 MCG Tab PO SCH (07:33)
[2021-04-25] MEDS: Metoprolol Succinate 50 MG Tab.ER PO SCH (07:33)
[2021-04-25] MEDS: Digoxin 125 MCG Tab PO SCH (07:33)
[2021-04-25] MEDS: Cholecalciferol (Vitamin D3) 25 MCG Tab PO SCH (07:34)
[2021-04-25] MEDS: Furosemide 40 MG Tab PO SCH ×2 (07:34→15:23)
[2021-04-25] MEDS: Beta-Carotene (Vitamin A) w/Vitamin C & E plus Minerals Tab PO SCH ×2 (07:34→20:18)
[2021-04-25] MEDS: Folic Acid 1 MG Tab PO SCH (07:34)
[2021-04-25] MEDS: Losartan 50 MG Tab PO SCH (07:35)
[2021-04-25] MEDS: Cranberry 500 MG Cap PO SCH ×3 (07:35→17:45)
[2021-04-25] MEDS: Acetaminophen 325 MG Tab PO PRN ×2 (11:50→17:45)
[2021-04-25] MEDS: Warfarin 2.5 MG Tab PO SCH (20:16)
[2021-04-25] MEDS: Metoprolol Succinate 25 MG Tab.ER PO SCH (20:22)
[2021-04-25] MEDS: Acetaminophen/HYDROcodone 325-5 MG Tab PO PRN (21:23)
[2021-04-26] MEDS: Phytonadione 100 MCG Tab PO SCH (07:44)
[2021-04-26] MEDS: Tamsulosin 0.4 MG Cap.ER PO SCH (07:44)
[2021-04-26] MEDS: Cranberry 500 MG Cap PO SCH ×3 (07:45→18:13)
[2021-04-26] MEDS: Metoprolol Succinate 50 MG Tab.ER PO SCH (07:45)
[2021-04-26] MEDS: Furosemide 40 MG Tab PO SCH ×2 (07:45→15:25)
[2021-04-26] MEDS: Folic Acid 1 MG Tab PO SCH (07:45)
[2021-04-26] MEDS: Losartan 50 MG Tab PO SCH (07:45)
[2021-04-26] MEDS: Beta-Carotene (Vitamin A) w/Vitamin C & E plus Minerals Tab PO SCH ×2 (07:45→20:03)
[2021-04-26] MEDS: Cholecalciferol (Vitamin D3) 25 MCG Tab PO SCH (07:45)
[2021-04-26] MEDS: Digoxin 125 MCG Tab PO SCH (07:46)
[2021-04-26] MEDS: Ferrous Sulfate 325 MG Tab PO SCH (07:46)
[2021-04-26] MEDS: Citalopram 10 MG Tab PO SCH (09:37)
--- NOTE | 2021-04-26 18:18 | PN ---
Progress Note for JAMES QUAN Date: 04/26/2021 Room #: VM.201 SUBJECTIVE: Dictation #1 on an 81-year-old seen today for followup. The patient is recovering from a left hip fracture that is doing well. She has just a little bit of pain at night and is using half tablet of hydrocodone. She has had bowel movements as long as she takes prune juice. She did not even take her senna this morning. She is on Coumadin for her atrial fibrillation. Her last INR was okay. She has had good rate control. She is not short of breath, but the main issue is urinary retention. She now failed her third voiding trial and has had the catheter in since last week with plans to follow up outpatient with Urology in a couple of weeks for a trial of removing it and she has been on Flomax as well. The patient otherwise is a little anxious about going home even though her daughter is going to be there for a week after that. Her concern is just having the dexterity in things to work with the catheter. She is working with OT right now and is planning to do outpatient PT. She has a little bit of a pressure sore on her buttock but nothing major. She would consider home health. However, it sounds like they do not have any availability right now. Nursing staff mentioned that she is quite anxious and wondering about something for moods and patient is in agreement that this is probably a good idea and she did in fact take something in the past. She and I thought maybe citalopram; however, I really could not find that in her records, and if we both remember right though, medication that she was on was stopped due to lower sodiums. The patient also had a mitral clip before all this started, but her fluid status has been quite excellent and her EF was 60%. She is worried about getting to her next echo test in the clinic, but she did go with OT and did a trial run on the [employer] bus and did okay. OBJECTIVE: Vital Signs: Today, the patient's temperature 98, pulse 70, blood pressure 129/53, respiratory rate 16, and O2 of 97% on room air. General: She is in no acute distress. Heart: Her heart is irregularly irregular with murmur noted. Lungs: Her lungs sounds are clear to auscultation bilaterally without crackles or wheezes. Abdomen: Her abdomen has positive bowel sounds. Soft, nontender. Extremities: Warm and dry. Genitourinary: Li in place with clear urine. Skin: Left hip incision is completely healed. I did not review the sacral ulcer today as they just changed the bandage and is reported to be very mild and not an open ulcer by nursing but reported to the patient, we would look at it tomorrow before she discharges home. ASSESSMENT AND PLAN: 1. Urinary retention after hip fracture. She has also had some recurrent urinary tract infections. She is currently not having any signs or symptoms of urinary tract infection. Plan will be to discharge home with Li cares and follow up with Urology. Push fluids to prevent urinary sediment. 2. Left hip fracture, making appropriate progress. She will go home tomorrow with outpatient PT. 3. Atrial fibrillation, now rate controlled on digoxin and Toprol. She has follow up with Cardiology. 4. Recent mitral clip and severe aortic regurgitation. Lasix was increased during her stay to 40 mg twice daily. She is tolerating that dose. She is not lightheaded or dizzy. We will get lab work again tomorrow. 5. Diastolic heart failure. Ejection fraction is 60%. 6. Malnutrition, diet is encouraged. She is getting Breeze supplements. 7. Essential hypertension, controlled. 8. Gastroesophageal reflux disease, on Protonix. 9. Anemia, improved after surgery. We will repeat a hemoglobin tomorrow. 10.Adjustment disorder with anxiety. PLAN: The patient will continue on swing bed cares. She will have a copy of the caregiver list to get any private caregivers that she may need. We will try also the Celexa for her moods and see how she does. She is agreeable to this plan. MKA: 04/26/2021 17:06:53 MODL: 04/26/2021 18:10:16 /[id number] LUNA
[2021-04-26] MEDS: Warfarin 2.5 MG Tab PO SCH (20:03)
[2021-04-26] MEDS: Metoprolol Succinate 25 MG Tab.ER PO SCH (20:05)
[2021-04-26] MEDS: Acetaminophen/HYDROcodone 325-5 MG Tab PO PRN (21:16)
[2021-04-27 06:37] LABS: CHLORIDE,CL 98 mmol/L (98-107); SODIUM,NA 134 mmol/L (136-145)
[2021-04-27 06:39] LABS: ANION GAP 5.3 mmol/L (5-15)
[2021-04-27] MEDS: Phytonadione 100 MCG Tab PO SCH (07:44)
[2021-04-27] MEDS: Cholecalciferol (Vitamin D3) 25 MCG Tab PO SCH (07:44)
[2021-04-27] MEDS: Folic Acid 1 MG Tab PO SCH (07:44)
[2021-04-27] MEDS: Cranberry 500 MG Cap PO SCH ×2 (07:44→11:23)
[2021-04-27] MEDS: Pantoprazole 40 MG Tab.CR PO PRN (07:44)
[2021-04-27] MEDS: Beta-Carotene (Vitamin A) w/Vitamin C & E plus Minerals Tab PO SCH (07:44)
[2021-04-27] MEDS: Furosemide 40 MG Tab PO SCH (07:44)
[2021-04-27] MEDS: Tamsulosin 0.4 MG Cap.ER PO SCH (07:45)
[2021-04-27] MEDS: Citalopram 10 MG Tab PO SCH (07:45)
[2021-04-27] MEDS: Acetaminophen/HYDROcodone 325-5 MG Tab PO PRN (07:46)
[2021-04-27] MEDS: Digoxin 125 MCG Tab PO SCH (07:46)
[2021-04-27] MEDS: Losartan 50 MG Tab PO SCH (07:46)
[2021-04-27] MEDS: Metoprolol Succinate 50 MG Tab.ER PO SCH (07:49)
[2021-04-27] MEDS: Acetaminophen 325 MG Tab PO PRN (11:24)
--- NOTE | 2021-04-27 20:36 | DISCH ---
Date of swing bed admission 04/28/2021. PRIMARY DISCHARGE DIAGNOSES: 1. Left hip fracture due to a mechanical fall. 2. Urinary retention, has failed 3 voiding trials with Klebsiella urinary tract infection on this admission 04/01/2021, shortly after arrival, treated. 3. Atrial fibrillation, rate controlled. Digoxin added during her stay. 4. Chronic diastolic heart failure, EF 60% with recent mitral clip, doing well on increased Lasix 40 mg twice daily. 5. Recent mitral clip for mitral regurg, but also with severe aortic regurgitation, has outpatient followup with Cardiology. 6. Malnutrition. Tolerating a diet at least 50-60% of meals here and getting protein supplements. Albumin was as low as 1.9 during her stay. 7. Right arm lump, tender, possibly biceps tendon rupture. Other considerations were a hematoma based on ultrasound today. The INR did get up to 4 on 04/18/2021 but is now therapeutic at 2.4 today. 8. Acute on chronic anemia, postoperative due to left hip replacement. Hemoglobin stable at 10.7. She is on iron. 9. Mild hypokalemia. Plan to replace orally with potassium supplements started on discharge. 10.Adjustment disorder with anxiety. Celexa started yesterday. 11.Gastroesophageal reflux disease, on Protonix. 12.Essential hypertension, controlled. 13.She did have a stage I mild pressure ulcer that developed during her stay which was likely due to her urinary incontinence. REASON FOR ADMISSION: On the date of admission, this 81-year-old female who had recently had a mitral clip had a fall at home and required hip fracture surgery. Her postoperative course was complicated by the urinary retention and she had several voiding trials, but failed and probably some of the retention led to that UTI. Therefore, decision was made to replace the Li and arrangements have been made for her to follow up with Urology next week. The patient also was started on Flomax on 04/18/2021 and is tolerating that. The patient had a Holter monitor done at some point by Cardiology, however, none of the results have returned, but based on her readings and monitoring while inpatient, her heart rates which were fast over 100. She was started on digoxin. She is tolerating that. Her level was 1.07 today and she will continue. Discharging labs showed a normal white count, hemoglobin 10.7, platelets 138, INR 2.4, sodium 134, potassium 3.3, chloride 98, bicarb 34, BUN 19, creatinine 0.8, glucose 90. The patient was not having any shortness of breath. No burning with urination and overall she was progressing well with therapies and in fact was discharged from physical therapy but was still working with occupational therapy. Her biggest concern was how to manage a catheter at home and her daughter will be staying with her for the next couple of days and they are looking into getting some private caregivers. She does have outpatient PT plan for now, but likely will probably need to take home health for her ongoing medical management. Multiple medications changed. She will need both nursing, PT, and OT. HOSPITAL COURSE: The patient has had her dressing changed this morning. She has no drainage. No concern for her wound, but given the fact that she is thin, she will need to come to the clinic in 1 week to have that dressing changed. DISCHARGE PLANS AND INSTRUCTIONS: The patient will follow up in the clinic with a dressing change in 1 week. Probably actually should be done Sunday when she is here for her echo 05/02/2021, and she will see me on 05/05/2021. She sees Urology on 05/03/2021. She has Ortho followup on 05/06/2021. She has an echo planned for 05/02/2021 and also Cardiology followups. The patient will have a BMP in 1 month to evaluate her sodium given that she started on a statin. She will have an INR again on Sunday. [facility]. She will be on 1.25 of Coumadin daily and low-dose vitamin K. She will be on potassium 10 mEq daily for 1 month. She will be on Lasix 40 mg twice daily, which is a new increase in medications, Celexa 5 mg daily, digoxin 125 mcg daily, and hydrocodone 2.5 at bedtime as needed for pain. DISCHARGE PHYSICAL EXAMINATION: Vital Signs: Includes the patient to have a temperature 95.7, pulse 63, blood pressure 121/42, respiratory rate 16, O2 of 94% on room air. Temperature yesterday was 98, the day before 98. The patient was not having any fever, chills. General: She is in no acute distress. Heart: Regularly irregular with murmur. Lungs: Sounds are clear to auscultation bilaterally without crackles or wheezes. Abdomen: Positive bowel sounds. Soft, nondistended, nontender. Extremities: Warm and dry. No edema. Mental Status: She is alert. She is orientated x3. Left hip did have a well- healed incision. I examined it yesterday but I did not repeat it today. She had no drainage. Alert and orientated. MKA: 04/27/2021 16:58:08 MODL: 04/27/2021 20:27:23 /[id number]
== END 2021-04-27 12:00 | disposition home or self-care (01) | DRG 560 ==
LOC: VM.MS 03-30 11:45
PROVIDERS: ADMIT Internal Medicine; ATTEND Internal Medicine
DX: Z47.89 Encounter for other orthopedic aftercare (principal); I50.32 Chronic diastolic (congestive) heart failure; N39.0 Urinary tract infection, site not specified; E44.0 Moderate protein-calorie malnutrition; D62 Acute posthemorrhagic anemia; Z96.642 Presence of left artificial hip joint; R33.9 Retention of urine, unspecified; I11.0 Hypertensive heart disease with heart failure; I48.91 Unspecified atrial fibrillation; I08.0 Rheumatic disorders of both mitral and aortic valves; E87.6 Hypokalemia; F41.9 Anxiety disorder, unspecified; K21.9 Gastro-esophageal reflux disease without esophagitis; F43.20 Adjustment disorder, unspecified; L89.301 Pressure ulcer of unspecified buttock, stage 1; B96.1 Klebsiella pneumoniae [K. pneumoniae] as the cause of diseases classified elsewhere; Z79.01 Long term (current) use of anticoagulants; Z68.20 Body mass index [BMI] 20.0-20.9, adult
CPT/HCPCS: 36415; 51701; 51702; 51798; 80048; 80053; 80162; 81001; 83735; 85025; 85610; 87086; 87088; 87186; 97110-GP; 97116-GP; 97161-GP; 97165-GO; 97168-GO; 97530-GP; 97535-GO; 97755-GO; A9270-GY; J1650

== ENCOUNTER 2021-06-16 10:16 | Inpatient (IN) | payer MEDICARE, BC ==
[2021-06-16] MEDS ORDERED: Sodium Chloride 0.9% 10 ML Syringe FLUSH PRN (10:27)
--- NOTE | 2021-06-16 10:36 | EDM.PDOC ---
ED HPI GENERAL MEDICAL PROBLEM - General Stated Complaint: ER Time Seen by Provider: 06/16/21 10:16 Source of Information: Reports: Patient, EMS History Limitations: Reports: No Limitations - History of Present Illness INITIAL COMMENTS - FREE TEXT/NARRATIVE: Patient comes emergency department today from home by ambulance with concerns of a fall and head injury. She lives at home by herself. Over the past couple of days she has had episodes of lightheadedness. She has had no fever chills chest pain shortness of breath or difficulty breathing. No palpitations or syncope. No abdominal pain nausea or vomiting. No hematuria dysuria or urinary frequency. No black or tarry stools. She has had multiple episodes in the past of lightheadedness/dizziness and falls. This morning when she was getting ready for the day she darted to feel lightheaded. She fell striking her head on the ground. She is on Coumadin. The ambulance was summoned. Initially when she got there she was not sure about why she fell. She was alert and appropriate. Upon arrival she only complains of pain to the back of her head. She is unsure if she lost consciousness. There is no neck pain. She is otherwise asymp tomatic. She has a history of hypertension aortic regurgitation PAT mitral valve repair severe aortic stenosis hyper triglyceridemia - Related Data Allergies Allergy/AdvReac Type Severity Reaction Status Date / Time doxycycline Allergy Nausea and Verified 06/16/21 12:37 Vomiting promethazine [From Phenergan] Allergy Headache Verified 06/16/21 12:37 sulfamethoxazole Allergy Other Verified 06/16/21 12:37 [From Septra] trimethoprim [From Septra] Allergy Other Verified 06/16/21 12:37 codeine AdvReac Nausea and Verified 06/16/21 12:37 Vomiting indomethacin [From Indocin] AdvReac Nausea and Verified 06/16/21 12:37 Vomiting indomethacin sodium AdvReac Nausea and Verified 06/16/21 12:37 [From Indocin] Vomiting Home Meds: Home Meds Cholecalciferol (Vitamin D3) [Vitamin D3] 1,000 units PO DAILY 03/28/16 [History] Loperamide [Imodium] 2 - 4 mg PO ASDIRECTED PRN MDD 8 tabs per day 04/10/20 [History] Vit C/E/Zn/Coppr/Lutein/Zeaxan [Preservision Areds 2 Softgel] 1 cap PO BID 04/10/20 [History] estradioL [Estrace 0.01% Vaginal Crm] 2 gram VAG Q7D 04/10/20 [History] Acetaminophen 650 mg PO Q4H PRN 03/30/21 [History] Amoxicillin 2,000 mg PO ONETIME PRN 03/30/21 [History] Calcium Carbonate [Tums] 1,000 mg PO Q4H PRN 03/30/21 [History] Clobetasol [Temovate 0.05% Oint] 1 applic TOP Q7D 03/30/21 [History] Cranberry Fruit [Cranberry] 900 mg PO TIDMEALS 03/30/21 [History] Esomeprazole [NexIUM] 20 mg PO DAILY PRN 03/30/21 [History] L.acidoph,Paracasei, B.lactis [Probiotic] 1 tab PO DAILY PRN 03/30/21 [History] Losartan Potassium 50 mg PO DAILY 03/30/21 [History] Melatonin 3 mg PO BEDTIME PRN 03/30/21 [History] Metoprolol Succinate 25 mg PO BEDTIME 03/30/21 [History] Metoprolol Succinate 50 mg PO DAILY 03/30/21 [History] Polyvinyl Alcohol [LiquiTears 1.4% Ophth Soln] 1 drop EYEBOTH Q4H PRN 03/30/21 [History] Docusate Sodium/Sennosides [Senna Plus] 1 tab PO BID PRN tablet 04/26/21 [Rx] Furosemide [Lasix] 40 mg PO BIDDIURETIC #60 tablet 04/26/21 [Rx] Phytonadione [Vitamin K] 100 mcg PO DAILY #30 tablet 04/26/21 [Rx] Warfarin [Coumadin] 1.25 mg PO BEDTIME tablet 04/26/21 [Rx] Potassium Citrate [Potassium Citrate ER] 10 meq PO DAILY #30 tablet.er 04/27/21 [Rx] Aspirin [Aspirin EC] 81 mg PO DAILY 06/16/21 [History] Calcium Citrate/Vitamin D3 [Calcium Citrate - Vit D Caplet] 2 tab PO BID 06/16/21 [History] Metoclopramide [Reglan] 5 mg PO Q8H PRN 06/16/21 [History] Potassium Chloride [Klor-Con 10] 10 meq PO DAILY 06/16/21 [History] ondansetron HCL [Ondansetron HCl] 4 mg PO QID PRN 06/16/21 [History] Past Medical History HEENT History: Reports: Allergic Rhinitis, Cataract Cardiovascular History: Reports: High Cholesterol, Hypertension Other Cardiovascular History: aortic regurgitation, svt Gastrointestinal History: Reports: GERD Other Gastrointestinal History: colitis Genitourinary History: Reports: UTI, Recurrent Musculoskeletal History: Reports: Osteoporosis Neurological History: Reports: Migraines Hematologic History: Reports: Anemia - Past Surgical History Cardiovascular Surgical History: Reports: Other (See Below) Other Cardiovascular Surgeries/Procedures: Mitral clip procedure 03/22/21 ED ROS GENERAL - Review of Systems Review Of Systems: Comprehensive ROS is negative, except as noted in HPI. ED EXAM, HEAD INJURY - Physical Exam Exam: See Below Exam Limited By: No Limitations General Appearance: Alert, WD/WN, No Apparent Distress Head: Normocephalic, Scalp Hematoma. No: Scalp Abrasions, Scalp Ecchymosis, Scalp Tenderness, Active Bleeding, Uriarte's Sign, Facial Abrasions, Facial Ecchymosis, Facial Lacerations, Facial Swelling, Sinus Tenderness, Facial Tenderness, Raccoon Eyes Nexus Criteria: No: Posterior, Midline Cervical Tenderness, Evidence of Intoxication, Altered Level of Consciousness, Focal Neurological Deficit, Painful Distraction Injuries Eyes: Bilateral Eye: EOMI, Proptosis Ears: Normal External Exam, Normal TMs (Left TM normal and Right TM occluded with cerumen. ) Nose: Normal Inspection, Normal Mucousa, No Blood Throat/Mouth: Normal Inspection, Normal Lips, Normal Teeth, Normal Gums, Normal Oropharynx, Normal Voice, No Airway Compromise Neck: Non-Tender, Full Range of Motion, Normal Alignment, Normal Inspection Respiratory: No Respiratory Distress, Lungs Clear, Normal Breath Sounds, No Accessory Muscle Use, Chest Non-Tender Cardiovascular: Normal Peripheral Pulses, Regular Rate, Rhythm, No Edema, Systolic Murmur (3/5), Irregularly Irregular GI/Abdominal Exam: Normal Bowel Sounds, Soft, Non-Tender (Female) Exam: Deferred Rectal (Female) Exam: Deferred Back Exam: Normal Inspection, Full Range of Motion Extremities: Normal Inspection, Normal Range of Motion, Non-Tender, No Pedal Edema, Normal Capillary Refill Neurologic: dough molder II-XII nml As Tested, No Motor/Sensory Deficits, Alert, Normal Mood/Affect, Oriented x 3 Skin: Normal Color, Warm/Dry - [place] Coma Score Best Eye Response ([place]): (4) Open Spontaneously Best Verbal Response (Harvinder): (5) Oriented Best Motor Response ([place]): (6) Obeys Commands Course - Vital Signs Last Recorded V/S: Last Vital Signs Temp 97.8 F 06/16/21 18:00 Pulse 65 06/16/21 18:00 Resp 18 06/16/21 18:00 BP 135/42 L 06/16/21 18:00 Pulse Ox 94 L 06/16/21 18:00 - Orders/Labs/Meds Orders: Active Orders 24 hr Category Date Time Status CULTURE URINE [RM] Stat Lab 06/16/21 14:03 Received Sodium Chloride 0.9% [Normal Saline] 1,000 ml Med 06/16/21 11:30 Active IV ASDIRECTED Sodium Chloride 0.9% [Saline Flush] Med 06/16/21 10:27 Active 10 ml FLUSH ASDIRECTED PRN Peripheral IV Insertion Adult [OM.PC] Stat Oth 06/16/21 10:27 Ordered Medication Orders Acetaminophen (Acetaminophen 325 Mg Tab) 650 mg PO Q4H PRN PRN Reason: Pain (mild 1-3) Artificial Tears (Hypromellose 0.3% Ophth Soln 15 Ml Bottle) 0 ml EYEBOTH Q4H PRN PRN Reason: Dry Eyes Aspirin (Aspirin 81 Mg Tab.Ec) 81 mg PO DAILY JOY Calcium Carbonate/Glycine (Calcium Carbonate 750 Mg Tab.Chew) 1,500 mg PO Q4H PRN PRN Reason: Heartburn Ceftriaxone Sodium (Ceftriaxone 1 Gm Vial) 1 gm IVPUSH DAILY [facility] Last Admin: 06/16/21 15:12 Dose: 1 gm Documented by: JAY Cholecalciferol (Cholecalciferol (Vitamin D3) 25 Mcg Tab) 25 mcg PO DAILY JOY Cranberry (Cranberry 500 Mg Cap) 1,000 mg PO TIDMEALS [facility] Last Admin: 06/16/21 18:57 Dose: 1,000 mg Documented by: YIFAN Sodium Chloride (Normal Saline) 1,000 mls @ 125 mls/hr IV ASDIRECTED JOY Stop: 06/17/21 19:29 Last Admin: 06/16/21 11:32 Dose: 125 mls/hr Documented by: HAUGJOD Lactobacillus Rhamnosus (Lactobacillus Rhamnosus Gg (Probiotic) Cap) 1 cap PO DAILY PRN PRN Reason: prophylaxis Losartan Potassium (Losartan 50 Mg Tab) 50 mg PO DAILY JOY Melatonin (Melatonin 3 Mg Tab) 3 mg PO BEDTIME PRN PRN Reason: Insomnia Metoclopramide HCl (Metoclopramide 5 Mg Tab) 5 mg PO Q8H PRN PRN Reason: Nausea Metoprolol Succinate (Metoprolol Succinate 25 Mg Tab.Er) 25 mg PO BEDTIME JOY Metoprolol Succinate (Metoprolol Succinate 25 Mg Tab.Er) 50 mg PO DAILY [facility] Non-Formulary Medication (Estradiol [Estrace 0.01% Vaginal Crm]) 2 gram VAG Q7D JOY Pantoprazole Sodium (Pantoprazole 40 Mg Tab.Cr) 40 mg PO ACBREAKFAST [facility] Potassium Chloride (Potassium Chloride 10 Meq Tab.Er) 10 meq PO DAILY [facility] Senna/Docusate Sodium (Docusate Sodium/Sennosides 50-8.6 Mg Tab) 1 tab PO BID PRN PRN Reason: Constipation Sodium Chloride (Sodium Chloride 0.9% 10 Ml Syringe) 10 ml FLUSH ASDIRECTED PRN PRN Reason: Keep Vein Open Warfarin Sodium (Warfarin 2.5 Mg Tab) 1.25 mg PO BEDTIME [facility] Labs: Laboratory Tests 06/16/21 06/16/21 06/16/21 Range/Units 10:25 10:25 10:25 WBC 8.7 (4.0-10.0) x10^3/uL RBC 4.19 (4.00-5.50) x10^6/uL Hgb 12.3 (12.0-16.0) g/dL Hct 35.2 (33.0-47.0) % MCV 84.0 (78.0-93.0) fL MCH 29.4 (26.0-32.0) pg MCHC 34.9 (32.0-36.0) g/dL RDW Coeff of Alexx 13.1 (10.0-15.0) % Plt Count 225 (130-400) x10^3/uL Immature Gran % (Auto) 0.30 (0.00-0.43) % Neut % (Auto) 88.5 H (50.0-80.0) % Lymph % (Auto) 6.4 L (25.0-50.0) % [place] % (Auto) 3.3 (2.0-11.0) % Eos % (Auto) 1.3 (0.0-4.0) % Baso % (Auto) 0.2 (0.2-1.2) % Neut # (Auto) 7.7 (1.8-7.7) x10^3/uL Lymph # (Auto) 0.6 L (1.0-4.8) x10^3/uL [place] # (Auto) 0.3 (0.0-0.8) x10^3/uL Eos # (Auto) 0.1 (0.0-0.5) x10^3/uL Baso # (Auto) 0.0 (0.0-0.2) x10^3/uL Immature Gran # (Auto) 0.03 (0.00-0.07) x10^3/uL PT 17.2 H D (9.9-12.5) SEC INR 1.6 L (2.0-3.5) APTT 35.4 H (25.6-32.8) SEC Sodium 122 L* D (136-145) mmol/L Potassium 4.2 (3.5-5.1) mmol/L Chloride 89 L (98-107) mmol/L Carbon Dioxide 26 (21-32) mmol/L Anion Gap 11.2 (5-15) mmol/L BUN 36 H (7-18) mg/dL Creatinine 1.0 (0.55-1.02) mg/dL Est Cr Clr Drug Dosing TNP Estimated GFR (MDRD) 53 Glucose 191 H (70-99) mg/dL Lactic Acid (0.4-2.0) mmol/L Calcium 9.3 (8.5-10.1) mg/dL Corrected Calcium 10.2 H (8.5-10.1) mg/dL Total Bilirubin 0.5 (0.2-1.0) mg/dL AST 20 (15-37) U/L ALT 17 (14-59) U/L Alkaline Phosphatase 154 H (46-116) U/L Troponin I High Sens 15 (<=51) ng/L Total Protein 6.6 (6.4-8.2) g/dL Albumin 2.9 L (3.4-5.0) g/dL Globulin 3.7 Albumin/Globulin Ratio 0.78 Digoxin (0.90-2.00) ng/mL Ethyl Alcohol < 3 (0-3) mg/dL 06/16/21 06/16/21 Range/Units 10:25 10:25 WBC (4.0-10.0) x10^3/uL RBC (4.00-5.50) x10^6/uL Hgb (12.0-16.0) g/dL Hct (33.0-47.0) % MCV (78.0-93.0) fL MCH (26.0-32.0) pg MCHC (32.0-36.0) g/dL RDW Coeff of Alexx (10.0-15.0) % Plt Count (130-400) x10^3/uL Immature Gran % (Auto) (0.00-0.43) % Neut % (Auto) (50.0-80.0) % Lymph % (Auto) (25.0-50.0) % [place] % (Auto) (2.0-11.0) % Eos % (Auto) (0.0-4.0) % Baso % (Auto) (0.2-1.2) % Neut # (Auto) (1.8-7.7) x10^3/uL Lymph # (Auto) (1.0-4.8) x10^3/uL [place] # (Auto) (0.0-0.8) x10^3/uL Eos # (Auto) (0.0-0.5) x10^3/uL Baso # (Auto) (0.0-0.2) x10^3/uL Immature Gran # (Auto) (0.00-0.07) x10^3/uL PT (9.9-12.5) SEC INR (2.0-3.5) APTT (25.6-32.8) SEC Sodium (136-145) mmol/L Potassium (3.5-5.1) mmol/L Chloride (98-107) mmol/L Carbon Dioxide (21-32) mmol/L Anion Gap (5-15) mmol/L BUN (7-18) mg/dL Creatinine (0.55-1.02) mg/dL Est Cr Clr Drug Dosing Estimated GFR (MDRD) Glucose (70-99) mg/dL Lactic Acid 2.5 H* (0.4-2.0) mmol/L Calcium (8.5-10.1) mg/dL Corrected Calcium (8.5-10.1) mg/dL Total Bilirubin (0.2-1.0) mg/dL AST (15-37) U/L ALT (14-59) U/L Alkaline Phosphatase (46-116) U/L Troponin I High Sens (<=51) ng/L Total Protein (6.4-8.2) g/dL Albumin (3.4-5.0) g/dL Globulin Albumin/Globulin Ratio Digoxin < 0.20 L (0.90-2.00) ng/mL Ethyl Alcohol (0-3) mg/dL Meds: Medications Generic Name Dose Route Start Last Admin Trade Name Freq PRN Reason Stop Dose Admin Acetaminophen 650 mg 06/16/21 15:49 Acetaminophen 325 Mg Tab PO Q4H PRN Pain (mild 1-3) Artificial Tears 0 ml 06/16/21 15:49 Hypromellose 0.3% Ophth Soln 15 Ml Bottle EYEBOTH Q4H PRN Dry Eyes Aspirin 81 mg 06/17/21 08:00 Aspirin 81 Mg Tab.Ec PO DAILY JOY Calcium Carbonate/Glycine 1,500 mg 06/16/21 15:49 Calcium Carbonate 750 Mg Tab.Chew PO Q4H PRN Heartburn Ceftriaxone Sodium 1 gm 06/16/21 14:45 06/16/21 15:12 Ceftriaxone 1 Gm Vial IVPUSH 1 gm DAILY JOY Administration Cholecalciferol 25 mcg 06/17/21 08:00 Cholecalciferol (Vitamin D3) 25 Mcg Tab PO DAILY JOY Cranberry 1,000 mg 06/16/21 18:00 06/16/21 18:57 Cranberry 500 Mg Cap PO 1,000 mg TIDMEALS JOY Administration Sodium Chloride 1,000 mls @ 125 mls/hr 06/16/21 11:30 06/16/21 11:32 Normal Saline IV 06/17/21 19:29 125 mls/hr ASDIRECTED JOY Administration Lactobacillus Rhamnosus 1 cap 06/16/21 15:49 Lactobacillus Rhamnosus Gg (Probiotic) Cap PO DAILY PRN prophylaxis Losartan Potassium 50 mg 06/17/21 08:00 Losartan 50 Mg Tab PO DAILY JOY Melatonin 3 mg 06/16/21 15:49 Melatonin 3 Mg Tab PO BEDTIME PRN Insomnia Metoclopramide HCl 5 mg 06/16/21 15:49 Metoclopramide 5 Mg Tab PO Q8H PRN Nausea Metoprolol Succinate 25 mg 06/16/21 20:00 Metoprolol Succinate 25 Mg Tab.Er PO BEDTIME JOY Metoprolol Succinate 50 mg 06/17/21 08:00 Metoprolol Succinate 25 Mg Tab.Er PO DAILY JOY Non-Formulary Medication 2 gram 06/16/21 16:00 Estradiol [Estrace 0.01% Vaginal Crm] VAG Q7D JOY Pantoprazole Sodium 40 mg 06/17/21 07:00 Pantoprazole 40 Mg Tab.Cr PO ACBREAKFAST JOY Potassium Chloride 10 meq 06/17/21 08:00 Potassium Chloride 10 Meq Tab.Er PO DAILY JOY Senna/Docusate Sodium 1 tab 06/16/21 15:49 Docusate Sodium/Sennosides 50-8.6 Mg Tab PO BID PRN Constipation Sodium Chloride 10 ml 06/16/21 10:27 Sodium Chloride 0.9% 10 Ml Syringe FLUSH ASDIRECTED PRN Keep Vein Open Warfarin Sodium 1.25 mg 06/16/21 20:00 Warfarin 2.5 Mg Tab PO BEDTIME JOY Discontinued Medications Generic Name Dose Route Start Last Admin Trade Name Freq PRN Reason Stop Dose Admin Pantoprazole Sodium 40 mg 06/16/21 15:53 06/16/21 18:56 Pantoprazole 40 Mg Tab.Cr PO Not Given ACBREAKFAST [facility] - Radiology Interpretation Free Text/Narrative:: CT of the head per radiology shows a left posterior parietal scalp contusion. No underlying calvarial fracture and. No acute intracranial hemorrhage or extra-axial fluid collection. No hydrocephalus. No CT evidence of acute ischemia. - Re-Assessments/Exams Free Text/Narrative Re-Assessment/Exam: 06/16/21 10:38 Due to the mechanism of injury the unknown loss of consciousness as well as her Coumadin therapy trauma code was activated prior to the patient's arrival and was present upon the patient's arrival. IV was established labs are drawn. CBC is rather unremarkable. Thankfully this patient's INR is subtherapeutic at 1.6. Her sodium is 122, potassium 4.2, chloride 89 her glucose is 191 normal liver enzymes. Lactic acid is mildly elevated at 2.5. Troponin is negative at 15. Urine is pending on admission. This patient has a sodium that is quite low. This could be causative of her weakness lightheadedness at home. She is not acutely encephalopathic. I do not think that she needs 3% saline. 0.9% normal saline was started 125 mils in the emergency department. This patient has had poor oral intake at home. She is struggling to be at home by herself. This was voiced not only by her primary care provider when I discussed admission with her as well as home health. We will admit her into the hospital under acute care management due to the falls her difficulty with being at home by herself. I discussed this plan with the patient she was comfortable with this plan. Dr. Flory Bullard came and saw this patient in the emergency department and will admit her into the hospital. Departure - Departure Time of Disposition: 13:00 Disposition: Admitted As Inpatient 66 Clinical Impression: Current use of manager long term care anticoagulation, Hyponatremia Scalp hematoma Qualifiers: Encounter type: initial encounter Qualified Code(s): S00.03XA - Contusion of scalp, initial encounter Fall Qualifiers: Encounter type: initial encounter Qualified Code(s): W19.XXXA - Unspecified fall, initial encounter - Discharge Information - My Orders Last 24 Hours: My Active Orders 06/16/21 10:27 Sodium Chloride 0.9% [Saline Flush] 10 ml FLUSH ASDIRECTED PRN Peripheral IV Insertion Adult [OM.PC] Stat 06/16/21 11:30 Sodium Chloride 0.9% [Normal Saline] 1,000 ml IV ASDIRECTED 06/16/21 14:03 CULTURE URINE [RM] Stat - Assessment/Plan Last 24 Hours: My Active Orders 06/16/21 10:27 Sodium Chloride 0.9% [Saline Flush] 10 ml FLUSH ASDIRECTED PRN Peripheral IV Insertion Adult [OM.PC] Stat 06/16/21 11:30 Sodium Chloride 0.9% [Normal Saline] 1,000 ml IV ASDIRECTED 06/16/21 14:03 CULTURE URINE [RM] Stat
--- NOTE | 2021-06-16 10:46 | PCM.EKG ---
#1 Interpretation EKG Date: 06/16/21 Time: 10:32 Rhythm: A-Fib Rate (Beats/Min): 83 [place]: Normal P-Wave: Present QRS: Normal ST-T: Normal QT: Normal Comparison: No Change
[2021-06-16 10:53] LABS: PTT,PARTIAL THROMBOPLSTIN TIME 35.4 SEC (25.6-32.8)
[2021-06-16 11:02] LABS: CHLORIDE,CL 89 mmol/L (98-107)
[2021-06-16 11:06] LABS: ANION GAP 11.2 mmol/L (5-15); SODIUM,NA 122 mmol/L (136-145)
--- NOTE | 2021-06-16 11:08 | CT ---
[id number] CT/CT Head WO IV EXAM: CT Head WO IV CLINICAL DATA: FALL ON COUMADIN, HIT BACK OF HEAD COMPARISON STUDY: None Discussion/impression: Left posterior parietal scalp contusion. No underlying calvarial fracture. No acute intracranial hemorrhage or extra-axial fluid collection. No hydrocephalus. No CT evidence of acute ischemia. Kyle Gates MD 06/16/21 2553 Thank you for allowing us to participate in the care of your patient.
[2021-06-16] MEDS ORDERED: Sodium Chloride 0.9% 1,000 ML IV SCH (11:30)
[2021-06-16] MEDS: cefTRIAXone 1 GM Vial IVPUSH SCH (15:12)
[2021-06-16] MEDS ORDERED: Calcium Carbonate 750 MG Tab.Chew PO PRN (15:49)
[2021-06-16] MEDS ORDERED: Metoclopramide 5 MG Tab PO PRN (15:49)
[2021-06-16] MEDS ORDERED: Hypromellose 0.3% Ophth Soln 15 ML Bottle EYEBOTH PRN (15:49)
[2021-06-16] MEDS ORDERED: Lactobacillus Rhamnosus GG (Probiotic) Cap PO PRN (15:49)
[2021-06-16] MEDS ORDERED: Pantoprazole 40 MG Tab.CR PO SCH (15:53)
[2021-06-16] MEDS: Cranberry 500 MG Cap PO SCH (18:57)
[2021-06-16] MEDS: Warfarin 2.5 MG Tab PO SCH (21:06)
[2021-06-16] MEDS: Metoprolol Succinate 25 MG Tab.ER PO SCH (21:06)
[2021-06-16] MEDS: Acetaminophen 325 MG Tab PO PRN (21:10)
[2021-06-16] MEDS: Melatonin 3 MG Tab PO PRN (21:10)
[2021-06-16] MEDS ORDERED: traMADol 50 MG Tab PO PRN (22:30)
[2021-06-17] MEDS: Pantoprazole 40 MG Tab.CR PO SCH (06:35)
[2021-06-17 07:05] LABS: CHLORIDE,CL 98 mmol/L (98-107)
[2021-06-17 07:06] LABS: ANION GAP 9.6 mmol/L (5-15); SODIUM,NA 129 mmol/L (136-145)
[2021-06-17] MEDS ORDERED: ESTRADIOL SCH (08:00)
[2021-06-17] MEDS ORDERED: Ondansetron 4 MG/2 ML SDV IVPUSH PRN (08:43)
[2021-06-17] MEDS: Losartan 50 MG Tab PO SCH (09:26)
[2021-06-17] MEDS: Aspirin 81 MG Tab.EC PO SCH (09:27)
[2021-06-17] MEDS: Metoprolol Succinate 25 MG Tab.ER PO SCH ×2 (09:27→20:42)
[2021-06-17] MEDS: Potassium Chloride 10 MEQ Tab.ER PO SCH (09:28)
[2021-06-17] MEDS: Cranberry 500 MG Cap PO SCH ×3 (09:28→17:18)
[2021-06-17] MEDS: Torsemide 20 MG Tab PO SCH ×2 (09:29→15:30)
[2021-06-17] MEDS: Cholecalciferol (Vitamin D3) 25 MCG Tab PO SCH (09:30)
[2021-06-17] MEDS: cefTRIAXone 1 GM Vial IVPUSH SCH (09:30)
--- NOTE | 2021-06-17 10:52 | CR ---
[id number] RAD/RAD Chest PA or AP 1V EXAM: RAD Chest PA or AP 1V INDICATION: COUGH. COMPARISON: None. DISCUSSION: Cardiomediastinal silhouette is normal in size and contour. No infiltrate, effusion, pneumothorax, or edema. Pulmonary hyperinflation. IMPRESSION: No acute cardiopulmonary abnormality. Lokesh Mcdaniels DO 06/17/21 1051 Thank you for allowing us to participate in the care of your patient.
[2021-06-17] MEDS ORDERED: Metoclopramide 5 MG Tab PO SCH (12:00)
--- NOTE | 2021-06-17 13:31 | HP ---
HISTORY OF PRESENT ILLNESS: This is an 81-year-old who had a fall today at home from ground level, hitting her back of her head with nausea and dizziness. She is on Coumadin. Therefore, was encouraged to come into the ER. In the ER, she was found to have a sodium of just 122 down from 127 last month. She does have heart failure, but has not been having steady shortness of breath, she had been having some off and on. She has just had a lot of weakness in her legs and feeling like nauseated and then trouble swallowing due to this nausea. She was recently at the [facility] recovering after a hip fracture that occurred all the way back in March. She had surgery. The pain is going pretty well there. She has not taken any oxycodone, but she wonders if once in a while she does not need something stronger for pain. Then she actually spent quite a bit of time on swing bed rehab unit at [facility], went home with a catheter due to urinary retention, but unfortunately, was unable to manage at home and that is why she ended up in the [facility]. She has really been home only a couple of weeks. The first week went well, but this week has not gone so well. She feels she needs an appetite stimulant. She does have some anxiety. Prior to falling and breaking her hip, she did have a mitral clip. She has known atrial fibrillation. She had some RVR recently in the clinic, though it was much better and we took her off her digoxin. We stopped some folic acid, which she took chronically for anemia although it is better now. She has not had any fever or chills. She did not have any bladder pain, but urine was positive in the ER. ALLERGIES: Include doxycycline; promethazine; codeine, nausea and vomiting; Indocin; Phenergan causes headache. Recently, she said the Zofran was causing constipation. Septra caused her to feel very sick. She also noted that she was having diarrhea after taking laxatives at home, although that was expected. MEDICATION LIST: Reviewed. Currently multivitamins; Artificial Tears; amoxicillin prior to dental work; Estrace vaginal cream; clobetasol cream; warfarin 1.25 daily, I should note she missed her dose last night; probiotic as needed; Imodium as needed; vitamin D 1000 daily; cranberry 900 three times a day; Reglan recently started 5 mg every 8 hours as needed for nausea, she has not taken yet; potassium 10 mEq daily; aspirin 81 mg daily; calcium and D 2 tablets twice daily; Lasix 40 mg b.i.d.; senna one tablet twice a day as needed for constipation; Nexium 20 mg as needed for heartburn; vitamin K 100 mcg daily; Tylenol as needed; Tums; losartan 50 mg daily; Toprol 50 mg in the morning and 25 mg in the evening; melatonin 3 mg as needed for sleep. MEDICAL HISTORY: Includes chronic macrocytic anemia, but had been quite stable, she was on folate, supplements; aortic regurgitation and aortic stenosis with mitral regurgitation with recent mitral clip back in March, this had helped her symptoms; malnutrition; failure to thrive since hip fracture; GERD; essential hypertension; hypertriglyceridemia; hyponatremia, she has had trouble with this in the past, after taking some antibiotics for UTI, it finally got better, but now it is worse again; recurrent UTIs with urinary retention, previously taken off Flomax, but could not void and then recently restarted it at home; osteoporosis; paroxysmal atrial fibrillation; colon polyps. SURGICAL HISTORY: Total abdominal hysterectomy, IM nailing to the left hip, colonoscopy, cholecystectomy, cataracts, breast biopsies, blepharoplasty of the eye. FAMILY HISTORY: Both parents . 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 She is . No smoking. No alcohol use. REVIEW OF SYSTEMS: General: She has had weight loss. She has had poor appetite. Her weight is actually down 10 pounds from back in March prior to her surgery, but now she is even down another 10 pounds since she was in the care home in May to around 80 pounds. No fever. No chills. HEENT: She has had some trouble swallowing when she has been nauseated. She has not had any esophagram. She does have known moderate GERD. Cardiac: She has had no chest pain, no palpitations, but shortness of breath at times. Respiratory: No cough. No wheezing. Abdominal: She has had nausea. No vomiting. She has not really had abdominal pain. She has had some loose stools. No constipation. Musculoskeletal: She still has left hip pain at times. Psych: She is not confused, but she is a little anxious. Otherwise, all systems reviewed and found to be negative unless otherwise stated. PHYSICAL EXAMINATION: Vital Signs: Weight 40.1 kg, temperature 97.8, pulse 65, blood pressure 135/42, respiratory rate 18, and O2 of 94% on room air. General: She is in no acute distress. HEENT: Slight bump, but no hematoma on the posterior scalp, no bruising yet. Heart: Irregularly irregular with murmur. Lungs: Lung sounds are clear to auscultation bilaterally without crackles or wheezes. Abdomen: Positive bowel sounds. Soft, nondistended, nontender. Extremities: Warm and dry with no edema. Neck: Supple without lymphadenopathy. No JVD noted. Skin: Slightly pale, but she has good skin turgor. She is not mottling. Mental Status: She is alert. She is orientated x3. Psych: She is not anxious, but she appears down. LABORATORY DATA: Lab work does show the white count normal at 8.7, hemoglobin 12.3, platelets 225. INR down to 1.6. Sodium 122, potassium 4.2, chloride 89, bicarb 26, BUN 36, creatinine 1, glucose 191, lactate 2.5, calcium 10.2, AST 20, ALT 17, alkaline phosphatase 154. Troponin 15. Albumin 2.9. 75 to 100 on the wbc's. Digoxin less than 0.2. Alcohol less than 3. COVID negative. EKG shows atrial fibrillation. Head CT was negative for any acute findings. ASSESSMENT: 1. Hyponatremia, worsening on chronic, but severe. The patient clinically is dehydrated. We will send off urine and serum osmolalities. I will hold on a urine sodium as she is already on diuretics. She is getting some gentle rehydration. We will repeat the sodium later today. 2. Anxiety. She is not a candidate for SSRIs due to low sodium. We had already tried this on her previous admission. I do feel that this would help her appetite some especially things like Remeron, but at this point, it is just not safe to use. We will use some p.r.n. Ativan, that should also help with her nausea. 3. Urinary tract infection. I will treat her with IV Rocephin. We will await further culture. 4. Chronic diastolic heart failure with mitral clip. We will hold off on her Lasix due to dehydration. Her EF is 60%. 5. Atrial fibrillation, currently rate controlled. We will continue with the same. 6. Essential hypertension. Blood pressure is controlled. Actually diastolic is running low, but it should improve after the IV fluids. We will have holding parameter on her blood pressure pills. 7. Head injury. We will do neuro checks. She is on Coumadin, but slightly subtherapeutic. We will repeat tomorrow. I will hold on that low-dose vitamin K. 8. History of urinary retention. We will do bladder scans. 9. Left hip fracture from a mechanical fall all the way back in March. Discussed she no longer needs oxycodone pain pills and this could worsen her nausea and urinary retention. Tramadol and Tylenol are available. 10.Malnutrition, severe. We had a very jesusita discussion about this and quite honestly, I do not feel like any appetite stimulant is going to fix this problem and I also do not feel like a feeding tube is a good idea. The patient agreed with me, she would not want a feeding tube. Therefore, diet is strongly encouraged. 11.Adjustment disorder with anxiety. I think again this is contributing to a lot of her symptoms. 12.Gastroesophageal reflux disease. She is currently on Nexium p.r.n. I will schedule that. 13.Stage I pressure ulcer to the coccyx, mild. We will continue local wound cares. This is present on admission. PLAN: The patient is admitted for acute cares. We will give her some IV fluid rehydration. If her sodium fails to improve, I will have to give her 3%. We will monitor lab work closely. We will repeat a lactate. We will have her up and working with therapies. We will give her IV antibiotics for the UTI. We will monitor her voiding and urinary retention. We will hold off on any Lovenox currently and continue Coumadin for DVT prophylaxis. We will monitor her with telemetry. We will repeat lab in the morning to include a TSH and a BNP. She is a code level 1. MKA: 06/16/2021 22:44:46 MODL: 06/17/2021 00:54:20 /[id number]
[2021-06-17] MEDS: Acetaminophen 325 MG Tab PO PRN ×2 (17:18→20:43)
[2021-06-17] MEDS: Metoclopramide 5 MG Tab PO SCH (18:36)
--- NOTE | 2021-06-17 19:22 | PN ---
Progress Note for JAMES QUAN Date: 06/17/2021 Room #: VM.215 SUBJECTIVE: This is hospital day #2 on an 81-year-old admitted with a fall and severe hyponatremia along with ongoing nausea, weight loss, and poor oral intake. The patient has felt quite weak. She is feeling no worse today, still a little nausea, but it did not start until she ate. She ate 2 meals yesterday, she ate 100% of her breakfast including toast and oatmeal, even though she states she is not a breakfast eater. She has been a little short of breath off and on but has not had any chest pain. She is doing some coughing. She did get fluids up until last evening. She is a positive 1.6 fluid balance. She does have a history of heart failure and mitral clip, however, her EF was 60%. Son is at the bedside. The patient was having another UTI and is on IV antibiotics but luckily she is emptying her bladder okay. She has not yet got up and worked with any therapy. OBJECTIVE: Vital Signs: This morning, her weight 42.5 kg, up over a kilogram since yesterday. Temperature 98.6, pulse 98, blood pressure 144/47, respiratory rate 26, and O2 of 95% on room air. General: She is in no acute distress. Heart: Regularly irregular with murmur. Lungs: Her lung sounds are decreased with faint crackles in the left base. Right lung is more clear. Abdomen: Positive bowel sounds. Soft, nondistended, nontender. Extremities: Warm and dry. No edema. Mental Status: She is alert. She is orientated x3. She is sort of falling off to sleep, even though she said she rested okay overnight other than being woken up for vitals and things. She is able to answer questions appropriately. She did not get any Ativan. She has not tried any Reglan yet. She has not had any tramadol for pain. LABORATORY DATA: Laboratory work did show her white count 8.6, hemoglobin 11.3, probably some hemodilution, down from 12.3, platelets 231. INR only 1.6. Sodium 129, potassium 4.6, chloride 98, bicarb 26, BUN 28, creatinine 0.9, glucose 86, calcium 9. Lactic normalized last night to 1.7. ALT and AST 16, alkaline phosphatase 149, proBNP 10,293, albumin 2.6. Urine culture is showing gram-negative rods. ASSESSMENT AND PLAN: 1. Hyponatremia, severe, with symptoms of nausea, but greatly improved from 122 to 129 with just some gentle IV fluids. I suspect there was some dehydration, but also probably some element of SIADH. For now, patient is off fluids given her history of heart failure and high blood pressures. I have restarted her diuretics, but I am going to give her Demadex 20 mg twice daily. 2. Anxiety. She has been on SSRIs in the past, but due to low sodium, this is an option. We have p.r.n. Ativan available. She is doing much better just being in the hospital and having caregivers. Family is looking into options like assisted living, which I do think is a great idea. 3. Urinary tract infection due to gram-negative ankur. She is on IV Rocephin. We will continue with the same and await her culture. 4. Atrial fibrillation, on Coumadin. She is subtherapeutic. I have held her vitamin K. I got her on her same doses 1.25 daily due to her being on antibiotics and we will recheck an INR tomorrow. 5. Essential hypertension. She is on home medications. Blood pressure was actually low yesterday. 6. Fall with head injury. She has had some neuro checks. She is mentating well. I think she is not having any current issues from her fall. 7. Left hip fracture back in March. She is doing well. She has not required any pain medications. 8. Severe malnutrition. She is actually doing much better with a diet. The dietitian is following. She is going to get some boost or Breeze. 9. Adjustment disorder with anxiety. We will consider adding something like BuSpar, however, the potential to affect her sodium of any medications is a possibility. I feel like she has probably tried BuSpar in the past and I think she needs anxiety med more for discharge, so I would hold off on adding those medications now. 10.Gastroesophageal reflux disease. She is on scheduled PPI. 11.Stage I pressure ulcer present on admission. Wound cares per nursing. PLAN: The patient will continue acute cares. We will continue to monitor her sodium. She does not qualify or need 3% saline as she is improving. I will repeat lab work tomorrow including an INR. We will do a chest x-ray to look for any fluid congestion. I did not start any Lovenox for DVT prophylaxis, but if her INR fails to go up, could consider a onetime dose. She is a code level 1. This was again discussed with her and her son as he had mentioned something about having a bracelet on, that is a DNR; however, that was a mistake because patient has been a code level. MKA: 06/17/2021 17:39:32 MODL: 06/17/2021 19:04:25 /[id number]
[2021-06-17] MEDS: Warfarin 2.5 MG Tab PO SCH (20:41)
[2021-06-17] MEDS: LORazepam 0.5 MG Tab PO PRN (20:41)
[2021-06-18] MEDS ORDERED: Loperamide 2 MG Cap PO ONE (05:54)
[2021-06-18] MEDS: Pantoprazole 40 MG Tab.CR PO SCH (06:02)
[2021-06-18] MEDS: Metoclopramide 5 MG Tab PO SCH ×3 (06:02→17:16)
[2021-06-18] MEDS: Torsemide 20 MG Tab PO SCH ×2 (07:56→15:25)
[2021-06-18] MEDS: Cranberry 500 MG Cap PO SCH ×3 (07:56→17:16)
[2021-06-18] MEDS: Losartan 50 MG Tab PO SCH (07:56)
[2021-06-18] MEDS: Aspirin 81 MG Tab.EC PO SCH (07:56)
[2021-06-18] MEDS: Cholecalciferol (Vitamin D3) 25 MCG Tab PO SCH (07:57)
[2021-06-18] MEDS: Potassium Chloride 10 MEQ Tab.ER PO SCH (07:57)
[2021-06-18] MEDS: Metoprolol Succinate 25 MG Tab.ER PO SCH ×2 (07:57→19:50)
[2021-06-18] MEDS: cefTRIAXone 1 GM Vial IVPUSH SCH (07:57)
[2021-06-18 08:12] LABS: CHLORIDE,CL 96 mmol/L (98-107); SODIUM,NA 134 mmol/L (136-145)
[2021-06-18 08:15] LABS: ANION GAP 12.8 mmol/L (5-15)
--- NOTE | 2021-06-18 09:17 | PCM.PN ---
- General Info Date of Service: 06/18/21 Subjective Update: 81 yo female hospital day #3 admitted with severe hyponatremia and a UTI. They did start NC overnight due to saturations in the low 90's and a HR in the 50's. This has already been d/c'd this morning. She states she has been feeling ok. She has some left chest wall pain and feels she bruised her ribs with her fall. No internal chest pain. Has shortness of breath off and on but this is really baseline for her. She also hit her head and is denying any headaches or mentation changes. Appetite is ok; no nausea or vomiting. She has been having bowel movements. In fact, she had diarrhea all night last night and requested an imodium this morning. This is usual for her and does usually resolve with imodium. She is tired this morning due to not getting much sleep. She has been voiding well with the diuretics - no urinary retention or dysuria. - Review of Systems General: Reports: No Symptoms HEENT: Reports: No Symptoms Pulmonary: Reports: Shortness of Breath, Cough Cardiovascular: Reports: No Symptoms Gastrointestinal: Reports: Diarrhea. Denies: Abdominal Pain, Nausea, Vomiting Genitourinary: Reports: No Symptoms Musculoskeletal: Reports: No Symptoms Skin: Reports: No Symptoms Neurological: Reports: No Symptoms - Patient Data Vitals - Most Recent: Last Vital Signs Temp 36.7 C 06/18/21 05:58 Pulse 91 06/18/21 07:57 Resp 31 H 06/18/21 05:58 BP 151/57 H 06/18/21 07:57 Pulse Ox 95 06/18/21 02:07 Weight - Most Recent: 40.324 kg I&O - Last 24 Hours: Intake & Output 06/17/21 06/18/21 06/18/21 22:59 06:59 14:59 Intake Total 300 Balance 300 Lab Results Last 24 Hours: Laboratory Results - last 24 hr 06/16/21 06/16/21 06/17/21 Range/Units 14:03 16:55 17:24 WBC (4.0-10.0) x10^3/uL RBC (4.00-5.50) x10^6/uL Hgb (12.0-16.0) g/dL Hct (33.0-47.0) % MCV (78.0-93.0) fL MCH (26.0-32.0) pg MCHC (32.0-36.0) g/dL RDW Coeff of Alexx (10.0-15.0) % Plt Count (130-400) x10^3/uL Immature Gran % (Auto) (0.00-0.43) % Neut % (Auto) (50.0-80.0) % Lymph % (Auto) (25.0-50.0) % [place] % (Auto) (2.0-11.0) % Eos % (Auto) (0.0-4.0) % Baso % (Auto) (0.2-1.2) % Neut # (Auto) (1.8-7.7) x10^3/uL Lymph # (Auto) (1.0-4.8) x10^3/uL [place] # (Auto) (0.0-0.8) x10^3/uL Eos # (Auto) (0.0-0.5) x10^3/uL Baso # (Auto) (0.0-0.2) x10^3/uL Immature Gran # (Auto) (0.00-0.07) x10^3/uL PT (9.9-12.5) SEC INR (2.0-3.5) Sodium (136-145) mmol/L Potassium (3.5-5.1) mmol/L Chloride (98-107) mmol/L Carbon Dioxide (21-32) mmol/L Anion Gap (5-15) mmol/L BUN (7-18) mg/dL Creatinine (0.55-1.02) mg/dL Est Cr Clr Drug Dosing mL/min Estimated GFR (MDRD) Glucose (70-99) mg/dL POC Glucose 106 H (70-99) mg/dL Serum Osmolality 274 L (275-295) mosm/kg Calcium (8.5-10.1) mg/dL Urine Osmolality 204 L (300-900) mosm/kg 06/18/21 06/18/21 06/18/21 Range/Units 07:50 07:50 07:50 WBC 9.4 (4.0-10.0) x10^3/uL RBC 4.20 (4.00-5.50) x10^6/uL Hgb 12.3 (12.0-16.0) g/dL Hct 36.2 (33.0-47.0) % MCV 86.2 (78.0-93.0) fL MCH 29.3 (26.0-32.0) pg MCHC 34.0 (32.0-36.0) g/dL RDW Coeff of Alexx 13.6 (10.0-15.0) % Plt Count 260 (130-400) x10^3/uL Immature Gran % (Auto) 0.30 (0.00-0.43) % Neut % (Auto) 84.1 H (50.0-80.0) % Lymph % (Auto) 7.2 L (25.0-50.0) % [place] % (Auto) 5.8 (2.0-11.0) % Eos % (Auto) 2.3 (0.0-4.0) % Baso % (Auto) 0.3 (0.2-1.2) % Neut # (Auto) 7.9 H (1.8-7.7) x10^3/uL Lymph # (Auto) 0.7 L (1.0-4.8) x10^3/uL [place] # (Auto) 0.6 (0.0-0.8) x10^3/uL Eos # (Auto) 0.2 (0.0-0.5) x10^3/uL Baso # (Auto) 0.0 (0.0-0.2) x10^3/uL Immature Gran # (Auto) 0.03 (0.00-0.07) x10^3/uL PT 22.5 H (9.9-12.5) SEC INR 2.0 (2.0-3.5) Sodium 134 L (136-145) mmol/L Potassium 3.8 (3.5-5.1) mmol/L Chloride 96 L (98-107) mmol/L Carbon Dioxide 29 (21-32) mmol/L Anion Gap 12.8 (5-15) mmol/L BUN 26 H (7-18) mg/dL Creatinine 0.9 (0.55-1.02) mg/dL Est Cr Clr Drug Dosing 31.21 mL/min Estimated GFR (MDRD) > 60 Glucose 90 (70-99) mg/dL POC Glucose (70-99) mg/dL Serum Osmolality (275-295) mosm/kg Calcium 9.5 (8.5-10.1) mg/dL Urine Osmolality (300-900) mosm/kg Vinh Results Last 24 Hours: Microbiology 06/16/21 14:03 Urine Culture - Preliminary Urine, Voided Klebsiella Pneumoniae Gram Negative Rods Med Orders - Current: Current Medications Acetaminophen (Acetaminophen 325 Mg Tab) 650 mg PO Q4H PRN PRN Reason: Pain (mild 1-3) Last Admin: 06/17/21 20:43 Dose: 650 mg Documented by: Artificial Tears (Hypromellose 0.3% Ophth Soln 15 Ml Bottle) 0 ml EYEBOTH Q4H PRN PRN Reason: Dry Eyes Aspirin (Aspirin 81 Mg Tab.Ec) 81 mg PO DAILY [facility] Last Admin: 06/18/21 07:56 Dose: 81 mg Documented by: Calcium Carbonate/Glycine (Calcium Carbonate 750 Mg Tab.Chew) 1,500 mg PO Q4H PRN PRN Reason: Heartburn Ceftriaxone Sodium (Ceftriaxone 1 Gm Vial) 1 gm IVPUSH DAILY [facility] Last Admin: 06/18/21 07:57 Dose: 1 gm Documented by: Cholecalciferol (Cholecalciferol (Vitamin D3) 25 Mcg Tab) 25 mcg PO DAILY [facility] Last Admin: 06/18/21 07:57 Dose: 25 mcg Documented by: Cranberry (Cranberry 500 Mg Cap) 1,000 mg PO TIDMEALS [facility] Last Admin: 06/18/21 07:56 Dose: 1,000 mg Documented by: Lactobacillus Rhamnosus (Lactobacillus Rhamnosus Gg (Probiotic) Cap) 1 cap PO DAILY PRN PRN Reason: prophylaxis Lorazepam (Lorazepam 0.5 Mg Tab) 0.5 mg PO Q6H PRN PRN Reason: Anxiety Last Admin: 06/17/21 20:41 Dose: 0.5 mg Documented by: Losartan Potassium (Losartan 50 Mg Tab) 50 mg PO DAILY [facility] Last Admin: 06/18/21 07:56 Dose: 50 mg Documented by: Melatonin (Melatonin 3 Mg Tab) 3 mg PO BEDTIME PRN PRN Reason: Insomnia Last Admin: 06/16/21 21:10 Dose: 3 mg Documented by: Metoclopramide HCl (Metoclopramide 5 Mg Tab) 5 mg PO 0700,1100,1700 [facility] Last Admin: 06/18/21 06:02 Dose: 5 mg Documented by: Metoprolol Succinate (Metoprolol Succinate 25 Mg Tab.Er) 25 mg PO BEDTIME [facility] Last Admin: 06/17/21 20:42 Dose: 25 mg Documented by: Metoprolol Succinate (Metoprolol Succinate 25 Mg Tab.Er) 50 mg PO DAILY [facility] Last Admin: 06/18/21 07:57 Dose: 50 mg Documented by: Estradiol [Estrace 0 .01% Vaginal Crm] * *Own Med 0 gram .XX Q7D [facility] Last Admin: 06/17/21 09:31 Dose: Not Given Documented by: Ondansetron HCl (Ondansetron 4 Mg/2 Ml Sdv) 4 mg IVPUSH Q8H PRN PRN Reason: Nausea Pantoprazole Sodium (Pantoprazole 40 Mg Tab.Cr) 40 mg PO ACBREAKFAST [facility] Last Admin: 06/18/21 06:02 Dose: 40 mg Documented by: Potassium Chloride (Potassium Chloride 10 Meq Tab.Er) 10 meq PO DAILY [facility] Last Admin: 06/18/21 07:57 Dose: 10 meq Documented by: Senna/Docusate Sodium (Docusate Sodium/Sennosides 50-8.6 Mg Tab) 1 tab PO BID PRN PRN Reason: Constipation Sodium Chloride (Sodium Chloride 0.9% 10 Ml Syringe) 10 ml FLUSH ASDIRECTED PRN PRN Reason: Keep Vein Open Torsemide (Torsemide 20 Mg Tab) 20 mg PO BIDDIURETIC [facility] Last Admin: 06/18/21 07:56 Dose: 20 mg Documented by: Tramadol HCl (Tramadol 50 Mg Tab) 25 mg PO Q4H PRN PRN Reason: Pain Warfarin Sodium (Warfarin 2.5 Mg Tab) 1.25 mg PO BEDTIME [facility] Last Admin: 06/17/21 20:41 Dose: 1.25 mg Documented by: Discontinued Medications Sodium Chloride (Normal Saline) 1,000 mls @ 125 mls/hr IV ASDIRECTED [facility] Stop: 06/17/21 19:29 Last Admin: 06/16/21 11:32 Dose: 125 mls/hr Documented by: Loperamide HCl (Loperamide 2 Mg Cap) 2 mg PO ONETIME ONE Stop: 06/18/21 05:55 Last Admin: 06/18/21 06:02 Dose: 2 mg Documented by: Metoclopramide HCl (Metoclopramide 5 Mg Tab) 5 mg PO Q8H PRN PRN Reason: Nausea Last Admin: 06/17/21 09:34 Dose: 5 mg Documented by: Metoclopramide HCl (Metoclopramide 5 Mg Tab) 5 mg PO TID [facility] Last Admin: 06/17/21 11:36 Dose: 5 mg Documented by: Pantoprazole Sodium (Pantoprazole 40 Mg Tab.Cr) 40 mg PO ACBREAKFAST [facility] Last Admin: 06/16/21 18:56 Dose: Not Given Documented by: - Exam General: Alert, Oriented, Cooperative, No Acute Distress HEENT: Mucous Membr. Moist/[place] Neck: Supple, Trachea Midline, No Thyromegaly. No: Lymphadenopathy Lungs: Clear to Auscultation, Normal Respiratory Effort Cardiovascular: Regular Rate, Irregular Rhythm, Murmurs GI/Abdominal Exam: Normal Bowel Sounds, Soft, Non-Tender, No Organomegaly, No Distention, No Mass Extremities: Normal Inspection, Non-Tender, No Pedal Edema, Normal Capillary Refill Peripheral Pulses: 2+: Radial (L), Radial (R) Skin: Warm, Dry, Intact Neurological: No New Focal Deficit - Patient Data Lab Results Last 24 hrs: Laboratory Results - last 24 hr 06/16/21 06/16/21 06/17/21 Range/Units 14:03 16:55 17:24 WBC (4.0-10.0) x10^3/uL RBC (4.00-5.50) x10^6/uL Hgb (12.0-16.0) g/dL Hct (33.0-47.0) % MCV (78.0-93.0) fL MCH (26.0-32.0) pg MCHC (32.0-36.0) g/dL RDW Coeff of Alexx (10.0-15.0) % Plt Count (130-400) x10^3/uL Immature Gran % (Auto) (0.00-0.43) % Neut % (Auto) (50.0-80.0) % Lymph % (Auto) (25.0-50.0) % [place] % (Auto) (2.0-11.0) % Eos % (Auto) (0.0-4.0) % Baso % (Auto) (0.2-1.2) % Neut # (Auto) (1.8-7.7) x10^3/uL Lymph # (Auto) (1.0-4.8) x10^3/uL [place] # (Auto) (0.0-0.8) x10^3/uL Eos # (Auto) (0.0-0.5) x10^3/uL Baso # (Auto) (0.0-0.2) x10^3/uL Immature Gran # (Auto) (0.00-0.07) x10^3/uL PT (9.9-12.5) SEC INR (2.0-3.5) Sodium (136-145) mmol/L Potassium (3.5-5.1) mmol/L Chloride (98-107) mmol/L Carbon Dioxide (21-32) mmol/L Anion Gap (5-15) mmol/L BUN (7-18) mg/dL Creatinine (0.55-1.02) mg/dL Est Cr Clr Drug Dosing mL/min Estimated GFR (MDRD) Glucose (70-99) mg/dL POC Glucose 106 H (70-99) mg/dL Serum Osmolality 274 L (275-295) mosm/kg Calcium (8.5-10.1) mg/dL Urine Osmolality 204 L (300-900) mosm/kg 06/18/21 06/18/21 06/18/21 Range/Units 07:50 07:50 07:50 WBC 9.4 (4.0-10.0) x10^3/uL RBC 4.20 (4.00-5.50) x10^6/uL Hgb 12.3 (12.0-16.0) g/dL Hct 36.2 (33.0-47.0) % MCV 86.2 (78.0-93.0) fL MCH 29.3 (26.0-32.0) pg MCHC 34.0 (32.0-36.0) g/dL RDW Coeff of Alexx 13.6 (10.0-15.0) % Plt Count 260 (130-400) x10^3/uL Immature Gran % (Auto) 0.30 (0.00-0.43) % Neut % (Auto) 84.1 H (50.0-80.0) % Lymph % (Auto) 7.2 L (25.0-50.0) % [place] % (Auto) 5.8 (2.0-11.0) % Eos % (Auto) 2.3 (0.0-4.0) % Baso % (Auto) 0.3 (0.2-1.2) % Neut # (Auto) 7.9 H (1.8-7.7) x10^3/uL Lymph # (Auto) 0.7 L (1.0-4.8) x10^3/uL [place] # (Auto) 0.6 (0.0-0.8) x10^3/uL Eos # (Auto) 0.2 (0.0-0.5) x10^3/uL Baso # (Auto) 0.0 (0.0-0.2) x10^3/uL Immature Gran # (Auto) 0.03 (0.00-0.07) x10^3/uL PT 22.5 H (9.9-12.5) SEC INR 2.0 (2.0-3.5) Sodium 134 L (136-145) mmol/L Potassium 3.8 (3.5-5.1) mmol/L Chloride 96 L (98-107) mmol/L Carbon Dioxide 29 (21-32) mmol/L Anion Gap 12.8 (5-15) mmol/L BUN 26 H (7-18) mg/dL Creatinine 0.9 (0.55-1.02) mg/dL Est Cr Clr Drug Dosing 31.21 mL/min Estimated GFR (MDRD) > 60 Glucose 90 (70-99) mg/dL POC Glucose (70-99) mg/dL Serum Osmolality (275-295) mosm/kg Calcium 9.5 (8.5-10.1) mg/dL Urine Osmolality (300-900) mosm/kg Result Diagrams: 06/18/21 07:50 06/18/21 07:50 Vinh Results Last 24 hrs: Microbiology 06/16/21 14:03 Urine Culture - Preliminary Urine, Voided Klebsiella Pneumoniae Gram Negative Rods Sepsis Event Note - Evaluation Sepsis Screening Result: Possible Sepsis Risk - Focused Exam Vital Signs: Vital Signs Temp Pulse Pulse Resp BP BP Pulse Ox 06/18/21 07:57 91 151/57 H 06/18/21 07:56 151/57 H 06/18/21 05:58 36.7 C 91 31 H 151/57 H 06/18/21 02:07 06/18/21 02:00 36.5 C 64 30 H 104/35 L 100 06/17/21 22:00 36.8 C 93 30 H 117/36 L 95 Pulse Ox 06/18/21 07:57 06/18/21 07:56 06/18/21 05:58 06/18/21 02:07 95 06/18/21 02:00 06/17/21 22:00 - Problem List & Annotations (1) UTI (urinary tract infection) SNOMED Code(s): 95339019 Code(s): N39.0 - URINARY TRACT INFECTION, SITE NOT SPECIFIED Status: Acute Current Visit: No Qualifiers: Urinary tract infection type: acute cystitis Hematuria presence: without hematuria Qualified Code(s): N30.00 - Acute cystitis without hematuria (2) Hyponatremia SNOMED Code(s): 72395539 Code(s): E87.1 - HYPO-OSMOLALITY AND HYPONATREMIA Status: Acute Current Visit: Yes (3) Fall SNOMED Code(s): 3301795, 761004387 Code(s): W19.XXXA - UNSPECIFIED FALL, INITIAL ENCOUNTER Status: Acute Current Visit: Yes Qualifiers: Encounter type: initial encounter Qualified Code(s): W19.XXXA - Unspecified fall, initial encounter (4) Scalp hematoma SNOMED Code(s): 360303700 Code(s): S00.03XA - CONTUSION OF SCALP, INITIAL ENCOUNTER Status: Acute Current Visit: Yes Qualifiers: Encounter type: initial encounter Qualified Code(s): S00.03XA - Contusion of scalp, initial encounter (5) Chest wall pain SNOMED Code(s): 829030437 Code(s): R07.89 - OTHER CHEST PAIN Status: Acute Current Visit: Yes (6) Anxiety SNOMED Code(s): 84105021 Code(s): F41.9 - ANXIETY DISORDER, UNSPECIFIED Status: Chronic Current Visit: Yes (7) Atrial fibrillation SNOMED Code(s): 50024690 Code(s): I48.91 - UNSPECIFIED ATRIAL FIBRILLATION Status: Chronic Current Visit: Yes Qualifiers: Atrial fibrillation type: longstanding persistent Qualified Code(s): I48.11 - Longstanding persistent atrial fibrillation (8) Current use of keno terminal operator anticoagulation SNOMED Code(s): 584808411 Code(s): Z79.01 - COMPUTING CONSULTANT (CURRENT) USE OF ANTICOAGULANTS Status: Chronic Current Visit: Yes (9) Hypertension SNOMED Code(s): 40984948 Code(s): I10 - ESSENTIAL (PRIMARY) HYPERTENSION Status: Chronic Current Visit: Yes Qualifiers: Hypertension type: primary hypertension Qualified Code(s): I10 - Essential (primary) hypertension (10) Severe malnutrition SNOMED Code(s): 31665355 Code(s): E43 - UNSPECIFIED SEVERE PROTEIN-CALORIE MALNUTRITION Status: Chronic Current Visit: Yes (11) GERD (gastroesophageal reflux disease) SNOMED Code(s): 243443176 Code(s): K21.9 - GASTRO-ESOPHAGEAL REFLUX DISEASE WITHOUT ESOPHAGITIS Status: Chronic Current Visit: Yes Qualifiers: Esophagitis presence: esophagitis presence not specified Qualified Code(s): K21.9 - Gastro-esophageal reflux disease without esophagitis (12) Pressure ulcer SNOMED Code(s): 987560424 Code(s): L89.90 - PRESSURE ULCER OF UNSPECIFIED SITE, UNSPECIFIED STAGE Status: Chronic Current Visit: Yes Qualifiers: Pressure injury location: unspecified location Pressure injury stage: stage 1 Qualified Code(s): L89.91 - Pressure ulcer of unspecified site, stage 1 - Problem List Review Problem List Initiated/Reviewed/Updated: Yes - Assessment Assessment:: 81 yo female hospital day #3 admitted with hyponatremia and UTI. Doing much better today. - Plan Plan:: #1 UTI - Urine culture showing gram negative rods. Awaiting final report. - Continue ceftriaxone until culture results available. #2 Hyponatremia - Much better this morning. - Diuretics resumed yesterday. - Will continue to monitor daily. #3 Fall #4 Scalp hematoma #5 Chest wall pain - No intracranial complications from her fall on CT. - Also seems to still be mentating fine. - Main complaint is her chest wall pain. - CXR unremarkable yesterday. - Tylenol PRN. - IS encouraged hourly while awake. - If worsening/new symptoms, will do CT chest. #6 Anxiety - Continue current medications. - Plan is to make adjustments upon d/c. - However, it is also felt she will do better at assisted living, which is the current plan for d/c. #7 A-fib #8 On chronic anticoagulation - INR therapeutic today. - Continue warfarin. - HR controlled as well. #9 Hypertension #10 Severe malnutrition #11 GERD #12 Pressure ulcer, present on admission - Continue home medications/current cares. Patient will remain on acute today - is improving nicely but d/c is not determined yet. Hoping for assisted living next week. Also awaiting urine culture results. No changes in management today. Recheck labs in the am. Therapeutic on warfarin - no other VTE prophylaxis needed. Code status is full.
[2021-06-18] MEDS: Warfarin 2.5 MG Tab PO SCH (19:51)
[2021-06-18] MEDS: LORazepam 0.5 MG Tab PO PRN (22:34)
[2021-06-18] MEDS: Melatonin 3 MG Tab PO PRN (22:34)
[2021-06-19] MEDS: Metoclopramide 5 MG Tab PO SCH ×3 (06:58→17:09)
[2021-06-19] MEDS: Pantoprazole 40 MG Tab.CR PO SCH (06:58)
[2021-06-19] MEDS: Cranberry 500 MG Cap PO SCH ×3 (08:00→17:09)
[2021-06-19] MEDS: Aspirin 81 MG Tab.EC PO SCH (08:01)
[2021-06-19] MEDS: Potassium Chloride 10 MEQ Tab.ER PO SCH (08:01)
[2021-06-19] MEDS: Torsemide 20 MG Tab PO SCH ×2 (08:01→15:25)
[2021-06-19] MEDS: Cholecalciferol (Vitamin D3) 25 MCG Tab PO SCH (08:02)
[2021-06-19] MEDS: Metoprolol Succinate 25 MG Tab.ER PO SCH ×2 (08:04→20:23)
[2021-06-19] MEDS: Losartan 50 MG Tab PO SCH (08:04)
[2021-06-19 08:09] LABS: CHLORIDE,CL 98 mmol/L (98-107); SODIUM,NA 136 mmol/L (136-145)
[2021-06-19 08:11] LABS: ANION GAP 9.6 mmol/L (5-15)
[2021-06-19] MEDS: cefTRIAXone 1 GM Vial IVPUSH SCH (08:45)
--- NOTE | 2021-06-19 09:46 | PCM.PN ---
- General Info Date of Service: 06/19/21 Subjective Update: 81 yo female hospital day #4 admitted with hyponatremia and a UTI. Had an episode of shortness of breath while walking yesterday. Slept fine last night and denies any shortness of breath this morning, although she also has not really been out of bed yet. No leg swelling. No chest pain. Appetite is not great but she is eating ok. Continues with intermittent loose stools but these are infrequent. No abdominal pain or fever. No nausea or vomiting. Chest wall pain is about the same today as yesterday. She states she would really like to return home independently but also notes that assisted living would "not be so bad." She mentions the [facility] as something she might be interested in. - Review of Systems General: Reports: No Symptoms HEENT: Reports: No Symptoms Pulmonary: Reports: Shortness of Breath Cardiovascular: Reports: No Symptoms Gastrointestinal: Reports: No Symptoms Genitourinary: Reports: No Symptoms Musculoskeletal: Reports: No Symptoms Skin: Reports: No Symptoms Neurological: Reports: No Symptoms - Patient Data Vitals - Most Recent: Last Vital Signs Temp 34.0 C L 06/18/21 21:47 Pulse 78 06/19/21 08:04 Resp 20 06/19/21 06:00 BP 136/49 L 06/19/21 08:04 Pulse Ox 96 06/19/21 06:00 Weight - Most Recent: 40.324 kg I&O - Last 24 Hours: Intake & Output 06/18/21 06/19/21 06/19/21 22:59 06:59 14:59 Intake Total 120 240 Balance 120 240 Lab Results Last 24 Hours: Laboratory Results - last 24 hr 06/19/21 06/19/21 Range/Units 07:40 07:40 WBC 8.1 (4.0-10.0) x10^3/uL RBC 3.86 L (4.00-5.50) x10^6/uL Hgb 11.4 L (12.0-16.0) g/dL Hct 32.9 L (33.0-47.0) % MCV 85.2 (78.0-93.0) fL MCH 29.5 (26.0-32.0) pg MCHC 34.7 (32.0-36.0) g/dL RDW Coeff of Alexx 13.7 (10.0-15.0) % Plt Count 264 (130-400) x10^3/uL Immature Gran % (Auto) 0.50 H (0.00-0.43) % Neut % (Auto) 78.3 (50.0-80.0) % Lymph % (Auto) 8.8 L (25.0-50.0) % Baldwin % (Auto) 10.1 (2.0-11.0) % Eos % (Auto) 1.8 (0.0-4.0) % Baso % (Auto) 0.5 (0.2-1.2) % Neut # (Auto) 6.4 (1.8-7.7) x10^3/uL Lymph # (Auto) 0.7 L (1.0-4.8) x10^3/uL Baldwin # (Auto) 0.8 (0.0-0.8) x10^3/uL Eos # (Auto) 0.2 (0.0-0.5) x10^3/uL Baso # (Auto) 0.0 (0.0-0.2) x10^3/uL Immature Gran # (Auto) 0.04 (0.00-0.07) x10^3/uL Sodium 136 (136-145) mmol/L Potassium 3.6 (3.5-5.1) mmol/L Chloride 98 (98-107) mmol/L Carbon Dioxide 32 (21-32) mmol/L Anion Gap 9.6 (5-15) mmol/L BUN 33 H (7-18) mg/dL Creatinine 0.9 (0.55-1.02) mg/dL Est Cr Clr Drug Dosing 31.21 mL/min Estimated GFR (MDRD) > 60 Glucose 94 (70-99) mg/dL Calcium 9.4 (8.5-10.1) mg/dL Vinh Results Last 24 Hours: Microbiology 06/16/21 14:03 Urine Culture - Final Urine, Voided Klebsiella Pneumoniae Proteus Mirabilis Med Orders - Current: Current Medications Acetaminophen (Acetaminophen 325 Mg Tab) 650 mg PO Q4H PRN PRN Reason: Pain (mild 1-3) Last Admin: 06/17/21 20:43 Dose: 650 mg Documented by: Artificial Tears (Hypromellose 0.3% Ophth Soln 15 Ml Bottle) 0 ml EYEBOTH Q4H PRN PRN Reason: Dry Eyes Aspirin (Aspirin 81 Mg Tab.Ec) 81 mg PO DAILY [facility] Last Admin: 06/19/21 08:01 Dose: 81 mg Documented by: Calcium Carbonate/Glycine (Calcium Carbonate 750 Mg Tab.Chew) 1,500 mg PO Q4H PRN PRN Reason: Heartburn Cephalexin (Cephalexin 250 Mg Cap) 250 mg PO Q6HR [facility] Stop: 06/21/21 05:00 Cholecalciferol (Cholecalciferol (Vitamin D3) 25 Mcg Tab) 25 mcg PO DAILY [facility] Last Admin: 06/19/21 08:02 Dose: 25 mcg Documented by: Cranberry (Cranberry 500 Mg Cap) 1,000 mg PO TIDMEALS [facility] Last Admin: 06/19/21 08:00 Dose: 1,000 mg Documented by: Lactobacillus Rhamnosus (Lactobacillus Rhamnosus Gg (Probiotic) Cap) 1 cap PO DAILY PRN PRN Reason: prophylaxis Lorazepam (Lorazepam 0.5 Mg Tab) 0.5 mg PO Q6H PRN PRN Reason: Anxiety Last Admin: 06/18/21 22:34 Dose: 0.5 mg Documented by: Losartan Potassium (Losartan 50 Mg Tab) 50 mg PO DAILY [facility] Last Admin: 06/19/21 08:04 Dose: 50 mg Documented by: Melatonin (Melatonin 3 Mg Tab) 3 mg PO BEDTIME PRN PRN Reason: Insomnia Last Admin: 06/18/21 22:34 Dose: 3 mg Documented by: Metoclopramide HCl (Metoclopramide 5 Mg Tab) 5 mg PO 0700,1100,1700 [facility] Last Admin: 06/19/21 06:58 Dose: 5 mg Documented by: Metoprolol Succinate (Metoprolol Succinate 25 Mg Tab.Er) 25 mg PO BEDTIME [facility] Last Admin: 06/18/21 19:50 Dose: 25 mg Documented by: Metoprolol Succinate (Metoprolol Succinate 25 Mg Tab.Er) 50 mg PO DAILY [facility] Last Admin: 06/19/21 08:04 Dose: 50 mg Documented by: Estradiol [Estrace 0 .01% Vaginal Crm] * *Own Med 0 gram .XX Q7D [facility] Last Admin: 06/17/21 09:31 Dose: Not Given Documented by: Ondansetron HCl (Ondansetron 4 Mg/2 Ml Sdv) 4 mg IVPUSH Q8H PRN PRN Reason: Nausea Pantoprazole Sodium (Pantoprazole 40 Mg Tab.Cr) 40 mg PO ACBREAKFAST [facility] Last Admin: 06/19/21 06:58 Dose: 40 mg Documented by: Potassium Chloride (Potassium Chloride 10 Meq Tab.Er) 10 meq PO DAILY [facility] Last Admin: 06/19/21 08:01 Dose: 10 meq Documented by: Senna/Docusate Sodium (Docusate Sodium/Sennosides 50-8.6 Mg Tab) 1 tab PO BID PRN PRN Reason: Constipation Sodium Chloride (Sodium Chloride 0.9% 10 Ml Syringe) 10 ml FLUSH ASDIRECTED PRN PRN Reason: Keep Vein Open Torsemide (Torsemide 20 Mg Tab) 20 mg PO BIDDIURETIC [facility] Last Admin: 06/19/21 08:01 Dose: 20 mg Documented by: Tramadol HCl (Tramadol 50 Mg Tab) 25 mg PO Q4H PRN PRN Reason: Pain Warfarin Sodium (Warfarin 2.5 Mg Tab) 1.25 mg PO BEDTIME [facility] Last Admin: 06/18/21 19:51 Dose: 1.25 mg Documented by: Discontinued Medications Ceftriaxone Sodium (Ceftriaxone 1 Gm Vial) 1 gm IVPUSH DAILY [facility] Last Admin: 06/19/21 08:45 Dose: 1 gm Documented by: Sodium Chloride (Normal Saline) 1,000 mls @ 125 mls/hr IV ASDIRECTED [facility] Stop: 06/17/21 19:29 Last Admin: 06/16/21 11:32 Dose: 125 mls/hr Documented by: Loperamide HCl (Loperamide 2 Mg Cap) 2 mg PO ONETIME ONE Stop: 06/18/21 05:55 Last Admin: 06/18/21 06:02 Dose: 2 mg Documented by: Metoclopramide HCl (Metoclopramide 5 Mg Tab) 5 mg PO Q8H PRN PRN Reason: Nausea Last Admin: 06/17/21 09:34 Dose: 5 mg Documented by: Metoclopramide HCl (Metoclopramide 5 Mg Tab) 5 mg PO TID [facility] Last Admin: 06/17/21 11:36 Dose: 5 mg Documented by: Pantoprazole Sodium (Pantoprazole 40 Mg Tab.Cr) 40 mg PO ACBREAKFAST [facility] Last Admin: 06/16/21 18:56 Dose: Not Given Documented by: - Exam General: Alert, Oriented, Cooperative, No Acute Distress HEENT: Mucous Membr. Moist/[place] Neck: Supple, Trachea Midline, No Thyromegaly. No: Lymphadenopathy Lungs: Clear to Auscultation, Normal Respiratory Effort Cardiovascular: Regular Rate, Irregular Rhythm, Murmurs GI/Abdominal Exam: Normal Bowel Sounds, Soft, Non-Tender, No Organomegaly, No Distention, No Mass Extremities: Normal Inspection, Non-Tender, No Pedal Edema, Normal Capillary Refill Peripheral Pulses: 2+: Radial (L), Radial (R) Skin: Warm, Dry, Intact Wound/Incisions: Healing Well Neurological: No New Focal Deficit - Patient Data Lab Results Last 24 hrs: Laboratory Results - last 24 hr 06/19/21 06/19/21 Range/Units 07:40 07:40 WBC 8.1 (4.0-10.0) x10^3/uL RBC 3.86 L (4.00-5.50) x10^6/uL Hgb 11.4 L (12.0-16.0) g/dL Hct 32.9 L (33.0-47.0) % MCV 85.2 (78.0-93.0) fL MCH 29.5 (26.0-32.0) pg MCHC 34.7 (32.0-36.0) g/dL RDW Coeff of Alexx 13.7 (10.0-15.0) % Plt Count 264 (130-400) x10^3/uL Immature Gran % (Auto) 0.50 H (0.00-0.43) % Neut % (Auto) 78.3 (50.0-80.0) % Lymph % (Auto) 8.8 L (25.0-50.0) % Baldwin % (Auto) 10.1 (2.0-11.0) % Eos % (Auto) 1.8 (0.0-4.0) % Baso % (Auto) 0.5 (0.2-1.2) % Neut # (Auto) 6.4 (1.8-7.7) x10^3/uL Lymph # (Auto) 0.7 L (1.0-4.8) x10^3/uL Baldwin # (Auto) 0.8 (0.0-0.8) x10^3/uL Eos # (Auto) 0.2 (0.0-0.5) x10^3/uL Baso # (Auto) 0.0 (0.0-0.2) x10^3/uL Immature Gran # (Auto) 0.04 (0.00-0.07) x10^3/uL Sodium 136 (136-145) mmol/L Potassium 3.6 (3.5-5.1) mmol/L Chloride 98 (98-107) mmol/L Carbon Dioxide 32 (21-32) mmol/L Anion Gap 9.6 (5-15) mmol/L BUN 33 H (7-18) mg/dL Creatinine 0.9 (0.55-1.02) mg/dL Est Cr Clr Drug Dosing 31.21 mL/min Estimated GFR (MDRD) > 60 Glucose 94 (70-99) mg/dL Calcium 9.4 (8.5-10.1) mg/dL Result Diagrams: 06/19/21 07:40 06/19/21 07:40 Vinh Results Last 24 hrs: Microbiology 06/16/21 14:03 Urine Culture - Final Urine, Voided Klebsiella Pneumoniae Proteus Mirabilis Sepsis Event Note - Evaluation Sepsis Screening Result: No Definite Risk - Focused Exam Vital Signs: Vital Signs Temp Pulse Pulse Resp BP BP Pulse Ox 06/19/21 08:04 78 136/49 L 06/19/21 06:00 78 20 136/49 L 96 06/18/21 22:15 77 98/39 L 06/18/21 21:47 34.0 C L 94 20 97/30 L 95 - Problem List & Annotations (1) UTI (urinary tract infection) SNOMED Code(s): 01611391 Code(s): N39.0 - URINARY TRACT INFECTION, SITE NOT SPECIFIED Status: Acute Current Visit: No Qualifiers: Urinary tract infection type: acute cystitis Hematuria presence: without hematuria Qualified Code(s): N30.00 - Acute cystitis without hematuria (2) Hyponatremia SNOMED Code(s): 58576997 Code(s): E87.1 - HYPO-OSMOLALITY AND HYPONATREMIA Status: Acute Current Visit: Yes (3) Fall SNOMED Code(s): 3990413, 258169883 Code(s): W19.XXXA - UNSPECIFIED FALL, INITIAL ENCOUNTER Status: Acute Current Visit: Yes Qualifiers: Encounter type: initial encounter Qualified Code(s): W19.XXXA - Unspecified fall, initial encounter (4) Scalp hematoma SNOMED Code(s): 475036559 Code(s): S00.03XA - CONTUSION OF SCALP, INITIAL ENCOUNTER Status: Acute Current Visit: Yes Qualifiers: Encounter type: initial encounter Qualified Code(s): S00.03XA - Contusion of scalp, initial encounter (5) Chest wall pain SNOMED Code(s): 654607549 Code(s): R07.89 - OTHER CHEST PAIN Status: Acute Current Visit: Yes (6) Anxiety SNOMED Code(s): 34193054 Code(s): F41.9 - ANXIETY DISORDER, UNSPECIFIED Status: Chronic Current Visit: Yes (7) Atrial fibrillation SNOMED Code(s): 45606448 Code(s): I48.91 - UNSPECIFIED ATRIAL FIBRILLATION Status: Chronic Current Visit: Yes Qualifiers: Atrial fibrillation type: longstanding persistent Qualified Code(s): I48.11 - Longstanding persistent atrial fibrillation (8) Current use of fdc anticoagulation SNOMED Code(s): 129984330 Code(s): Z79.01 - LOW HEEL BUILDER (CURRENT) USE OF ANTICOAGULANTS Status: Chronic Current Visit: Yes (9) Hypertension SNOMED Code(s): 83030628 Code(s): I10 - ESSENTIAL (PRIMARY) HYPERTENSION Status: Chronic Current Visit: Yes Qualifiers: Hypertension type: primary hypertension Qualified Code(s): I10 - Essential (primary) hypertension (10) Severe malnutrition SNOMED Code(s): 08236086 Code(s): E43 - UNSPECIFIED SEVERE PROTEIN-CALORIE MALNUTRITION Status: Chronic Current Visit: Yes (11) GERD (gastroesophageal reflux disease) SNOMED Code(s): 623438492 Code(s): K21.9 - GASTRO-ESOPHAGEAL REFLUX DISEASE WITHOUT ESOPHAGITIS Status: Chronic Current Visit: Yes Qualifiers: Esophagitis presence: esophagitis presence not specified Qualified Code(s): K21.9 - Gastro-esophageal reflux disease without esophagitis (12) Pressure ulcer SNOMED Code(s): 827547148 Code(s): L89.90 - PRESSURE ULCER OF UNSPECIFIED SITE, UNSPECIFIED STAGE Status: Chronic Current Visit: Yes Qualifiers: Pressure injury location: unspecified location Pressure injury stage: stage 1 Qualified Code(s): L89.91 - Pressure ulcer of unspecified site, stage 1 - Problem List Review Problem List Initiated/Reviewed/Updated: Yes - My Orders Last 24 Hours: My Active Orders 06/19/21 12:00 cephALEXin [Keflex] 250 mg PO Q6HR 06/20/21 05:11 BASIC METABOLIC PANEL,BMP [CHEM] Routine CBC WITH AUTO DIFF [HEME] Routine INR,PT,PROTHROMBIN TIME [COAG] Routine - Assessment Assessment:: 81 yo female hospital day #4 admitted with hyponatremia and UTI. Doing much better still today. - Plan Plan:: #1 UTI - Final urine culture reveals 2 organisms, both susceptible to cephalexin. - Therefore, will d/c ceftriaxone and do cephalexin today instead. No dose adjustment needed since her CrCl is >30. Given this was not a complicated UTI, will plan for total of 5 days of antibiotics. #2 Hyponatremia, resolved - Sodium back to normal today. - No further fluids. - Will recheck again in am. #3 Fall #4 Scalp hematoma #5 Chest wall pain - No intracranial complications from her fall on CT. - Also seems to still be mentating fine. - Main complaint is her chest wall pain. - CXR unremarkable 06/17. No indication to repeat imaging at this point unless her dyspnea recurs. - Tylenol PRN. - IS encouraged hourly while awake. - If worsening/new symptoms, will do CT chest. #6 Anxiety - Continue current medications. - Plan is to make adjustments upon d/c. - However, it is also felt she will do better at assisted living, which is the current plan for d/c. #7 A-fib #8 On chronic anticoagulation - INR therapeutic yesterday, not done today. Will recheck tomorrow. - Continue warfarin. - HR controlled as well. #9 Hypertension #10 Severe malnutrition #11 GERD #12 Pressure ulcer, present on admission - Continue home medications/current cares. Patient will remain on acute today - is improving nicely but d/c disposition is not determined yet. Will have re-eval tomorrow by therapies and also discussion per PCP and family as far as d/c planning. INR therapeutic on warfarin - no other VTE prophylaxis needed. Code status is full.
[2021-06-19] MEDS: Cephalexin 250 MG Cap PO SCH ×3 (12:12→23:09)
[2021-06-19] MEDS: Warfarin 2.5 MG Tab PO SCH (20:26)
[2021-06-19] MEDS: Melatonin 3 MG Tab PO PRN (22:45)
[2021-06-19] MEDS: Acetaminophen 325 MG Tab PO PRN (22:46)
[2021-06-20] MEDS: Cephalexin 250 MG Cap PO SCH ×2 (05:31→14:26)
[2021-06-20 06:40] LABS: ANION GAP 11.5 mmol/L (5-15); CHLORIDE,CL 95 mmol/L (98-107); SODIUM,NA 133 mmol/L (136-145)
[2021-06-20] MEDS: Metoclopramide 5 MG Tab PO SCH ×2 (06:50→12:27)
[2021-06-20] MEDS: Pantoprazole 40 MG Tab.CR PO SCH (06:50)
[2021-06-20] MEDS: Cranberry 500 MG Cap PO SCH ×2 (09:40→14:26)
--- NOTE | 2021-06-20 09:41 | CR ---
[id number] RAD/RAD Chest PA And Lateral EXAM: RAD Chest PA And Lateral INDICATION: SHORT OF BREATH. COMPARISON: June 17, 2021. DISCUSSION: Cardiomediastinal silhouette is normal in size and contour. No infiltrate, effusion, pneumothorax, or edema. Pulmonary hyperinflation. IMPRESSION: No acute cardiopulmonary abnormality. Lokesh Mcdaniels DO 06/20/21 0940 Thank you for allowing us to participate in the care of your patient.
[2021-06-20] MEDS: Torsemide 20 MG Tab PO SCH (09:45)
[2021-06-20] MEDS: Metoprolol Succinate 25 MG Tab.ER PO SCH (09:47)
[2021-06-20] MEDS: Potassium Chloride 10 MEQ Tab.ER PO SCH (09:48)
[2021-06-20] MEDS: Aspirin 81 MG Tab.EC PO SCH (09:49)
[2021-06-20] MEDS: Losartan 50 MG Tab PO SCH (12:26)
[2021-06-20] MEDS: Cholecalciferol (Vitamin D3) 25 MCG Tab PO SCH (14:26)
--- NOTE | 2021-06-21 07:06 | DISCH ---
PRIMARY DISCHARGE DIAGNOSES: 1. Acute Klebsiella and Proteus urinary tract infection with history of recurrent urinary tract infections, but negative for residual on her bladder scans. The patient did require a catheter, prolonged, after hip fracture surgery, but has successfully passed her voiding trials now and off the catheter for several weeks. 2. Hyponatremia, severe. Sodium 122. Probably worsened by dehydration. This improved with IV fluids. 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 She also had a serum osmolality that was low at 274 and urine osmolality low at 204. She does take diuretics as well for heart failure. 3. Anxiety, likely due to her medical condition and living at home independently. This is probably affecting her appetite some. 4. Severe malnutrition, but tolerating a diet here. She did have some nausea, probably from her UTI and hyponatremia. 5. Atrial fibrillation, rate controlled on Coumadin, subtherapeutic, but improved with her regular doses, 2.5 on discharge. 6. Fall with head injury. Her INR was actually 1.6 when this occurred. She had a head CT showing no bleeding. She has not had any further symptoms. 7. Left hip fracture back in March, doing well. She did not require any pain medications. 8. Gastroesophageal reflux disease, longstanding. She is on a scheduled PPI. She is currently getting 3 times a day Reglan. 9. Stage I pressure ulcer on admission. REASON FOR ADMISSION: On the date of admission, this is an 81-year-old female, who is well known to us from her post-hospital stay for hip fracture, then she went home and required retirement care for about a month and then was discharged home, has now been readmitted due to nausea, weight loss, and poor oral intake, which likely worsened her hyponatremia. The patient was given IV Rocephin initially and yesterday, based on her urine cultures, was switched over to oral Keflex. She is tolerating that and plans to complete a course for that tomorrow. She otherwise had initially her Lasix held, then was restarted on the Demadex for fluid and she is tolerating that well. At times, she has felt a little lightheaded, but at times she is also short of breath, but that has been ongoing even since before her mitral clip, which was back in March. The patient also has known aortic stenosis and regurgitation and is following with Cardiology. She had a repeat chest x-ray which was showing no fluid. Her proBNP was still 11,000. Her EF was 60% back in April. The patient is not requiring any oxygen. She was off all IVs. She is eating 90% to 100% of her meals. She is having bowel movements, although they are looser, like 1 a day, which she attributes to antibiotics. PHYSICAL EXAMINATION: Vital Signs: On discharge, temperature 97.5, pulse 89, blood pressure 120/45, respiratory rate 20. O2 96% on room air. General: She is in no acute distress. Heart: Irregularly irregular with murmur. Lungs: Sounds are clear to auscultation on the right. There is some decrease in the left base, but no crackles, no wheezes. Abdomen: Positive bowel sounds. Soft, nondistended, nontender. Extremities: Warm and dry. No edema. Mental Status: She is alert and orientated x3. LABORATORY DATA: Lab work today: White count 7.6, hemoglobin 11.4, platelets 286. INR 2.5. Sodium 133, but normal 136 yesterday. Potassium 3.5, chloride 95, bicarb 30, BUN 38, creatinine 0.9. DISCHARGE PLAN: The patient is going over to swing bed. It does sound like the patient will be either going to assisted living or home with family to assisted living on discharge. We will have PT and OT evaluate her again on swing bed. Greater than 30 minutes spent on this discharge process. MKA: 06/20/2021 14:13:49 MODL: 06/21/2021 04:25:45 /[id number]
== END 2021-06-20 14:54 | disposition swing bed (61) | DRG 643 ==
LOC: VM.ED 10:16 → VM.MS 11:44 → UNDODISIN 06-20 14:54
PROVIDERS: ADMIT Internal Medicine; ATTEND Internal Medicine
DX: E22.2 Syndrome of inappropriate secretion of antidiuretic hormone (principal); E87.1 Hypo-osmolality and hyponatremia; I10 Essential (primary) hypertension; E78.1 Pure hyperglyceridemia; E43 Unspecified severe protein-calorie malnutrition; N39.0 Urinary tract infection, site not specified; Z68.1 Body mass index [BMI] 19.9 or less, adult; I50.32 Chronic diastolic (congestive) heart failure; I13.0 Hypertensive heart and chronic kidney disease with heart failure and stage 1 through stage 4 chronic kidney disease, or unspecified chronic kidney disease; I48.11 Longstanding persistent atrial fibrillation; B96.1 Klebsiella pneumoniae [K. pneumoniae] as the cause of diseases classified elsewhere; E86.0 Dehydration; Z20.822 Contact with and (suspected) exposure to COVID-19; I48.91 Unspecified atrial fibrillation; K21.9 Gastro-esophageal reflux disease without esophagitis; E78.00 Pure hypercholesterolemia, unspecified; I48.0 Paroxysmal atrial fibrillation; M81.0 Age-related osteoporosis without current pathological fracture; D53.9 Nutritional anemia, unspecified; K59.00 Constipation, unspecified; L89.151 Pressure ulcer of sacral region, stage 1; F43.22 Adjustment disorder with anxiety; S00.03XA Contusion of scalp, initial encounter; Z88.1 Allergy status to other antibiotic agents; Z88.5 Allergy status to narcotic agent; Z79.899 Other long term (current) drug therapy; Z90.710 Acquired absence of both cervix and uterus; Z90.49 Acquired absence of other specified parts of digestive tract; S72.002D Fracture of unspecified part of neck of left femur, subsequent encounter for closed fracture with routine healing; Z88.2 Allergy status to sulfonamides; Z79.01 Long term (current) use of anticoagulants; Z79.82 Long term (current) use of aspirin; W18.30XA Fall on same level, unspecified, initial encounter
CPT/HCPCS: 36415; 70450; 71045; 71046; 80048; 80053; 80162; 80307; 81001; 82947; 83605; 83880; 83930; 83935; 84295; 84443; 84484; 85025; 85610; 85730; 87086; 87088; 87186; 93005; 97110-GP; 97161-GP; 99284; 99285-25; A9270-GY; J0696; J7030; U0002

== ENCOUNTER 2021-06-20 12:57 | Inpatient (IN) | payer MEDICARE, BC ==
[2021-06-20] MEDS ORDERED: Lactobacillus Rhamnosus GG (Probiotic) Cap PO PRN (13:56)
[2021-06-20] MEDS ORDERED: LORazepam 0.5 MG Tab PO PRN (13:56)
[2021-06-20] MEDS ORDERED: Hypromellose 0.3% Ophth Soln 15 ML Bottle EYEBOTH PRN (13:56)
[2021-06-20] MEDS ORDERED: traMADol 50 MG Tab PO PRN (13:56)
[2021-06-20] MEDS ORDERED: Calcium Carbonate 750 MG Tab.Chew PO PRN (13:56)
[2021-06-20] MEDS ORDERED: Melatonin 3 MG Tab PO PRN (13:56)
[2021-06-20] MEDS ORDERED: Acetaminophen 325 MG Tab PO PRN (13:56)
[2021-06-20] MEDS ORDERED: Sodium Chloride 0.9% 10 ML Syringe FLUSH PRN (13:56)
[2021-06-20] MEDS: Cephalexin 250 MG Cap PO SCH ×2 (17:06→23:39)
[2021-06-20] MEDS: Torsemide 20 MG Tab PO SCH (17:06)
[2021-06-20] MEDS: Metoclopramide 5 MG Tab PO SCH (17:06)
[2021-06-20] MEDS: Cranberry 500 MG Cap PO SCH (17:06)
[2021-06-20] MEDS: Warfarin 2.5 MG Tab PO SCH (19:42)
[2021-06-20] MEDS: Metoprolol Succinate 25 MG Tab.ER PO SCH (19:42)
[2021-06-21] MEDS: Pantoprazole 40 MG Tab.CR PO SCH (06:04)
[2021-06-21] MEDS: Metoclopramide 5 MG Tab PO SCH ×3 (06:04→16:34)
[2021-06-21] MEDS: Cranberry 500 MG Cap PO SCH ×3 (07:50→17:34)
[2021-06-21] MEDS: Metoprolol Succinate 25 MG Tab.ER PO SCH ×2 (07:50→19:43)
[2021-06-21] MEDS: Potassium Chloride 10 MEQ Tab.ER PO SCH (07:51)
[2021-06-21] MEDS: Torsemide 20 MG Tab PO SCH ×2 (07:51→16:34)
[2021-06-21] MEDS: Losartan 50 MG Tab PO SCH (07:51)
[2021-06-21] MEDS: Aspirin 81 MG Tab.EC PO SCH (07:51)
[2021-06-21] MEDS: Cholecalciferol (Vitamin D3) 25 MCG Tab PO SCH (07:51)
[2021-06-21] MEDS: Cephalexin 250 MG Cap PO SCH ×4 (09:55→23:31)
[2021-06-21] MEDS: Warfarin 2.5 MG Tab PO SCH (19:44)
[2021-06-22] MEDS: Metoclopramide 5 MG Tab PO SCH (06:04)
[2021-06-22] MEDS: Cephalexin 250 MG Cap PO SCH (06:04)
[2021-06-22] MEDS: Pantoprazole 40 MG Tab.CR PO SCH (06:04)
[2021-06-22 06:48] LABS: CHLORIDE,CL 97 mmol/L (98-107); SODIUM,NA 135 mmol/L (136-145)
[2021-06-22 06:49] LABS: ANION GAP 10.5 mmol/L (5-15)
[2021-06-22] MEDS: Cranberry 500 MG Cap PO SCH (07:30)
[2021-06-22] MEDS: Losartan 50 MG Tab PO SCH (07:31)
[2021-06-22] MEDS: Aspirin 81 MG Tab.EC PO SCH (07:31)
[2021-06-22] MEDS: Torsemide 20 MG Tab PO SCH (07:31)
[2021-06-22] MEDS: Metoprolol Succinate 25 MG Tab.ER PO SCH (07:31)
[2021-06-22] MEDS: Potassium Chloride 10 MEQ Tab.ER PO SCH (07:31)
[2021-06-22] MEDS: Cholecalciferol (Vitamin D3) 25 MCG Tab PO SCH (07:32)
--- NOTE | 2021-06-23 04:12 | DISCH ---
Date of swing bed admission is 06/20/2021. PRIMARY DISCHARGE DIAGNOSES: 1. Severe hyponatremia resulting in nausea and poor appetite. Sodium normal at 135 on discharge, probably some element of dehydration and heart failure contributing. 2. Klebsiella and Proteus urinary tract infection. She completed antibiotics total 7 days with the last couple days of Keflex during her stay. She has had recurrent UTIs, but is emptying her bladder okay. This probably occurred due to poor oral intake. 3. Anxiety, likely due to her ongoing medical conditions and also being alone at home. She is moving into assisted living. 4. Deconditioning with a left hip fracture back in March. She has been doing okay. She has not required any pain pills. 5. Severe malnutrition. She is tolerating 100% of her diet here. 6. Atrial fibrillation, rate controlled on Coumadin. Her INR was up to 3.2 today, likely due to antibiotics and also she had been off her low-dose vitamin K, which is restarted on discharge. 7. Gastroesophageal reflux disease, longstanding. She is on a PPI. She is declining any further workup with esophagram currently. 8. Fall with head injury. Head CT was okay. Her INR was only 1.6 at that time. She has had no further issues. 9. Stage I pressure ulcer present on admission. 10.Chronic diastolic heart failure. REASON FOR ADMISSION: On the date of admission, this 81-year-old female who is well known from long swing bed stay to recover after a hip fracture. She also had a mitral clip back in March as well. She was brought in due to a fall and head injury. She was found to have a sodium of 122. She was dehydrated. She was given IV fluids and her sodium gradually improved, along with her nausea. She did not require 3% saline. She had been recently switched over to Reglan for nausea as an outpatient, but had not even tried it. Her admitting weight was around 38 kg. Discharging weight is 41.3 kg. She had repeat chest x-ray. Her lungs were showing no pneumonia. Her breathing at times was a little short, but this is nothing new since even prior to her mitral clip and she does have known aortic stenosis and insufficiency. The patient was progressing well with therapies and decision and plan was made with the patient and her family that she would try assisted living at the [facility]. She is being discharged there today. Only medication change made was that her oral Lasix was stopped when she came in dehydrated and we restarted her on Demadex. Her Coumadin dosing will remain the same at 1.25 daily, but we will skip today's dose due to the slightly supratherapeutic INR. She will otherwise followup with Dr. Bullard on the at 11 a.m. and we will reschedule her dietitian consult that she missed, but she was seen by our dietitian and was getting Boost and Breeze type supplements during her stay here. Lab work will also be due when she sees me in 2 weeks' time and she will have home health for continued therapies. [id number] encounter occurred with myself on 06/22/2021. Reason for home health is for teaching and assessments with CHF as well as severe malnutrition encouraging a diet with nursing care along with gait and mobility through physical therapy as she was already working with them prior to this admission. I will periodically review this plan of care. Greater than 30 minutes spent on the discharge process. Exam: General: Thin but color has improved Heart: Irregular with murmur Lungs: Clear Abdomen: + BS, soft, and non tender Extremities: No edema Mood: Not anxious or depressed MKA: 06/22/2021 12:53:30 MODL: 06/23/2021 04:03:10 /[id number]
== END 2021-06-22 09:25 | disposition home health service (06) | DRG 947 ==
LOC: VM.MS 14:04
PROVIDERS: ADMIT Internal Medicine; ATTEND Internal Medicine
DX: R53.1 Weakness (principal); E43 Unspecified severe protein-calorie malnutrition; E87.1 Hypo-osmolality and hyponatremia; N39.0 Urinary tract infection, site not specified; I50.32 Chronic diastolic (congestive) heart failure; Z68.1 Body mass index [BMI] 19.9 or less, adult; B96.1 Klebsiella pneumoniae [K. pneumoniae] as the cause of diseases classified elsewhere; F41.9 Anxiety disorder, unspecified; I48.91 Unspecified atrial fibrillation; K21.9 Gastro-esophageal reflux disease without esophagitis; I35.0 Nonrheumatic aortic (valve) stenosis; Z20.822 Contact with and (suspected) exposure to COVID-19
CPT/HCPCS: 36415; 80048; 85025; 85610; 97110-GP; 97116-GP; 97165-GO; A9270-GY; U0002

== ENCOUNTER 2021-10-21 15:21 | Inpatient (IN) | payer MEDICARE, BC ==
[2021-10-21] MEDS ORDERED: Sodium Chloride 0.9% 10 ML Syringe FLUSH PRN (15:34)
[2021-10-21 16:18] LABS: ANION GAP 14.9 mmol/L (5-15); CHLORIDE,CL 101 mmol/L (98-107); SODIUM,NA 142 mmol/L (136-145)
[2021-10-21 16:25] LABS: CORONAVIRUS COVID-19 NAA NEGATIVE (NEGATIVE)
[2021-10-21] MEDS ORDERED: Furosemide 20 MG/2 ML VIAL IV ONE (16:25)
[2021-10-21 16:26] LABS: RESPIRATORY SYNCYTIAL VIR NAA NEGATIVE (NEGATIVE)
[2021-10-21] MEDS ORDERED: Metoprolol Succinate 25 MG Tab.ER PO ONE (16:26)
[2021-10-21] MEDS ORDERED: Diltiazem 50 MG/10 ML SDV IVPUSH ONE (16:54)
[2021-10-21] MEDS ORDERED: Potassium Chloride Riders 20 MEQ in Premix Bag 1 BAG IV ONE (17:20)
[2021-10-21] MEDS ORDERED: Magnesium Sulfate/Water 2 GM in Premix Bag 1 BAG IV ONE (17:20)
[2021-10-21] MEDS ORDERED: Diltiazem 125 MG in Sodium Chloride 0.9% 100 ML IV SCH (17:30)
[2021-10-21] MEDS: cefTRIAXone 1 GM Vial IVPUSH SCH (17:59)
[2021-10-21] MEDS ORDERED: Calcium Carbonate 750 MG Tab.Chew PO PRN (18:22)
[2021-10-21] MEDS ORDERED: Warfarin 2.5 MG Tab PO SCH (20:00)
[2021-10-21] MEDS ORDERED: Metoprolol Succinate 25 MG Tab.ER PO SCH (20:00)
[2021-10-21] MEDS ORDERED: Metoprolol Succinate 50 MG Tab.ER PO ONE (20:00)
[2021-10-21] MEDS: Melatonin 3 MG Tab PO PRN (20:33)
[2021-10-21] MEDS: Warfarin 2.5 MG Tab PO SCH (22:02)
[2021-10-22] MEDS: Phytonadione 100 MCG Tab PO SCH (07:33)
[2021-10-22] MEDS: Torsemide 20 MG Tab PO SCH (07:33)
[2021-10-22] MEDS: Metoclopramide 5 MG Tab PO SCH ×3 (07:34→17:33)
[2021-10-22] MEDS: Aspirin 81 MG Tab.EC PO SCH (07:34)
[2021-10-22] MEDS: cefTRIAXone 1 GM Vial IVPUSH SCH (07:39)
[2021-10-22] MEDS: Losartan 50 MG Tab PO SCH (07:39)
[2021-10-22] MEDS ORDERED: POTASSIUM CITRATE 10 MEQ PO SCH (08:00)
[2021-10-22 08:15] LABS: ANION GAP 11.1 mmol/L (5-15); CHLORIDE,CL 101 mmol/L (98-107); SODIUM,NA 138 mmol/L (136-145)
[2021-10-22] MEDS ORDERED: Metoprolol Succinate 50 MG Tab.ER PO ONE (08:15)
[2021-10-22] MEDS ORDERED: POTASSIUM CITRATE 20 MEQ PO SCH (10:00)
[2021-10-22] MEDS: Potassium Chloride 10 MEQ Tab.ER PO SCH ×2 (12:02→17:33)
[2021-10-22] MEDS: Warfarin 2.5 MG Tab PO SCH (19:33)
[2021-10-22] MEDS: Melatonin 3 MG Tab PO PRN (19:37)
[2021-10-22] MEDS: Metoprolol Succinate 25 MG Tab.ER PO SCH (19:38)
[2021-10-22] MEDS ORDERED: Potassium Chloride 20 MEQ Tab.ER PO SCH (20:00)
[2021-10-23] MEDS: Metoprolol Succinate 25 MG Tab.ER PO SCH ×2 (07:40→19:24)
[2021-10-23] MEDS: Potassium Chloride 10 MEQ Tab.ER PO SCH (07:41)
[2021-10-23] MEDS: Torsemide 20 MG Tab PO SCH (07:43)
[2021-10-23] MEDS: Losartan 50 MG Tab PO SCH (07:43)
[2021-10-23] MEDS: Phytonadione 100 MCG Tab PO SCH (07:43)
[2021-10-23] MEDS: Aspirin 81 MG Tab.EC PO SCH (07:43)
[2021-10-23] MEDS: cefTRIAXone 1 GM Vial IVPUSH SCH (07:44)
[2021-10-23 08:05] LABS: CHLORIDE,CL 102 mmol/L (98-107); SODIUM,NA 137 mmol/L (136-145)
[2021-10-23 08:10] LABS: ANION GAP 11.6 mmol/L (5-15)
[2021-10-23] MEDS: Metoclopramide 5 MG Tab PO SCH ×3 (08:57→17:07)
[2021-10-23] MEDS: Loperamide 2 MG Cap PO PRN ×2 (08:58→23:58)
[2021-10-23] MEDS: Digoxin 125 MCG Tab PO SCH (09:52)
[2021-10-23] MEDS ORDERED: Warfarin 2.5 MG Tab PO ONE (11:00)
[2021-10-23] MEDS ORDERED: LORazepam 0.5 MG Tab PO ONE (15:49)
[2021-10-23] MEDS ORDERED: Diltiazem 50 MG/10 ML SDV IVPUSH STA (18:01)
[2021-10-23] MEDS: Melatonin 3 MG Tab PO PRN (19:24)
[2021-10-23] MEDS: Warfarin 2.5 MG Tab PO SCH (19:31)
[2021-10-24 06:55] LABS: CHLORIDE,CL 101 mmol/L (98-107); SODIUM,NA 136 mmol/L (136-145)
[2021-10-24 06:59] LABS: ANION GAP 13.3 mmol/L (5-15)
[2021-10-24] MEDS: Potassium Chloride 10 MEQ Tab.ER PO SCH (07:49)
[2021-10-24] MEDS: Metoprolol Succinate 25 MG Tab.ER PO SCH ×3 (07:49→20:15)
[2021-10-24] MEDS: Phytonadione 100 MCG Tab PO SCH (07:49)
[2021-10-24] MEDS: Losartan 50 MG Tab PO SCH (07:49)
[2021-10-24] MEDS: Aspirin 81 MG Tab.EC PO SCH (07:51)
[2021-10-24] MEDS: Metoclopramide 5 MG Tab PO SCH ×3 (07:51→17:17)
[2021-10-24] MEDS: Torsemide 20 MG Tab PO SCH (07:51)
[2021-10-24] MEDS: Digoxin 125 MCG Tab PO SCH (07:53)
[2021-10-24] MEDS ORDERED: Digoxin 500 MCG/2 ML Amp IVPUSH ONE (09:12)
[2021-10-24] MEDS: Acetaminophen 325 MG Tab PO PRN ×3 (09:20→21:34)
[2021-10-24] MEDS: Loperamide 2 MG Cap PO PRN (15:52)
[2021-10-24] MEDS: Melatonin 3 MG Tab PO PRN (20:11)
[2021-10-24] MEDS: Warfarin 2.5 MG Tab PO SCH (20:11)
[2021-10-25 07:18] LABS: CHLORIDE,CL 100 mmol/L (98-107); SODIUM,NA 133 mmol/L (136-145)
[2021-10-25 07:21] LABS: ANION GAP 15.6 mmol/L (5-15)
[2021-10-25] MEDS: Acetaminophen 325 MG Tab PO PRN ×2 (07:38→13:39)
[2021-10-25] MEDS: Loperamide 2 MG Cap PO PRN ×2 (07:39→19:46)
[2021-10-25] MEDS: Metoprolol Succinate 25 MG Tab.ER PO SCH ×2 (07:40→19:48)
[2021-10-25] MEDS: Torsemide 20 MG Tab PO SCH (07:40)
[2021-10-25] MEDS: Potassium Chloride 10 MEQ Tab.ER PO SCH (07:40)
[2021-10-25] MEDS: Metoclopramide 5 MG Tab PO SCH ×3 (07:41→17:25)
[2021-10-25] MEDS: Aspirin 81 MG Tab.EC PO SCH (07:41)
[2021-10-25] MEDS: Digoxin 125 MCG Tab PO SCH (07:41)
[2021-10-25] MEDS: Losartan 50 MG Tab PO SCH (07:41)
[2021-10-25] MEDS: Phytonadione 100 MCG Tab PO SCH (07:41)
[2021-10-25] MEDS: LORazepam 0.5 MG Tab PO PRN (12:27)
[2021-10-25] MEDS: Azithromycin 250 MG Tab PO SCH (13:37)
[2021-10-25] MEDS: cefTRIAXone 1 GM Vial IVPUSH SCH (13:38)
[2021-10-25] MEDS: Melatonin 3 MG Tab PO PRN (19:46)
[2021-10-25] MEDS: Warfarin 2.5 MG Tab PO SCH (19:46)
[2021-10-26 06:58] LABS: CHLORIDE,CL 102 mmol/L (98-107); SODIUM,NA 135 mmol/L (136-145)
[2021-10-26 06:59] LABS: ANION GAP 14.5 mmol/L (5-15)
[2021-10-26] MEDS: Phytonadione 100 MCG Tab PO SCH (08:08)
[2021-10-26] MEDS: Metoprolol Succinate 25 MG Tab.ER PO SCH (08:09)
[2021-10-26] MEDS: Losartan 50 MG Tab PO SCH (08:09)
[2021-10-26] MEDS: Aspirin 81 MG Tab.EC PO SCH (08:09)
[2021-10-26] MEDS: Metoclopramide 5 MG Tab PO SCH ×2 (08:10→11:08)
[2021-10-26] MEDS: Azithromycin 250 MG Tab PO SCH (08:10)
[2021-10-26] MEDS: Torsemide 20 MG Tab PO SCH (08:10)
[2021-10-26] MEDS: Digoxin 125 MCG Tab PO SCH (08:10)
[2021-10-26] MEDS: cefTRIAXone 1 GM Vial IVPUSH SCH (08:11)
[2021-10-26] MEDS: LORazepam 0.5 MG Tab PO PRN (11:08)
[2021-10-26] MEDS: Acetaminophen 325 MG Tab PO PRN (11:22)
== END 2021-10-26 12:28 | disposition home health service (06) | DRG 308 ==
LOC: VM.ED 15:21 → VM.MS 17:11
PROVIDERS: ADMIT Physician Assistant; ATTEND Family Medicine
DX: I48.91 Unspecified atrial fibrillation (principal); J18.9 Pneumonia, unspecified organism; J30.9 Allergic rhinitis, unspecified; N30.00 Acute cystitis without hematuria; I10 Essential (primary) hypertension; E44.0 Moderate protein-calorie malnutrition; Z68.1 Body mass index [BMI] 19.9 or less, adult; I50.32 Chronic diastolic (congestive) heart failure; E87.1 Hypo-osmolality and hyponatremia; K52.831 Collagenous colitis; F41.9 Anxiety disorder, unspecified; K21.9 Gastro-esophageal reflux disease without esophagitis; E78.00 Pure hypercholesterolemia, unspecified; J31.0 Chronic rhinitis; M81.0 Age-related osteoporosis without current pathological fracture; D64.9 Anemia, unspecified; I35.2 Nonrheumatic aortic (valve) stenosis with insufficiency; B96.89 Other specified bacterial agents as the cause of diseases classified elsewhere; Z20.822 Contact with and (suspected) exposure to COVID-19; I11.0 Hypertensive heart disease with heart failure; E78.1 Pure hyperglyceridemia; Z79.82 Long term (current) use of aspirin; Z79.01 Long term (current) use of anticoagulants; Z88.1 Allergy status to other antibiotic agents; Z88.8 Allergy status to other drugs, medicaments and biological substances; Z88.2 Allergy status to sulfonamides; Z88.5 Allergy status to narcotic agent; Z79.899 Other long term (current) drug therapy
CPT/HCPCS: 0241U; 36415; 51798; 71045; 71046; 80048; 80053; 80162; 81001; 83735; 83880; 84443; 84484; 85025; 85610; 86140; 87086; 87088; 87186; 93005; 96374; 96375; 97110-GP; 97116-GP; 97161-GP; 99285-25; A9270-GY; J0696; J1160; J1940; J3475; J3480; J3490; U0002

== ENCOUNTER 2022-01-29 00:05 | Inpatient (IN) | payer MEDICARE, BC ==
[2022-01-29] MEDS ORDERED: Sodium Chloride 0.9% 10 ML Syringe FLUSH PRN (00:32)
[2022-01-29] MEDS ORDERED: Lactated Ringers 1,000 ML IV ONE (00:34)
[2022-01-29] MEDS ORDERED: Prochlorperazine 10 MG/2 ML SDV IV ONE (00:34)
[2022-01-29 01:27] LABS: CHLORIDE,CL 89 mmol/L (98-107)
[2022-01-29 01:28] LABS: SODIUM,NA 123 mmol/L (136-145)
[2022-01-29] MEDS ORDERED: Sodium Chloride 0.9% 1,000 ML IV ONE (02:24)
[2022-01-29] MEDS: Acetaminophen 325 MG Tab PO PRN (08:59)
[2022-01-29] MEDS: Ondansetron 4 MG/2 ML SDV IV PRN ×2 (08:59→18:08)
[2022-01-29] MEDS ORDERED: Magnesium Sulfate/Water 4 GM in Premix Bag 1 BAG IV ONE (09:47)
[2022-01-29] MEDS ORDERED: Melatonin 3 MG Tab PO PRN (09:49)
[2022-01-29] MEDS ORDERED: Hypromellose 0.3% Ophth Soln 15 ML Bottle EYEBOTH PRN (09:49)
[2022-01-29] MEDS ORDERED: Calcium Carbonate 750 MG Tab.Chew PO PRN (09:49)
[2022-01-29] MEDS ORDERED: Pantoprazole 20 MG Tab, Delayed Release PO PRN (09:49)
[2022-01-29] MEDS ORDERED: LORazepam 0.5 MG Tab PO PRN (09:49)
[2022-01-29] MEDS ORDERED: [UNRECOGNIZED DRUG - REMARK] SCH (10:00)
[2022-01-29 10:46] LABS: CHLORIDE,CL 98 mmol/L (98-107); SODIUM,NA 131 mmol/L (136-145)
[2022-01-29 11:03] LABS: ANION GAP 10.1 mmol/L (5-15)
[2022-01-29] MEDS: Digoxin 125 MCG Tab PO SCH (11:16)
[2022-01-29] MEDS: Lactobacillus Rhamnosus GG (Probiotic) Cap PO SCH ×2 (11:17→20:07)
[2022-01-29] MEDS ORDERED: Warfarin 2.5 MG Tab PO SCH (20:00)
[2022-01-29] MEDS ORDERED: Allopurinol 100 MG Tab PO SCH (21:00)
[2022-01-30] MEDS: Acetaminophen 325 MG Tab PO PRN (03:51)
[2022-01-30 07:13] LABS: CHLORIDE,CL 103 mmol/L (98-107); SODIUM,NA 136 mmol/L (136-145)
[2022-01-30 07:14] LABS: ANION GAP 9.3 mmol/L (5-15)
[2022-01-30] MEDS: Torsemide 20 MG Tab PO SCH ×2 (07:43→11:01)
[2022-01-30] MEDS: cefTRIAXone 1 GM Vial IVPUSH SCH ×2 (07:43→11:01)
[2022-01-30] MEDS: Aspirin 81 MG Tab.EC PO SCH ×2 (07:43→11:01)
[2022-01-30] MEDS: Lactobacillus Rhamnosus GG (Probiotic) Cap PO SCH ×3 (07:43→20:24)
[2022-01-30] MEDS: Cholecalciferol (Vitamin D3) 25 MCG Tab PO SCH ×2 (07:44→11:02)
[2022-01-30] MEDS: Psyllium Husk Powder Sugar Free 5.85 GM Packet PO SCH (07:44)
[2022-01-30] MEDS: Losartan 50 MG Tab PO SCH ×2 (07:44→11:00)
[2022-01-30] MEDS: Phytonadione 100 MCG Tab PO SCH ×2 (07:44→11:02)
[2022-01-30] MEDS: Digoxin 125 MCG Tab PO SCH ×2 (07:45→11:01)
[2022-01-30] MEDS: Metoprolol Succinate 50 MG Tab.ER PO SCH ×2 (07:45→11:01)
[2022-01-30] MEDS ORDERED: Allopurinol 100 MG Tab PO SCH ×2 (08:00→21:00)
[2022-01-30] MEDS ORDERED: Potassium Chloride 10 MEQ Tab.ER PO SCH (09:00)
[2022-01-30] MEDS: predniSONE 5 MG Tab PO SCH (09:43)
[2022-01-30] MEDS ORDERED: Warfarin 2.5 MG Tab PO SCH (20:00)
[2022-01-31 07:07] LABS: ANION GAP 10.5 mmol/L (5-15); CHLORIDE,CL 101 mmol/L (98-107); SODIUM,NA 136 mmol/L (136-145)
[2022-01-31] MEDS: Psyllium Husk Powder Sugar Free 5.85 GM Packet PO SCH (08:23)
[2022-01-31] MEDS: Lactobacillus Rhamnosus GG (Probiotic) Cap PO SCH (08:52)
[2022-01-31] MEDS: predniSONE 5 MG Tab PO SCH (08:53)
[2022-01-31] MEDS ORDERED: Digoxin 125 MCG Tab PO SCH (09:00)
[2022-01-31] MEDS ORDERED: Potassium Chloride 10 MEQ Tab.ER PO SCH (09:00)
[2022-01-31] MEDS ORDERED: Torsemide 20 MG Tab PO SCH (09:00)
[2022-01-31] MEDS ORDERED: Phytonadione 100 MCG Tab PO SCH (09:00)
[2022-01-31] MEDS ORDERED: Cholecalciferol (Vitamin D3) 25 MCG Tab PO SCH (09:00)
[2022-01-31] MEDS ORDERED: Aspirin 81 MG Tab.EC PO SCH (09:00)
[2022-01-31] MEDS ORDERED: Metoprolol Succinate 50 MG Tab.ER PO SCH (09:00)
[2022-01-31] MEDS ORDERED: cefTRIAXone 1 GM Vial IVPUSH SCH (09:00)
[2022-01-31] MEDS ORDERED: Losartan 25 MG Tab PO SCH (09:00)
[2022-01-31] MEDS ORDERED: [UNRECOGNIZED DRUG - REMARK] SCH (09:45)
[2022-01-31] MEDS ORDERED: Warfarin 2.5 MG Tab PO SCH (21:00)
[2022-02-06] MEDS ORDERED: Warfarin 2.5 MG Tab PO SCH ×2 (20:00→21:00)
== END 2022-01-31 09:45 | disposition home or self-care (01) | DRG 641 ==
LOC: VM.ED 00:05 → VM.MS 02:20 → UNDODISIN 01-31 09:45
PROVIDERS: ADMIT Nurse Practitioner Family; ATTEND Internal Medicine
DX: E87.1 Hypo-osmolality and hyponatremia (principal); N30.00 Acute cystitis without hematuria; R11.2 Nausea with vomiting, unspecified; N39.0 Urinary tract infection, site not specified; R53.1 Weakness; J30.9 Allergic rhinitis, unspecified; R19.7 Diarrhea, unspecified; I48.91 Unspecified atrial fibrillation; F41.9 Anxiety disorder, unspecified; I35.1 Nonrheumatic aortic (valve) insufficiency; D64.9 Anemia, unspecified; Z20.822 Contact with and (suspected) exposure to COVID-19; I10 Essential (primary) hypertension; K21.9 Gastro-esophageal reflux disease without esophagitis; Z79.01 Long term (current) use of anticoagulants; M81.0 Age-related osteoporosis without current pathological fracture; E78.00 Pure hypercholesterolemia, unspecified; Z88.1 Allergy status to other antibiotic agents; M10.9 Gout, unspecified; G43.909 Migraine, unspecified, not intractable, without status migrainosus; Z90.49 Acquired absence of other specified parts of digestive tract; Z98.49 Cataract extraction status, unspecified eye; Z88.5 Allergy status to narcotic agent; Z88.2 Allergy status to sulfonamides; Z88.8 Allergy status to other drugs, medicaments and biological substances; Z79.82 Long term (current) use of aspirin; Z79.899 Other long term (current) drug therapy; Z90.710 Acquired absence of both cervix and uterus
CPT/HCPCS: 36415; 80048; 80053; 80162; 81001; 83735; 84550; 85025; 85610; 86140; 87086; 87493; 96374; 97116-GP; 97162-GP; 99223; 99285-25; A9270-GY; J0696; J0780; J2405; J3475; J3490; J7030; J7120; J7512; U0002

== ENCOUNTER 2022-02-10 14:39 | Inpatient (IN) | payer MEDICARE, BC ==
[2022-02-10] MEDS ORDERED: Sodium Chloride 0.9% 500 ML IV ONE (14:51)
[2022-02-10] MEDS ORDERED: Loperamide 2 MG Cap PO PRN (16:55)
[2022-02-10] MEDS ORDERED: Melatonin 3 MG Tab PO PRN (16:55)
[2022-02-10] MEDS ORDERED: D-Mannose [Azo D-Mannose] 500 MG Capsule PO SCH (17:30)
[2022-02-10] MEDS ORDERED: Sodium Chloride 0.9% 1,000 ML IV ONE (18:29)
[2022-02-10] MEDS: Beta-Carotene (Vitamin A) w/Vitamin C & E plus Minerals Tab PO SCH (20:37)
[2022-02-10] MEDS: Lactobacillus Rhamnosus GG (Probiotic) Cap PO SCH (20:37)
[2022-02-10] MEDS: Warfarin 2.5 MG Tab PO SCH (20:37)
[2022-02-10] MEDS: Allopurinol 100 MG Tab PO SCH (20:37)
[2022-02-10] MEDS: Psyllium Husk Powder Sugar Free 5.85 GM Packet PO SCH (20:38)
[2022-02-11 08:03] LABS: ANION GAP 11.2 mmol/L (5-15); CHLORIDE,CL 99 mmol/L (98-107); SODIUM,NA 135 mmol/L (136-145)
[2022-02-11] MEDS: Lactobacillus Rhamnosus GG (Probiotic) Cap PO SCH ×2 (08:33→20:26)
[2022-02-11] MEDS: Metoprolol Succinate 50 MG Tab.ER PO SCH (08:33)
[2022-02-11] MEDS: Digoxin 125 MCG Tab PO SCH (08:33)
[2022-02-11] MEDS: Beta-Carotene (Vitamin A) w/Vitamin C & E plus Minerals Tab PO SCH ×2 (08:33→20:26)
[2022-02-11] MEDS: Aspirin 81 MG Tab.EC PO SCH (08:33)
[2022-02-11] MEDS: Losartan 25 MG Tab PO SCH (08:43)
[2022-02-11] MEDS: Phytonadione 100 MCG Tab PO SCH (11:22)
[2022-02-11] MEDS: Cholecalciferol (Vitamin D3) 25 MCG Tab PO SCH (11:22)
[2022-02-11] MEDS: LORazepam 0.5 MG Tab PO PRN ×2 (11:22→20:27)
[2022-02-11] MEDS: Psyllium Husk Powder Sugar Free 5.85 GM Packet PO SCH (20:24)
[2022-02-11] MEDS: Allopurinol 100 MG Tab PO SCH (20:25)
[2022-02-11] MEDS: Warfarin 2.5 MG Tab PO SCH (20:26)
[2022-02-11] MEDS: Sodium Chloride 0.9% 10 ML Syringe FLUSH PRN (20:31)
[2022-02-12] MEDS: LORazepam 0.5 MG Tab PO PRN ×2 (08:17→12:39)
[2022-02-12] MEDS: Metoprolol Succinate 50 MG Tab.ER PO SCH (08:18)
[2022-02-12] MEDS: Aspirin 81 MG Tab.EC PO SCH (08:18)
[2022-02-12] MEDS: Torsemide 20 MG Tab PO SCH (08:18)
[2022-02-12] MEDS: Beta-Carotene (Vitamin A) w/Vitamin C & E plus Minerals Tab PO SCH ×2 (08:18→20:21)
[2022-02-12] MEDS: Lactobacillus Rhamnosus GG (Probiotic) Cap PO SCH ×2 (08:18→20:21)
[2022-02-12] MEDS: Digoxin 125 MCG Tab PO SCH (08:19)
[2022-02-12] MEDS: Losartan 25 MG Tab PO SCH (08:19)
[2022-02-12 09:03] LABS: CHLORIDE,CL 99 mmol/L (98-107); SODIUM,NA 134 mmol/L (136-145)
[2022-02-12 09:05] LABS: ANION GAP 9.4 mmol/L (5-15)
[2022-02-12] MEDS: Phytonadione 100 MCG Tab PO SCH (11:14)
[2022-02-12] MEDS: Cholecalciferol (Vitamin D3) 25 MCG Tab PO SCH (11:14)
[2022-02-12] MEDS: Psyllium Husk Powder Sugar Free 5.85 GM Packet PO SCH (20:21)
[2022-02-12] MEDS: Allopurinol 100 MG Tab PO SCH (20:21)
[2022-02-12] MEDS: Warfarin 2.5 MG Tab PO SCH (20:23)
[2022-02-13] MEDS: Acetaminophen 325 MG Tab PO PRN ×3 (05:16→23:23)
[2022-02-13 07:22] LABS: CHLORIDE,CL 94 mmol/L (98-107); SODIUM,NA 130 mmol/L (136-145)
[2022-02-13 07:23] LABS: ANION GAP 9.8 mmol/L (5-15)
[2022-02-13] MEDS ORDERED: Ondansetron 4 MG Tab.DIS PO PRN (08:35)
[2022-02-13] MEDS: Metoprolol Succinate 50 MG Tab.ER PO SCH (08:40)
[2022-02-13] MEDS: Aspirin 81 MG Tab.EC PO SCH (08:43)
[2022-02-13] MEDS: Beta-Carotene (Vitamin A) w/Vitamin C & E plus Minerals Tab PO SCH ×2 (08:45→20:43)
[2022-02-13] MEDS: Lactobacillus Rhamnosus GG (Probiotic) Cap PO SCH ×2 (08:46→20:42)
[2022-02-13] MEDS: Torsemide 20 MG Tab PO SCH (08:46)
[2022-02-13] MEDS ORDERED: Calcium Carbonate 750 MG Tab.Chew PO PRN (09:23)
[2022-02-13] MEDS ORDERED: Metoclopramide 5 MG Tab PO PRN (09:25)
[2022-02-13] MEDS ORDERED: Omeprazole 20 MG Cap.CR PO PRN (09:25)
[2022-02-13] MEDS ORDERED: Hypromellose 0.3% Ophth Soln 15 ML Bottle EYEBOTH PRN (09:26)
[2022-02-13] MEDS: Losartan 25 MG Tab PO SCH (10:33)
[2022-02-13] MEDS: Cholecalciferol (Vitamin D3) 25 MCG Tab PO SCH (12:50)
[2022-02-13] MEDS: Phytonadione 100 MCG Tab PO SCH (12:50)
[2022-02-13] MEDS: Cranberry 500 MG Cap PO SCH ×2 (12:50→17:56)
[2022-02-13] MEDS ORDERED: Warfarin 2.5 MG Tab PO SCH (20:00)
[2022-02-13] MEDS: Psyllium Husk Powder Sugar Free 5.85 GM Packet PO SCH (20:42)
[2022-02-13] MEDS: Allopurinol 100 MG Tab PO SCH (20:43)
[2022-02-13] MEDS: Sodium Chloride 0.9% 10 ML Syringe FLUSH PRN (20:44)
[2022-02-13] MEDS ORDERED: cefTRIAXone 1 GM Vial IVPUSH ONE (21:23)
[2022-02-14] MEDS: Acetaminophen 325 MG Tab PO PRN (03:26)
[2022-02-14 06:51] LABS: CHLORIDE,CL 97 mmol/L (98-107); SODIUM,NA 134 mmol/L (136-145)
[2022-02-14 06:52] LABS: ANION GAP 10.4 mmol/L (5-15)
[2022-02-14] MEDS: Torsemide 20 MG Tab PO SCH (08:36)
[2022-02-14] MEDS: Metoprolol Succinate 50 MG Tab.ER PO SCH (08:36)
[2022-02-14] MEDS: Aspirin 81 MG Tab.EC PO SCH (08:37)
[2022-02-14] MEDS: Lactobacillus Rhamnosus GG (Probiotic) Cap PO SCH (08:37)
[2022-02-14] MEDS: Cranberry 500 MG Cap PO SCH ×2 (08:37→12:11)
[2022-02-14] MEDS: Beta-Carotene (Vitamin A) w/Vitamin C & E plus Minerals Tab PO SCH (08:37)
[2022-02-14] MEDS: Losartan 25 MG Tab PO SCH (08:37)
[2022-02-14] MEDS: Digoxin 125 MCG Tab PO SCH (08:40)
[2022-02-14] MEDS ORDERED: Potassium Chloride 10 MEQ Tab.ER PO SCH ×2 (09:15→09:30)
[2022-02-14] MEDS: Cholecalciferol (Vitamin D3) 25 MCG Tab PO SCH (12:11)
[2022-02-14] MEDS: Phytonadione 100 MCG Tab PO SCH (12:11)
[2022-02-14] MEDS ORDERED: cefTRIAXone 1 GM Vial IVPUSH ONE (13:00)
== END 2022-02-14 13:45 | disposition home or self-care (01) | DRG 641 ==
LOC: VM.MS 14:40
PROVIDERS: ADMIT Internal Medicine; ATTEND Internal Medicine
DX: E87.1 Hypo-osmolality and hyponatremia (principal); N39.0 Urinary tract infection, site not specified; I50.32 Chronic diastolic (congestive) heart failure; E46 Unspecified protein-calorie malnutrition; Z68.1 Body mass index [BMI] 19.9 or less, adult; E86.0 Dehydration; I48.0 Paroxysmal atrial fibrillation; Z20.822 Contact with and (suspected) exposure to COVID-19; R79.1 Abnormal coagulation profile; I11.0 Hypertensive heart disease with heart failure; D64.9 Anemia, unspecified; F41.9 Anxiety disorder, unspecified; M81.0 Age-related osteoporosis without current pathological fracture; M10.9 Gout, unspecified; I35.0 Nonrheumatic aortic (valve) stenosis; E78.1 Pure hyperglyceridemia; I08.0 Rheumatic disorders of both mitral and aortic valves; G43.909 Migraine, unspecified, not intractable, without status migrainosus; K21.9 Gastro-esophageal reflux disease without esophagitis; R33.9 Retention of urine, unspecified; Z95.2 Presence of prosthetic heart valve; Z88.5 Allergy status to narcotic agent; Z88.8 Allergy status to other drugs, medicaments and biological substances; Z88.1 Allergy status to other antibiotic agents; Z79.899 Other long term (current) drug therapy; Z79.01 Long term (current) use of anticoagulants; Z87.440 Personal history of urinary (tract) infections
CPT/HCPCS: 36415; 51798; 71046; 80048; 80053; 81001; 81003; 83735; 83880; 83930; 83935; 84295; 84484; 85025; 85610; 87086; 87088; 87186; 97161-GP; A9270-GY; J0696; J3490; J7030; U0002